=== PATIENT | male | born 1945 | race Caucasian/White ===

== ENCOUNTER 2021-09-27 12:34 | Outpatient (REF) | payer OTHER, SELFPAY ==
[2021-09-27 14:53] LABS: MANUAL DIFF FLAG NO
[2021-09-27 14:59] LABS: Basophils Absolute Auto 0.1 X10*3/uL (0.0-0.2); Basophils Percent Auto 0.7 % (0-2); Eosinophils Absolute Auto 0.5 X10*3/uL (0.0-0.4); Eosinophils Percent Auto 6.1 % (0-4); Hematocrit 44.4 % (42.0-52.0); Imm Gran Abs Auto 0.01 X10*3/uL (0.00-0.03); Imm Gran Pct Auto 0.1 % (0.0-0.4); Lymphocytes Absolute Auto 2.3 X10*3/uL (1.2-4.9); Lymphocytes Percent Auto 26.8 % (20-40); Mean Corpuscular HGB Conc 33.8 g/dl (31.0-36.0); Mean Corpuscular Hemoglobin 32.1 pg (27.0-33.0); Mean Corpuscular Volume 94.9 fL (80.0-98.0); Mean Platelet Volume 11.3 fL (9.4-12.4); Monocytes Absolute Auto 0.6 X10*3/uL (0.1-1.2); Monocytes Percent Auto 7.3 % (2-11); Platelet Count 203 X10*3/uL (160-400); Red Blood Count 4.68 X10*6/uL (4.60-5.80); Red Cell Distribution Width 12.7 % (11.0-16.0); White Blood Count 8.5 X10*3/uL (4.8-10.8)
[2021-09-27 15:43] LABS: T4 Thyroxine 7.6 ug/dL (4.5-12.0); Thyroid Stimulating Hormone 0.86 uIU/mL (0.32-4.0)
== END 2021-09-27 12:35 | disposition home or self-care (01) ==
LOC: HO.10HDL 12:34
PROVIDERS: Visit Provider Internal Medicine Gastroenterology
DX: R19.7 Diarrhea, unspecified (principal)
CPT/HCPCS: 36415; 84436; 84443; 85025

== ENCOUNTER 2022-03-06 08:27 | Outpatient (REF) | payer OTHER, SELFPAY ==
--- NOTE | ~2022-03-06 | US_ITS ---
EXAMINATION: US RETROPERITONEAL COMPLETE (RENAL) CLINICAL INFORMATION: Recurrent UTI. COMPARISON: None TECHNIQUE: Real-time imaging of the kidneys and bladder. FINDINGS: RIGHT KIDNEY: 11.1 x 6.1 x 5.5 cm (SAG x AP x TRV). The kidney is normal in size, contour, and echogenicity. Renal cortical thickness is normal. No calculi or focal parenchymal lesions. No hydronephrosis. There appears be an extrarenal pelvis present. LEFT KIDNEY: 11.6 x 5.9 x 5.5 cm (SAG x AP x TRV). The kidney is normal in size, contour, and echogenicity. Renal cortical thickness is normal. No calculi or focal parenchymal lesions. No hydronephrosis. There appears to be an extrarenal pelvis. BLADDER: Well distended and normal. Bilateral ureteral jets are demonstrated. Prevoid bladder volume is 392 mL. Postvoid bladder volume is 179 mL. Bladder wall is thickened at 5 mm in diameter. PROSTATE VOLUME: 45 mL. US/US retroperitoneal comp IMPRESSION: No evidence of obstructive uropathy. Large postvoid residual. Thickened urinary bladder wall..
== END 2022-03-06 08:28 | disposition home or self-care (01) ==
LOC: HO.US 08:27
PROVIDERS: PCP Student in an Organized Health Care Education/Training Program; Visit Provider Student in an Organized Health Care Education/Training Program
DX: N39.0 Urinary tract infection, site not specified (principal)
CPT/HCPCS: 76770

== ENCOUNTER 2022-04-02 09:21 | Outpatient (REF) | payer OTHER, SELFPAY ==
--- NOTE | ~2022-04-02 | US_ITS ---
EXAMINATION: COLOR-FLOW DUPLEX IMAGING OF THE BILATERAL LOWER EXTREMITY ARTERIAL SYSTEM. VELOCITY MEASUREMENTS THROUGHOUT THE FEMORAL ARTERIES WITH ANKLE-BRACHIAL PERIPHERAL ARTERIAL TESTING. Interventional Radiologist: Tiburcio Alvarado M.D., F.S.I.R., F.A.C.R. CLINICAL INFORMATION: This is a 76 year old male with a history of hypertension and smoking. Peripheral vascular disease. RIGHT FEMORAL RUNOFF VELOCITIES: The right common femoral artery measures 121 cm/s and biphasic. The right profunda femoral artery is 126 cm/s and is biphasic. Right proximal superficial femoral artery measures 60 cm/s and monophasic. Mid superficial femoral artery is 16 cm/s and monophasic. Distal right superficial femoral artery measures 104 cm/s and is monophasic. Right popliteal velocity measures 36 cm/s and is abnormal. The posterior tibial artery velocity measures 42 cm/s and was monophasic. The right ankle-brachial index is 0.69. The waveforms appear depressed. LEFT FEMORAL RUNOFF VELOCITIES: The left common femoral artery measures 125 cm/s and biphasic. The left profunda femoral artery is 147 cm/s and is biphasic. Left proximal superficial femoral artery measures 92 cm/s and triphasic. Mid superficial femoral artery is 105 cm/s and triphasic. Distal left superficial femoral artery measures 113 cm/s and is triphasic. Left popliteal velocity measures 90 cm/s and is biphasic. The left ankle-brachial index is 1.07. An arrhythmia is demonstrated during the Doppler portion of the examination. US/US arterial duplex LE IMPRESSION: 1. There is a short segment with very slow or absent flow in the mid right superficial femoral artery. This is considered a hemodynamically significant stenosis. This also could represent an embolus. 2. Normal left leg runoff without hemodynamically significant stenosis.
--- NOTE | ~2022-04-02 | US_ITS ---
EXAMINATION: COLOR-FLOW DUPLEX IMAGING OF THE BILATERAL LOWER EXTREMITY ARTERIAL SYSTEM. VELOCITY MEASUREMENTS THROUGHOUT THE FEMORAL ARTERIES WITH ANKLE-BRACHIAL PERIPHERAL ARTERIAL TESTING. Interventional Radiologist: Tiburcio Alvarado M.D., F.S.I.R., F.A.C.R. CLINICAL INFORMATION: This is a 76 year old male with a history of hypertension and smoking. Peripheral vascular disease. RIGHT FEMORAL RUNOFF VELOCITIES: The right common femoral artery measures 121 cm/s and biphasic. The right profunda femoral artery is 126 cm/s and is biphasic. Right proximal superficial femoral artery measures 60 cm/s and monophasic. Mid superficial femoral artery is 16 cm/s and monophasic. Distal right superficial femoral artery measures 104 cm/s and is monophasic. Right popliteal velocity measures 36 cm/s and is abnormal. The posterior tibial artery velocity measures 42 cm/s and was monophasic. The right ankle-brachial index is 0.69. The waveforms appear depressed. LEFT FEMORAL RUNOFF VELOCITIES: The left common femoral artery measures 125 cm/s and biphasic. The left profunda femoral artery is 147 cm/s and is biphasic. Left proximal superficial femoral artery measures 92 cm/s and triphasic. Mid superficial femoral artery is 105 cm/s and triphasic. Distal left superficial femoral artery measures 113 cm/s and is triphasic. Left popliteal velocity measures 90 cm/s and is biphasic. The left ankle-brachial index is 1.07. An arrhythmia is demonstrated during the Doppler portion of the examination. US/US HAILEY complete IMPRESSION: 1. There is a short segment with very slow or absent flow in the mid right superficial femoral artery. This is considered a hemodynamically significant stenosis. This also could represent an embolus. 2. Normal left leg runoff without hemodynamically significant stenosis.
== END 2022-04-02 09:22 | disposition home or self-care (01) ==
LOC: HO.US 09:21
PROVIDERS: Visit Provider Surgery Vascular Surgery
DX: I73.9 Peripheral vascular disease, unspecified (principal)
CPT/HCPCS: 93923; 93925

== ENCOUNTER → 2022-04-05 10:30 | Outpatient (BNVA) | payer OTHER, SELFPAY | PROVIDERS: PCP Student in an Organized Health Care Education/Training Program; Visit Provider Surgery Vascular Surgery | DX: I73.9 Peripheral vascular disease, unspecified (principal) | CPT/HCPCS: 99202 ==

== ENCOUNTER 2022-04-06 06:01 | Day surgery (SDC) | payer OTHER, SELFPAY ==
[2022-04-06] VITALS (8 sets, daily range): BP systolic 116–163; BP diastolic 47–77; PULSE 52–72; RESP 16–18; TEMP 36.1–36.5; O2SAT 95–97; BMI 24.7
[2022-04-06 06:44] LABS: MANUAL DIFF FLAG NO
[2022-04-06] MEDS: 0.9 % Sodium Chloride 1,000 ML 100 ML IVCONT (06:51)
[2022-04-06 06:54] LABS: Basophils Absolute Auto 0.1 X10*3/uL (0.0-0.2); Basophils Percent Auto 0.7 % (0-2); Eosinophils Absolute Auto 0.4 X10*3/uL (0.0-0.4); Eosinophils Percent Auto 6.1 % (0-4); Hematocrit 43.1 % (42.0-52.0); Hemoglobin 14.6 g/dl (14.0-18.0); Imm Gran Abs Auto 0.03 X10*3/uL (0.00-0.03); Imm Gran Pct Auto 0.4 % (0.0-0.4); Lymphocytes Absolute Auto 2.2 X10*3/uL (1.2-4.9); Lymphocytes Percent Auto 31.9 % (20-40); Mean Corpuscular HGB Conc 33.9 g/dl (31.0-36.0); Mean Corpuscular Hemoglobin 31.5 pg (27.0-33.0); Mean Corpuscular Volume 92.9 fL (80.0-98.0); Mean Platelet Volume 10.6 fL (9.4-12.4); Monocytes Absolute Auto 0.7 X10*3/uL (0.1-1.2); Monocytes Percent Auto 10.4 % (2-11); Neutrophils Absolute Auto 3.5 x10*3/uL (2.0-8.3); Neutrophils Percent Auto 50.5 % (45-73); Platelet Count 166 X10*3/uL (160-400); Red Blood Count 4.64 X10*6/uL (4.60-5.80); Red Cell Distribution Width 12.3 % (11.0-16.0); White Blood Count 6.9 X10*3/uL (4.8-10.8)
[2022-04-06 07:01] LABS: Blood Urea Nitrogen 10 mg/dL (9-16); Creatinine Clr Calc Pharmacy 67.7; Estimated Glomerular Filt Rate > 60
[2022-04-06] MEDS: iohexoL 300 MG/ML 100 ML INFUS..BTL 150 ML IV (09:23)
--- NOTE | 2022-04-06 09:56 | P.OP_ITS ---
Operative Note Operative Note Date of Service: 04/06/22 Narrative: Angiogram report from [facility] Preoperative diagnosis: Atherosclerosis of right lower extremity with activity limiting claudication Postoperative diagnosis: Same Procedure: 1. Ultrasound-guided left common femoral access 2. Aortogram with right lower extremity runoff 3. Right SFA atherectomy and stent Surgeon:Reji Amaya M.D., FACS, RPVI Manager Steel:None Anesthesia: Local with moderate conscious sedation. Total intraservice moderate sedation time was 74 minutes. I monitored the patient's level of consciousness and physiologic status continuously throughout the procedure. Specimens:none Drains:none Estimated blood loss: Less than 10 ml Implant: Medtronic Ev 3 Everflex 6 x 60 stent Indications: Very pleasant 76-year-old gentleman with a history of activity limiting claudication. He has had prior ultrasound evaluation. He now presents for endovascular intervention. The patient has signed the informed consent after reviewing risks, complications, benefits, and alternatives previously discussed with the patient. The patient was given the opportunity to ask any additional questions or voice any concerns. All questions were answered to the patient's satisfaction. Procedure in detail: Patient was brought to the angiography suite prior to which a time-out was called for patient identification and site verification. Bilateral groins were prepped and draped in the standard surgical fashion. Under ultrasound guidance left common femoral was punctured with micro puncture needle and wire. Subsequently a precision 5 Haitian sheath was then placed. Bentson wire was advanced to the level of the aorta. 5 [place]ian Flush catheter was brought up and parked at the level of the renal arteries. Aortogram was then undertaken. Catheter was brought down to the level of the iliac bifurcation. Iliacs were subsequently imaged. Catheter was then brought in up and over to the right side SFA. Runoff study was then undertaken. It was recognized that there was a total proximal occlusion of the SFA. At this time 5000 units of systemic heparin was administered. An up and over 6 Haitian sheath was then placed. Once this was accomplished we used an 035 glidewire Advantage. After some manipulation we were able to traverse the lesion. Once across we have followed with a now be cross catheter. We instilled the catheter with contrast to ensure true lumen. Once this was accomplished 6 Haitian spider wire was then placed. Hawk 1 atherectomy device was used in the proximal SFA with multiple unidirectional passes. Once this was all accomplished additional passes were then undertaken. Once this was all accomplished she we then plasty this area with a 6 x 40 balloon. There was still residual stenosis noted we placed a 6 x 60 stent. We used the balloon after deployment to obtain good wall apposition. Completion angiogram demonstrated excellent result catheter wire sheath was brought back to the ipsilateral side StarClose closure device was then deployed. At the end the case sponge instrument counts were correct. Patient tolerated the procedure well. Returned to recovery with stable vitals. Interpretation of films: 1. Ultrasound demonstrates appropriate femoral puncture. Image of which was saved. 2. Aortogram demonstrates appropriate caliber aorta. Minimal disease. Appropriate take-off of the renals. 3. Iliac images demonstrate significant tortuosity with acute angle bifurcation. 4. Right Leg Common femoral artery: No significant disease Profundus Femoris: No significant disease Superficial femoral artery: Proximal 1/3 total occlusion with reconstitution into the SFA Popliteal artery (p1,p2,p3): No significant disease Anterior tibial artery: Patent all the way to the foot Peroneal artery: Patent but diminutive Posterior tibial artery: Patent all the way to the foot Dorsalis pedis/plantar arch: Incomplete Conclusion: 1. Successful atherectomy and stent of right SFA 2. Anticoagulation status: Patient will require aspirin and Plavix for 6 months. This note is constructed using voice recognition software. While every effort has been made to ensure accuracy, enamel pulverizer errors may have been included. Thank you for allowing me to participate in the care of your patient. Yours sincerely, Reji Amaya MD, FACS, R.P.V.I.
[2022-04-06] MEDS: ondansetron HCL 4 MG/2 ML VIAL IVPUSH (10:03)
[2022-04-06] MEDS: Clopidogrel Bisulfate 300 MG TABLET PO (10:08)
[2022-04-06] MEDS: Aspirin 325 MG TABLET 650 MG PO (10:47)
== END 2022-04-06 12:11 | disposition home or self-care (01) ==
PROVIDERS: PCP Student in an Organized Health Care Education/Training Program; Visit Provider Surgery Vascular Surgery
DX: I70.211 Atherosclerosis of native arteries of extremities with intermittent claudication, right leg (principal); M79.661 Pain in right lower leg; R26.2 Difficulty in walking, not elsewhere classified; Z87.891 Personal history of nicotine dependence; Z98.890 Other specified postprocedural states
CPT/HCPCS: 36415; 37227; 76937; 82565; 84520; 85025; 99152; 99153; C1714; C1725; C1760; C1769; C1876; C1884; C1887; J2250; J2405; J3010; Q9967

== ENCOUNTER → 2022-04-19 10:50 | Outpatient (BNVA) | payer OTHER, SELFPAY | PROVIDERS: PCP Student in an Organized Health Care Education/Training Program; Visit Provider Surgery Vascular Surgery | DX: I73.9 Peripheral vascular disease, unspecified (principal) | CPT/HCPCS: 99212 ==

== ENCOUNTER 2022-07-01 07:49 | Outpatient (REF) | payer OTHER, SELFPAY ==
--- NOTE | ~2022-07-01 | US_ITS ---
EXAMINATION: ANKLE-BRACHIAL INDICES SINGLE LEVEL PULSE VOLUME RECORDING ARTERIAL DUPLEX BILATERAL LEGS CLINICAL INFORMATION: Peripheral vascular disease. COMPARISON: 04/02/2022. TECHNIQUE: Ankle-brachial indices and PVR at the ankle were obtained. Duplex Doppler of the bilateral lower extremity arterial systems was performed. FINDINGS: RIGHT: Ankle-brachial index: 1.11 PVR: Normal Common femoral: PSV 138 cm/s. Triphasic waveform. Deep femoral: PSV 116 cm/s. Biphasic waveform. Proximal superficial femoral: PSV 130 cm/s. Triphasic waveform. Stented segment of proximal/mid SFA: The stent is widely patent with triphasic waveforms and velocities ranging 146-177 cm/s. Mid superficial femoral: PSV 109 cm/s. Triphasic waveform. Distal superficial femoral: PSV 98 cm/s. Triphasic waveform. Popliteal: PSV 79 cm/s. Biphasic waveform. Posterior tibial: PSV 94 cm/s. Triphasic waveform. Peroneal: PSV 72 cm/s. Biphasic waveform. LEFT: Ankle-brachial index: 1.15 PVR: Normal Common femoral: PSV 114 cm/s. Triphasic waveform. Deep femoral: PSV 141 cm/s. Biphasic waveform. Proximal superficial femoral: PSV 87 cm/s. Biphasic waveform. Mid superficial femoral: PSV 105 cm/s. Triphasic waveform. Distal superficial femoral: PSV 84 cm/s. Triphasic waveform. Popliteal: PSV 104 cm/s. Biphasic waveform. Posterior tibial: PSV 96 cm/s. Biphasic waveform. Peroneal: PSV 59 cm/s. Biphasic waveform. US/US HAILEY complete IMPRESSION: No evidence of hemodynamically significant peripheral arterial disease bilaterally. The high-grade lesion in the right superficial femoral artery on the previous exam has been treated with a stent. The stent is patent with normal waveforms and velocities.
--- NOTE | ~2022-07-01 | US_ITS ---
EXAMINATION: ANKLE-BRACHIAL INDICES SINGLE LEVEL PULSE VOLUME RECORDING ARTERIAL DUPLEX BILATERAL LEGS CLINICAL INFORMATION: Peripheral vascular disease. COMPARISON: 04/02/2022. TECHNIQUE: Ankle-brachial indices and PVR at the ankle were obtained. Duplex Doppler of the bilateral lower extremity arterial systems was performed. FINDINGS: RIGHT: Ankle-brachial index: 1.11 PVR: Normal Common femoral: PSV 138 cm/s. Triphasic waveform. Deep femoral: PSV 116 cm/s. Biphasic waveform. Proximal superficial femoral: PSV 130 cm/s. Triphasic waveform. Stented segment of proximal/mid SFA: The stent is widely patent with triphasic waveforms and velocities ranging 146-177 cm/s. Mid superficial femoral: PSV 109 cm/s. Triphasic waveform. Distal superficial femoral: PSV 98 cm/s. Triphasic waveform. Popliteal: PSV 79 cm/s. Biphasic waveform. Posterior tibial: PSV 94 cm/s. Triphasic waveform. Peroneal: PSV 72 cm/s. Biphasic waveform. LEFT: Ankle-brachial index: 1.15 PVR: Normal Common femoral: PSV 114 cm/s. Triphasic waveform. Deep femoral: PSV 141 cm/s. Biphasic waveform. Proximal superficial femoral: PSV 87 cm/s. Biphasic waveform. Mid superficial femoral: PSV 105 cm/s. Triphasic waveform. Distal superficial femoral: PSV 84 cm/s. Triphasic waveform. Popliteal: PSV 104 cm/s. Biphasic waveform. Posterior tibial: PSV 96 cm/s. Biphasic waveform. Peroneal: PSV 59 cm/s. Biphasic waveform. US/US arterial duplex LE BI IMPRESSION: No evidence of hemodynamically significant peripheral arterial disease bilaterally. The high-grade lesion in the right superficial femoral artery on the previous exam has been treated with a stent. The stent is patent with normal waveforms and velocities.
== END 2022-07-01 07:50 | disposition home or self-care (01) ==
LOC: HO.US 07:49
PROVIDERS: Visit Provider Surgery Vascular Surgery
DX: I73.9 Peripheral vascular disease, unspecified (principal)
CPT/HCPCS: 93923; 93925

== ENCOUNTER → 2022-07-12 08:45 | Outpatient (BNVA) | payer OTHER, SELFPAY | PROVIDERS: PCP Student in an Organized Health Care Education/Training Program; Visit Provider Surgery Vascular Surgery | DX: I73.9 Peripheral vascular disease, unspecified (principal) | CPT/HCPCS: 99212 ==

== ENCOUNTER → 2022-07-13 09:06 | Outpatient (BNVA) | payer OTHER, SELFPAY | PROVIDERS: PCP Student in an Organized Health Care Education/Training Program; Visit Provider Urology | DX: N40.1 Benign prostatic hyperplasia with lower urinary tract symptoms (principal); R33.9 Retention of urine, unspecified | CPT/HCPCS: 51798; 99202 ==

== ENCOUNTER 2022-07-20 12:52 | Outpatient (REF) | payer OTHER, SELFPAY ==
[2022-07-27 20:52] LABS: PSA, Ultra Sensitive 0.67 ng/mL
== END 2022-07-20 12:53 | disposition home or self-care (01) ==
LOC: HO.LAB 12:52
PROVIDERS: PCP Student in an Organized Health Care Education/Training Program; Visit Provider Urology
DX: N40.1 Benign prostatic hyperplasia with lower urinary tract symptoms (principal); R33.8 Other retention of urine; Z12.5 Encounter for screening for malignant neoplasm of prostate
CPT/HCPCS: 36415; 84153

== ENCOUNTER → 2022-09-26 13:57 | Outpatient (BNVA) | payer OTHER, SELFPAY | PROVIDERS: PCP Student in an Organized Health Care Education/Training Program; Visit Provider Urology | DX: N40.1 Benign prostatic hyperplasia with lower urinary tract symptoms (principal); R33.9 Retention of urine, unspecified; R39.198 Other difficulties with micturition | CPT/HCPCS: 52000; 99212 ==

== ENCOUNTER → 2022-12-16 09:07 | Outpatient (BNVA) | payer OTHER, SELFPAY | PROVIDERS: PCP Student in an Organized Health Care Education/Training Program; Visit Provider Urology | DX: N40.1 Benign prostatic hyperplasia with lower urinary tract symptoms (principal); R33.9 Retention of urine, unspecified; R39.198 Other difficulties with micturition | CPT/HCPCS: 51798; 99212 ==

== ENCOUNTER 2023-01-11 07:37 | Outpatient (REF) | payer OTHER, SELFPAY ==
--- NOTE | ~2023-01-11 | US_ITS ---
EXAMINATION: ANKLE-BRACHIAL INDICES SINGLE LEVEL PULSE VOLUME RECORDING ARTERIAL DUPLEX BILATERAL LEGS CLINICAL INFORMATION: Peripheral vascular disease. COMPARISON: 07/01/2022 TECHNIQUE: Ankle-brachial indices and PVR at the ankle were obtained. Duplex Doppler of the bilateral lower extremity arterial systems was performed. FINDINGS: RIGHT: Ankle-brachial index: 0.82 PVR: Normal Common femoral: PSV 136 cm/s. Triphasic waveform. Deep femoral: PSV 138 cm/s. Triphasic waveform. Proximal superficial femoral: PSV 80 cm/s. Triphasic waveform. Stented segment of proximal/mid SFA: There is a new in-stent stenosis stenosis. Peak systolic velocity 626 cm/s. Triphasic waveform with spectral broadening. Mid superficial femoral: PSV 63 cm/s. Triphase waveform. Distal superficial femoral: PSV 56 cm/s. Triphasic waveform. Popliteal: PSV 60 cm/s. Triphasic waveform. Posterior tibial: PSV 60 cm/s. Triphasic waveform. Peroneal: PSV 28 cm/s. Biphasic waveform. LEFT: Ankle-brachial index: 1.08 PVR: Normal Common femoral: PSV 104 cm/s. Biphasic waveform. Deep femoral: PSV 77 cm/s. Biphasic waveform. Proximal superficial femoral: PSV 103 cm/s. Triphasic waveform. Mid superficial femoral: PSV 96 cm/s. Triphasic waveform. Distal superficial femoral: PSV 88 cm/s. Triphasic waveform. Popliteal: PSV 65 cm/s. Triphasic waveform. Posterior tibial: PSV 103 cm/s. Triphasic waveform. Peroneal: PSV 58 cm/s. Triphasic waveform. US/US arterial duplex LE BI IMPRESSION: Right: Ankle-brachial index 0.82 (decreased from 1.11). New in-stent stenosis in the proximal superficial femoral artery with 4 to 1 velocity shift consistent with a greater than 75% stenosis. Left: Ankle-brachial index 1.08 (stable). No evidence of hemodynamically significant peripheral arterial disease.
--- NOTE | ~2023-01-11 | US_ITS ---
EXAMINATION: ANKLE-BRACHIAL INDICES SINGLE LEVEL PULSE VOLUME RECORDING ARTERIAL DUPLEX BILATERAL LEGS CLINICAL INFORMATION: Peripheral vascular disease. COMPARISON: 07/01/2022 TECHNIQUE: Ankle-brachial indices and PVR at the ankle were obtained. Duplex Doppler of the bilateral lower extremity arterial systems was performed. FINDINGS: RIGHT: Ankle-brachial index: 0.82 PVR: Normal Common femoral: PSV 136 cm/s. Triphasic waveform. Deep femoral: PSV 138 cm/s. Triphasic waveform. Proximal superficial femoral: PSV 80 cm/s. Triphasic waveform. Stented segment of proximal/mid SFA: There is a new in-stent stenosis stenosis. Peak systolic velocity 626 cm/s. Triphasic waveform with spectral broadening. Mid superficial femoral: PSV 63 cm/s. Triphase waveform. Distal superficial femoral: PSV 56 cm/s. Triphasic waveform. Popliteal: PSV 60 cm/s. Triphasic waveform. Posterior tibial: PSV 60 cm/s. Triphasic waveform. Peroneal: PSV 28 cm/s. Biphasic waveform. LEFT: Ankle-brachial index: 1.08 PVR: Normal Common femoral: PSV 104 cm/s. Biphasic waveform. Deep femoral: PSV 77 cm/s. Biphasic waveform. Proximal superficial femoral: PSV 103 cm/s. Triphasic waveform. Mid superficial femoral: PSV 96 cm/s. Triphasic waveform. Distal superficial femoral: PSV 88 cm/s. Triphasic waveform. Popliteal: PSV 65 cm/s. Triphasic waveform. Posterior tibial: PSV 103 cm/s. Triphasic waveform. Peroneal: PSV 58 cm/s. Triphasic waveform. US/US HAILEY complete IMPRESSION: Right: Ankle-brachial index 0.82 (decreased from 1.11). New in-stent stenosis in the proximal superficial femoral artery with 4 to 1 velocity shift consistent with a greater than 75% stenosis. Left: Ankle-brachial index 1.08 (stable). No evidence of hemodynamically significant peripheral arterial disease.
== END 2023-01-11 07:38 | disposition home or self-care (01) ==
LOC: HO.US 07:37
PROVIDERS: PCP Student in an Organized Health Care Education/Training Program; Visit Provider Surgery Vascular Surgery
DX: I70.213 Atherosclerosis of native arteries of extremities with intermittent claudication, bilateral legs (principal)
CPT/HCPCS: 93923; 93925

== ENCOUNTER → 2023-01-17 08:56 | Outpatient (BNVA) | payer OTHER, SELFPAY | PROVIDERS: PCP Student in an Organized Health Care Education/Training Program; Visit Provider Surgery Vascular Surgery | DX: I73.9 Peripheral vascular disease, unspecified (principal) | CPT/HCPCS: 99212 ==

== ENCOUNTER → 2023-02-22 05:59 | Day surgery (SDC) | payer OTHER, SELFPAY ==
[2023-02-22] VITALS (9 sets, daily range): BP systolic 107–144; BP diastolic 61–82; PULSE 54–65; RESP 16–18; TEMP 36.1; O2SAT 96–99; BMI 26.5
[2023-02-22 06:55] LABS: MANUAL DIFF FLAG NO
[2023-02-22 07:02] LABS: Basophils Absolute Auto 0.1 X10*3/uL (0.0-0.2); Eosinophils Absolute Auto 0.5 X10*3/uL (0.0-0.4); Eosinophils Percent Auto 7.4 % (0-4); Hematocrit 42.7 % (42.0-52.0); Hemoglobin 14.5 g/dl (14.0-18.0); Imm Gran Abs Auto 0.01 X10*3/uL (0.00-0.03); Imm Gran Pct Auto 0.2 % (0.0-0.4); Lymphocytes Absolute Auto 2.5 X10*3/uL (1.2-4.9); Lymphocytes Percent Auto 40.3 % (20-40); Mean Corpuscular Hemoglobin 31.2 pg (27.0-33.0); Mean Corpuscular Volume 91.8 fL (80.0-98.0); Mean Platelet Volume 10.3 fL (9.4-12.4); Monocytes Absolute Auto 0.7 X10*3/uL (0.1-1.2); Monocytes Percent Auto 10.9 % (2-11); Neutrophils Absolute Auto 2.5 x10*3/uL (2.0-8.3); Neutrophils Percent Auto 40.2 % (45-73); Platelet Count 158 X10*3/uL (160-400); Red Blood Count 4.65 X10*6/uL (4.60-5.80); Red Cell Distribution Width 12.7 % (11.0-16.0); White Blood Count 6.1 X10*3/uL (4.8-10.8)
[2023-02-22 07:14] LABS: Blood Urea Nitrogen 8 mg/dL (9-16); Creatinine Clr Calc Pharmacy 70.8; Estimated Glomerular Filt Rate > 60
--- NOTE | 2023-02-22 09:06 | P.OP_ITS ---
Operative Note Operative Note Date of Service: 02/22/23 Narrative: Angiogram report from [facility] Preoperative diagnosis: Atherosclerosis of right lower extremity with activity limiting claudication Postoperative diagnosis: Same Procedure: 1. Ultrasound-guided left common femoral access 2. Aortogram with right lower extremity runoff 3. Right SFA plasty Surgeon:Reji Amaya M.D., FACS, RPVI Director Of Cardiology:None Anesthesia: Local with moderate conscious sedation. Total intraservice moderate sedation time was 40 minutes. I monitored the patient's level of consciousness and physiologic status continuously throughout the procedure. Specimens:none Drains:none Estimated blood loss: Less than 10 ml Implant: Medtronic Impact DCB 6 x 60 Indications: Very pleasant 77-year-old gentleman with a prior history a right SFA stent nearly a year ago. On surveillance follow-up was found to have high- grade stenosis within the stent. He now presents for endovascular intervention. The patient has signed the informed consent after reviewing risks, complications, benefits, and alternatives previously discussed with the patient. The patient was given the opportunity to ask any additional questions or voice any concerns. All questions were answered to the patient's satisfaction. Procedure in detail: Patient was brought to the angiography suite prior to which a time-out was called for patient identification and site verification. Bilateral groins were prepped and draped in the standard surgical fashion. Under ultrasound guidance left common femoral was punctured with micro puncture needle and wire. Subsequently a precision 4 [place] African sheath was then placed. Bentson wire was advanced to the level of the aorta. 4 [place] Flush catheter was brought up and parked at the level of the renal arteries. Aortogram was then undertaken. Catheter was brought down to the level of the iliac bifurcation. Iliacs were subsequently imaged. Catheter was then brought in up and over to the right side SFA. Runoff study was then undertaken. Once this was accomplished we did see the InStent restenoses. We advanced an 035 glidewire Advantage. We then administered 5000 units of systemic heparin. After 5 minutes of circulation time up and over 6 [place] sheath was then placed. We were able to easily traverse the lesion with the advantage wire. We confirmed true lumen by instilling contrast in the trail Blazer catheter. We initially plasty this area with a regular 6 x 60 balloon. We then brought in a drug coated 6 x 60 balloon. This was brought into position in under 3 minutes and insufflated for a total of 3 minutes in duration. Once this was all accomplished completion angiogram demonstrated excellent result. Catheter wire sheath was brought back to the ipsilateral side. StarClose closure device was deployed. Patient tolerated the procedure well. Returned to recovery with stable vitals. Interpretation of films: 1. Ultrasound demonstrates appropriate femoral puncture. Image of which was saved. 2. Aortogram demonstrates appropriate caliber aorta. Minimal disease. Appropriate take-off of the renals. 3. Iliac images demonstrate no significant disease 4. Right Leg Common femoral artery: No significant disease Profundus Femoris: No significant disease Superficial femoral artery: In stent restenoses and good runoff distal to that Popliteal artery (p1,p2,p3): No significant disease Anterior tibial artery: No significant disease good runoff to the foot Peroneal artery: Occludes in the proximal 3rd - and small collaterals come off via this. Posterior tibial artery: No significant disease good runoff to the foot Dorsalis pedis/plantar arch: Complete Conclusion: 1. Successful plasty of right SFA InStent restenoses 2. Anticoagulation status: Continue aspirin and Plavix for minimum of 6 months This note is constructed using voice recognition software. While every effort has been made to ensure accuracy, supervisor toy assembly errors may have been included. Thank you for allowing me to participate in the care of your patient. Yours sincerely, Reji Amaya MD, FACS, R.P.V.I.
[2023-02-22] MEDS: Clopidogrel Bisulfate 75 MG TABLET PO (10:30)
== END | disposition home or self-care (01) ==
PROVIDERS: PCP Student in an Organized Health Care Education/Training Program; Visit Provider Surgery Vascular Surgery
DX: I70.211 Atherosclerosis of native arteries of extremities with intermittent claudication, right leg (principal); T82.856A Stenosis of peripheral vascular stent, initial encounter; Y82.8 Other medical devices associated with adverse incidents; Y92.9 Unspecified place or not applicable; I10 Essential (primary) hypertension; Z87.891 Personal history of nicotine dependence
CPT/HCPCS: 36415; 37224; 76937; 82565; 84520; 85025; C1725; C1760; C1769; C1887; C2623; J1643; J2250; J3010; Q9967

== ENCOUNTER → 2023-03-09 09:08 | Outpatient (BNVA) | payer OTHER, SELFPAY | PROVIDERS: PCP Student in an Organized Health Care Education/Training Program; Visit Provider Surgery Vascular Surgery | DX: I73.9 Peripheral vascular disease, unspecified (principal); Z95.820 Peripheral vascular angioplasty status with implants and grafts | CPT/HCPCS: 99212 ==

== ENCOUNTER 2023-06-05 08:26 | Outpatient (REF) | payer OTHER, SELFPAY ==
--- NOTE | ~2023-06-05 | US_ITS ---
EXAMINATION: ANKLE-BRACHIAL INDICES SINGLE LEVEL PULSE VOLUME RECORDING ARTERIAL DUPLEX BILATERAL LEGS CLINICAL INFORMATION: Peripheral vascular disease COMPARISON: 01/11/2023 TECHNIQUE: Ankle-brachial indices and PVR at the ankle were obtained. Duplex Doppler of the bilateral lower extremity arterial systems was performed. FINDINGS: RIGHT: Ankle-brachial index: 1.08 (previous 0.82) PVR: Normal Common femoral: PSV 127 cm/s. Biphasic waveform. Deep femoral: PSV 111 cm/s. Biphasic waveform. Proximal superficial femoral: PSV 128 cm/s. Triphasic waveform. Stented segment of proximal/mid SFA: The previously seen in-stent stenosis is no longer seen. Peak systolic velocity 175 cm/s. Triphasic waveform. Mid superficial femoral: PSV 125 cm/s. Biphasic waveform. Distal superficial femoral: PSV 100 cm/s. Triphasic waveform. Popliteal: PSV 79 cm/s. Biphasic waveform. Posterior tibial: PSV 87 cm/s. Biphasic waveform. Peroneal: PSV 46 cm/s. Biphasic waveform. LEFT: Ankle-brachial index: 1.09 (previous 1.08) PVR: Normal Common femoral: PSV 81 cm/s. Biphasic waveform. Deep femoral: PSV 69 cm/s. Biphasic waveform. Proximal superficial femoral: PSV 85 cm/s. Biphasic waveform. Mid superficial femoral: PSV 90 cm/s. Biphasic waveform. Distal superficial femoral: PSV 88 cm/s. Biphasic waveform. Popliteal: PSV 81 cm/s. Biphasic waveform. Posterior tibial: PSV 86 cm/s. Biphasic waveform. Peroneal: PSV 60 cm/s. Biphasic waveform. US/US HAILEY complete IMPRESSION: Right: Ankle-brachial index 1.08 (increased from 0.82). Resolution of previously seen SFA stent stenosis. No evidence of hemodynamically significant peripheral arterial disease. Left: Ankle-brachial index 1.09 (stable compared to 1.08). No evidence of hemodynamically significant peripheral arterial disease.
--- NOTE | ~2023-06-05 | US_ITS ---
EXAMINATION: ANKLE-BRACHIAL INDICES SINGLE LEVEL PULSE VOLUME RECORDING ARTERIAL DUPLEX BILATERAL LEGS CLINICAL INFORMATION: Peripheral vascular disease COMPARISON: 01/11/2023 TECHNIQUE: Ankle-brachial indices and PVR at the ankle were obtained. Duplex Doppler of the bilateral lower extremity arterial systems was performed. FINDINGS: RIGHT: Ankle-brachial index: 1.08 (previous 0.82) PVR: Normal Common femoral: PSV 127 cm/s. Biphasic waveform. Deep femoral: PSV 111 cm/s. Biphasic waveform. Proximal superficial femoral: PSV 128 cm/s. Triphasic waveform. Stented segment of proximal/mid SFA: The previously seen in-stent stenosis is no longer seen. Peak systolic velocity 175 cm/s. Triphasic waveform. Mid superficial femoral: PSV 125 cm/s. Biphasic waveform. Distal superficial femoral: PSV 100 cm/s. Triphasic waveform. Popliteal: PSV 79 cm/s. Biphasic waveform. Posterior tibial: PSV 87 cm/s. Biphasic waveform. Peroneal: PSV 46 cm/s. Biphasic waveform. LEFT: Ankle-brachial index: 1.09 (previous 1.08) PVR: Normal Common femoral: PSV 81 cm/s. Biphasic waveform. Deep femoral: PSV 69 cm/s. Biphasic waveform. Proximal superficial femoral: PSV 85 cm/s. Biphasic waveform. Mid superficial femoral: PSV 90 cm/s. Biphasic waveform. Distal superficial femoral: PSV 88 cm/s. Biphasic waveform. Popliteal: PSV 81 cm/s. Biphasic waveform. Posterior tibial: PSV 86 cm/s. Biphasic waveform. Peroneal: PSV 60 cm/s. Biphasic waveform. US/US arterial duplex LE BI IMPRESSION: Right: Ankle-brachial index 1.08 (increased from 0.82). Resolution of previously seen SFA stent stenosis. No evidence of hemodynamically significant peripheral arterial disease. Left: Ankle-brachial index 1.09 (stable compared to 1.08). No evidence of hemodynamically significant peripheral arterial disease.
== END 2023-06-05 08:27 | disposition home or self-care (01) ==
LOC: HO.US 08:26
PROVIDERS: PCP Student in an Organized Health Care Education/Training Program; Visit Provider Surgery Vascular Surgery
DX: I73.9 Peripheral vascular disease, unspecified (principal)
CPT/HCPCS: 93923; 93925

== ENCOUNTER 2023-06-15 08:33 | Outpatient (REF) | payer OTHER, SELFPAY ==
[2023-06-15 12:35] LABS: Prostate Specific Antigen 0.77 ng/mL (<0.05-4.0)
== END 2023-06-15 08:34 | disposition home or self-care (01) ==
LOC: HO.10HDL 08:33
PROVIDERS: Visit Provider Urology
DX: Z12.5 Encounter for screening for malignant neoplasm of prostate (principal); N40.1 Benign prostatic hyperplasia with lower urinary tract symptoms
CPT/HCPCS: 36415; 84153

== ENCOUNTER 2023-06-19 08:49 | Outpatient (AMB) | payer OTHER, SELFPAY ==
--- NOTE | 2023-06-19 08:55 | A.OFFVIS_ITS ---
Intake Intake Visit Reasons: 6m/PSA Intake Note: Patient presents today for a follow-up on 6mo PSA: Meds- Alfuzosin Allergies to Antibiotic- No Known Allergies Blood Thinner- Aspirin PSA- 0.77 ng/mL 06/14/2023 PVR- 163 mL Community Product Specialist Required: No Accompanied by: Daughter Allergies No Known Allergies Allergy (Verified 03/09/23 09:16) Medication List - Last Reconciled 06/19/23 by Mikaela Duke MD alfuzosin ER 10 mg PO DAILY aspirin (Adult Aspirin Regimen) 81 mg PO DAILY cholecalciferol (vitamin D3) 25 mcg PO DAILY clopidogrel (Plavix) 75 mg PO DAILY gabapentin 300 mg PO DAILY metoprolol succinate ER 50 mg PO DAILY simvastatin 20 mg PO BEDTIME vitamin B complex (B Complex-Vitamin B12 tablet) 1 tab PO DAILY HPI HPI Comments History of Present Illness Details Jhon is a 78-year-old male who presents today to the office for a follow-up. 06/19/2023? He is followed today for PSA. He was last seen by me on 12/16/2022 for recurrent urinary tract infections. The patient was advised to continue alfuzosin 10 mg daily.? PSA screening was ordered and he was advised to follow-up in 6 months during that time. He states that he is doing well at this time. He has been taking alfusozin 10 mg daily with benefit. He reports normal urinary stream. In general he is up 0-1 time at night unless he drinks coffee in the evening he gets up 2 x. He states his flow during the day is steady and he feels he is emptying his bladderl, denies dysuria or gross hematuria. I reviewed the PSA results from 06/14/2023 revealed 0.77 ng/mL. 06/19/2023: Evaluation today?UA? Leukocy nisreen: negative; blood: negative; Bladder scan PVR: 163mL. Review of charts: Last visit: 12/16/2022? LV 09/26/22--here as a new patient evaluation for recurrent UTIs. He states he was treated with antibiotics x2 courses a few months ago. Currently denies dysuria.? Denies gross hematuria.? Complains of weak stream. Was started on Flomax about 6 months ago by PCP, patient stays minimal improvement in strength of urinary flow. States had prostate biopsy about 12 years ago which was normal.? States PSA has been normal. 09/26/22- here for office cystoscopy, he states he is not sure if he started the alfuzosin or if he is still taking the flomax. Findings:? bladder mucosa - no suspious lesions, mild/mod trabeculations, plan I will send another script for alfuzosin 10 mg daily 12/16/2022-- states that urinary symptoms are improved, taking alfuzosin 10 mg daily Evaluation today-urinalysis negative for infection. Bladder scan PVR 87 mL. Plan continue alfuzosin 10 mg daily.? PSA screening.? Follow-up in 6 months. 06/19/2023: Plan: Continue aflusozin 10 mg daily. Monitor PVR Follow up in 1 year, PSA US of the kidney prior. [facility] Medical History HTN (hypertension) HTN (hypertension) HTN (hypertension) PAD (peripheral artery disease) Surgical History Hx of cataract surgery S/P angiogram of extremity (04/06/22) Lumbar stenosis History of hemorrhoidectomy History of right knee surgery S/P left rotator cuff repair S/P right rotator cuff repair History of right tennis elbow Left rotator cuff tear arthropathy Trigger finger of right thumb Cervical radiculopathy at C6 Cervical radiculopathy at C5 Status post osteotomy Left varicocele History of appendectomy Family History Mother No problems noted. Father Heart disease Sister Multiple sclerosis Social History Alcohol intake: current Alcohol intake frequency: holidays/special occasions on ly Patient Tobacco Use Status: Former Tobacco user Quit Date: July 1974 Years Smoked: 10+/- Review of Systems Const All systems reviewed & are unremarkable except as noted in HPI and below Reports no additional complaints ENT Reports Normal hearing present Card Denies chest pain, Denies chest pain at rest, Denies chest pain with activity and Denies pedal edema Resp Denies cough GI Denies abdominal pain Musc Denies abnormal gait, Denies muscle cramps and Denies radiating pain into limb Skin/Breast Denies skin ulcer and Denies wounds Neuro Reports Normal hearing present and Denies abnormal gait Psych Reports no additional complaints Physical Exam Neuro Cranial nerves: Yes Normal hearing present Office Procedures Post Void Residual Post Residual Void Post Void Residual (PVR): 163 [id number] Void Residual by ultrasound Results AMB Urinalysis, Automated UA Leukoctes 0 Noy/uL Last Edit by Deanna Ricardo [facility] on 06/19/23 09:15 UA Nitrite Negative Last Edit by Deanna Ricardo [facility] on 06/19/23 09:15 UA Urobilinogen 0.2 mg/dL Last Edit by Deanna Ricardo [facility] on 06/19/23 09:1 5 UA Protein 0 mg/dL Last Edit by Deanna Ricardo [facility] on 06/19/23 09:15 UA pH 6.0 Last Edit by Deanna Ricardo [facility] on 06/19/23 09:15 UA Blood 0 Blake/uL Last Edit by Deanna Ricardo [facility] on 06/19/23 09:15 UA Specific [place] 1.010 Last Edit by Deanna Ricardo [facility] on 06/19/23 09: 15 UA Ketone Negative Last Edit by Deanna Ricardo [facility] on 06/19/23 09:15 UA Bilirubin 0 mg/dL Last Edit by Deanna Ricardo [facility] on 06/19/23 09:15 UA Glucose 0 mg/dL Last Edit by Deanna Ricardo [facility] on 06/19/23 09:15 Results Reviewed Results Reviewed: Laboratory Last Values Urine pH (Auto) 6.0 06/19/23 09:04 Specific [place] (Auto) 1.010 06/19/23 09:04 Urine Protein (Auto) 0 mg/dL 06/19/23 09:04 Glucose (UA)(Auto) 0 mg/dL 06/19/23 09:04 Urine Ketones (Auto) Negative 06/19/23 09:04 Urine Blood (Auto) 0 Blake/uL 06/19/23 09:04 Urine Nitrite (Auto) Negative 06/19/23 09:04 Urine Bilirubin (Auto) 0 mg/dL 06/19/23 09:04 Urine Urobilinogen (Auto) 0.2 mg/dL 06/19/23 09:04 Leukocyte Esterase (Auto) 0 Noy/uL 06/19/23 09:04 Date of Service: 06/05/23 EXAMINATION: ANKLE-BRACHIAL INDICES SINGLE LEVEL PULSE VOLUME RECORDING ARTERIAL DUPLEX BILATERAL LEGS CLINICAL INFORMATION:? Peripheral vascular disease COMPARISON:? 01/11/2023 FINDINGS: RIGHT: Ankle-brachial index: 1.08 (previous 0.82) PVR: Normal Common femoral: PSV 127 cm/s. Biphasic waveform. Deep femoral: PSV 111 cm/s. Biphasic waveform. Proximal superficial femoral: PSV 128 cm/s. Triphasic waveform. Stented segment of proximal/mid SFA: The previously seen in-stent stenosis is no longer seen. Peak systolic velocity 175 cm/s. Triphasic waveform. Mid superficial femoral: PSV 125 cm/s. Biphasic waveform. Distal superficial femoral: PSV 100 cm/s. Triphasic waveform. Popliteal: PSV 79 cm/s. Biphasic waveform. Posterior tibial: PSV 87 cm/s. Biphasic waveform. Peroneal: PSV 46 cm/s. Biphasic waveform. LEFT: Ankle-brachial index: 1.09 (previous 1.08) PVR: Normal Common femoral: PSV 81 cm/s. Biphasic waveform. Deep femoral: PSV 69 cm/s. Biphasic waveform. Proximal superficial femoral: PSV 85 cm/s. Biphasic waveform. Mid superficial femoral: PSV 90 cm/s. Biphasic waveform. Distal superficial femoral: PSV 88 cm/s. Biphasic waveform. Popliteal: PSV 81 cm/s. Biphasic waveform. Posterior tibial: PSV 86 cm/s. Biphasic waveform. Peroneal: PSV 60 cm/s. Biphasic waveform. IMPRESSION: Right: Ankle-brachial index 1.08 (increased from 0.82). Resolution of previously seen SFA stent stenosis. No evidence of hemodynamically significant peripheral arterial disease. Left: Ankle-brachial index 1.09 (stable compared to 1.08). No evidence of hemodynamically significant peripheral arterial disease. Assessment & Plan Assessment & Plan (1) BPH loc w urin obs/LUTS: Code(s): N40.1 - Benign prostatic hyperplasia with lower urinary tract symptoms (2) Incomplete bladder emptying: Code(s): R33.9 - Retention of urine, unspecified (3) Screening PSA (prostate specific antigen): Code(s): Z12.5 - Encounter for screening for malignant neoplasm of prostate Plan Continue aflusozin 10 mg daily. Follow up in 1 year, PSA US of the kidney prior. Orders: Orders US renal BI Today N40.1 - Benign prostatic hyperplasia with lower urinary tract symptoms, R33.9 - Retention of urine, unspecified Prostate Specific Antigen 06/15/23 N40.1 - Benign prostatic hyperplasia with lower urinary tract symptoms AMB Urinalysis Automated Today Z13.9 - Encounter for screening, unspecified AMB Post Void Residual by ultrasound Today N39.8 - Other specified disorders of urinary system PSA,Total (Free>4and<10) 10 Months N40.1 - Benign prostatic hyperplasia with lower urinary tract symptoms, Z12.5 - Encounter for screening for malignant neoplasm of prostate Medications: Refilled alfuzosin ER administer after the same meal each day, alfuzosin to replace tamsulosin 10 mg PO DAILY 90 tabs 3RF Patient Instructions: The patient had an opportunity to ask questions regarding treatment plan. All questions were answered. Imaging, Laboratory studies and physical exam results were discussed and reviewed in detail. No major barriers to understanding were identified. The patient expressed understanding and agreement with the above treatment plan.? ? ? The patient is aware they should contact our office by phone for worsening of their current condition or the appearance of new symptoms. Compliance is encouraged with any medications and followup testing that is ordered.? ? ? It is a privilege to be allowed the opportunity to participate in the urologic care of your patient. If you have any questions or concerns regarding treatment for the above conditions please do not hesitate to contact me. The office telephone contact is [phone].? ? ? This note is constructed in part using voice recognition software. While every effort has been made to ensure accuracy senior medical transcriptionist errors may have been inc luded.? ? ? Yours sincerely,? ? ? Mikaela Duke MD? ? Coding Level of Care Code Est Pt Level 3 (99772) Diagnoses BPH loc w urin obs/LUTS N40.1 Incomplete bladder emptying R33.9 Screening PSA (prostate specific antigen) Z12.5 CPT Codes Post Residual Void - PVR CPT Code: 71535-Pauc Void Residual by ultrasound ([id number])
== END 2023-06-19 09:27 | disposition home or self-care (01) ==
PROVIDERS: PCP Student in an Organized Health Care Education/Training Program; Visit Provider Urology
DX: N40.1 Benign prostatic hyperplasia with lower urinary tract symptoms (principal); R33.9 Retention of urine, unspecified; Z12.5 Encounter for screening for malignant neoplasm of prostate; Z13.9 Encounter for screening, unspecified
CPT/HCPCS: 99213

== ENCOUNTER → 2023-06-19 08:49 | Outpatient (BNVA) | payer OTHER, SELFPAY | PROVIDERS: Visit Provider Urology | DX: N40.1 Benign prostatic hyperplasia with lower urinary tract symptoms (principal); N13.8 Other obstructive and reflux uropathy; R33.8 Other retention of urine | CPT/HCPCS: 51798; 81003; 99212 ==

== ENCOUNTER 2023-06-29 14:47 | Outpatient (AMB) | payer OTHER, SELFPAY ==
--- NOTE | 2023-06-29 14:56 | A.OFFVIS_ITS ---
Intake Intake Visit Reasons: 3 mo follow up Arterial US 06/05/2023 Intake Note: 3 mo follow up Arterial US 06/05/23 w/ Hx of Right LE Angio 02/22/23 & 04/06/22. No complaints, no trouble ambulating Accompanied by: Self / Same As Patient Allergies No Known Allergies Allergy (Verified 06/29/23 15:00) HPI 3 mo follow up Arterial US 06/05/2023 HPI Details Very pleasant 78-year-old gentleman presents for a 3 month follow-up status post endovascular intervention of the right lower extremity pair he reports that his leg is doing significantly better. He is able to walk with no difficulty. He is able to use his push mower we also with no difficulty. He is currently being maintained on aspirin, Plavix, and a statin. He now presents for follow-up with noninvasive testing. [facility] Medical History HTN (hypertension) HTN (hypertension) HTN (hypertension) PAD (peripheral artery disease) Surgical History Hx of cataract surgery S/P angiogram of extremity (04/06/22) Lumbar stenosis History of hemorrhoidectomy History of right knee surgery S/P left rotator cuff repair S/P right rotator cuff repair History of right tennis elbow Left rotator cuff tear arthropathy Trigger finger of right thumb Cervical radiculopathy at C6 Cervical radiculopathy at C5 Status post osteotomy Left varicocele History of appendectomy Family History Mother No problems noted. Father Heart disease Sister Multiple sclerosis Social History Alcohol intake: current Alcohol intake frequency: holidays/special occasions only Patient Tobacco Use Status: Former Tobacco user Quit Date: July 1974 Years Smoked: 10+/- Review of Systems Const All systems reviewed & are unremarkable except as noted in HPI and below Reports no additional complaints ENT Reports Normal hearing present Card Denies chest pain, Denies chest pain at rest, Denies chest pain with activity and Denies pedal edema Resp Denies cough GI Denies abdominal pain Musc Denies abnormal gait, Denies muscle cramps and Denies radiating pain into limb Skin/Breast Denies skin ulcer and Denies wounds Neuro Reports Normal hearing present and Denies abnormal gait Psych Reports no additional complaints Physical Exam Const General: cooperative, healthy appearing and comfortable Orientation/consciousness: oriented to person, oriented to place and oriented to time HEENT Head: Yes normal to inspection Neck Neck: Yes normal visual inspection Carotids: no bruits Chest Chest palpation & inspection: normal inspection of the chest Resp Effort & Inspection: normal respiratory effort and able to speak in complete sentences Auscultation: clear to auscultation bilaterally, no crackles, no rales, no rhonchi and no wheezes Cardio Other: Bilateral palpable DP pulse Rate: regular rate Rhythm: regular rhythm Heart sounds: S1 normal heart sound present and S2 normal heart sound present Bruits: no carotid bruits Peripheral pulses: Peripheral pulses 2+ throughout GI Inspection: Yes normal to inspection Skin Wounds: no wounds Hair: normal Neuro General: oriented to person, oriented to place and oriented to time Cranial nerves: Yes CN's II-XII intact bilaterally and Yes Normal hearing present Cognition (Neuro): normal cognition Motor exam (neuro): 5/5 motor strength present throughout Extrem Other: venous exam: No significant superficial varicosities or spider telangiectasias, minimal edema General: No clubbing, No cyanosis and No edema Psych Appearance: grossly normal Mental Status: mental status grossly normal Speech and movement: Normal speech and movement present Results Reviewed Results Reviewed: Noninvasive arterial testing dated 06/05/2023 demonstrates HAILEY on the right of 1.08 and on the left of 1.09. Written report and images were reviewed. Assessment & Plan Assessment & Plan (1) PAD (peripheral artery disease): Comment: 04/06/2022 - right SFA atherectomy and stent 02/22/2023 - right SFA plasty of InStent restenosis Code(s): I73.9 - Peripheral vascular disease, unspecified Plan: In short patient has stable claudication. I did review the pathophysiology of peripheral vascular disease with the patient. In addition we did discuss routine conservative measures including a healthy diet and the importance of exercise and ambulation. We did discuss risk factor modification. The patient will continue to to follow-up with surveillance follow-up in approximately 6 months. Thank you for allowing us to participate in this patient's care. If there are any questions or concerns please do not hesitate to contact us. Orders: Orders US arterial duplex LE 6 Months I73.9 - Peripheral vascular disease, unspecified Coding Level of Care Code Est Pt Level 4 (96241) Diagnoses PAD (peripheral artery disease) I73.9
== END 2023-06-29 15:22 | disposition home or self-care (01) ==
PROVIDERS: PCP Student in an Organized Health Care Education/Training Program; Visit Provider Surgery Vascular Surgery
DX: I73.9 Peripheral vascular disease, unspecified (principal)
CPT/HCPCS: 99213

== ENCOUNTER → 2023-06-29 14:47 | Outpatient (BNVA) | payer OTHER, SELFPAY | PROVIDERS: PCP Student in an Organized Health Care Education/Training Program; Visit Provider Surgery Vascular Surgery | DX: I73.9 Peripheral vascular disease, unspecified (principal) | CPT/HCPCS: 99212 ==

== ENCOUNTER 2023-12-31 20:15 | Emergency (ER) | payer OTHER, SELFPAY ==
--- NOTE | ~2023-12-31 | XR_ITS ---
EXAMINATION: XR CHEST CLINICAL INFORMATION: Cough COMPARISON: None available. TECHNIQUE: Frontal view of the chest was obtained. FINDINGS: Lung volumes are symmetric. No focal consolidation is seen. No evidence of pneumothorax, pleural effusion, or pulmonary edema. The cardiomediastinal contour is unremarkable. No acute osseous findings are seen. XR/XR chest 1V IMPRESSION: No acute cardiopulmonary findings.
[2023-12-31 20:48] VITALS: BP 156/68; PULSE 77; RESP 18; TEMP 37.8; O2SAT 97; BMI 25.8
[2023-12-31 23:25] LABS: Influenza A PCR NEGATIVE (Negative); Influenza B PCR NEGATIVE (Negative); Resp Syncy Virus RNA Qual PCR NEGATIVE (Negative); SARS COV2 PCR INHOUSE NEGATIVE (Negative)
[2023-12-31 23:34] LABS: IDNOW Serial# 6674DD1D
[2023-12-31 23:35] LABS: Strep A Nucleic Acid Negative (Negative)
== END 2023-12-31 22:49 | disposition left against medical advice (07) ==
PROVIDERS: Emergency Provider Emergency Medicine; PCP Student in an Organized Health Care Education/Training Program
DX: R06.02 Shortness of breath (principal); R05.9 Cough, unspecified; Z11.52 Encounter for screening for COVID-19; Z20.828 Contact with and (suspected) exposure to other viral communicable diseases
CPT/HCPCS: 0241U; 71045; 87651; 99281; 99283

== ENCOUNTER 2024-01-01 08:50 | Emergency (ER) | payer OTHER, SELFPAY ==
--- NOTE | ~2024-01-01 | CT_ITS ---
EXAMINATION: CT CHEST WITHOUT CONTRAST CLINICAL INFORMATION: Cough, fever and smoking history COMPARISON: Chest radiograph 12/31/2023 TECHNIQUE: Multidetector volumetric CT imaging of the chest was done. Axial MIP volume rendering provided. Sagittal and coronal reformatted images were obtained. This CT examination was performed using dose optimization techniques as appropriate, variously including the following: *Automated exposure control *Adjustment of mA and/or kV according to patient size (this includes techniques or standardized protocols for targeted exams where dose is matched to indication/reason for exam; i.e. extremities or head) *Use of iterative reconstruction technique DLP: 374 mGy-cm FINDINGS: LUNGS: There is a right upper lobe infiltrate seen posteriorly. There is a small wedgelike area of infiltrate seen in the right lower lobe abutting the mediastinum (6:301). There is a approximately 1 cm groundglass nodule present in the superior segment of the left lower lobe (6:301) with some peribronchial inflammatory change just below this level. There may be an infiltrate present at the left lung base although there is marked motion artifact interfering with detail. MEDIASTINUM: The mediastinum is normal. CORONARY ARTERY CALCIFICATION: None visualized on this study. PLEURA: There is no pleural effusion. No pleural mass or thickening. AXILLA: No lymphadenopathy. UPPER ABDOMEN: Unremarkable. OSSEOUS STRUCTURES: Unremarkable. Mild degenerative changes are seen with Schmorl's nodes. CT/CT chest wo IV con IMPRESSION: Multifocal areas of infiltrate with the largest region in the right upper lobe with smaller areas of infiltrate in the right lower lobe and left lower lobe. Findings suggestive of multifocal pneumonia, possibly viral. Fleischner guidelines were followed.
[2024-01-01 08:56] VITALS: BP 119/68; PULSE 70; RESP 16; TEMP 36.4; O2SAT 94; BMI 25.7
--- NOTE | 2024-01-01 09:03 | ED.GENADULT ---
HPI - General Adult General Chief complaint: Upper Respiratory Symptoms Stated complaint: cough Time Seen by Provider: 01/01/24 09:03 Source: patient and family Mode of arrival: ambulatory Limitations: no limitations History of Present Illness HPI narrative: Patient is a 78-year-old male presenting to the emergency department with complaint of productive cough, fatigue for the past 2-1/2 weeks. States initially he felt as though his symptoms were improving, then over the weekend symptoms began to worsen again. Fever last night. He has seen his PCP who tested him for COVID which was negative. Called PCP back when symptoms began to worsen and was advised to go to urgent care. Patient reports that he was seen at urgent Care, retested for COVID which was again negative, and had a chest x-ray which was apparently unremarkable. Provider at urgent care told patient he did not require antibiotics at that time. Patient states he has been coughing up yellow sputum. He denies chest or abdominal pain, nausea, vomiting or diarrhea. He does report decreased hearing bilaterally. He came to this ED yesterday, was tested for flu/covid/rsv and strep, had chest x-ray but left from waiting room. MD complaint: cough, fever. Onset (ago): week(s) Location: chest Associated symptoms: cough, fever/chills and shortness of breath Treatments prior to arrival: none Related Data Home Medications Medication Instructions Recorded Confirmed cholecalciferol (vitamin D3) 25 25 mcg PO DAILY 04/05/22 06/19/23 mcg (1,000 unit) capsule gabapentin 300 mg capsule 300 mg PO DAILY 04/05/22 06/19/23 metoprolol succinate 50 mg 50 mg PO DAILY 04/05/22 06/19/23 tablet,extended release 24 hr simvastatin 20 mg tablet 20 mg PO BEDTIME 04/05/22 06/19/23 vitamin B complex (B 1 tab PO DAILY 04/05/22 06/19/23 Complex-Vitamin B12 tablet) aspirin 81 mg tablet,delayed 81 mg PO DAILY 04/19/22 06/19/23 release (Adult Aspirin Regimen) Previous Rx's Medication Instructions Recorded clopidogrel 75 mg tablet (Plavix) 75 mg PO DAILY #90 tabs 04/06/22 alfuzosin 10 mg tablet,extended 10 mg PO DAILY #90 tabs 06/19/23 release 24 hr amoxicillin 875 mg-potassium 1 tab PO BID #20 tabs 01/01/24 clavulanate 125 mg tablet azithromycin 250 mg tablet See Rx Instructions PO .COMPLEX #6 01/01/24 tabs benzonatate 100 mg capsule 100 mg PO TID PRN cough #20 caps 01/01/24 Allergies Allergy/AdvReac Type Severity Reaction Status Date / Time No Known Allergies Allergy Verified 12/31/23 20:52 Review of Systems Review of Systems: As per HPI. Yes all other systems are reviewed and are negative Constitutional: Constitutional: Reports as per HPI [facility] Past Medical History Medical History HTN (hypertension) HTN (hypertension) HTN (hypertension) PAD (peripheral artery disease) Surgical History Hx of cataract surgery S/P angiogram of extremity (04/06/22) Lumbar stenosis History of hemorrhoidectomy History of right knee surgery S/P left rotator cuff repair S/P right rotator cuff repair History of right tennis elbow Left rotator cuff tear arthropathy Trigger finger of right thumb Cervical radiculopathy at C6 Cervical radiculopathy at C5 Status post osteotomy Left varicocele History of appendectomy Family History Family History Mother No problems noted. Father Heart disease Sister Multiple sclerosis Social History Social History Alcohol intake: current Alcohol intake frequency: holidays/special occasions only Patient Tobacco Use Status: Former Tobacco user Quit Date: July 1974 Years Smoked: 10+/- Advance Directives: No Advance Directives Information Provided: No Physical Exam ED Vital Signs: Vital Signs - 24 hr 01/01/24 08:56 01/01/24 10:33 Temperature 97.6 F 97.7 F Pulse Rate 70 64 Respiratory Rate 16 18 Blood Pressure 119/68 111/60 Pulse Oximetry 94 96 Oxygen Delivery Method Room Air Room Air BMI result Body Mass Index 25.7 Vital signs have been reviewed and appear to be correct. Blood pressure normal. Heart rate normal. Respiratory rate normal. Temperature normal. Oxygen saturation normal. Const General: cooperative, healthy appearing and no acute distress Orientation/consciousness: oriented to person, oriented to place, oriented to time and patient oriented x3 Limitations: no limitations HENMT Head: Yes normocephalic and Yes atraumatic Ears: external ears normal, TM's normal bilaterally, EAC's normal (small amount of cerumen to right EAC, no impaction, TM able to be visualize) and mastoids normal bilaterally General nose exam: Normal external nose present, Normal nasal mucous membranes and turbinates present and Normal septum present Face and sinus: Yes face symmetric Mouth: oropharynx normal and moist mucous membranes Throat: Yes posterior oropharynx normal and Yes uvula midline Eyes Pupils: Equal, round and reactive pupils present Neck Neck: Yes normal visual inspection and Yes supple Resp Effort & Inspection: normal respiratory effort and able to speak in complete sentences Auscultation: clear to auscultation bilaterally and diminished lung sounds diffuse Cardio Rate: regular rate Rhythm: regular rhythm Heart sounds: S1 normal heart sound present and S2 normal heart sound present GI Palpation (GI): Soft to palpation and nontender Auscultation: normoactive bowel sounds General: Yes no CVA tenderness Back/Spine/Pelvis Back: no CVA tenderness Skin General skin exam: elasticity normal and turgor normal Neuro General: oriented to person, oriented to place, oriented to time, patient oriented x3, moves all extremities, no focal motor deficits and CN's II-XI intact bilaterally Cranial nerves: Yes Equal, round and reactive pupils present Cognition (Neuro): normal cognition Extrem General: Yes full ROM, Yes no pedal edema and Yes no calf tenderness Psych Mental Status: mental status grossly normal Affect: normal affect Thought process: Normal thought process present Medical Decision Making Medical Decision Making MDM Narrative: Patient is a 78-year-old male presenting to the emergency department with complaint of productive cough, fatigue for the past 2-1/2 weeks. On exam patient is awake, A+Ox3, VS WNL, afebrile, normal neurological exam without focal deficits, physical exam findings as above. Given reported symptoms and physical exam findings, initial differential includes bronchitis, pneumonia. Review of EMR shows viral and strep swabs done yesterday were all negative. CT notable for multifocal pneumonia. My interpretation is in agreement with the radiologist's interpretation. Will treat patient with augmentin and azithromycin. Instructed patient that he will need to follow-up with PCP for repeat chest x-ray to ensure resolution of his pneumonia. Return precautions discussed at bedside with patient and . Patient verbalized understanding of and agreement with plan. Differential Diagnosis Differential Diagnoses: The differential diagnosis associated with the presentation includes As per MDM. Admission/Observation Consideration of admission/observation: Escalation of care including admission/observation considered Patient would have been admitted to the hospital had their work up had any findings where hospital admission was appropriate and their clinical presentation warranted hospital admission. Independent Interpretation I performed an independent interpretation of an: CT Scan Interpretation: CT chest shows multifocal pneumonia. Radiology Impression Discussion of test interpretation with radiology: I have reviewed the radiologist's reading. Radiologist Impression: CT/CT chest wo IV con IMPRESSION: Multifocal areas of infiltrate with the largest region in the right upper lobe with smaller areas of infiltrate in the right lower lobe and left lower lobe. Findings suggestive of multifocal pneumonia, possibly viral. Independent Historian Clinical information obtained from an independent historian. History obtained from or confirmed by: Spouse External Record Review External record reviewed: Inpatient record, Office record and Outpatient record Prescription Management I considered prescription management with: Antibiotic and Other Discharge Plan Discharge Clinical Impression: Multifocal pneumonia Patient Disposition: Home, Self-Care Instructions: Community Acquired Pneumonia (DC) Additional Instructions: You were evaluated in the emergency department today for fever and cough. Your CT scan showed evidence of pneumonia. You are being treated with 2 different antibiotics to treat the pneumonia. Please complete the full course of both medications. You should also take an over the counter probiotic. Call your primary care provider to schedule a follow-up appointment as you will need a repeat chest x-ray to ensure resolution of your pneumonia. Return to the emergency department if you develop chest pain, difficulty breathing or shortness of breath, fever not improved with Tylenol or ibuprofen, or any other concerning symptoms. Prescriptions: New benzonatate 100 mg capsule 100 mg PO TID PRN (Reason: cough) Qty: 20 0RF azithromycin 250 mg tablet See Rx Instructions .ROUTE .COMPLEX Qty: 6 0RF Rx Instructions: For 250 mg dose pack: take 500 mg today (day 1), then 250 mg for 4 days (days 2-5) amoxicillin-pot clavulanate 875-125 mg tablet 1 tab PO BID Qty: 20 0RF Rx Instructions: Take with food. No Action clopidogrel [Plavix] 75 mg tablet 75 mg PO DAILY Qty: 90 1RF aspirin [Adult Aspirin Regimen] 81 mg tablet,delayed release (DR/EC) 81 mg PO DAILY alfuzosin 10 mg tablet extended release 24 hr 10 mg PO DAILY Qty: 90 3RF Rx Instructions: administer after the same meal each day, alfuzosin to replace tamsulosin metoprolol succinate 50 mg tablet extended release 24 hr 50 mg PO DAILY gabapentin 300 mg capsule 300 mg PO DAILY simvastatin 20 mg tablet 20 mg PO BEDTIME vitamin B complex [B Complex-Vitamin B12] Tablet 1 tab PO DAILY cholecalciferol (vitamin D3) 25 mcg (1,000 unit) capsule 25 mcg PO DAILY
[2024-01-01 10:33] VITALS: BP 111/60; PULSE 64; RESP 18; TEMP 36.5; O2SAT 96
--- NOTE | 2024-01-01 10:58 | PC.NURSE ---
patient remains in room awaiting results from ct scan. no obvious signs/symptoms of distress noted. continues to ambulate around room independently.
[2024-01-01 11:56] VITALS: BP 111/60; PULSE 64; RESP 16; TEMP 36.5; O2SAT 96
== END 2024-01-01 11:57 | disposition home or self-care (01) ==
PROVIDERS: Emergency Provider Emergency Medicine; PCP Student in an Organized Health Care Education/Training Program
DX: J18.9 Pneumonia, unspecified organism (principal); I10 Essential (primary) hypertension
CPT/HCPCS: 71250; 99283

== ENCOUNTER 2024-01-02 08:18 | Outpatient (REF) | payer OTHER, SELFPAY ==
--- NOTE | ~2024-01-02 | US_ITS ---
EXAMINATION: US HAILEY complete, US arterial duplex LE BI CLINICAL INFORMATION: Peripheral vascular disease, unspecified COMPARISON: Bilateral lower extremity arterial duplex 06/05/2023 TECHNIQUE: Ankle pulse volume recordings, ankle pressure measurements and ankle brachial indices were obtained of the lower extremity arterial system bilaterally in addition to duplex Doppler techniques with wave form analysis and measurement of velocities in the common femoral, profunda femoral, superficial femoral, popliteal, tibial and peroneal arteries. The study was performed only at rest. FINDINGS: RIGHT LE. THE RIGHT ANKLE-BRACHIAL INDEX IS: 1.21, previously 1.08 and 0.82 2. SEGMENTAL PRESSURES (mmHg): Ankle: PT 172, DP 164 3. PVR WAVEFORMS: Ankle: Normal 4. DIRECT DUPLEX: Common femoral artery: 118 cm/s, Multiphasic Profunda femoris artery: 98 cm/s, biphasic [place] SFA proximal to stent: 91 cm/s, triphasic Proximal stent: 118 cm/s, triphasic Mid stent: 224 cm/s, triphasic Distal stent: 160 cm/s, triphasic [place] SFA distal to stent: 120 cm/s, triphasic Superficial femoral artery (proximal): 103 cm/s, Multiphasic Superficial femoral artery (mid): 136 cm/s, Multiphasic Superficial femoral artery (distal): 104 cm/s, Multiphasic Proximal Popliteal artery: 62 cm/s, Multiphasic Distal popliteal artery: 63 cm/s, Multiphasic Mid posterior tibial artery: 78 cm/s, biphasic Peroneal artery: 66.3 cm/s, Multiphasic Anterior tibial artery: 77 cm/sec, triphasic LEFT LE. THE LEFT ANKLE-BRACHIAL INDEX IS: 1.35, previously 1.09 and 1.08 2. SEGMENTAL PRESSURES: Ankle: PT 192, DP 167 3. PVR WAVEFORMS: Ankle: Normal 4. DIRECT DUPLEX: Common femoral artery: 103 cm/s, biphasic Profunda femoris artery: 150 cm/s, biphasic Superficial femoral artery (proximal): 86 cm/s, Multiphasic Superficial femoral artery (mid): 101 cm/s, Multiphasic Superficial femoral artery (distal): 111 cm/s, Multiphasic Proximal Popliteal artery: 68 cm/s, biphasic Distal popliteal artery: 56 cm/s, biphasic Mid posterior tibial artery: 94 cm/s, Multiphasic Peroneal artery: 62 cm/s, biphasic Anterior tibial artery: 50 cm/s, triphasic US/US arterial duplex LE BI IMPRESSION: 1. The right HAILEY is normal, though trending up over prior studies. The left HAILEY is elevated, new from prior studies and suggesting noncompressibility. 2. Elevated arterial velocity in the mid right SFA stent suggests moderate stenosis. Otherwise, no hemodynamically significant stenosis bilaterally.
--- NOTE | ~2024-01-02 | US_ITS ---
EXAMINATION: US HAILEY complete, US arterial duplex LE BI CLINICAL INFORMATION: Peripheral vascular disease, unspecified COMPARISON: Bilateral lower extremity arterial duplex 06/05/2023 TECHNIQUE: Ankle pulse volume recordings, ankle pressure measurements and ankle brachial indices were obtained of the lower extremity arterial system bilaterally in addition to duplex Doppler techniques with wave form analysis and measurement of velocities in the common femoral, profunda femoral, superficial femoral, popliteal, tibial and peroneal arteries. The study was performed only at rest. FINDINGS: RIGHT LE. THE RIGHT ANKLE-BRACHIAL INDEX IS: 1.21, previously 1.08 and 0.82 2. SEGMENTAL PRESSURES (mmHg): Ankle: PT 172, DP 164 3. PVR WAVEFORMS: Ankle: Normal 4. DIRECT DUPLEX: Common femoral artery: 118 cm/s, Multiphasic Profunda femoris artery: 98 cm/s, biphasic [place] SFA proximal to stent: 91 cm/s, triphasic Proximal stent: 118 cm/s, triphasic Mid stent: 224 cm/s, triphasic Distal stent: 160 cm/s, triphasic [place] SFA distal to stent: 120 cm/s, triphasic Superficial femoral artery (proximal): 103 cm/s, Multiphasic Superficial femoral artery (mid): 136 cm/s, Multiphasic Superficial femoral artery (distal): 104 cm/s, Multiphasic Proximal Popliteal artery: 62 cm/s, Multiphasic Distal popliteal artery: 63 cm/s, Multiphasic Mid posterior tibial artery: 78 cm/s, biphasic Peroneal artery: 66.3 cm/s, Multiphasic Anterior tibial artery: 77 cm/sec, triphasic LEFT LE. THE LEFT ANKLE-BRACHIAL INDEX IS: 1.35, previously 1.09 and 1.08 2. SEGMENTAL PRESSURES: Ankle: PT 192, DP 167 3. PVR WAVEFORMS: Ankle: Normal 4. DIRECT DUPLEX: Common femoral artery: 103 cm/s, biphasic Profunda femoris artery: 150 cm/s, biphasic Superficial femoral artery (proximal): 86 cm/s, Multiphasic Superficial femoral artery (mid): 101 cm/s, Multiphasic Superficial femoral artery (distal): 111 cm/s, Multiphasic Proximal Popliteal artery: 68 cm/s, biphasic Distal popliteal artery: 56 cm/s, biphasic Mid posterior tibial artery: 94 cm/s, Multiphasic Peroneal artery: 62 cm/s, biphasic Anterior tibial artery: 50 cm/s, triphasic US/US HAILEY complete IMPRESSION: 1. The right HAILEY is normal, though trending up over prior studies. The left HAILEY is elevated, new from prior studies and suggesting noncompressibility. 2. Elevated arterial velocity in the mid right SFA stent suggests moderate stenosis. Otherwise, no hemodynamically significant stenosis bilaterally.
== END 2024-01-02 08:19 | disposition home or self-care (01) ==
LOC: HO.US 08:18
PROVIDERS: PCP Student in an Organized Health Care Education/Training Program; Visit Provider Surgery Vascular Surgery
DX: I73.9 Peripheral vascular disease, unspecified (principal)
CPT/HCPCS: 93923; 93925

== ENCOUNTER 2024-01-30 09:55 | Outpatient (AMB) | payer OTHER, SELFPAY ==
[2024-01-30 09:58] VITALS: BMI 25.7
--- NOTE | 2024-01-30 09:58 | MHC.OFFVIS ---
Vital Signs 01/30/24 09:58 Height 5 ft 11 in Weight 184 lb BMI 25.7 Intake Visit Reasons: 6 mo follow up Arterial US 01/02/24 Intake Note: 6 mo follow up ARterial US 01/02/24 w/ hx of Right LE Angiograms 02/22/23 & 04/06/22. Pt states no issues or cramping. Accompanied by: Self / Same As Patient Allergies No Known Allergies Allergy (Verified 01/30/24 10:00) HPI HPI 6 mo follow up Arterial US 01/02/24: Details: Very pleasant 78-year-old gentleman presents for follow-up regarding peripheral vascular disease. He appears to be doing extremely well. Ambulating with no difficulty. He has undergone noninvasive testing and now presents for routine follow-up. [facility] Medical History HTN (hypertension) HTN (hypertension) HTN (hypertension) PAD (peripheral artery disease) Surgical History Hx of cataract surgery S/P angiogram of extremity (04/06/22) Lumbar stenosis History of hemorrhoidectomy History of right knee surgery S/P left rotator cuff repair S/P right rotator cuff repair History of right tennis elbow Left rotator cuff tear arthropathy Trigger finger of right thumb Cervical radiculopathy at C6 Cervical radiculopathy at C5 Status post osteotomy Left varicocele History of appendectomy Family History Mother No problems noted. Father Heart disease Sister Multiple sclerosis Social History Alcohol intake: current Alcohol intake frequency: holidays/special occasions only Patient Tobacco Use Status: Former Tobacco user Quit Date: July 1974 Years Smoked: 10+/- Review of Systems Const All systems reviewed & are unremarkable except as noted in HPI and below Reports no additional complaints ENT Reports Normal hearing present Card Denies chest pain, Denies chest pain at rest, Denies chest pain with activity and Denies pedal edema Resp Denies cough GI Denies abdominal pain Musc Denies abnormal gait, Denies muscle cramps and Denies radiating pain into limb Skin/Breast Denies skin ulcer and Denies wounds Neuro Reports Normal hearing present and Denies abnormal gait Psych Reports no additional complaints Physical Exam Vital Signs: BMI result Body Mass Index 25.7 Const General: cooperative, healthy appearing and comfortable Orientation/consciousness: oriented to person, oriented to place and oriented to time HEENT Head: Yes normal to inspection Neck Neck: Yes normal visual inspection Carotids: no bruits Chest Chest palpation & inspection: normal inspection of the chest Resp Effort & Inspection: normal respiratory effort and able to speak in complete sentences Auscultation: clear to auscultation bilaterally, no crackles, no rales, no rhonchi and no wheezes Cardio Other: Palpable bilateral dorsalis pedis pulse Rate: regular rate Rhythm: regular rhythm Heart sounds: S1 normal heart sound present and S2 normal heart sound present Bruits: no carotid bruits Peripheral pulses: Peripheral pulses 2+ throughout GI Inspection: Yes normal to inspection Skin Wounds: no wounds Hair: normal Neuro General: oriented to person, oriented to place and oriented to time Cranial nerves: Yes CN's II-XII intact bilaterally and Yes Normal hearing present Cognition (Neuro): normal cognition Motor exam (neuro): 5/5 motor strength present throughout Extrem Other: venous exam: No significant superficial varicosities or spider telangiectasias, minimal edema General: No clubbing, No cyanosis and No edema Psych Appearance: grossly normal Mental Status: mental status grossly normal Speech and movement: Normal speech and movement present Results Reviewed Results Reviewed: Noninvasive arterial testing dated 01/02/2024 demonstrates HAILEY on the right of 1.21 and on the left of 1.35. There is multi phasic flow down both lower extremities. Right side does have some mild right SFA stent stenosis. Assessment & Plan Assessment & Plan (1) PAD (peripheral artery disease): Comment: 04/06/2022 - right SFA atherectomy and stent 02/22/2023 - right SFA plasty of InStent restenosis Code(s): I73.9 - Peripheral vascular disease, unspecified Category: Medical Plan: In short patient has stable peripheral vascular disease. We did discuss risk factor modification in addition to the importance of walking and exercise. Due to the right side with some concerns of InStent restenoses I have scheduled him for a 6 month arterial surveillance follow-up. Should there be any issues happy to see him back sooner. Thank you for allowing me to care for this very kind gentleman. If there are any questions or concerns please do not hesitate to contact us. Orders: Orders US arterial duplex LE BI 6 Months I73.9 - Peripheral vascular disease, unspecified
== END 2024-01-30 10:27 | disposition home or self-care (01) ==
PROVIDERS: PCP Student in an Organized Health Care Education/Training Program; Visit Provider Surgery Vascular Surgery
DX: I73.9 Peripheral vascular disease, unspecified (principal)
CPT/HCPCS: 99213

== ENCOUNTER → 2024-01-30 09:55 | Outpatient (BNVA) | payer OTHER, SELFPAY | PROVIDERS: PCP Student in an Organized Health Care Education/Training Program; Visit Provider Surgery Vascular Surgery | DX: I73.9 Peripheral vascular disease, unspecified (principal) | CPT/HCPCS: 99212 ==

== ENCOUNTER 2024-04-02 19:41 | Outpatient (REF) | payer OTHER, SELFPAY ==
--- NOTE | ~2024-04-02 | MR_ITS ---
EXAMINATION: MR LUMBAR SPINE WITHOUT AND WITH CONTRAST CLINICAL INFORMATION: Low back pain COMPARISON: None available. TECHNIQUE: MRI of the lumbar spine was obtained using routine sequences with and without contrast. Intravenous contrast: Gadavist 7.5 mL FINDINGS: Transitional anatomy with sacralization of L5. Mild retrolisthesis at L4-L5. Sequelae of posterior spinal fusion at L2-L4 with interbody spacers at L2-L3 and L3-L4. Associated susceptibility artifact slightly limits evaluation. Otherwise, no acute. The vertebral body heights are preserved. Multilevel disc desiccation and disc height loss, worse and severe at L1-L2. Multilevel type II endplate changes. Multilevel endplate osteophytosis and Schmorl's nodes. The visualized spinal cord is normal in caliber. No abnormal cord signal or enhancement. The conus medullaris terminates at L1-L2. There are small disc bulges at T10-T11 and T11-T12 without significant spinal canal or neural foraminal narrowing. T12-L1: Diffuse disc bulge. No significant spinal canal or neural foraminal narrowing L1-L2: Calcified central disc protrusion and bilateral facet arthrosis. Mild spinal canal stenosis with mass effect on the thecal sac. Mild right neural foraminal narrowing. L2-L3: Postsurgical changes. Decompressed spinal canal stenosis. Bilateral facet arthrosis. Minimal right neural foraminal narrowing. L3-L4: Postsurgical changes. Decompressed spinal canal. No neural foraminal narrowing. L4-L5: Diffuse disc bulge and bilateral facet arthrosis. No significant spinal canal or neural foraminal narrowing however the disc abuts the exiting L4 nerve roots bilaterally. L5-S1: Bilateral facet arthrosis. No significant spinal canal or neural foraminal narrowing. The paravertebral soft tissues are unremarkable. MR/MR lumbar spine wo/w con IMPRESSION: -Sequelae of posterior spinal fusion from L2 to L4 with decompression of the spinal canal at these levels. -At L1-L2, there is calcified central disc protrusion and facet arthrosis resulting in mild spinal canal stenosis and mild right neural foraminal narrowing. -At L4-L5, there is mild retrolisthesis and disc bulge which abuts the exiting L4 nerve roots bilaterally.
[2024-04-02] MEDS: gadobutroL 7.5 ML VIAL IVPUSH (20:42)
== END 2024-04-02 19:42 | disposition home or self-care (01) ==
LOC: HO.MRI 19:41
PROVIDERS: PCP Internal Medicine; Visit Provider Surgery Vascular Surgery
DX: M54.50 Low back pain, unspecified (principal)
CPT/HCPCS: 72158; A9585

== ENCOUNTER 2024-04-22 09:15 | Outpatient (AMB) | payer OTHER, SELFPAY ==
--- NOTE | 2024-04-22 09:34 | A.SPINEOV_ITS ---
Intake Visit Reasons: previous Penn[facility] at [facility]- new MRI in chart Intake Note: Mr. 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 This is a gentleman known to us from our previous practice at [facility] where he underwent an L3-5 oblique lumbar interbody fusion. He is coming back today because he had some concerns about changes in his posture. He thought when he looked in the mirror he is noticing more of a tilt to the right. He has not sure if his eyes or deceiving him but he wanted to come in and check anyway. He reports that after surgery he continues to notice back pain. He tells me that when we saw him last we discussed with him that sometimes after back surgery there is no long-lasting relief or a permanent fix for back pain. He did see some improvement after surgery but things have plateaued. He deals with a stiffness and discomfort when he is doing activities. It does not keep him from doing his yd work another activities but it is bothersome nonetheless. He has a radicular pain still does go down into his right lateral thigh. His examination is unremarkable. I did x-rays of him here today in the office and this shows evidence of instrumentation and interbody cages with solid fusion from L3-L5. He has missing a pedicle screw on the left L3 because of previous poor bone quality it had pulled out laterally at the time of surgery and was unable to be revised so he has 3 screws on the right from L3-L5 and only screws on the left at L4-5. There is a slight rightward tilt above the fusion starting at L2-3. The L2-3 interspace itself is completely fused. I compared this to x-rays done at [facility] in September of 2020 and I do not see any change or any difference. The patient also had an MRI done here at [facility] and this shows postsurgical changes as outlined above with diffuse arthritic changes throughout the lumbar spine starting from L1 going all the way down the sacrum. I reassured him that the hardware looked similar and that there was no change in the curvature. He would like to discuss possible injections so I introduced him to , who he will see next week and discuss if there is any further interventions that can help his chronic low back pain. Total amount of time spent in this visit was 20 minutes in discussion of symptoms, lumbar x-ray and MRI imaging results and subsequent plan of care Tiburcio Almendarez MD,PhD [facility] Orders: Orders XR lumbar spine 4V min Today M41.20 - Other idiopathic scoliosis, site unspecified Referrals Pain Management Referral M41.20 - Other idiopathic scoliosis, site unspecified Coding Level of Care Code Est Pt Level 3 (15133) Diagnoses Scoliosis (and kyphoscoliosis), idiopathic M41.20
== END 2024-04-22 10:39 | disposition home or self-care (01) ==
PROVIDERS: PCP Internal Medicine; Visit Provider Physician Assistant
DX: M41.20 Other idiopathic scoliosis, site unspecified (principal)
CPT/HCPCS: 99213

== ENCOUNTER 2024-04-22 09:15 | Outpatient (REF) | payer OTHER, SELFPAY ==
--- NOTE | ~2024-04-22 | XR_ITS ---
EXAMINATION: XR LUMBAR SPINE CLINICAL INFORMATION: Reason for Exam M41.20 - Other idiopathic scoliosis, site unspecified COMPARISON: None TECHNIQUE: Frontal lateral, flexion and extension, 4 views. FINDINGS: Five [id number] lumbar vertebrae were identified maintaining normal height, 2 rods and multiple screws posterior fusion of L2, L3 and L4, hardware intact, bone alignments maintained. L5 is sacralized.. Disc spacer placed at L2-L3 and L3-L4 properly positioned. Loss of disc height and developed osteophyte from articular edges suggests underlying disc disease at all other levels. There is heavy aortic vascular calcifications. Bone alignments maintained. Degenerative discitis with vacuum phenomenon at T12-L1. Mild levoscoliosis. Paravertebral soft tissues are unremarkable. There are radiolucencies, most likely superimposed bowel gas.. No radiographic evidence of osteolytic or osteoblastic lesions. XR/XR lumbar spine 4V min IMPRESSION: * Posterior fusion of L2, L3 and L4. * Disc spacer placed at L2-L3 and L3-L4. * Anatomic Bone alignments are maintained. * Loss of disc height and developed osteophyte from articular edges suggest underlying disc disease. * Levoscoliosis mild. * Sacralized L5.
== END 2024-04-22 09:16 | disposition home or self-care (01) ==
LOC: HO.HOSX 09:15
PROVIDERS: PCP Internal Medicine; Visit Provider Physician Assistant
DX: M41.20 Other idiopathic scoliosis, site unspecified (principal)
CPT/HCPCS: 72110; 99212

== ENCOUNTER 2024-04-29 08:09 | Outpatient (AMB) | payer OTHER, SELFPAY ==
[2024-04-29 08:14] VITALS: BP 138/71; PULSE 62; O2SAT 96; BMI 26.2
--- NOTE | 2024-04-29 08:14 | A.OFFVIS_ITS ---
Vital Signs 04/29/24 08:14 Height 5 ft 11 in Weight 188 lb BMI 26.2 BP 138/71 Blood Pressure Location Lt brachial Position Sitting Pulse 62 Pulse Source Pulse Oximeter Pulse Oximetry (%) 96 Oxygen Delivery Method Room Air Intake Visit Reasons: low back/neck pain Allergies No Known Allergies Allergy (Verified 04/22/24 09:35) Medication List - Last Reconciled 04/29/24 by Yasmine Natarajan alfuzosin ER 10 mg PO DAILY aspirin (Adult Aspirin Regimen) 81 mg PO DAILY cholecalciferol (vitamin D3) 25 mcg PO DAILY gabapentin 300 mg PO DAILY metoprolol succinate ER 50 mg PO DAILY simvastatin 20 mg PO BEDTIME vitamin B complex (B Complex-Vitamin B12 tablet) 1 tab PO DAILY HPI HPI low back/neck pain: Details: 78-year-old male who presents today to the office for an evaluation of low back and neck pain.? He underwent an L3-5 oblique lumbar interbody fusion.?He had anterior C5-6 ACDF for cervical radiculopathy in the past. The patient is primarily here for neck pain, and he describes the pain as an aching stabbing sensation in the axial area. The pain is rated at 9/10 in intens ity without any pattern. On the better days, it is usually 3?4/10 in intensity. He is unable to sleep normally. Resting helps the neck feel better. Movements make it worse. He has significant limitations in his cervical range of motion as long as it is up. He has recently been engaged in physical therapy for the neck, which has not been helpful. He has previously had an epidural steroid injection, cervical facet blocks, radio frequency ablation at variable level with benefit several years ago. His primary care physician referred him to Dr. Tahira Elaine at [facility] for the shooting pain down to his left shoulder and back. She did TPI and Botox injections. He states that he has mild numbness and paresthesia in his back when water hits his back and shoulder region. He had some concerns about changes in his posture, and he thought that when he looked in the mirror, he was noticing more of a tilt to the right.?He reports that after surgery, he continues to notice back pain. He did see some improvement after surgery, but things have plateaued.?He reports stiffness and discomfort with activities. It does not keep him from doing his yard work and other activities. He has radicular pain that still goes down into his right lateral thigh.? [facility] Medical History HTN (hypertension) HTN (hypertension) HTN (hypertension) PAD (peripheral artery disease) Surgical History Hx of cataract surgery S/P angiogram of extremity (04/06/22) Lumbar stenosis History of hemorrhoidectomy History of right knee surgery S/P left rotator cuff repair S/P right rotator cuff repair History of right tennis elbow Left rotator cuff tear arthropathy Trigger finger of right thumb Cervical radiculopathy at C6 Cervical radiculopathy at C5 Status post osteotomy Left varicocele History of appendectomy Family History Mother No problems noted. Father Heart disease Sister Multiple sclerosis Social History Alcohol intake: current Alcohol intake frequency: holidays/special occasions only Patient Tobacco Use Status: Former Tobacco user Years Smoked: 10+/- Review of Systems Const All systems reviewed & are unremarkable except as noted in HPI and below Physical Exam Vital Signs: Last Vital Signs Pulse 62 04/29/24 08:14 BP 138/71 04/29/24 08:14 Pulse Ox 96 04/29/24 08:14 Oxygen Delivery Method Room Air 04/29/24 08:14 BMI result Body Mass Index 26.2 General: Appears afebrile. Alert and oriented. Mood and affect appropriate. Follows and participates in conversation appropriately. Respiratory effort is unlabored. Able to transition from sit to stand unassisted. Ambulates with bilaterally normal heel strike and toe off. Neck extension reproduces tightness in the in the axial neck region. Lateral rotation is limited to about 40 degrees on either side. Results Reviewed Results Reviewed: PROCEDURE: MR SPINE CERVICAL without CONTRAST INDICATION: Spondylosis, cervical region. Evaluate left scapula and left upper extremity symptoms. TECHNIQUE: Unenhanced multiplanar, multisequence MR imaging of the cervical spine. COMPARISON: None available. FINDINGS: Normal cervical alignment is demonstrated. Vertebral heights are well maintained. Craniocervical junction is unremarkable. Bone marrow signal is within normal limits, and no suspicious osseous lesion is identified. Prevertebral and paraspinal soft tissues are within normal limits. Visualized portions of the posterior fossa are unremarkable. Cervical cord demonstrates normal course, caliber, and signal characteristics. No intrathecal lesions are seen. No epidural fluid collection or hematoma is identified. The intervertebral disc spaces are narrowed from C3-4 through C6-7. The most severe narrowing is at C5-6. At C2-3 there is no significant disc herniation or protrusion. No central canal or neural foraminal stenosis is demonstrated. At C3-4 there is diffuse annular bulging impressing upon the thecal sac without effacement of cerebral spinal fluid. There is hypertrophy of the left facet creating severe encroachment upon the left neural foramina. Mild hypertrophy of the facet on the right is seen with an element of encroachment upon the neural foramina. At C4-5 there is moderate hypertrophy the facets significant encroachment upon the neural foramina. Mild symmetric annular bulging is seen without effacement of the cerebral spinal fluid. At C5-6 there is no disc bulge or herniation. The spinal canal and neural foramina are of normal caliber. The facets are normal. At C6-7 there is mild symmetric annular bulging without compromise of the spinal canal. Mild narrowing of the right neural foramina secondary to this is seen. At C7-T1 there is no significant disc herniation or protrusion. No central canal or neural foraminal stenosis is demonstrated. IMPRESSION: Secondary changes of degenerative disc disease from C3-4 through C6-7. Annular bulges at C3-4, C4-5, and C6-7 as described above. 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 Encroachment upon the right C6-7 neural foramina secondary to annular bulging. Assessment & Plan Assessment & Plan (1) Spondylosis of cervical spine: Code(s): M47.812 - Spondylosis without myelopathy or radiculopathy, cervical region Category: Medical (2) Chronic neck pain: Code(s): M54.2 - Cervicalgia; G89.29 - Other chronic pain Category: Medical Plan The patient complains of axial neck pain that appears to be secondary to a combination of cervical spondylosis and intervertebral disc degeneration. Discussed facet injections vs. peripheral nerve stimulators vs. RFA as a possible treatment option for his neck pain. I discussed cervical facet interventions as a first step in management for axial neck pain. We will schedule him for a left C4-C5-C6 diagnostic medial branch block injection in anticipation of a peripheral nerve stimulator device for his pain symptoms. If this diagnostic block is successful, we will proceed with temporary nerve stimulator placement at the left C4 medial branch. A brochure was provided to the patient today. Discussed the risks and benefits of the procedure with the patient in detail. All questions were answered. The patient is on board with the plan. Justification for interventional therapy: ? Patient with average pain > 6/10 ? Patient has exhausted conservative therapy including oral medications, home exercises, neck epidural steroid injections, cervical facet blocks, and radiofrequency ablations with variable level. . Patient has a good understanding of their pain condition and has appropriate mental and social support Scribed for Dr. Ahuja by Rangel Gomez, health care / medical job titles, on 04/29/2024. I, Dr. Ahuja, have personally reviewed and agree with the information entered by the scribe. Coding Level of Care Code New Pt Level 4 (88703) Diagnoses Spondylosis of cervical spine M47.812 Chronic neck pain M54.2; G89.29
== END 2024-04-29 09:00 | disposition home or self-care (01) ==
PROVIDERS: PCP Internal Medicine; Visit Provider Internal Medicine
DX: M47.812 Spondylosis without myelopathy or radiculopathy, cervical region (principal); M54.2 Cervicalgia; G89.29 Other chronic pain
CPT/HCPCS: 99204

== ENCOUNTER → 2024-04-29 08:09 | Outpatient (BNVA) | payer OTHER, SELFPAY | PROVIDERS: PCP Internal Medicine; Visit Provider Internal Medicine | DX: M47.812 Spondylosis without myelopathy or radiculopathy, cervical region (principal); M54.50 Low back pain, unspecified; M54.2 Cervicalgia; G89.29 Other chronic pain | CPT/HCPCS: 99202 ==

== ENCOUNTER 2024-05-29 15:49 | Outpatient (REF) | payer OTHER, SELFPAY ==
[2024-05-29 18:29] LABS: PSA,Total (Free>4and<10) 1.66 ng/mL (0.00-4.00)
[2024-05-29 18:29] LABS: Appearance Urine Clear; Color Urine Yellow; Glucose Urine UA Negative (Negative); Leukocyte Esterase Urine Moderate (2+) (Negative); Nitrite Urine Positive (Negative); PH 5.5 (5.0-9.0); UMIC TRIGGER UA YES; Urine Blood Moderate (2+) (Negative); Urine Ketones Negative (Negative); Urine Protein 30 (1+) mg/dL (Neg-Trace)
[2024-05-29 19:06] LABS: Bacteria Urine 2+ (None Seen); Hyaline Casts Urine 0-2 /LPF (0-2); Squamous Epithelial Cell Urine 0-2 /HPF (0-2); WBC Urine >50 /HPF (0-5)
== END 2024-05-29 15:50 | disposition home or self-care (01) ==
LOC: HO.LAB 15:49
PROVIDERS: PCP Internal Medicine; Visit Provider Urology
DX: Z12.5 Encounter for screening for malignant neoplasm of prostate (principal); R33.9 Retention of urine, unspecified; N40.1 Benign prostatic hyperplasia with lower urinary tract symptoms; R39.198 Other difficulties with micturition
CPT/HCPCS: 36415; 81001; 84153; 87086; 87088; 87186

== ENCOUNTER 2024-06-14 07:46 | Outpatient (REF) | payer OTHER, SELFPAY ==
--- NOTE | ~2024-06-14 | US_ITS ---
EXAMINATION: US RETROPERITONEAL COMPLETE (RENAL) CLINICAL INFORMATION: Benign prostatic hyperplasia with lower urinary tract symptoms. COMPARISON: Ultrasound retroperitoneal 03/06/2022. TECHNIQUE: Real-time imaging of the kidneys and bladder. FINDINGS: RIGHT KIDNEY: 12.0 x 5.8 x 6.0 cm (SAG x AP x TRV). The kidney is normal in size, contour, and echogenicity. Renal cortical thickness is normal. No calculi or focal parenchymal lesions. No hydronephrosis. Mild proximal hydroureter. LEFT KIDNEY: 12.0 x 6.5 x 6.4 cm (SAG x AP x TRV). The kidney is normal in size, contour, and echogenicity. Renal cortical thickness is normal. No calculi or focal parenchymal lesions. No hydronephrosis. BLADDER: Bilateral ureteral jets are demonstrated. ADDITIONAL FINDINGS: Enlarged prostate with heterogeneous parenchyma and multiple coarse calcifications. US/US renal BI IMPRESSION: 1. Mild proximal right hydroureter, of uncertain etiology. Consider short-term follow-up renal ultrasound to assess for resolution or alternatively further characterization with CT abdomen/pelvis. 2. No nephrolithiasis. 3. Enlarged prostate. Electronically signed by: Veronica Nino MD 06/20/2024 04:24 PM EDT
== END 2024-06-14 07:47 | disposition home or self-care (01) ==
LOC: HO.US 07:46
PROVIDERS: PCP Internal Medicine; Visit Provider Urology
DX: N40.1 Benign prostatic hyperplasia with lower urinary tract symptoms (principal); R33.9 Retention of urine, unspecified
CPT/HCPCS: 76775

== ENCOUNTER 2024-06-20 08:25 | Outpatient (REF) | payer OTHER, SELFPAY | END 2024-06-20 08:26 | disposition home or self-care (01) | LOC: HO.LNP 08:25 | PROVIDERS: PCP Student in an Organized Health Care Education/Training Program; Visit Provider Urology | DX: N39.0 Urinary tract infection, site not specified (principal); N40.1 Benign prostatic hyperplasia with lower urinary tract symptoms; R33.8 Other retention of urine; Z12.5 Encounter for screening for malignant neoplasm of prostate | CPT/HCPCS: 81003; 87086; 99212 ==

== ENCOUNTER 2024-06-20 08:25 | Outpatient (AMB) | payer OTHER, SELFPAY ==
--- NOTE | 2024-06-20 08:29 | MHC.OFFVIS ---
Intake Visit Reasons: 1y/US/PSA(Set) Intake Note: 1y follow up/US/PSA Gu medications: alfuzosin,VITAMIN B12, ALFUZOSIN Blood thinners: aspirin ALLERGIES:NONE Divinity Professor Required: No Allergies No Known Allergies Allergy (Verified 06/20/24 08:31) Medication List - Last Reconciled 06/20/24 by Mikaela Duke MD alfuzosin ER 10 mg PO DAILY aspirin (Adult Aspirin Regimen) 81 mg PO DAILY cholecalciferol (vitamin D3) 25 mcg PO DAILY gabapentin 300 mg PO DAILY metoprolol succinate ER 50 mg PO DAILY simvastatin 20 mg PO BEDTIME sulfamethoxazole-trimethoprim 800-160 mg (Bactrim DS) 1 tab PO BID 7 days vitamin B complex (B Complex-Vitamin B12 tablet) 1 tab PO DAILY HPI Comments Details: 06/20/24--Jhon is a 79-year-old male who presents today to the office for a follow-up. He is taking the alfuzosin daily. He states he feels like he is getting another urinary tract infection for the last 2 days he has been going more frequently and has bladder pressure. Urinalysis 2+ leukocytes, 2+ blood. I have reviewed renal ultrasound imaging 06/14/24--kidneys negative for stones or hydronephrosis. PSA-05/29/2024--1.66 ng/mL. Will start Bactrim DS 1 tab twice a day, empirically and send urine culture. Review of charts: 06/19/2023?He is followed today for PSA. He was last seen by me on 12/16/2022 for recurrent urinary tract infections. The patient was advised to continue alfuzosin 10 mg daily.? PSA screening was ordered and he was advised to follow-up in 6 months during that time. He states that he is doing well at this time. He has been taking alfusozin 10 mg daily with benefit. He reports normal urinary stream. In general he is up 0-1 time at night unless he drinks coffee in the evening he gets up 2 x. He states his flow during the day is steady and he feels he is emptying his bladderl, denies dysuria or gross hematuria. I reviewed the PSA results from 06/14/2023 revealed 0.77 ng/mL. 06/19/2023: Evaluation today?UA? Leukocytes: negative; blood: negative; Bladder scan PVR: 163mL. 12/16/2022?LV 09/26/22--here as a new patient evaluation for recurrent UTIs. He states he was treated with antibiotics x2 courses a few months ago. Currently denies dysuria.? Denies gross hematuria.? Complains of weak stream. Was started on Flomax about 6 months ago by PCP, patient stays minimal improvement in strength of urinary flow. States had prostate biopsy about 12 years ago which was normal.? States PSA has been normal. 09/26/22- here for office cystoscopy, he states he is not sure if he started the alfuzosin or if he is still taking the flomax. Findings:? bladder mucosa - no suspious lesions, mild/mod trabeculations, plan I will send another script for alfuzosin 10 mg daily 12/16/2022-- states that urinary symptoms are improved, taking alfuzosin 10 mg daily Evaluation today-urinalysis negative for infection. Bladder scan PVR 87 mL. Plan continue alfuzosin 10 mg daily.? PSA screening.? Follow-up in 6 months. [facility] Medical History HTN (hypertension) HTN (hypertension) HTN (hypertension) PAD (peripheral artery disease) Surgical History Hx of cataract surgery S/P angiogram of extremity (04/06/22) Lumbar stenosis History of hemorrhoidectomy History of right knee surgery S/P left rotator cuff repair S/P right rotator cuff repair History of right tennis elbow Left rotator cuff tear arthropathy Trigger finger of right thumb Cervical radiculopathy at C6 Cervical radiculopathy at C5 Status post osteotomy Left varicocele History of appendectomy Family History Mother No problems noted. Father Heart disease Sister Multiple sclerosis Social History Alcohol intake: current Alcohol intake frequency: holidays/special occasions only Patient Tobacco Use Status: Former Tobacco user Years Smoked: 10+/- Review of Systems Const All systems reviewed & are unremarkable except as noted in HPI and below Reports no additional complaints Eyes Reports no additional complaints ENT Reports no additional complaints Card Reports no additional complaints Resp Reports no additional complaints GI Reports no additional complaints Reports as per HPI Musc Reports no additional complaints Skin/Breast Reports system reviewed and no additional complaints, except as documented Neuro Reports no additional complaints Psych Reports no additional complaints Endo Reports no additional complaints Armando/Lymph Reports no additional complaints Aller/Immun Reports no additional complaints Results AMB Urinalysis, Automated UA Leukoctes 125 Noy/uL Last Edit by ODILIA Castanon on 06/20/24 08:55 UA Nitrite Negative Last Edit by Rajeev Li CCM on 06/20/24 08:55 UA Urobilinogen 0.2 mg/dL Last Edit by ODILIA Castanon on 06/20/24 08:55 UA Protein 15 mg/dL Last Edit by Rajeev Li CCM on 06/20/24 08:55 UA pH 6.0 Last Edit by Rajeev Li CCM on 06/20/24 08:55 UA Blood 80 Blake/uL Last Edit by Rajeev Li CCM on 06/20/24 08:55 UA Specific [place] 1.020 Last Edit by Rajeev Li CCM on 06/20/24 08:55 UA Ketone Negative Last Edit by ODILIA Castanon on 06/20/24 08:55 UA Bilirubin 0 mg/dL Last Edit by Rajeev Li CCM on 06/20/24 08:55 UA Glucose 0 mg/dL Last Edit by Rajeev Li [facility] on 06/20/24 08:55 Results Reviewed Results Reviewed: Laboratory Last Values Urine pH (Auto) 6.0 06/20/24 08:53 Specific [place] (Auto) 1.020 06/20/24 08:53 Urine Protein (Auto) 15 mg/dL 06/20/24 08:53 Glucose (UA)(Auto) 0 mg/dL 06/20/24 08:53 Urine Ketones (Auto) Negative 06/20/24 08:53 Urine Blood (Auto) 80 Blake/uL 06/20/24 08:53 Urine Nitrite (Auto) Negative 06/20/24 08:53 Urine Bilirubin (Auto) 0 mg/dL 06/20/24 08:53 Urine Urobilinogen (Auto) 0.2 mg/dL 06/20/24 08:53 Leukocyte Esterase (Auto) 125 Noy/uL 06/20/24 08:53 I have reviewed renal ultrasound imaging 06/14/24--kidneys negative for stones or hydronephrosis. PSA-05/29/2024--1.66 ng/mL. Assessment & Plan Assessment & Plan (1) BPH loc w urin obs/LUTS: Code(s): N40.1 - Benign prostatic hyperplasia with lower urinary tract symptoms Category: Medical (2) Incomplete bladder emptying: Code(s): R33.9 - Retention of urine, unspecified Category: Medical (3) Screening PSA (prostate specific antigen): Code(s): Z12.5 - Encounter for screening for malignant neoplasm of prostate Category: Medical Plan Continue aflusozin 10 mg daily. Will start Bactrim DS 1 tab twice a day send urine culture. Orders: Orders AMB Urinalysis Automated Today Z13.9 - Encounter for screening, unspecified Medications: Refilled sulfamethoxazole-trimethoprim 800-160 mg (Bactrim DS) 1 tab PO BID 7 days 14 tabs 0RF Patient Instructions: The patient had an opportunity to ask questions regarding treatment plan. The patient expressed understanding and agreement with the above treatment plan. The patient is aware they should contact our office by phone for worsening of their current condition or the appearance of new symptoms. Compliance is encouraged with any medications and followup testing that is ordered. It is a privilege to be allowed the opportunity to participate in the urologic care of your patient. If you have any questions or concerns regarding treatment for the above conditions please do not hesitate to contact me. The office telephone contact is [phone]. This note is constructed in part using voice recognition software. While every effort has been made to ensure accuracy mechanical engineering intern errors may have been included. Yours sincerely, Mikaela Duke MD Coding Level of Care Code Est Pt Level 4 (04420) Diagnoses BPH loc w urin obs/LUTS N40.1 Incomplete bladder emptying R33.9 Screening PSA (prostate specific antigen) Z12.5
== END 2024-06-20 09:35 | disposition home or self-care (01) ==
PROVIDERS: PCP Student in an Organized Health Care Education/Training Program; Referring Provider Student in an Organized Health Care Education/Training Program; Visit Provider Urology
DX: N40.1 Benign prostatic hyperplasia with lower urinary tract symptoms (principal); R33.9 Retention of urine, unspecified; Z12.5 Encounter for screening for malignant neoplasm of prostate; Z13.9 Encounter for screening, unspecified
CPT/HCPCS: 99214

== ENCOUNTER 2024-07-23 11:07 | Outpatient (REF) | payer OTHER, SELFPAY ==
[2024-07-23 11:46] LABS: Appearance Urine Cloudy; Color Urine Yellow; Glucose Urine UA Negative (Negative); Leukocyte Esterase Urine Large (3+) (Negative); Nitrite Urine Positive (Negative); PH 5.5 (5.0-9.0); Specific Gravity - Urine 1.015 (1.005-1.025); UMIC TRIGGER UA YES; Urine Blood Moderate (2+) (Negative); Urine Ketones Negative (Negative); Urine Protein Trace mg/dL (Neg-Trace)
[2024-07-23 12:19] LABS: Bacteria Urine 1+ (None Seen); Hyaline Casts Urine 0-2 /LPF (0-2); Squamous Epithelial Cell Urine 0-2 /HPF (0-2); WBC Clumps Urine Present; WBC Urine >50 /HPF (0-5)
== END 2024-07-23 11:08 | disposition home or self-care (01) ==
LOC: HO.LAB 11:07
PROVIDERS: PCP Internal Medicine; Visit Provider Urology
DX: N40.1 Benign prostatic hyperplasia with lower urinary tract symptoms (principal); R33.9 Retention of urine, unspecified; R39.198 Other difficulties with micturition
CPT/HCPCS: 81001; 87086; 87088; 87186

== ENCOUNTER 2024-08-08 08:11 | Outpatient (REF) | payer OTHER, SELFPAY ==
--- NOTE | ~2024-08-08 | US_ITS ---
EXAMINATION: Noninvasive assessment of the bilateral lower extremities with ARTERIAL DUPLEX and ANKLE BRACHIAL INDICES (ABIs). CLINICAL INFORMATION: Peripheral vascular disease. History of right superficial femoral artery stent TECHNIQUE: Duplex Doppler techniques with waveform analysis and measurement of velocities in the bilateral common femoral, profunda femoris, superficial femoral, popliteal and tibial arteries were performed. Additionally, ankle pulse volume recordings, ankle pressure measurements and ankle brachial indices were obtained of the lower extremity arterial system bilaterally. The study was performed only at rest. COMPARISON: 01/02/2024 FINDINGS: DIRECT DUPLEX DOPPLER FINDINGS: RIGHT LEG: Common femoral artery: 110 cm/s, phasicity: Triphasic Profunda femoris artery: 89.7, phasicity: Triphasic Superficial femoral artery (proximal): 86.0, phasicity: Triphasic Proximal to mid superficial femoral artery stent: Widely patent on color flow Doppler. Proximal stent: 115 cm/s, triphasic Mid stent: 147 cm/s, triphasic Distal stent: 148 cm/s, triphasic Superficial femoral artery (mid): 90.2 cm/s, phasicity: Triphasic Superficial femoral artery (distal): 73.2 cm/s, phasicity: Triphasic Popliteal artery: 74.2 cm/s, phasicity: Triphasic Posterior tibial artery: 86.1 cm/s, phasicity: Triphasic Peroneal artery: 41.6 cm/s, phasicity: Triphasic Anterior tibial artery: 75.7 cm/s, phasicity: Triphasic Dorsalis pedis artery: 105 cm/s, phasicity:Triphasic LEFT LEG: Common femoral artery: 101 cm/s, phasicity: Triphasic Profunda femoris artery: 76.6 cm/s, phasicity: Biphasic Superficial femoral artery (proximal): 84.2 cm/s, phasicity: Biphasic Superficial femoral artery (mid): 104 cm/s, phasicity: Triphasic Superficial femoral artery (distal): 75.7 cm/s, phasicity: Triphasic Popliteal artery: 70.0 cm/s, phasicity: Biphasic Posterior tibial artery: 96.2 cm/s, phasicity: Biphasic Peroneal artery: 69.2 cm/s, phasicity: Biphasic Anterior tibial artery: 59.5 cm/s, phasicity: Biphasic Dorsalis pedis artery: 47 cm/s, phasicity: Biphasic ANKLE-BRACHIAL INDEX: Right: 1.14 Left: 1.22 ANKLE PRESSURES: Right: PT 159, DP 144 Left: PT 171, DP 157 ANKLE PVR WAVEFORMS: Right: Normal Left: Normal US/US arterial duplex BI w/ HAILEY IMPRESSION: RIGHT LEG: Normal noninvasive arterial evaluation. Widely patent right superficial femoral artery stent. LEFT LEG: Normal noninvasive arterial evaluation. Electronically signed by: Jerrell Omre MD 08/21/2024 03:31 PM EST
== END 2024-08-08 08:12 | disposition home or self-care (01) ==
LOC: HO.US 08:11
PROVIDERS: PCP Student in an Organized Health Care Education/Training Program; Visit Provider Surgery Vascular Surgery
DX: I73.9 Peripheral vascular disease, unspecified (principal)
CPT/HCPCS: 93922; 93925

== ENCOUNTER 2024-08-09 09:02 | Outpatient (REF) | payer OTHER, SELFPAY ==
[2024-08-09 10:23] LABS: Appearance Urine Clear; Color Urine Yellow; Glucose Urine UA Negative (Negative); Leukocyte Esterase Urine Moderate (2+) (Negative); Nitrite Urine Negative (Negative); PH 7.5 (5.0-9.0); Specific Gravity - Urine 1.015 (1.005-1.025); UMIC TRIGGER UA YES; Urine Blood Trace (Negative); Urine Ketones Negative (Negative); Urine Protein Trace mg/dL (Neg-Trace)
[2024-08-09 10:27] LABS: Bacteria Urine None Seen (None Seen); Hyaline Casts Urine 0-2 /LPF (0-2); Squamous Epithelial Cell Urine 0-2 /HPF (0-2); WBC Urine >50 /HPF (0-5)
== END 2024-08-09 09:03 | disposition home or self-care (01) ==
LOC: HO.LAB 09:02
PROVIDERS: PCP Internal Medicine; Visit Provider Urology
DX: N40.1 Benign prostatic hyperplasia with lower urinary tract symptoms (principal); R33.9 Retention of urine, unspecified
CPT/HCPCS: 81001; 87086; 87088; 87186

== ENCOUNTER → 2024-08-27 11:15 | Outpatient (BNVA) | payer OTHER, SELFPAY | PROVIDERS: PCP Internal Medicine; Visit Provider Urology ==

== ENCOUNTER 2024-09-19 08:53 | Outpatient (AMB) | payer OTHER, SELFPAY ==
[2024-09-19 09:00] VITALS: BMI 25.7
--- NOTE | 2024-09-19 09:00 | A.OFFVIS_ITS ---
Vital Signs 09/19/24 09:00 Height 5 ft 11 in Weight 184 lb BMI 25.7 Intake Visit Reasons: 6 mo follow up arterial US 08/08/24 Intake Note: 6 mo follow up arterial US 08/08/24 w/ hx of Right LE Angios 02/22/23 & 04/06/22. Pt states no issues Accompanied by: Self / Same As Patient Allergies No Known Allergies Allergy (Verified 09/19/24 09:05) HPI HPI 6 mo follow up arterial US 08/08/24: Details: Very pleasant 79-year-old gentleman presents for follow-up regarding peripheral vascular disease. He originally had his intervention a proximally 2-1/2 years ago with reintervention about a year and a half ago. At the current time he has no complaints. He ambulates with no significant difficulty. He remains quite active and ambulatory. 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 That keeps him quite occupied. At the current time he is being maintained on aspirin and statin. He now presents for routine follow-up. [facility] Medical History HTN (hypertension) HTN (hypertension) HTN (hypertension) PAD (peripheral artery disease) Surgical History Hx of cataract surgery S/P angiogram of extremity (04/06/22) Lumbar stenosis History of hemorrhoidectomy History of right knee surgery S/P left rotator cuff repair S/P right rotator cuff repair History of right tennis elbow Left rotator cuff tear arthropathy Trigger finger of right thumb Cervical radiculopathy at C6 Cervical radiculopathy at C5 Status post osteotomy Left varicocele History of appendectomy Family History Mother No problems noted. Father Heart disease Sister Multiple sclerosis Social History Alcohol intake: current Alcohol intake frequency: holidays/special occasions only Patient Tobacco Use Status: Former Tobacco user Years Smoked: 10+/- Review of Systems Const All systems reviewed & are unremarkable except as noted in HPI and below Reports no additional complaints ENT Reports Normal hearing present Card Denies chest pain, Denies chest pain at rest, Denies chest pain with activity and Denies pedal edema Resp Denies cough GI Denies abdominal pain Musc Denies abnormal gait, Denies muscle cramps and Denies radiating pain into limb Skin/Breast Denies skin ulcer and Denies wounds Neuro Reports Normal hearing present and Denies abnormal gait Psych Reports no additional complaints Physical Exam Vital Signs: BMI result Body Mass Index 25.7 Const General: cooperative, healthy appearing and comfortable Orientation/consciousness: oriented to person, oriented to place and oriented to time HEENT Head: Yes normal to inspection Neck Neck: Yes normal visual inspection Carotids: no bruits Chest Chest palpation & inspection: normal inspection of the chest Resp Effort & Inspection: normal respiratory effort and able to speak in complete sentences Auscultation: clear to auscultation bilaterally, no crackles, no rales, no rho nchi and no wheezes Cardio Other: Bilateral palpable dorsalis pedis pulses Rate: regular rate Rhythm: regular rhythm Heart sounds: S1 normal heart sound present and S2 normal heart sound present Bruits: no carotid bruits Peripheral pulses: Peripheral pulses 2+ throughout GI Inspection: Yes normal to inspection Skin Wounds: no wounds Hair: normal Neuro General: oriented to person, oriented to place and oriented to time Cranial nerves: Yes CN's II-XII intact bilaterally and Yes Normal hearing present Cognition (Neuro): normal cognition Motor exam (neuro): 5/5 motor strength present throughout Extrem Other: venous exam: No significant superficial varicosities or spider telangiectasias, minimal edema General: No clubbing, No cyanosis and No edema Psych Appearance: grossly normal Mental Status: mental status grossly normal Speech and movement: Normal speech and movement present Assessment & Plan Assessment & Plan (1) PAD (peripheral artery disease): Comment: 04/06/2022 - right SFA atherectomy and stent 02/22/2023 - right SFA plasty of InStent restenosis Code(s): I73.9 - Peripheral vascular disease, unspecified Category: Medical Plan: In short patient has stable claudication. I did review the pathophysiology of peripheral vascular disease with the patient. In addition we did discuss routine conservative measures including a healthy diet and the importance of exercise and ambulation. We did discuss risk factor modification. The patient will continue to to follow-up with surveillance follow-up in approximately 1 year. Thank you for allowing us to participate in this patient's care. If there are any questions or concerns please do not hesitate to contact us. Orders: Orders US arterial duplex LE BI 1 Year I73.9 - Peripheral vascular disease, unspecified Coding Level of Care Code Est Pt Level 4 (81649) Complex EM visit Add On G2211 Diagnoses PAD (peripheral artery disease) I73.9
--- OUTSIDE RECORDS SUMMARY | 2024-09-19 09:06 | XMS_ITS | Encounter Summary ---
Author Name [facility] [place] Address [address] [place] [address] Support Name Relationship Address Phone CAMMY HUIZAR Next of Kin [address] [place], [place] [phone] HUIZAR, EFREN Emergency Contact [address] [place], [place] [phone] Insurance Providers: All historical and current Section Date Range: From patient's date of to the date document was created. This section includes the names of all active insurance providers for the patient. Insurance Provider Type of Coverage Plan Name Start of Policy Coverage End of Policy Coverage Group Number Member ID Insurance Provider's Telephone Number Policy Oconnell's Name Patient's Relationship to Policy Oconnell MEDICARE (WNR) MEDICARE (M) PART B May 09, 2012 PART B [id number] JESSICA HUIZAR ID PATIENT MEDICARE (WNR) MEDICARE (M) PART A May 09, 2012 PART A [id number] BHUPENDRA,JESSICA ID PATIENT MEDICARE (WNR) MEDICARE (M) PART A May 09, 2012 PART A [id number] BHUPENDRA,JESSICA ID PATIENT MEDICARE (WNR) MEDICARE (M) PART B May 09, 2012 PART B [id number] BHUPENDRA,JESSICA ID PATIENT MEDICARE (WNR) MEDICARE (M) PART A May 09, 2012 PART A [id number] JESSICA HUIZAR ID PATIENT MEDICARE (WNR) MEDICARE (M) PART A May 09, 2012 PART A [id number] JESSICA HUIZAR ID PATIENT MEDICARE (WNR) MEDICARE (M) PART B May 09, 2012 PART B [id number] JESSICA HUIZAR ID PATIENT MEDICARE (WNR) MEDICARE (M) PART B May 09, 2012 PART B [id number] [phone] BHUPENDRA,JESSICA ID PATIENT OPTUM RX PRESCRIPT ION RX Oct 09, 2023 THPRX [id number] BHUPENDRA,JESSICA ID PATIENT OPTUM RX PRESCRIPT ION RX Oct 09, 2022 THPRX [id number] [phone] BHUPENDRA,JESSICA ID PATIENT [facility] February 27, 2014 [facility] [id number] BHUPENDRA,JESSICA ID PATIENT [facility] [place] [facility] February 27, 2014 [id number] [phone] JESSICA HUIZAR ID PATIENT [facility] (WNR) [facility] [place] Oct 09, 2023 [id number] BHUPENDRA,JESSICA ID PATIENT Selected Encounter This section includes the information on record at [place] for the Encounter. Date/Time Encounter Type Encounter Description Reason Provider Source Jan 24, 2024 04:00 PM HEARING AID REPAIR/MODIFYIN G AUDIOLOGY ICD-10-CM Z46.1 Encounter for fitting and adjustment of hearing aid JEN WEBSTER [facility] Encounter Template Text not used by [place] Assessments - Encounter Diagnoses This section includes the primary and secondary diagnoses documented for the Encounter. Date/Time Primary/Secondary Diagnosis Diagnosis Name Provider Source Jan 24, 2024 04:25 PM PRIMARY Encounter for fitting and adjustment of hearing aid JUAN WEBSTER [facility] Jan 24, 2024 04:25 PM SECONDARY Sensorineural hearing loss, bilateral JUAN WEBSTER [facility] Plan of Treatment: Future Appointments (+ 6 months) and Future Tests (+/- 45 days) The Plan of Treatment section includes future care activities for the patient from all [place] treatmentfacilities. This section includes future appointments and future orders which are active, pending or scheduled. Future Appointments This section includes appointments that were scheduled to occur 6 months from the date of the Encounter, up to a maximum of 20 appointments. The data comes from all [place] treatment facilities. Appointment Date/Time Appointment Type Appointme nt Facility Name Jan 26, 2024 04:00 PM AMBULATORY - REHAB MEDICIN E [facility] Encounter Notes: All associated encounter notes This section contains the clinical notes associated to the Encounter. Date/Time Encounter Note(s) Provider Source Jan 24, 2024 04:21 PM AUDIOLOGY E & M NO TE: LOCAL TITLE: AUDIOLOGY CLINIC STANDARD TITLE: AUDIOLOGY E & M NOTE DATE OF NOTE: JAN 24, 2024@16:21 ENTRY DATE: JAN 24, 2024@16:21:49 AUTHOR: JEN WEBSTER EXP COSIGNER: URGENCY: STATUS: COMPLETED Dx: Sensorineural hearing loss, bilateral Mireille was seen today for a hearing aid follow-up appointment. He is currently wearing bilateral GN Resound One mini SHALINI hearing aids he was issued on 07/08/22. reports he has not been hearing his well for the past month and a half. He reports he had pneumonia the first three weeks of December and since then he has not been hearing as well. Otoscopy was WNL bilaterally. Initial listening check revealed the hearing aids are working. 's hearing aids were cleaned and checked. All debris was removed from the microphones, and both receivers, tulip domes, and batteries were replaced. Listening check was positive for both hearing aids. Given 's reports of noting a possible change in his hearing, re- evaluation is recommended. He was offered an appointment tomorrow, but he states he has Jury Duty. Mireille is scheduled for hearing re-evaluation on January 25 at 4pm with this provider. RTC placed. /dontae/ Heena Lester, RENZO-A Tree Trimming Line Technician Signed: 01/24/2024 16:26 Receipt Acknowledged By: 01/25/2024 07:18 /dontae/ ISAIAS EMANUEL LEAD SAND DIGGER JEN WEBSTER [facility]
--- OUTSIDE RECORDS SUMMARY | 2024-09-19 09:06 | XMS_ITS ---
Author Name [facility] [place] [facility] [place] Address [address] [place] [address] Support Name Relationship Address Phone CAMMY HUIZAR Next of Kin [address] [place], [place] [phone] HUIZAR, EFREN Emergency Contact [address] [place], [place] [phone] Insurance Providers: All historical and current Section [...] PART B May 09, 2012 PART B [id number] JESSICA HUIZAR ID PATIENT MEDICARE (WNR) MEDICARE (M) PART A May 09, 2012 PART A [id number] BHUPENDRA,JESSICA ID PATIENT MEDICARE (WNR) MEDICARE (M) PART A May 09, 2012 PART A [id number] [phone] BHUPENDRA,JESSICA ID PATIENT MEDICARE (WNR) MEDICARE (M) PART B May 09, 2012 PART B [id number] BHUPENDRA,JESSICA ID PATIENT MEDICARE (WNR) MEDICARE (M) PART A May 09, 2012 PART A [id number] [phone] JESSICA HUIZAR ID PATIENT MEDICARE (WNR) MEDICARE (M) PART A May 09, 2012 PART A [id number] BHUPENDRA,JESSICA ID PATIENT MEDICARE (WNR) MEDICARE (M) PART B May 09, 2012 PART B [id number] BHUPENDRA,JESSICA ID PATIENT MEDICARE (WNR) MEDICARE (M) PART B May 09, 2012 PART B [id number] [phone] BHUPENDRA,JESSICA ID PATIENT OPTUM RX PRESCRIPT ION RX Oct 09, 2023 THPRX [id number] [phone] BHUPENDRA,JESSICA ID PATIENT OPTUM RX PRESCRIPT ION RX Oct 09, 2022 THPRX [id number] [phone] BHUPENDRA,JESSICA ID PATIENT [facility] February 27, 2014 [facility] [id number] BHUPENDRA,JESSICA ID PATIENT [facility] [place] [facility] February 27, 2014 [id number] BHUPENDRA,JESSICA ID PATIENT [facility] (WNR) [facility] [place] Oct 09, 2023 [id number] BHUPENDRA,JESSICA ID PATIENT Selected Encounter This section includes the information on record at [place] for the Encounter. Date/Time Encounter Type Encounter Description Reason Pro vider Source Jan 19, 2024 02:27 PM Outpatient Encounter COMMUNITY CARE CONSULT IHE Encounter Template Text not used by [place] Plan of Treatment: Future Appointments (+ 6 months) and Future Tests (+/- 45 days) The Plan of Treatment section includes future care activities for the patient from all [place] treatmentfacilities. This section includes future appointments and future orders which are active, pending or scheduled. Future Appointments This section includes appointments that were scheduled to occur 6 months from the date of the Encounter, up to a maximum of 20 appointments. The data comes from all [place] treatment facilities. Appointment Date/Time Appointment Type Appointme nt Facility Name Jan 24, 2024 04:00 PM AMBULATORY - [facility] [place] [facility] Jan 26, 2024 04:00 PM AMBULATORY - [facility] [place] [facility] Encounter Notes: All associated encounter notes This section contains the clinical notes associated to the Encounter. Date/Time Encounter Note(s) Provider Source Jan 19, 2024 02:27 PM NONVA NOTE: LOCAL TITLE: [facility] SELF PRESENTING CARE COORD PLAN STANDARD TITLE: NONVA NOTE DATE OF NOTE: JAN 19, 2024@14:27 ENTRY DATE: JAN 19, 2024@14:27:54 AUTHOR: DARA DELACRUZ EXP COSIGNER: URGENCY: STATUS: COMPLETED Emergency Notification Intake Date Presenting to the Facility: Dec Method of Contact: Notified from ECR worklist Notification ID: [id number] [facility] Referral #: [id number] [facility] Name: Hospital: [facility] Address: City: [place] State: [place] Zip Code: Phone : [facility] Point of Contact: Name: Lizbet Phone: Chief complaint: SOB, COUGH Primary Diagnosis: Disposition Discharged Date of discharge: Dec Discharge to Comment: ER Only /dontae/ DARA CHAN Signed: 01/19/2024 14:30 Receipt Acknowledged By: 02/13/2024 16:22 /dontae/ Jackie MARIANO,RN,CCM TRANSFER/TRAVELING COORDINATOR DARA DELACRUZ YUMA
--- OUTSIDE RECORDS SUMMARY | 2024-09-19 09:06 | XMS_ITS | Patient Health Record ---
Author Organization [facility] Address [address] [place] [address] Care Team Providers Care Tobacco Stemmer Name Role Phone Tree Aguilar Primary Care Provider Cedrick Pablo Jr Unavailable [phone] ALLERGIES Allergen (clinical drug ingredient) Drug/Non Drug Allergy documented on EMR Reaction Allergy Type Onset Date Status grass and trees (uncoded) Unknown Allergy Active REASON FOR REFERRAL No Information MEDICATIONS Medication SIG (Take, Route, Frequency, Duration) Notes Start Date End Date Status Zocor 20 MG 1 tablet in the even ing Orally Once a day Active Gabapentin 300 MG 1 capsule before bed time Orally Once a day Active Metoprolol Succinate 50 MG 1 Orally QD Active Meloxicam 15 MG 1 tablet Orally Once a day for 30 day(s) Active IMMUNIZATIONS Vaccine Route Administration Date Status Comme nts Influenza Unknown 07/04/2021 Administered SOCIAL HISTORY Tobacco Use: Social History Observation Description Date Details (start date - stop date) Never Smoker NA - NA Sex Assigned At : Social History Observation Description Sex Assigned At Unknown Tobacco Use/Smoking Question Answer Notes Patient is a nonsmoker Alcohol Screen Question Answer Notes Did you have a drink contain ing alcohol in the past year? Yes How often did you have a dri nk containing alcohol in the past year? Monthly or less (1 point) How many drinks did you have on a typical day when you were drinking in the past year? 1 or 2 drinks (0 point) How often did you have 6 or more drinks on one occasion in the past year? 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 [place] [phone] [id number] NAN RAMSAY Self - patient is the insured MEDICAL (GENERAL) HISTORY Medical History History ICD Code hypertension nerve pain right leg elevated cholesterol cervical spondyloarthropathies degenerative joint disease prostate nodule Surgical History Surgery Date(Month/Year) appendectomy left vericocele metatarsal osteotomy cervical radiculopathy thumb rotator cuff tear repair right knee arthroscopy tennis elbow surgery
--- OUTSIDE RECORDS SUMMARY | 2024-09-19 09:06 | XMS_ITS | Continuity of Care Document ---
Author Name [facility] Organization [facility] Care Team Providers Care Manager Shell Name Role Phone [facility] Unavailable Unavailable Problems Combined list of problems from Department of Defense and Veterans Affairs facilities. It does not include entries that were removed or entered in error. Problem Status Onset Date Problem Type Date of Resolution Comments Source Diagnosis: ICD-10-CM H90.3 Sensorineural hearing loss, bilateral Active Diagnosis [facility] Diagnosis: ICD-10-CM Z46.1 Encounter for fitting and adjustment of hearing aid Active Diagnosis [facility] Encounters Combined list of: 1) Encounters from Department of Veterans Affairs facilities going back up to thelast 18 months. 2) Encounters from the Department of Defense facilities going back up to 280 months. Location Location Details Encounter Type Encounter Number Reason For Visit Attending Provider ADM Date DC Date Status Disposition Source [facility] Outpatient Encounter [id number] 01/18 [facility] HEARING AID REPAIR/MOD IFYING [id number] Diagnos is: ICD-10- CM Z46.1 Encount er for fitting and adjustm ent of hearing aid<br/ > BAL WEBSTERN L 01/23 [facility] HEARING AID FITTING/CH ECKING [id number] Diagnos is: ICD-10- CM H90.3 Sensori neural hearing loss, bilater al
BAL WEBSTER UREN L 01/25 [facility] Social History Combined list of available smoking, tobacco, and other social history from Department of Defense and Veterans Affairs facilities. Social History Type Response Date Comment Sourc e This section is an empty social history section. DoD
--- OUTSIDE RECORDS SUMMARY | 2024-09-19 09:07 | XMS_ITS ---
Author Name [facility] [place] [facility] [place] Address [address] [place] [address] Support Name Relationship Address Phone CAMMY HUIZAR Next of Kin [address] [place], [place] [phone] HUIZAR, EFREN Emergency Contact [address] [place], [place] [phone] Insurance Providers: All historical and current Section [...] PART B May 09, 2012 PART B [id number] JESSICA HUIZAR ID PATIENT MEDICARE (WNR) MEDICARE (M) PART A May 09, 2012 PART A [id number] BHUPENDRA,JESSICA ID PATIENT MEDICARE (WNR) MEDICARE (M) PART A May 09, 2012 PART A [id number] BHUPENDRA,JESSICA ID PATIENT MEDICARE (WNR) MEDICARE (M) PART B May 09, 2012 PART B [id number] [phone] BHUPENDRA,JESSICA ID PATIENT MEDICARE (WNR) MEDICARE (M) PART A May 09, 2012 PART A [id number] [phone] JESSICA HUIZAR ID PATIENT MEDICARE (WNR) MEDICARE (M) PART A May 09, 2012 PART A [id number] JESSICA HUIZAR ID PATIENT MEDICARE (WNR) MEDICARE (M) PART B May 09, 2012 PART B [id number] JESSICA HUIZAR ID PATIENT MEDICARE (WNR) MEDICARE (M) PART B May 09, 2012 PART B [id number] BHUPENDRA,JESSICA ID PATIENT OPTUM RX PRESCRIPT ION RX Oct 09, 2023 THPRX [id number] BHUPENDRA,JESSICA ID PATIENT OPTUM RX PRESCRIPT ION RX Oct 09, 2022 THPRX [id number] BHUPENDRA,JESSICA ID PATIENT [facility] February 27, 2014 [facility] [id number] BHUPENDRA,JESSICA ID PATIENT [facility] [place] February 27, 2014 [id number] JESSICA HUIZAR ID PATIENT [facility] (WNR) [facility] Oct 09, 2023 [id number] BHUPENDRA,JESSICA ROONEY PATIENT Selected Encounter This section includes the information on record at [place] for the Encounter. Date/Time Encounter Type Encounter Description Reason Provider Source Jan 26, 2024 04:00 PM HEARING AID FITTING/CHECKIN G AUDIOLOGY ICD-10-CM H90.3 Sensorineural hearing loss, bilateral JUAN WEBSTER E Encounter Template Text not used by [place] Assessments - Encounter Diagnoses This section includes the primary and secondary diagnoses documented for the Encounter. Date/Time Primary/Secondary Diagnosis Diagnosis Name Provider Source Jan 26, 2024 04:46 PM PRIMARY Sensorineural hearing loss, bilateral JUAN WEBSTER [facility] Encounter Notes: All associated encounter notes This section contains the clinical notes associated to the Encounter. Date/Time Encounter Note(s) Provider Source Jan 26, 2024 04:01 PM AUDIOLOGY E & M NOTE: LOCAL TITLE: AUDIOLOGY CLINIC STANDARD TITLE: AUDIOLOGY E & M NOTE DATE OF NOTE: JAN 26, 2024@16:01 ENTRY DATE: JAN 26, 2024@16:01:31 AUTHOR: JEN WEBSTER EXP COSIGNER: URGENCY: STATUS: COMPLETED Mireille was seen January 26, 2024 for a hearing re-evaluation. His last hearing evaluation was on 06/02/22. [place] reports noting increased difficulty hearing his . He is currently wearing bilateral GN Resound One mini SHALINI hearing aids he was issued on 07/08/22. Mireille reports his hearing aids sounded brighter when he first got them. Medical history includes: Problem List - Active - NONE FOUND Results of today's testing are as follow: Otoscopy was WNL bilaterally. Pure tone audiometric testing under headphones revealed normal hearing at 250 Hz only, with a mild sloping to severe sensorineural hearing loss from 500-8000 Hz bilaterally. Improvements noted in high frequency thresholds for the left ear when rechecked with insert earphone. Word recognition scores were fair for the right ear (76%), and poor for the left ear (40%) with recorded speech presented at 85 dB HL (right ear), and at 90 dB HL (left ear) (contralateral masking). Type A tympanogram obtained for the right ear, type As tympanogram obtained for the left ear. Hearing is stable compared to his last evaluation in 2021, with the exception of a decline noted in word recognition scores for the left ear. Mireille was counseled re: today's test results. He is not eligible for new amplification at this time given the age and appropriateness of his current hearing aids, and stable hearing seen on today's audiogram. Mireille's hearing aids were connected in DONALD. Settings read from the hearing aids showed they were programmed to Audiogram +. Mireille's hearing aids were re-programmed to NAL-NL1 and feedback financial investment manager was re-run. He reported noting significant improvement. will contact the clinic as needed. /dontae/ Heena Lester, [facility] Japanese Tutor Signed: 01/26/2024 16:53 [facility]
== END 2024-09-19 09:22 | disposition home or self-care (01) ==
PROVIDERS: PCP Internal Medicine; Visit Provider Surgery Vascular Surgery
DX: I73.9 Peripheral vascular disease, unspecified (principal)
CPT/HCPCS: 99214

== ENCOUNTER → 2024-09-19 08:53 | Outpatient (BNVA) | payer OTHER, SELFPAY | PROVIDERS: PCP Internal Medicine; Visit Provider Surgery Vascular Surgery | DX: I73.9 Peripheral vascular disease, unspecified (principal) | CPT/HCPCS: 99212 ==

== ENCOUNTER 2024-11-06 14:39 | Outpatient (AMB) | payer OTHER, SELFPAY ==
--- NOTE | 2024-11-06 15:04 | A.OFFVIS_ITS ---
Vital Signs 11/06/24 15:05 Height 5 ft 11 in Weight 186 lb 4.65 oz BMI 26.0 BP 122/58 L Blood Pressure Location Lt brachial Position Sitting Pulse 54 Pulse Source Pulse Oximeter Pulse Oximetry (%) 97 Oxygen Delivery Method Room Air Intake Visit Reasons: chronic cough Allergies No Known Allergies Allergy (Verified 11/06/24 15:08) HPI Comments Details: The patient is here for pulmonary evaluation. The patient is a 79-year-old gentleman presenting with a chronic cough. The patient states that this cough started back in about 2020. He states that at that point he was started on lisinopril and he is noticing the cough. At that point it was typically nonproductive in nature. Although when he stop the lisinopril he continued to have the cough. At times the cough can be productive in nature. He was evaluated by his cement mixer driver in ENT doctor and did undergo laryngoscopy sometime ago. No evidence of any significant abnormalities per the patient's report. He has been kept him on nasal steroid sprays and antihistamines sprays. In addition to that he does have a rescue inhaler the sometimes provide some relief for about an hour so. Then the effects wear off. As far as the workup the patient did undergo a pulmonary function study at [place]. I did personally reviewed. No evidence of any obstructive nor restrictive ventilatory defects. Although he has an isolated diffusion impairment. Mild in severity. The patient also had a CT scan of the chest back in 01/27/2024 to further address the chronic cough. It looks like he does have some emphysema in the upper lung zones any indeed was a smoker smoking about 2 packs a day until about 14 years ago when he quit. In addition to that he does appear to have some atelectasis and scarring at the left base and some evidence of bronchitis. He also has some debris in the esophagus. Because of his chronic cough 1 needs to consider underlying reflux disease. On further questioning he states that he has difficulty swallowing specially medications like tablets. Denies ever choking on the food products. Will go ahead and request a barium swallow this time. [facility] Medical History (Updated 11/06/24 @ 21:18 by Marcus Tafoya MD) Upper airway cough syndrome Dysphagia Chronic cough Emphysema of lung HTN (hypertension) HTN (hypertension) HTN (hypertension) PAD (peripheral artery disease) Surgical History Hx of cataract surgery S/P angiogram of extremity (04/06/22) Lumbar stenosis History of hemorrhoidectomy History of right knee surgery S/P left rotator cuff repair S/P right rotator cuff repair History of right tennis elbow Left rotator cuff tear arthropathy Trigger finger of right thumb Cervical radiculopathy at C6 Cervical radiculopathy at C5 Status post osteotomy Left varicocele History of appendectomy Family History Mother No problems noted. Father Heart disease Sister Multiple sclerosis Social History Alcohol intake: current Alcohol intake frequency: holidays/special occasions only Patient Tobacco Use Status: Former Tobacco user Years Smoked: 10+/- Review of Systems Const Reports no additional complaints Eyes Reports no additional complaints ENT Reports dysphagia, Reports epistaxis, Reports nasal congestion, Reports nasal discharge and Reports post nasal drip Card Denies chest pain, Denies chest pain at rest, Denies chest pain with activity and Denies pedal edema Resp Reports cough GI Denies abdominal pain and Reports dysphagia Musc Denies abnormal gait, Denies muscle cramps and Denies radiating pain into limb Skin/Breast Denies skin ulcer and Denies wounds Neuro Denies abnormal gait Psych Reports no additional complaints Armando/Lymph Reports no additional complaints Aller/Immun Reports seasonal rhinorrhea Physical Exam Vital Signs: Last Vital Signs Pulse 54 11/06/24 15:05 BP 122/58 L 11/06/24 15:05 Pulse Ox 97 11/06/24 15:05 Oxygen Delivery Method Room Air 11/06/24 15:05 BMI result Body Mass Index 26.0 Const General: healthy appearing and comfortable Orientation/consciousness: oriented to person, oriented to place and oriented to time HEENT General nose exam: Abnormal mucous membranes and turbinates present erythematous and Epistaxis present Throat: Yes cobblestoning Neck Neck: Yes normal visual inspection Carotids: no bruits Chest Chest palpation & inspection: normal inspection of the chest Resp Effort & Inspection: normal respiratory effort, able to speak in complete sentences and prolonged expiratory phase Auscultation: diminished lung sounds Cardio Other: Bilateral palpable dorsalis pedis pulses Rate: regular rate Rhythm: regular rhythm Heart sounds: S1 normal heart sound present and S2 normal heart sound present GI Palpation (GI): Soft to palpation Skin Wounds: no wounds Hair: normal Neuro General: oriented to person, oriented to place and oriented to time Extrem General: No clubbing, No cyanosis and No edema Psych Appearance: grossly normal Assessment & Plan Assessment & Plan (1) Emphysema of lung: Code(s): J43.9 - Emphysema, unspecified Category: Medical Qualifiers: Emphysema type: centrilobular Qualified Code(s): J43.2 - Centrilobular emphysema (2) Chronic cough: Code(s): R05.3 - Chronic cough Category: Medical (3) Dysphagia: Code(s): R13.10 - Dysphagia, unspecified Category: Medical Qualifiers: Dysphagia type: unspecified Qualified Code(s): R13.10 - Dysphagia, unspecified (4) Upper airway cough syndrome: Code(s): R05.8 - Other specified cough Category: Medical Plan reflux diet sleep with HOB elevated Barium swallow start Anoro daily MILLIE as needed start netti bottle QHS benzonate as needed F/U 6-8 weeks Medications: New benzonatate 200 mg PO BID PRN 60 caps 6RF cough 30 days umeclidinium-vilanterol 62.5-25 mcg/actuation (Anoro Ellipta) 1 inh inhalation DAILY 60 ea 11RF J44.89 - Other specified chronic obstructive pulmonary disease Coding Level of Care Code New Pt Level 4 (02191) Diagnoses Centrilobular emphysema J43.2 Emphysema type: centrilobular Chronic cough R05.3 Dysphagia, unspecified type R13.10 Dysphagia type: unspecified Upper airway cough syndrome R05.8 Time Spent (min) 45
[2024-11-06 15:05] VITALS: BP 122/58; PULSE 54; O2SAT 97; BMI 26.0
--- OUTSIDE RECORDS SUMMARY | 2024-11-06 16:52 | XMS_ITS | Encounter Summary ---
[facility] Organization [facility] Address [address] [place] [address] Care Team Providers Care Engineering Associate Name Role Phone Tree Aguilar MD Primary Care Provider Unavailable Marco Gonzales DO Primary Care Provider UnavailReji Ely MD Unavailable Unavailable Karlie Mendez MD Primary Care Provider [phone] Reason for Visit * Reason Comments E-prescribe Rx Request Encounter Details Date Type Department Care Team Description 03/24/2021 Refill Adult Medicine - [address] [address] Tree Aguilar MD E-prescribe Rx Request Social History Tobacco Use Types Packs/Day Years Used Date Smoking Tobacco: Former Cigarettes 2 12 Q uit: 10/09/1973 Smokeless Tobacco: Never Alcohol Use Standard Drinks/Week Comments No 0 (1 standard drink = 0.6 oz pur e alcohol) Sex Assigned at Date Recorded Not on file Job Start Date Occupation Industry Not on file Not on file Not on file documented as of this encounter Miscellaneous Notes * Telephone Encounter - Jill Tafoya - 03/26/2021 4:27 PM EDT Patient would like script to be: E-PRESCRIBED/FAXED TO PHARMACY WHEN WAS THE PATIENT'S LAST APPOINTMENT IN ADULT MEDICINE? 03/19/21 WHEN WAS THE LAST TIME THE PATIENT SAW THEIR PCP? Same as above Does patient have an upcoming appointment? Yes 09/17/21 (THE MEDICATION REQUESTED IS ON THE MED LIST ABOVE) All of the medications requested were on the CURRENT MEDS list Did you check the Pharmacy information above?: YES Patient wants: 90 -day supply Is this a mail order prescription request ? NO If the refill is from a FAXED refill request what is the RX # listed on the fax? N/A Patients current insurance carrier is: Payor: [employer] Secure PLAN / Plan: POS $0 [place] [id number] /Product Type: POS [id number] documented in this encounter Plan of Treatment Not on file documented as of this encounter Visit Diagnoses Not on filedocumented in this encounter Care Teams Engineering Associate Relationship Specialty Start Date End Date Tree Aguilar MD PCP - General Internal Medicine 03/10/16 Marco Gonzales DO PCP - General Internal Medicine 09/22/21 03/26/24 Karlie Mendez MD [address] [place] [address] PCP - General Internal Medicine 03/27/24 Reji Amaya MD Specialist Vascular Surgery 05/16/22 documented as of this encounter
--- OUTSIDE RECORDS SUMMARY | 2024-11-06 16:52 | XMS_ITS | Encounter Summary ---
Author Organization [facility] Address [address] [place] [address] Care Team Providers Care Hand Alterations Tailor Name Role Phone Jhon Strauss Primary Care Provider Unav Dany Gamboa MD Primary Care Provider [phone] Tree Aguilar MD Primary Care Provider Unavailable Marco Gonzales DO Primary Care Provider Unavaila Reji Martin MD Unavailable Unavailable Karlie Mendez MD Primary Care Provider [phone] Encounter Details Date Type Department Care Team Description 06/29/2012 Pt. Non Urgent Medical Question Adult Medicine - [address] [address] Jhon Strauss Social History Tobacco Use Types Packs/Day Years Used Date Smoking Tobacco: Former Cigarettes 2 12 Q uit: 10/09/1973 Alcohol Use Standard Drinks/Week Comments Yes 3.3 (1 standard drink = 0.6 oz p ure alcohol) Sex Assigned at Date Recorded Not on file Job Start Date Occupation Industry Not on file Not on file Not on file documented as of this encounter Progress Notes * Genesis LynPEsteeNEstee - 06/29/2012 8:26 AM EDTFrom: NAN BROWNE To: Jhon Strauss MD Sent: MonJun 29, 2012 5:44 AM Subject: MRI of right knee - 08/18/2010 I need to picker tender this film first thing Monday07/02/2012 for a follow-up appointment with Mr Marie at [facility]. Is this the right forum to make this request? Thanks, Nan Browne documented in this encounter Plan of Treatment Not on file documented as of this encounter Visit Diagnoses Not on filedocumented in this encounter Care Teams Hand Alterations Tailor Relationship Specialty Start Date End Date Jhon Strauss PCP - General 11/22/07 01/05/16 Dany Villegas MD [address] [place] [address] PCP - General Internal Medicine 01/06/16 03/09/16 Tree Aguilar MD [address] [place] [address] PCP - General Internal Medicine 03/10/16 09/21/21 Marco Gonzales DO [address] [place] [address] PCP - General Internal Medicine 09/22/21 03/26/24 Karlie Mendez MD [address] [place] [address] PCP - General Internal Medicine 03/27/24 Reji Amaya MD [address] [place] [address] Specialist Vascular Surgery 05/16/22 documented as of this encounter
--- OUTSIDE RECORDS SUMMARY | 2024-11-06 16:52 | XMS_ITS | Encounter Summary ---
Author Organization [facility] Address [address] [place] [address] Care Team Providers Care Rn Acls Name Role Phone Jhon Strauss Primary Care Provider Unav ailable Dany Villegas MD Primary Care Provider [phone] Tree Aguilar MD Primary Care Provider Unavailable Marco Gonzales DO Primary Care Provider Unavaila Reji Martin MD Unavailable Unavailable Karlie Mendez MD Primary Care Provider [phone] Encounter Details Date Type Department Care Team Description 07/27/2012 [facility] Medical Records [address] [place] [address] James Zee Social History Tobacco Use Types Packs/Day Years Used Date Smoking Tobacco: Former Cigarettes 2 12 Q uit: 10/09/1973 Smokeless Tobacco: Never Alcohol Use Standard Drinks/Week Comments Yes 0 (1 standard drink = 0.6 oz pur e alcohol) occ Sex Assigned at Date Recorded Not on file Job Start Date Occupation Industry Not on file Not on file Not on file documented as of this encounter Plan of Treatment Not on file documented as of this encounter Visit Diagnoses Not on filedocumented in this encounter Care Teams Rn Acls Relationship Specialty Start Date End Date Jhon Strauss PCP - General 11/22/07 01/05/16 Dany Villegas MD [address] [place] [address] PCP - General Internal Medicine 01/06/16 03/09/16 Tree Aguilar MD [address] [place] [address] PCP - General Internal Medicine 03/10/16 09/21/21 Marco Gonzales DO [address] [place] [address] PCP - General Internal Medicine 09/22/21 03/26/24 Karlie Mendez MD [address] [place] [address] PCP - General Internal Medicine 03/27/24 Reji Amaya MD [address] [place] [address] Specialist Vascular Surgery 05/16/22 documented as of this encounter
--- OUTSIDE RECORDS SUMMARY | 2024-11-06 16:52 | XMS_ITS | Encounter Summary ---
Author Organization [facility] Address [address] [place] [address] Care Team Providers Care Live In Housekeeper Name Role Phone Jhon Strauss Primary Care Provider Unav ailable Dany Villegas MD Primary Care Provider [phone] Tree Aguilar MD Primary Care Provider Unavailable Marco Gonzales DO Primary Care Provider Unavaila Reij Martin MD Unavailable Unavailable Karlie Mendez MD Primary Care Provider [phone] Encounter Details Date Type Department Care Team Description 09/24/2010 Medical Device Sales Representative Report Medical Records [address] [place] [address] Domenico Navarro MD Social History Tobacco Use Types Packs/Day Years [...] on filedocumented in this encounter Care Teams Live In Housekeeper Relationship Specialty Start Date End Date Jhon Strauss PCP - General 11/22/07 01/05/16 Dany Villegas MD [address] [place] [address] PCP - General Internal Medicine 01/06/16 03/09/16 Tree Aguilar MD [address] [place] [address] PCP - General Internal Medicine 03/10/16 09/21/21 Marco Gonzales DO [address] [place] [address] PCP - General Internal Medicine 09/22/21 03/26/24 Karlie Mendez MD [address] [place] [address] PCP - General Internal Medicine 03/27/24 Reji Amaya MD [address] [place] [address] Specialist Vascular Surgery 05/16/22 documented as of this encounter
--- OUTSIDE RECORDS SUMMARY | 2024-11-06 16:52 | XMS_ITS | Encounter Summary ---
Author Organization [facility] Address [address] [place] [address] Care Team Providers Care Mud Mixer Helper Name Role Phone Marco Gonzales DO Primary Care Provider Reji Aguillon MD Unavailable Unavailable Karlie Mendez MD Primary Care Provider [phone] Encounter Details Date Type Department Care Team Description 12/16/2022 [employer] Report Medical Records [address] [place] [address] Abstract, Provider Social History Tobacco Use Types Packs/Day Years Used Date Smoking Tobacco: Former Cigarettes 2 12 Q uit: 10/09/1973 Smokeless Tobacco: Never Alcohol Use Standard Drinks/Week Comments No 0 (1 standard drink = 0.6 oz pur e alcohol) Sex Assigned at Date Recorded Not on file Job Start Date Occupation Industry Not on file Not on file Not on file COVID-19 Exposure Response Date Recorded In the last 10 days, have yo u been in contact with someone who was confirmed or suspected to have Coronavirus/COVID-19? No / Unsure 12/14/2022 8:19 AM EST documented as of this encounter Plan of Treatment Not on file documented as of this encounter Visit Diagnoses Not on filedocumented in this encounter Care Teams Mud Mixer Helper Relationship Specialty Start Date End Date Marco Gonzales DO PCP - General Internal Medicine 09/22/21 03/26/24 Karlie Mendez MD [address] [place] [address] PCP - General Internal Medicine 6/19/24 Reji Amaya MD Specialist Vascular Surgery 05/16/22 documented as of this encounter
--- OUTSIDE RECORDS SUMMARY | 2024-11-06 16:52 | XMS_ITS | Encounter Summary ---
Author Organization [facility] Address [address] [place] [address] Care Team Providers Care Automobile Designer Name Role Phone Tree Aguilar MD Primary Care Provider Unavailable Marco Gonzales DO Primary Care Provider Unavaila Reji Martin MD Unavailable Unavailable Karlie Mendez MD Primary Care Provider [phone] Encounter Details Date Type Department Care Team Description 02/07/2017 [facility] [address] [place] [address] Md Fermin Social History Tobacco Use Types Packs/Day Years Used Date Smoking Tobacco: Former Cigarettes 2 12 Q uit: 10/09/1973 Smokeless Tobacco: Never Alcohol Use Standard Drinks/Week Comments Yes 3.3 (1 standard drink = 0.6 oz p ure alcohol) average 1 beer/wk at most Sex Assigned at Date Recorded Not on file Job Start Date Occupation Industry Not on file Not on file Not on file documented as of this encounter Plan of Treatment Not on file documented as of this encounter Visit Diagnoses Not on filedocumented in this encounter Care Teams Automobile Designer Relationship Specialty Start Date End Date Tree Aguilar MD PCP - General Internal Medicine 03/10/16 Marco Gonzales DO PCP - General Internal Medicine 09/22/21 03/26/24 Karlie Mendez MD [address] [place] [address] PCP - General Internal Medicine 03/27/24 Reji Amaya MD Specialist Vascular Surgery 05/16/22 documented as of this encounter
--- OUTSIDE RECORDS SUMMARY | 2024-11-06 16:52 | XMS_ITS | Encounter Summary ---
Author Organization [facility] Address [address] [place] [address] Care Team Providers Care Shredding Machine Operator Name Role Phone Tree Aguilar MD Primary Care Provider Unavailable Marco Gonzales DO Primary Care Provider Unavaila Reji Martin MD Unavailable Unavailable Karlie Mendez MD Primary Care Provider [phone] Encounter Details Date Type Department Care Team Description 09/[facility] [address] [place] [address] Md Fermin Social History Tobacco Use Types [...] Exposure Response Date Recorded In the last month, have you been in contact with someone who was confirmed or suspected to have Coronavirus / COVID-19? No / Unsure 09/21/2020 8:51 AM EST documented as of this encounter Plan of Treatment Not on file documented as of this encounter Visit Diagnoses Not on filedocumented in this encounter Care Teams Shredding Machine Operator Relationship Specialty Start Date End Date Tree Aguilar MD PCP - General Internal Medicine 03/10/16 Marco Gonzales DO PCP - General Internal Medicine 09/22/21 03/26/24 Karlie Mendez MD [address] [place] [address] PCP - General Internal Medicine 03/27/24 Reji Amaya MD Specialist Vascular Surgery 05/16/22 documented as of this encounter
--- OUTSIDE RECORDS SUMMARY | 2024-11-06 16:52 | XMS_ITS | Encounter Summary ---
Author Organization [facility] Address [address] [place] [address] Care Team Providers Care Coffee Host Name Role Phone Tree Aguilar MD Primary Care Provider Unavailable Marco Gonzales DO Primary Care Provider Unavaila Reji Martin MD Unavailable Unavailable Karlie Mendez MD Primary Care Provider [phone] Encounter Details Date Type Department Care Team Description 01/05/2017 SCAN Medical Records [address] [place] [address] Abstract, Provider Social History Tobacco Use Types [...] on file documented as of this encounter Procedures Procedure Name Priority Date/Time Associated Diagnosis Comments OUTSIDE PLAIN FILM Routine 12/07/2016 documented in this encounter Results * OUTSIDE PLAIN FILM (12/07/2016) Provider Abstract RADIOLOGY documented in this encounter Visit Diagnoses Not on filedocumented in this encounter Care Teams Coffee Host Relationship Specialty Start Date End Date Tree Aguilar MD PCP - General Internal Medicine 03/10/16 Marco Gonzales DO PCP - General Internal Medicine 09/22/21 03/26/24 Karlie Mendez MD [address] [place] [address] PCP - General Internal Medicine 03/27/24 Reji Amaya MD Specialist Vascular Surgery 05/16/22 documented as of this encounter
--- OUTSIDE RECORDS SUMMARY | 2024-11-06 16:52 | XMS_ITS | Encounter Summary ---
[facility] Organization [facility] Address [address] [place] [address] Care Team Providers Care Pattern Wheel Maker Name Role Phone Marco Gonzales DO Primary Care Provider Unavaila ble Reji Amaya MD Unavailable Unavailable Karlie Mendez MD Primary Care Provider Encounter Details Date Type Department Care Team Description 03/09/2023 Pin Inserter Regulator Report Medical Records [address] [place] [address] Reji Amaya MD Social History Tobacco Use Types Packs/Day [...] on filedocumented in this encounter Care Teams Pattern Wheel Maker Relationship Specialty Start Date End Date Marco Gonzales DO PCP - General Internal Medicine 09/22/21 03/26/24 Karlie Mendez MD [address] [place] [id number] PCP - General Internal Medicine 03/27/24 Reji Amaya MD Specialist Vascular Surgery 05/16/22 documented as of this encounter
--- OUTSIDE RECORDS SUMMARY | 2024-11-06 16:52 | XMS_ITS | Encounter Summary ---
Author Organization [facility] Address [address] [place] [address] Care Team Providers Care Emergency Management System Director Name Role Phone Marco Gonzales DO Primary Care Provider UnavailReji Ely MD Unavailable Unavailable Karlie Mendez MD Primary Care Provider [phone] Encounter Details Date Type Department Care Team Description 10/04/2021 Pt. Non Urgent Medic al Question Adult Medicine - [address] [address] Marco Gonzales DO Social History Tobacco Use Types Packs/Day Years [...] have Coronavirus / COVID-19? No / Unsure 10/04/2021 10:45 AM EST documented as of this encounter Miscellaneous Notes * Telephone Encounter - Marcellus Dolan - 10/04/2021 4:39 PM ESTFrom: Jhon Browne To: Juvencio Gonzales Sent: 10/04/2021 2:28 PM EST Subject: Follow-Up appointment FYI The earliest available appointment was Monday10/22/21 @ 0830. As far as the home blood warp tension tester goes, diagnosis ICD10 Diagnosis Code I10 (Essential Hypertension) does not qualify for insurancecoverage. [facility] national account representative spent probably 20 minutes on the phone with [facility] [employer]zy [employer] er service and they indicated that only a ICD10 Diagnosis Code R030 (Elevated blood-pressure reading, without diagnosis of hypertension) would qualify so I guess it will have to be an [id number] expense. Fortunately, they are reasonably priced and handy to have. If the follow-up date is not acceptable, you can message me through the [employer] patient portal. Have a good day! documented in this encounter Plan of Treatment Not on file documented as of this encounter Visit Diagnoses Not on filedocumented in this encounter Care Teams Emergency Management System Director Relationship Specialty Start Date End Date Marco Gonzales DO PCP - General Internal Medicine 09/22/21 03/26/24 Karlie Mendez MD [address] [place] [address] PCP - General Internal Medicine 03/27/24 Reji Amaya MD Specialist Vascular Surgery 05/16/22 documented as of this encounter
--- OUTSIDE RECORDS SUMMARY | 2024-11-06 16:52 | XMS_ITS | Encounter Summary ---
Author Organization [facility] Address [address] [place] [address] Care Team Providers Care Fishing Rod Marker Name Role Phone Tree Aguilar MD Primary Care Provider Unavailable Marco Gonzales DO Primary Care Provider Unavaila Reji Martin MD Unavailable Unavailable Karlie Mendez MD Primary Care Provider [phone] Encounter Details Date Type Department Care Team Description 03/21/2017 [facility] [address] [place] [address] Md Fermin Social History Tobacco Use Types [...] on filedocumented in this encounter Care Teams Fishing Rod Marker Relationship Specialty Start Date End Date Tree Aguilar MD PCP - General Internal Medicine 03/10/16 Marco Gonzales DO PCP - General Internal Medicine 09/22/21 03/26/24 Karlie Mendez MD [address] [place] [address] PCP - General Internal Medicine 03/27/24 Reji Amaya MD Specialist Vascular Surgery 05/16/22 documented as of this encounter
--- OUTSIDE RECORDS SUMMARY | 2024-11-06 16:52 | XMS_ITS | Encounter Summary ---
Author Organization [facility] Address [address] [place] [address] Care Team Providers Care Editorial Specialist Name Role Phone Marco Gonzales DO Primary Care Provider UnavailReji Ely MD Unavailable Unavailable Karlie Mendez MD Primary Care Provider [phone] Encounter Details Date Type Department Care Team Description 09/27/2021 Assistant Hairstylist Report Medical Records [address] [place] [address] Cedrick Paul MD Social History Tobacco Use Types Packs/Day [...] have Coronavirus / COVID-19? No / Unsure 09/21/2021 8:46 AM EST documented as of this encounter Plan of Treatment Not on file documented as of this encounter Visit Diagnoses Not on filedocumented in this encounter Care Teams Editorial Specialist Relationship Specialty Start Date End Date Marco Gonzales DO PCP - General Internal Medicine 09/22/21 03/26/24 Karlie Mendez MD [address] [place], [place] [id number] PCP - General Internal Medicine 03/27/24 Reji Amaya MD Specialist Vascular Surgery 05/16/22 documented as of this encounter
--- OUTSIDE RECORDS SUMMARY | 2024-11-06 16:52 | XMS_ITS | Continuity of Care Document ---
Author Name [facility] Organization [facility] Care Team Providers Care Valving Machine Operator Name Role Phone [facility] Unavailable Unavailable Problems Combined list of problems [...] ADM Date DC Date Status Disposition Source [place] [facility] Outpatient Encounter [id number] [facility] HEAR[facility] AID REPAIR/MOD IFYING [id number] Diagnos is: ICD-10- CM Z46.1 Encount er for fitting and adjustm ent of hearing aid<br/ > BAL WEBSTERN L 01/23 [facility] HEARING AID FITTING/CH ECKING [id number] Diagnos is: ICD-10- CM H90.3 Sensori neural hearing loss, bilater al
BAL WESBTER UREN L 01/25 [place] [facility] [place] [facility] Social History Combined list of available smoking, tobacco, and other social history from Department of Defense and Veterans Affairs facilities. Social History Type Response Date Comment Sourc e This section is an empty social history section. DoD
--- OUTSIDE RECORDS SUMMARY | 2024-11-06 16:52 | XMS_ITS | Encounter Summary ---
Author Organization [facility] Address [address] [place] [address] Care Team Providers Care Supervisor Home Economics Name Role Phone Marco Gonzales DO Primary Care Provider Unavaila Reji Martin MD Unavailable Unavailable Karlie Mendez MD Primary Care Provider [phone] Encounter Details Date Type Department Care Team Description 09/23/2021 Pt. Referral Request [facility] MyChart [address] [place] [address] Md Fermin Social History Tobacco Use Types [...] on filedocumented in this encounter Care Teams Supervisor Home Economics Relationship Specialty Start Date End Date Marco Gonzales DO PCP - General Internal Medicine 09/22/21 03/26/24 Karlie Mendez MD [address] [place] [address] PCP - General Internal Medicine 03/27/24 Reji Amaya MD Specialist Vascular Surgery 05/16/22 documented as of this encounter
--- OUTSIDE RECORDS SUMMARY | 2024-11-06 16:52 | XMS_ITS | Encounter Summary ---
Author Organization [facility] Address [address] [place] [address] Care Team Providers Care Vp Rheumatology Name Role Phone Jhon Strauss Primary Care Provider Unav ailable Dany Villegas MD Primary Care Provider [phone] Tree Aguilar MD Primary Care Provider Unavailable Marco Gonzales DO Primary Care Provider Unavaila Reji Martin MD Unavailable Unavailable Karlie Mendez MD Primary Care Provider [phone] Encounter Details Date Type Department Care Team Description 07/02/2012 Foreign Exchange Services Manager Report Medical Records [address] [place] [address] Kalia Marie PA-C Social History Tobacco Use Types Packs/Day Years [...] on filedocumented in this encounter Care Teams Vp Rheumatology Relationship Specialty Start Date End Date Jhon Strauss PCP - General 11/22/07 01/05/16 Dany Villegas MD [address] [place] [address] PCP - General Internal Medicine 01/06/16 03/09/16 Tree Aguilar MD [address] [place] [address] PCP - General Internal Medicine 03/10/16 09/21/21 Marco Gonzales DO [address] [place] [address] PCP - General Internal Medicine 09/22/21 03/26/24 Karlie Mendez MD [address] [place] [address] PCP - General Internal Medicine 03/27/24 Reji Amaya MD [address] [place] [address] Specialist Vascular Surgery 05/16/22 documented as of this encounter
--- OUTSIDE RECORDS SUMMARY | 2024-11-06 16:52 | XMS_ITS | Clinical Summary ---
Author Organization [facility] Address [address] [place] [address] Care Team Providers Care Hot Metal Mixer Operator Helper Name Role Phone Tree Aguilar Primary Care Provider Rachell vailable Social History Tobacco Use Types Packs/Day Years Used Date Smoking Tobacco: Never Assessed Sex and Gender Information Value Date Recorded Sex Assigned at Not on file Gender Identity Not on file Sexual Orientation Not on file Plan of Treatment Health Maintenance Due Date Last Done Comments Hepatitis C Screening 1945 Depression Screening 1959 Preventative Health Evaluation 1965 Fall Risk Assessment 2012 RSV Adult > 60+ Yrs or (1 - 1-dose 75+ series) 2022 DTap / Tdap / Td (2 - Td or Tdap) 09/24/2023 09/24/2013 COVID-19 Vaccine ( season) 2024 12/31/2020, 12/10/2020 Influenza Vaccine (#1) 2024 7, 08/22/2016, 07/03/2015, Additional history exists Pneumococcal Vaccine Completed 04/22/2015, 09/21/20 12 Shingrix-Zoster Vaccine Completed 11/20/2020, 09/11 Hepatitis B Vaccines Aged Out No long er eligible based on patient's age to complete this topic RSV Ped < 20 months Aged Out No longe r eligible based on patient's age to complete this topic Care Teams Hot Metal Mixer Operator Helper Relationship Specialty Start Date End Date Tree Aguilar PCP - General Internal Medicine 01/18/18
--- OUTSIDE RECORDS SUMMARY | 2024-11-06 16:53 | XMS_ITS | Encounter Summary ---
Author Organization [facility] Address [address] [place] [address] Care Team Providers Care Service Desk Team Lead Name Role Phone Tree Aguilar MD Primary Care Provider Unavailable Marco Gonzales DO Primary Care Provider Unavaila Reji Martin MD Unavailable Unavailable Karlie Mendez MD Primary Care Provider [phone] Encounter Details Date Type Department Care Team Description 04/18/2016 [facility] [address] [place] [address] Md Fermin Social History Tobacco Use Types [...] on filedocumented in this encounter Care Teams Service Desk Team Lead Relationship Specialty Start Date End Date Tree Aguilar MD PCP - General Internal Medicine 03/10/16 Marco Gonzales DO PCP - General Internal Medicine 09/22/21 03/26/24 Karlie Mendez MD [address] [place] [address] PCP - General Internal Medicine 03/27/24 Reji Amaya MD Specialist Vascular Surgery 05/16/22 documented as of this encounter
--- OUTSIDE RECORDS SUMMARY | 2024-11-06 16:53 | XMS_ITS | Encounter Summary ---
Author Organization [facility] Address [address] [place] [address] Care Team Providers Care Religious Education Director Name Role Phone Tree Aguilar MD Primary Care Provider Unavailable Marco Gonzales DO Primary Care Provider Unavaila Reji Martin MD Unavailable Unavailable Karlie Mendez MD Primary Care Provider [phone] Encounter Details Date Type Department Care Team Description 09/29/2018 Pt. Non Urgent Medic al Question Adult Medicine - [address] [address] Cecilia Melvin PA-C [address] [place] [address] Social History Tobacco Use Types Packs/Day Years [...] on filedocumented in this encounter Care Teams Religious Education Director Relationship Specialty Start Date End Date Tree Aguilar MD PCP - General Internal Medicine 03/10/16 Marco Gonzales DO PCP - General Internal Medicine 09/22/21 03/26/24 Karlie Mendez MD [address] [place] [address] PCP - General Internal Medicine 03/27/24 Reji Amaya MD Specialist Vascular Surgery 05/16/22 documented as of this encounter
--- OUTSIDE RECORDS SUMMARY | 2024-11-06 16:53 | XMS_ITS | Encounter Summary ---
Author Organization [facility] Address [address] [place] [address] Care Team Providers Care Horse Racing Analyst Name Role Phone Tree Aguilar MD Primary Care Provider Unavailable Marco Gonzales DO Primary Care Provider Unavaila Reji Martin MD Unavailable Unavailable Karlie Mendez MD Primary Care Provider [phone] Encounter Details Date Type Department Care Team Description 10/11/2017 Racker Octave Board Report Medical Records [address] [place] [address] Cedrick Paul MD Social History Tobacco Use [...] on filedocumented in this encounter Care Teams Horse Racing Analyst Relationship Specialty Start Date End Date Tree Aguilar MD PCP - General Internal Medicine 03/10/16 Marco Gonzales DO PCP - General Internal Medicine 09/22/21 03/26/24 Karlie Mendez MD [address] [place] [address] PCP - General Internal Medicine 03/27/24 Reji Amaya MD Specialist Vascular Surgery 05/16/22 documented as of this encounter
--- OUTSIDE RECORDS SUMMARY | 2024-11-06 16:53 | XMS_ITS | Encounter Summary ---
Author Organization [facility] Address [address] [place] [address] Care Team Providers Care Automotive Service Consultant Name Role Phone Marco Gonzales DO Primary Care Provider Unavaila Reji Martin MD Unavailable Unavailable Karlie Mendez MD Primary Care Provider [phone] Encounter Details Date Type Department Care Team Description 11/23/2021 Pt. Referral Request [facility] MyChart [address] [place] [address] Md Fermin Social History Tobacco Use Types [...] have Coronavirus / COVID-19? No / Unsure 11/19/2021 1:20 PM EST documented as of this encounter Plan of Treatment Not on file documented as of this encounter Visit Diagnoses Not on filedocumented in this encounter Care Teams Automotive Service Consultant Relationship Specialty Start Date End Date Marco Gonzales DO PCP - General Internal Medicine 09/22/21 03/26/24 Karlie Mendez MD [address] [place] [address] PCP - General Internal Medicine 03/27/24 Reji Amaya MD Specialist Vascular Surgery 05/16/22 documented as of this encounter
--- OUTSIDE RECORDS SUMMARY | 2024-11-06 16:53 | XMS_ITS | Encounter Summary ---
Author Organization [facility] Address [address] [place] [address] Care Team Providers Care Tire Servicer Name Role Phone Jhon Strauss Primary Care Provider Unav ailable Dany Villegas MD Primary Care Provider [phone] Tree Aguilar MD Primary Care Provider Unavailable Marco Gonzales DO Primary Care Provider Unavaila Reji Martin MD Unavailable Unavailable Karlie Mendez MD Primary Care Provider [phone] Encounter Details Date Type Department Care Team Description 10/20/2015 Pt. Referral Request [facility] MyChart [address] [place] [address] Md Fermin Social History Tobacco Use Types [...] on filedocumented in this encounter Care Teams Tire Servicer Relationship Specialty Start Date End Date Jhon Strauss PCP - General 11/22/07 01/05/16 Dany Villegas MD [address] [place] [address] PCP - General Internal Medicine 01/06/16 03/09/16 Tree Aguilar MD [address] [place] [address] PCP - General Internal Medicine 03/10/16 09/21/21 Marco Gonzales DO [address] [place] [address] PCP - General Internal Medicine 09/22/21 03/26/24 Karlie Mendez MD [address] [place] [address] PCP - General Internal Medicine 03/27/24 Reji Amaya MD [address] [place] [address] Specialist Vascular Surgery 05/16/22 documented as of this encounter
--- OUTSIDE RECORDS SUMMARY | 2024-11-06 16:53 | XMS_ITS | Encounter Summary ---
Author Organization [facility] Address [address] [place] [address] Care Team Providers Care Director Of Golf Name Role Phone Tree Aguilar MD Primary Care Provider Unavailable Marco Gonzales DO Primary Care Provider Unavaila Reji Martin MD Unavailable Unavailable Karlie Mendez MD Primary Care Provider [phone] Encounter Details Date Type Department Care Team Description 09/13/2018 [facility] [address] [place] [address] Md Fermin Social History Tobacco Use Types [...] on filedocumented in this encounter Care Teams Director Of Golf Relationship Specialty Start Date End Date Tree Aguilar MD PCP - General Internal Medicine 03/10/16 Marco Gonzales DO PCP - General Internal Medicine 09/22/21 03/26/24 Karlie Mendez MD [address] [place] [address] PCP - General Internal Medicine 03/27/24 Reji Amaya MD Specialist Vascular Surgery 05/16/22 documented as of this encounter
--- OUTSIDE RECORDS SUMMARY | 2024-11-06 16:53 | XMS_ITS | Encounter Summary ---
Author Organization [facility] Address [address] [place] [address] Care Team Providers Care Multiple Spindle Screw Machine Operator Name Role Phone Albina Gonzales DO Primary Care Provider Reji Aguillon MD Unavailable Unavailable Karlie Mendez MD Primary Care Provider [phone] Reason for Visit * Reason Onset Date Comments Senior Technical Architect Feedback 01/08/2022 Dr Danae Mckoy Encounter Details Date Type Department Care Team Description 01/08/2022 Telephone Adult Medicine - [address] [address] Albina Gonzales DO Senior Technical Architect Feedback (Dr Danae Mckoy) Social History Tobacco Use Types Packs/Day Years [...] encounter Miscellaneous Notes * Telephone Encounter - Jacki Cordobana - 01/08/2022 10:42 AM EDT Subscriber: NAN BROWNE Submitter : ALBINA GONZALES Submitter Type: Provider : 1945 Referral (#[id number]) Specialty Care Review Type: Initial Certification Status : Certified in total Service Type : Medical Care Place Of Service : Office Visits : 6 Service Date : 01/08/2022-01/08/2023 Service Providers Provider Name ID Provider Type DANAE MCKOY NPI : [id number] Service Provider documented in this encounter Plan of Treatment Not on file documented as of this encounter Visit Diagnoses Not on filedocumented in this encounter Care Teams Multiple Spindle Screw Machine Operator Relationship Specialty Start Date End Date Albina Gonzales DO PCP - General Internal Medicine 09/22/21 03/26/24 Karlie Mendez MD [address] [place] [address] PCP - General Internal Medicine 03/27/24 Reji Amaya MD Specialist Vascular Surgery 05/16/22 documented as of this encounter
--- OUTSIDE RECORDS SUMMARY | 2024-11-06 16:53 | XMS_ITS | Encounter Summary ---
Author Organization [facility] Address [address] [place] [address] Care Team Providers Care Flight Attendant/Inflight Manager Name Role Phone Tree Aguilar MD Primary Care Provider Unavailable Marco Gonzales DO Primary Care Provider Unavaila Reji Martin MD Unavailable Unavailable Karlie Mendez MD Primary Care Provider [phone] Encounter Details Date Type Department Care Team Description 07/28/2021 [facility] [address] [place] [address] Md Fermin Social History Tobacco Use Types [...] on filedocumented in this encounter Care Teams Flight Attendant/Inflight Manager Relationship Specialty Start Date End Date Tree Aguilar MD PCP - General Internal Medicine 03/10/16 Marco Gonzales DO PCP - General Internal Medicine 09/22/21 03/26/24 Karlie Mendez MD [address] [place] [address] PCP - General Internal Medicine 03/27/24 Reji Amaya MD Specialist Vascular Surgery 05/16/22 documented as of this encounter
--- OUTSIDE RECORDS SUMMARY | 2024-11-06 16:53 | XMS_ITS | Encounter Summary ---
Author Organization [facility] Address [address] [place] [address] Care Team Providers Care Roof Bolter Helper Name Role Phone Marco Gonzales DO Primary Care Provider Unavaila Reji Martin MD Unavailable Unavailable Karlie Mendez MD Primary Care Provider [phone] Encounter Details Date Type Department Care Team Description 11/23/2021 Pt. Referral Request [facility] MyChart [address] [place] [address] Md Fermin Social History Tobacco Use Types [...] on filedocumented in this encounter Care Teams Roof Bolter Helper Relationship Specialty Start Date End Date Marco Gonzales DO PCP - General Internal Medicine 09/22/21 03/26/24 Karlie Mendez MD [address] [place] [address] PCP - General Internal Medicine 03/27/24 Reji Amaya MD Specialist Vascular Surgery 05/16/22 documented as of this encounter
--- OUTSIDE RECORDS SUMMARY | 2024-11-06 16:53 | XMS_ITS | Encounter Summary ---
Author Organization [facility] Address [address] [place] [address] Care Team Providers Care Counter Server Name Role Phone Marco Gonzales DO Primary Care Provider UnavailReji Ely MD Unavailable Unavailable Karlie Mendez MD Primary Care Provider [phone] Encounter Details Date Type Department Care Team Description 09/22/2022 Pt. Non Urgent Medic al Question Adult Medicine - [address] [address] Marco Gonzales DO Social History Tobacco Use [...] encounter Miscellaneous Notes * Telephone Encounter - Charleen Garcia L.P.N. - 09/23/2022 8:13 AM EST From: Jhon Browne To: Juvencio Gonzales Sent: 09/22/2022 7:48 PM EST Subject: ENT visit today 09/22/22 I had an appointment with Dr. Nelile Dyson today to discuss the persistent dry cough I've had for more than five months now which I discussed with you on my 08/16/22 office visit. He inquired about medications I am taking and when I mentioned the Lisinopril I started taking in late February he indicated that more than likely is the problem and it aligns with the cough which started shortly thereafter. He did rule out reflux and recommended I contact you about a possible medication change. documented in this encounter Plan of Treatment Not on file documented as of this encounter Visit Diagnoses Not on filedocumented in this encounter Care Teams Counter Server Relationship Specialty Start Date End Date Marco Gonzales DO PCP - General Internal Medicine 09/22/21 03/26/24 Karlie Mendez MD [address] [place] [address] PCP - General Internal Medicine 03/27/24 Reji Amaya MD Specialist Vascular Surgery 05/16/22 documented as of this encounter
--- OUTSIDE RECORDS SUMMARY | 2024-11-06 16:53 | XMS_ITS | Encounter Summary ---
Author Organization [facility] Address [address] [place] [address] Care Team Providers Care Supervisory Investigative Specialist Name Role Phone Jhon Strauss Primary Care Provider Unav ailable Dany Villegas MD Primary Care Provider [phone] Tree Aguilar MD Primary Care Provider Unavailable Marco Gonzales DO Primary Care Provider Unavaila Reji Martin MD Unavailable Unavailable Karlie Mendez MD Primary Care Provider [phone] Encounter Details Date Type Department Care Team Description 09/12/2010 Trim Setter Report Medical Records [address] [place] [address] Reji Triana Social History Tobacco Use Types Packs/Day Years [...] on filedocumented in this encounter Care Teams Supervisory Investigative Specialist Relationship Specialty Start Date End Date Jhon Strauss PCP - General 11/22/07 01/05/16 Dany Villegas MD [address] [place] [address] PCP - General Internal Medicine 01/06/16 03/09/16 Tree Aguilar MD [address] [place] [address] PCP - General Internal Medicine 03/10/16 09/21/21 Marco Gonzales DO [address] [place] [address] PCP - General Internal Medicine 09/22/21 03/26/24 Karlie Mendez MD [address] [place] [address] PCP - General Internal Medicine 03/27/24 Reji Amaya MD [address] [place] [address] Specialist Vascular Surgery 05/16/22 documented as of this encounter
--- OUTSIDE RECORDS SUMMARY | 2024-11-06 16:53 | XMS_ITS | Encounter Summary ---
Author Organization [facility] Address [address] [place] [address] Care Team Providers Care Shoe Treer Name Role Phone Marco Gonzales DO Primary Care Provider Unavaila Reji Martin MD Unavailable Unavailable Karlie Mendez MD Primary Care Provider [phone] Encounter Details Date Type Department Care Team Description 04/19/2022 Telephone Adult Medicine [address] [address] Marco Gonzales DO Social History Tobacco Use [...] Recorded In the last 10 days, have aimee u been in contact with someone who was confirmed or suspected to have Coronavirus/COVID-19? No / Unsure 04/15/2022 9:34 AM EDT documented as of this encounter Plan of Treatment Not on file documented as of this encounter Visit Diagnoses Not on filedocumented in this encounter Care Teams Shoe Treer Relationship Specialty Start Date End Date Marco Gonzales DO PCP - General Internal Medicine 09/22/21 03/26/24 Karlie Mendez MD [address] [place] [address] PCP - General Internal Medicine 03/27/24 Reji Amaya MD Specialist Vascular Surgery 05/16/22 documented as of this encounter
--- OUTSIDE RECORDS SUMMARY | 2024-11-06 16:53 | XMS_ITS | Encounter Summary ---
Author Organization [facility] Address [address] [place] [address] Care Team Providers Care Unattended Ground Sensor Specialist Name Role Phone Tree Aguilar MD Primary Care Provider Unavailable Marco Gonzales DO Primary Care Provider Unavaila [facility] Reji Amaya MD Unavailable Unavailable Karlie Mendez MD Primary Care Provider [phone] Encounter Details Date Type Department Care Team Description 03/31/2020 Fish Machine Feeder Report Medical Records [address] [place] [address] Yogesh Almendarez MD, PHD Social History Tobacco Use Types Packs/Day Years [...] on filedocumented in this encounter Care Teams Unattended Ground Sensor Specialist Relationship Specialty Start Date End Date Tree Aguilar MD PCP - General Internal Medicine 03/10/16 Marco Gonzales DO PCP - General Internal Medicine 09/22/21 03/26/24 Karlie Mendez MD [address] [place] [address] PCP - General Internal Medicine 03/27/24 Reji Amaya MD Specialist Vascular Surgery 05/16/22 documented as of this encounter
--- OUTSIDE RECORDS SUMMARY | 2024-11-06 16:53 | XMS_ITS | Encounter Summary ---
Author Organization [facility] Address [address] [place] [address] Care Team Providers Care Gold Letterer Name Role Phone Marco Gonzales DO Primary Care Provider UnavailReji Ely MD Unavailable Unavailable Karlie Mendez MD Primary Care Provider [phone] Encounter Details Date Type Department Care Team Description 01/12/2024 Orders Only Medical Records [address] [place] [address] [facility] Social History Tobacco Use Types Packs/Day Years [...] Name Priority Date/Time Associated Diagnosis Comments OUTSIDE VASCULAR STUDY Routine 01/02/[address] Routine 01/01/2024 documented in this encounter Results * OUTSIDE VASCULAR STUDY (01/02/2024) Reji Amaya MD CARDIOLOGY * OUTSIDE CT (01/01/2024) [facility] RADIOLOGY documented in this encounter Visit Diagnoses Not on filedocumented in this encounter Care Teams Gold Letterer Relationship Specialty Start Date End Date Ahmed, Khadiga, DO PCP - General Internal Medicine 09/22/21 03/26/24 Karlie Mendez MD [address] [place] [address] PCP - General Internal Medicine 03/27/24 Reji Amaya MD Specialist Vascular Surgery 05/16/22 documented as of this encounter
--- OUTSIDE RECORDS SUMMARY | 2024-11-06 16:53 | XMS_ITS | Clinical Summary ---
Author Organization [address] Address [address] [place] [address] Phone Care Team Providers Care Water Regulator And Valve Repairer Name Role Phone Karlie Mendez MD Primary Care Provider [phone] Allergies Active Allergy Reactions Criticality Noted Date Comments Other 06/30/2010 Seasonal Allergies Medications Medication Sig Dispensed Refills Start Date End Date Status metoprolol succinate (TOPROL-XL) 50 mg 24 hr tablet Take 1 Tablet by mouth daily. 11/06/2023 Active simvastatin (ZOCOR) 40 mg tablet Take 1 Tablet by mouth at bedtime. 04/15/2024 Active gabapentin (NEURONTIN) 300 mg capsule Take 1 Capsule by mouth at bedtime. 01/29/2024 Active ruxolitinib (Opzelura) 1.5 % cream 12/18/2023 Active fluticasone propionate (FLONASE) 50 mcg/actuation nasal spray 2 Sprays by Each Nare route daily. 09/06/2023 Active alfuzosin (UROXATRAL) 10 mg 24 hr tablet 09/27/2022 Active aspirin 81 mg chewable tablet Take 81 mg by mouth daily. Active cholecalciferol (VITAMIN D-3) 1,250 mcg (50,000 unit) capsule Take by mouth. Active cyanocobalamin (VITAMIN B-12) 500 mcg tablet Take 1 Tab by mouth daily for 360 days. 03/04/2020 Active nitrofurantoin (MACRODANTIN) 100 mg capsule Take 1 capsule (100 mg total) by mouth 2 (two) times a day. 08/12/2024 Active albuterol HFA (Proventil HFA) 90 mcg/actuation inhaler Inhale 2 puffs by mouth every 4 (four) hours if needed (COUGH). 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 Triana - 08/18- TRUS Bx negative Right knee pain 04/21/2009 Overview (07/10/2024): Chase Mcdonough PA-C, Dr. Zee, Dr. Navarro- steroid injections 07/20- partial medial meniscectomy Hypertension 11/25/2008 Seasonal allergies 12/06/2007 Overview (07/10/2024): Dr. Savage - allergy shots Eczema 12/06/2007 Overview (07/10/2024): Dr. Noman GALLO (degenerative joint disease), lumbar 008 Overview (07/10/2024): Dr. Reaves- no surgical recourse Dr. Goddard - L4-5, L5-S1 facet injections 01/17- diagnostic medial branch blocks 02/16 - Dr. Pugh - bilateral L3, L4 and L5 medial branch radiofrequency neurotomy 04/22 - per [facility] neurosurgery, no surgical course of action appropriate due to the extent of the arthritis in both areas. 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 Sloan - [facility] - physical therapy, injections unhelpful Persists status post neural ablation Dr. Sergio Gore- [facility]- myofascial pain due to paravertebral muscle dysfunction Dr. Tahira Elaine - [facility]- continue cyclobenzaprine, trial of trigger point injections, botulinum injections, PT, stop bifocals 09/19 - Shanika Young PA-c from Physiatry - referred for bilateral C3-4, C4-5 facet joint injection 212 - left C3, C4, C5 and C6 medial branch radiofrequency neurotomy 04/22 - per [facility] neurosurgery, no surgical course of action appropriate due to the extent of the arthritis in both areas. Their recommendation is pain management. 08/23 - Dr. Heller ([facility] pain management) - acupuncture - not much relief Encounters Date Type Department Care Team Description 08/26/2024 9:00 AM EST Ancillary Procedure Pulmonolgy - [place] [address] [place] [id number] Persistent dry cough (Primary Dx) 08/20/2024 11:50 AM EST - 08/20/2024 11:59 PM EST Hospital Encounter [address] [address] Persistent dry cough Discharge Disposition: Home or Self Care 08/20/2024 11:30 AM EST Office Visit Adult Medicine [address] [address] Karlie Mendez MD Primary hypertension (Primary Dx); Elevated MCV; Persistent dry cough; Hyperlipidemia, unspecified hyperlipidemia type; Neuropathy of right lower extremity; Prediabetes from Last 3 Months Immunizations Name Administration Dates Next Due Influenza Quadravalent, MDCK , 0.5ml, with preservative (Flucelvax) 6mo and older 08/25/2017 Influenza trivalent, 0.5mL ( Fluzone High-dose) 65yo and older 07/02/2022,07/04/2021 Influenza trivalent, 0.5mL, preservative free (Fluarix; FluLaval; Fluzone) ages 6mo and older (Afluria) 3 years and older 09/21/2012 Influenza trivalent, with pr eservative (Fluzone; Afluria) 6mo and older 07/01/2023,08/22/2016,07/03/2015,09/26,09/24/2013,09/16/2011,06/30/2010 Influenza, Unspecified 07/01/2023,07/04/2021, Pfizer (ages 12 & older) Biv alent, COVID-19 07/07/2023,07/02/2022 Pfizer SARS-CoV-2 COVID-19, mRNA, LNP-S, preservative free 07/02/2022,03/16/2022,07/05/2021,12/31,12/10/2020 Pneumococcal conjugate 13 va lent (Prevnar 13, PCV13) 2mo and older 04/22/2015 Pneumococcal polysaccharide 23 valent (Pneumovax 23) 2yo and older 09/21/2012 Rsv Mab, Unspecified 09/04/2023 Td Tetanus diptheria (Tdvax) 7yo and older 12/20/2023 Tdap Tetanus diptheria acell ular pertussis (Boostrix; Adacel) 7yo and older 09/24/2013 Zoster Live 04/04/2012 Zoster recombinant (Shingrix ) 19yo and older 11/20/2020,09/11/2020 Surgical History Surgery Date Site/Laterality Comments SHOULDER SURGERY 1997 - 1999 PROCEDURE: HISTORICAL SHOULDER SURGERY; COMMENT: both shoulders- Dr. Jim- [place] HAND SURGERY 1996 PROCEDURE: HISTORICAL HAND SURGERY; COMMENT: R - trigger release KNEE SURGERY 07/20 PROCEDURE: HISTORICAL KNEE SURGERY; COMMENT: Dr. Zee - R - arthroscopy for meniscal tear COLONOSCOPY 04/17/2013 PROCEDURE: HISTORICAL COLONOSCOPY; COMMENT: tics and hemorrhoids; repeat in ten yrs NECK SURGERY 1987 PROCEDURE: HISTORICAL NECK SURGERY; COMMENT: Neck sg for hand numbness (in ) HEMORRHOID SURGERY PROCEDURE: AL INCISION THROMBOSED HEMORRHOID EXTERNAL Medical History Medical History Date Comments Shoulder pain 01/29/2008 DX:Shoulder pain ; COMMENT: Dr. Tiburcio Jim - steroid injections into subacromial, AC joint Hemorrhoids 10/30/2017 DX:Hemorrhoids Celiac disease 05/16/2018 DX:Celiac diseas e History of basal cell carcinoma 03/28/2024 DX:History of basal cell carcinoma Family History Medical History Relation Name Comments Stroke Father Autoimmune disease Neg Hx Breast cancer Neg Hx Colon cancer Neg Hx Coronary artery disease Neg Hx Diabetes Neg Hx Heart attack Neg Hx Heart failure Neg Hx Hyperlipidemia Neg Hx Hypertension Neg Hx Mental illness Neg Hx Prostate cancer Neg Hx Sleep apnea Neg Hx Thyroid disease Neg Hx Relation Name Status Comments Father (Age 83) old age Mother (Age 72) Stroke Social History Tobacco Use Types Packs/Day Years Used Date Smoking Tobacco: Former Cigarettes Q uit: 10/09/1973 Smokeless Tobacco: Never Alcohol Use Standard Drinks/Week Comments Yes 0 (1 standard drink = 0.6 oz pur e alcohol) Housing Instability Answer Date Recorde d Are you worried that in the next 2 months you may not have stable housing? No 08/18/2024 Food Access & Nutrition Answer Date Rec orded Do you have access to a vari ety of food including fruits and vegetables? Yes 08/18/2024 Access to Healthcare Answer Date Record ed Within the last 3 months, ho w many times did you visit the emergency department for your medical care? 0 08/18/2024 Health Literacy Answer Date Recorded How often do you need to hav e someone help you when you read instructions, pamphlets, or other written material from your doctor or pharmacy? Never 08/18/2024 Caregiver: How often do you need to have someone help you when you read instructions, pamphlets, or other written material from your doctor or pharmacy? Not on file 08/18/2024 Financial Risk Answer Date Recorded How hard is it for you to pa y for the very basics like food, housing, medical care, and air conditioning / heating? Not very hard 08/18/2024 Transportation Answer Date Recorded Has the lack of transportati on kept you from meetings, work, or from getting things needed for daily living? No Has the lack of transportati on kept you from medical appointments or from getting medications? No 08/18/2024 Social Isolation Answer Date Recorded How often do you feel lonely or isolated from th ose around you? Never 08/18/2024 Food Risk Answer Date Recorded Within the past 12 months we worried whether our food would run out before we got money to buy more. Never true 08/18/2024 Within the past 12 months th e food we bought just didn't last and we didn't have money to get more. Never true 08/18/2024 Dependent Care Answer Date Recorded Do you need help finding or paying for care for your loved ones. For example, child care nurse or elderly care for an older adult? No 08/18/2024 Education Answer Date Recorded Do you think completing more education or training, like finishing a GED, going to college, or learning a trade, would be helpful for you? No 08/18/2024 Employment and Income Answer Date Recor ded During the last four weeks, have you been actively looking for work? No 08/18/2024 Living Situation Answer Date Recorded What is your living situation? 1 10/18/2023 Sex and Gender Information Value Date Recorded Sex Assigned at Male 08/12/2024 8:24 AM EST Gender Identity Male 08/12/2024 8:24 AM EST Sexual Orientation Straight 08/12/2024 8: 24 AM EST Job Start Date Occupation Industry Not on file Not on file Not on file Obstetrics History Last Filed Vital Signs Vital Sign Reading Time Taken Comments Blood Pressure 142/70 08/20/2024 11:22 AM EST Pulse 74 08/20/2024 11:22 AM EST Temperature 36.4 ??C (97.5 ??F) 08/20/2024 11:[address] Respiratory Rate 12 08/20/2024 11:22 AM EST Oxygen Saturation - - Inhaled Oxygen Concentration - - Weight 85.3 kg (188 lb) 08/20/2024 11:22 AM EST Height 180.3 cm (5' 11 ) 08/20/2024 11:22 AM EST Body Mass Index 26.22 08/20/2024 11:22 AM EST Plan of Treatment Upcoming Encounters Date Type Department Care Team (Late st Contact Info) Description 11/21/2024 8:45 AM EST Office Visit Adult Medicine [facility] [address] [place] [address] Karlie Mendez MD [address] [place] [address] Health Maintenance Due Date Last Done Comments Hypertension/CHF/CAD Annual BMP Blood Test 01/09/2025 01/10/2024 Depression Screening 08/18/2025 08/18/2024 Social Influencers of Health Screening 08/18/2025 08/18/2024 Falls Risk Assessment 08/20/2025 08/20/2024 Cholesterol Screening (Lipid Panel) 04/30/2029 04/30/2024, 04/30/2024 DTaP,Tdap,and Td Vaccines (3 - Td or Tdap) 12/19/2033 12/20/2023, 09/24/2013 Hepatitis C Screening Completed 09/23/2013 Zoster Vaccines Completed 11/20/2020, 01/2020, 04/04/2012 RSV Immunization Patients Under 20 months Aged Out 09/04/2023 No longer eligible based on patient's age to complete this topic COVID-19 Vaccine Completed 06/18/2024, , 07/02/2022, Additional history exists Influenza Vaccine Completed 06/18/2024, , 07/01/2023, Additional history exists RSV Immunization Patients 60+ Years Old Completed 06/18/2024, 09/04/2023 Pneumococcal Vaccine: 65+ Years Completed 07/03/2024, 04/22/2015, 09/21/2012 HIB Vaccines Aged Out No longer eligi ble based on patient's age to complete this topic HPV Vaccines Aged Out No longer eligi ble based on patient's age to complete this topic Hepatitis A Vaccines Aged Out No long er eligible based on patient's age to complete this topic Hepatitis B Vaccines Aged Out No long er eligible based on patient's age to complete this topic IPV Vaccines Aged Out No longer eligi ble based on patient's age to complete this topic MMR Vaccines Aged Out No longer eligi ble based on patient's age to complete this topic Meningococcal ACWY Vaccine Aged Out N o longer eligible based on patient's age to complete this topic Varicella Vaccines Aged Out No longer eligible based on patient's age to complete this topic Procedures Procedure Name Priority Date/Time Associated Diagnosis Comments PULMONARY FUNCTION TESTING Routine 08/26/2024 9:00 AM EST Persistent dry cough HEMOGLOBIN A1C Routine 08/20/2024 3:51 PM EST Elevated MCV VITAMIN B12 AND FOLATE Routine 08/20/2024 3:51 PM EST Elevated MCV XR CHEST 2 VIEWS Routine 08/20/2024 11:5 7 AM EST Persistent dry cough EXTERNAL VASCULAR ULTRASOUND 08/08/2024 LIPID PANEL Routine 04/30/2024 ANNUAL BMP BLOOD TEST Routine 01/10/2024 HEPATITIS C SCREENING Routine 09/23/2013 from Last 3 Months or Most Recently Relevant to Health Maintenance Results * Pulmonary function testing: Spirometry with Bronchodilator, Spirometry (08/26/2024 9:00 AM EST) Impressions Mery Gonzales MD - 08/26/2024 9:00 AM EST FEV1/FVC 78%. FEV1 3.27 at 101%. FVC 93%. No bronchodilator response. TLC 94%. RV 102%. DLCO 63% (adjusted 68%). Probable mild obstruction. ??No restriction. ??And mild decrease in diffusion. 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 Karlie Mendez MD PFT ORDERABLES * Vitamin B12 and folate (08/20/2024 3:51 PM EST) Vitamin B-12 839 250 - 900 pcg/mL LAB CHEMISTRY METHOD 08/20/2024 6:14 PM EST [facility] Folate 4.6 2.8 - 17.0 ng/ml LAB CHEMISTRY METHOD 08/20/2024 6:14 PM EST [facility] Blood Venous blood specimen / Unknown Venipuncture / Unknown 08/20/2024 3:51 PM EST 08/20/2024 3:51 PM EST Karlie Mendez MD LAB BLOOD ORDERABLE S Performing Organization Address [facility]/ZIP Co de Phone Number [facility] [address] [place] [address], * Hemoglobin A1c (08/20/2024 3:51 PM EST) Hemoglobin A1C 5.7 <6.5 % LAB CHEMISTRY METHOD 08/20/2024 8:55 PM EST [facility] Mean Bld Glu Estim. 117 mg/dL LAB CHEMISTRY METHOD 08/20/2024 8:55 PM EST [facility] Blood Venous blood specimen / Unknown Venipuncture / Unknown 08/20/2024 3:51 PM EST 08/20/2024 3:51 PM EST Karlie Mendez MD LAB BLOOD ORDERABLE S Performing Organization Address [facility] Co de Phone Number [facility] [address] [place] [address], [place] [phone] * XR Chest 2 Views (08/20/2024 11:57 AM EST) Anatomical Region Laterality Modality Body Radiographic Ashley ging 08/20/2024 12:0 5 PM EST Impressions 08/20/2024 12:08 PM EST No acute pulmonary pathology. -------- FINAL REPORT -------- Dictated By: Tianna Martinez Dictated Date: 08/20/2024 12:05 ET Assigned Physician: Tianna Martinez Reviewed and Electronically Signed By: Tianna Martinez Signed Date: 08/20/2024 12:08 ET Workstation ID: [id number] Transcribed By: Self Edit Transcribed Date: 08/20/2024 12:05 ET Narrative 08/20/2024 12:08 PM EST CHEST, TWO VIEWS HISTORY: ?? Chronic cough. TECHNIQUE: Frontal and lateral views of the chest. PRIOR: Chest x-ray 12/25/2023. FINDINGS: The lungs are clear. No pleural effusion is seen. No pneumothorax is seen. The cardiac diameter is within normal limits. No acute or aggressive appearing bony abnormalities are seen. ??There is degenerative change of the spine. Procedure Note Tianna Martinez MD - 08/20/2024 CHEST, TWO VIEWS HISTORY: Chronic cough. TECHNIQUE: Frontal and lateral views of the chest. PRIOR: Chest x-ray 12/25/2023. FINDINGS: The lungs are clear. No pleural effusion is seen. No pneumothorax is seen. The cardiac diameter is within normal limits. No acute or aggressive appearing bony abnormalities are seen. There isdegenerative change of the spine. IMPRESSION: No acute pulmonary pathology. -------- FINAL REPORT -------- Dictated By: Tianna Martinez Dictated Date: 08/20/2024 12:05 ET Assigned Physician: Tianna Martinez Reviewed and Electronically Signed By: Tianna Martinez Signed Date: 08/20/2024 12:08 ET Workstation ID: [id number] Transcribed By: Self Edit Transcribed Date: 08/20/2024 12:05 ET Karlie Mendez MD IMG XR PROCEDURES * External Vascular Ultrasound (08/08/2024) Anatomical Region Laterality Modality Ultrasound Provider Onbase CV VASCULAR PROCEDUR ES * Lipid panel (04/30/2024) [facility] LDL/HDL Ratio 2 0 - 4 Triglycerides 70 0 - 150 mg/dL Cholesterol 159 0 - 200 mg/dL HDL 77 40 mg/dL LDL Cholesterol 68 0 - 100 mg/dL Blood Venous blood specimen / Unknown Historical Provider LAB BLOOD ORDERAB LES * Annual BMP Blood Test (01/10/2024) [facility] Annual BMP Blood Test Abstracted Historical Provider MD DAVID Cohn * Hepatitis C Screening (09/23/2013) [facility] Hepatitis C Screening Abstracted Historical Provider MD DAVID Cohn from Last 3 Months or Most Recently Relevant to Health Maintenance Care Teams Water Regulator And Valve Repairer Relationship Specialty Start Date End Date Karlie Mendez MD [address] [place] [address] PCP - General 03/27/24
--- OUTSIDE RECORDS SUMMARY | 2024-11-06 16:53 | XMS_ITS | Encounter Summary ---
Author Organization [facility] Address [address] [place] [address] Care Team Providers Care Gang Plank Workman Name Role Phone Tree Aguilar MD Primary Care Provider Unavailable Marco Gonzales DO Primary Care Provider Unavaila Reji Martin MD Unavailable Unavailable Karlie Mendez MD Primary Care Provider [phone] Encounter Details Date Type Department Care Team Description 11/28/2019 Pt. Non Urgent Medic al Question Physiatry - [address] [address] Jian Rios DO Social History Tobacco Use Types Packs/Day [...] as of this encounter Progress Notes * Rupa Logan M.A. - 11/28/2019 2:19 PM ESTFrom: Jhon Browne To: Jian Rios DO Sent: 11/28/2019 11:18 AM EST Subject: Lumbar MRI Results Dr. Rios, The following is a quote from my recent MRI: Possible compression of the right L3 and L4 nerve roots. Recommend right L3 and L4 transforaminal injections . Is this something that should be scheduledas soon as possible? Jhon Browne documented in this encounter Plan of Treatment Not on file documented as of this encounter Visit Diagnoses Not on filedocumented in this encounter Care Teams Gang Plank Workman Relationship Specialty Start Date End Date Tree Aguilar MD PCP - General Internal Medicine 03/10/16 Marco Gonzales DO PCP - General Internal Medicine 09/22/21 03/26/24 Karlie Mendez MD [address] [place] [address] PCP - General Internal Medicine 03/27/24 Reji Amaya MD Specialist Vascular Surgery 05/16/22 documented as of this encounter
--- OUTSIDE RECORDS SUMMARY | 2024-11-06 16:53 | XMS_ITS | Encounter Summary ---
Author Organization [facility] Address [address] [place] [address] Care Team Providers Care K 12 Principal Name Role Phone Jhon Strauss Primary Care Provider Unav ailable Dany Villegas MD Primary Care Provider [phone] Tree Aguilar MD Primary Care Provider Unavailable Marco Gonzales DO Primary Care Provider Unavaila Reji Martin MD Unavailable Unavailable Karlie Mendez MD Primary Care Provider [phone] Encounter Details Date Type Department Care Team Description 08/18/2010 Associate Agent Insurance Sales Report Medical Records [address] [place] [address] Reji Triana Social History Tobacco Use Types [...] on filedocumented in this encounter Care Teams K 12 Principal Relationship Specialty Start Date End Date Jhon Strauss PCP - General 11/22/07 01/05/16 Dany Villegas MD [address] [place] [address] PCP - General Internal Medicine 01/06/16 03/09/16 Tree Aguilar MD [address] [place] [address] PCP - General Internal Medicine 03/10/16 09/21/21 Marco Gonzales DO [address] [place] [address] PCP - General Internal Medicine 09/22/21 03/26/24 Karlie Mendez MD [address] [place] [address] PCP - General Internal Medicine 03/27/24 Reji Amaya MD [address] [place] [address] Specialist Vascular Surgery 05/16/22 documented as of this encounter
--- OUTSIDE RECORDS SUMMARY | 2024-11-06 16:53 | XMS_ITS | Encounter Summary ---
Author Organization [facility] Address [address] [place] [address] Care Team Providers Care Immersion Metal Cleaner Name Role Phone Tree Aguilar MD Primary Care Provider Unavailable Marco Gonzales DO Primary Care Provider Unavaila Reji Martin MD Unavailable Unavailable Karlie Mendez MD Primary Care Provider [phone] Encounter Details Date Type Department Care Team Description [facility] [address] [place] [id number] Md Fermin Social History Tobacco Use Types [...] on filedocumented in this encounter Care Teams Immersion Metal Cleaner Relationship Specialty Start Date End Date Tree Aguilar MD PCP - General Internal Medicine 03/10/16 Marco Gonzales DO PCP - General Internal Medicine 09/22/21 03/26/24 Karlie Mendez MD [address] [place] [address] PCP - General Internal Medicine 03/27/24 Reji Amaya MD Specialist Vascular Surgery 05/16/22 documented as of this encounter
--- OUTSIDE RECORDS SUMMARY | 2024-11-06 16:53 | XMS_ITS | Encounter Summary ---
Author Organization [facility] Address [address] [place] [address] Care Team Providers Care Medical Reviewer Name Role Phone Tree Aguilar MD Primary Care Provider Unavailable Marco Gonzales DO Primary Care Provider Unavaila Reji Martin MD Unavailable Unavailable Karlie Mendez MD Primary Care Provider [phone] Encounter Details Date Type Department Care Team Description 11/28/2019 Telephone Physiatry - [place] [address] [place] [id number] Jian Rios DO Social History Tobacco Use [...] encounter Miscellaneous Notes * Telephone Encounter - Rupa Logan M.A. - 11/28/2019 2:13 PM EST ----- Message from Jian Rios DO sent at 11/26/2019 5:37 PM EST ----- Possible compression of the right L3 and L4 nerve roots. Recommend right L3 and L4 transforaminal injections documented in this encounter Plan of Treatment Not on file documented as of this encounter Visit Diagnoses Not on filedocumented in this encounter Care Teams Medical Reviewer Relationship Specialty Start Date End Date Tree Aguilar MD PCP - General Internal Medicine 03/10/16 Marco Gonzales DO PCP - General Internal Medicine 09/22/21 03/26/24 Karlie Mendez MD [address] [place] [address] PCP - General Internal Medicine 03/27/24 Reji Amaya MD Specialist Vascular Surgery 05/16/22 documented as of this encounter
--- OUTSIDE RECORDS SUMMARY | 2024-11-06 16:53 | XMS_ITS | Encounter Summary ---
Author Organization [facility] Address [address] [place] [address] Care Team Providers Care Revenue Field Auditor Name Role Phone Tree Aguilar MD Primary Care Provider Unavailable Marco Gonzales DO Primary Care Provider Unavaila [facility] Reji Amaya MD Unavailable Unavailable Karlie Mendez MD Primary Care Provider [phone] Encounter Details Date Type Department Care Team Description 07/08/2016 Release of Information Medical Records [address] [place] [id number] Abstract, Provider Social History Tobacco Use Types [...] on filedocumented in this encounter Care Teams Revenue Field Auditor Relationship Specialty Start Date End Date Tree Aguilar MD PCP - General Internal Medicine 03/10/16 Marco Gonzales DO PCP - General Internal Medicine 09/22/21 03/26/24 Karlie Mendez MD [address] [place] [address] PCP - General Internal Medicine 03/27/24 Reji Amaya MD Specialist Vascular Surgery 05/16/22 documented as of this encounter
--- OUTSIDE RECORDS SUMMARY | 2024-11-06 16:53 | XMS_ITS | Encounter Summary ---
Author Organization [facility] Address [address] [place] [address] Care Team Providers Care Armed Security Officer Name Role Phone Tree Aguilar MD Primary Care Provider Unavailable Marco Gonzales DO Primary Care Provider Unavaila Reji Martin MD Unavailable Unavailable Karlie Mendez MD Primary Care Provider [phone] Encounter Details Date Type Department Care Team Description 05/22/2020 Hospital Medical Records [address] [place] [address] Yrn Daly PA-C [address] [place] [address] [place] [address] Social History Tobacco Use Types Packs/Day Years [...] on filedocumented in this encounter Care Teams Armed Security Officer Relationship Specialty Start Date End Date Tree Aguilar MD PCP - General Internal Medicine 03/10/16 Marco Gonzales DO PCP - General Internal Medicine 09/22/21 03/26/24 Karlie Mendez MD [address] [place] [address] [id number] PCP - General Internal Medicine 03/27/24 Reji Amaya MD Specialist Vascular Surgery 05/16/22 documented as of this encounter
--- OUTSIDE RECORDS SUMMARY | 2024-11-06 16:53 | XMS_ITS | Encounter Summary ---
Author Organization [facility] Address [address] [place] [address] Care Team Providers Care Spine Surgeon Name Role Phone Jhon Strauss Primary Care Provider Unav ailable Dany Villegas MD Primary Care Provider [phone] Tree Aguilar MD Primary Care Provider Unavailable Marco Gonzales DO Primary Care Provider Unavaila Reji Martin MD Unavailable Unavailable Karlie Mendez MD Primary Care Provider [phone] Encounter Details Date Type Department Care Team Description 05/25/2010 Transfer Records Medical Records [address] [place] [address] Abstract, Provider Social History Tobacco Use Types [...] on filedocumented in this encounter Care Teams Spine Surgeon Relationship Specialty Start Date End Date Jhon Strauss PCP - General 11/22/07 01/05/16 Dany Villegas MD [address] [place] [address] PCP - General Internal Medicine 01/06/16 03/09/16 Tree Aguilar MD [address] [place] [address] PCP - General Internal Medicine 03/10/16 09/21/21 Marco Gonzales DO [address] [place] [address] PCP - General Internal Medicine 09/22/21 03/26/24 Karlie Mendez MD [address] [place] [address] PCP - General Internal Medicine 03/27/24 Reji Amaya MD [address] [place] [address] Specialist Vascular Surgery 05/16/22 documented as of this encounter
--- OUTSIDE RECORDS SUMMARY | 2024-11-06 16:53 | XMS_ITS | Encounter Summary ---
Author Organization [facility] Address [address] [place] [address] Care Team Providers Care Candle Wicker Name Role Phone Tree Aguilar MD Primary Care Provider Unavailable Marco Gonzales DO Primary Care Provider Unavaila Reji Martin MD Unavailable Unavailable Karlie Mendez MD Primary Care Provider [phone] Encounter Details Date Type Department Care Team Description 03/16/2020 Ambulance Driver Paramedic Report Medical Records [address] [place] [address] Tiburcio Ty PA-C [address] [place] [address] [place] [address] Social History Tobacco Use Types Packs/Day Years [...] on filedocumented in this encounter Care Teams Candle Wicker Relationship Specialty Start Date End Date Tree Aguilar MD PCP - General Internal Medicine 03/10/16 Marco Gonzales DO PCP - General Internal Medicine 09/22/21 03/26/24 Karlie Mendez MD [address] [place] [address] [id number] PCP - General Internal Medicine 03/27/24 Reji Amaya MD Specialist Vascular Surgery 05/16/22 documented as of this encounter
--- OUTSIDE RECORDS SUMMARY | 2024-11-06 16:53 | XMS_ITS | Encounter Summary ---
Author Organization [facility] Address [address] [place] [address] Care Team Providers Care Bridge Worker Apprentice Name Role Phone Tree Aguilar MD Primary Care Provider Unavailable Marco Gonzales DO Primary Care Provider Unavaila [facility] Reji Amaya MD Unavailable Unavailable Karlie Mendez MD Primary Care Provider [phone] Encounter Details Date Type Department Care Team Description 08/25/2016 Release of Information Medical Records [address] [place] [address] Abstract, Provider Social History Tobacco Use Types [...] on filedocumented in this encounter Care Teams Bridge Worker Apprentice Relationship Specialty Start Date End Date Tree Aguilar MD PCP - General Internal Medicine 03/10/16 Marco Gonzales DO PCP - General Internal Medicine 09/22/21 03/26/24 Karlie Mendez MD [address] [place] [address] PCP - General Internal Medicine 03/27/24 Reji Amaya MD Specialist Vascular Surgery 05/16/22 documented as of this encounter
--- OUTSIDE RECORDS SUMMARY | 2024-11-06 16:53 | XMS_ITS | Encounter Summary ---
Author Organization [facility] Address [address] [place] [address] Care Team Providers Care Business Systems Developer Name Role Phone Tree Aguilar MD Primary Care Provider Unavailable Marco Gonzales DO Primary Care Provider Unavaila Reji Martin MD Unavailable Unavailable Karlie Mendez MD Primary Care Provider [phone] Encounter Details Date Type Department Care Team Description 09/28/2017 [facility] [address] [place] [address] Md Fermin Social History Tobacco Use Types [...] on filedocumented in this encounter Care Teams Business Systems Developer Relationship Specialty Start Date End Date Tree Aguilar MD PCP - General Internal Medicine 03/10/16 Marco Gonzales DO PCP - General Internal Medicine 09/22/21 03/26/24 Karlie Mendez MD [address] [place] [address] PCP - General Internal Medicine 03/27/24 Reji Amaya MD Specialist Vascular Surgery 05/16/22 documented as of this encounter
--- OUTSIDE RECORDS SUMMARY | 2024-11-06 16:53 | XMS_ITS | Encounter Summary ---
Author Organization [facility] Address [address] [place] [address] Care Team Providers Care Asbestos Shingle Roofer Name Role Phone Marco Gonzales DO Primary Care Provider Unavaila Reji Martin MD Unavailable Unavailable Karlie Mendez MD Primary Care Provider [phone] Encounter Details Date Type Department Care Team Description 12/31/2023 Night Triage Doc Medical Records [address] [place] [address] Abstract, Provider Social History Tobacco Use Types [...] on filedocumented in this encounter Care Teams Asbestos Shingle Roofer Relationship Specialty Start Date End Date Marco Gonzales DO PCP - General Internal Medicine 09/22/21 03/26/24 Karlie Mendez MD [address] [place] [address] PCP - General Internal Medicine 03/27/24 Reji Amaya MD Specialist Vascular Surgery 05/16/22 documented as of this encounter
--- OUTSIDE RECORDS SUMMARY | 2024-11-06 16:53 | XMS_ITS | Encounter Summary ---
Author Organization [facility] Address [address] [place] [address] Care Team Providers Care Machine Preservative Filler Name Role Phone Jhon Strauss Primary Care Provider Unav Dany Gamboa MD Primary Care Provider [phone] Tree Aguilar MD Primary Care Provider Unavailable Marco Gonzales DO Primary Care Provider Unavaila Reji Martin MD Unavailable Unavailable Karlie Mendez MD Primary Care Provider [phone] Reason for Visit * Reason Onset Date Comments TEST RESULTS 09/25/2013 Encounter Details Date Type Department Care Team Description 09/25/2013 Telephone Adult Medicine - [address] [address] Rayray Matute PA-C TEST RESULTS Social History Tobacco Use Types Packs/Day Years [...] encounter Miscellaneous Notes * Telephone Encounter - Rayray Matute PA-C - 10/15/2013 10:38 AM EST He can come in to have his vit d level rechecked anytime after December 07. Thank you * Telephone Encounter - Jaelyn Clifford M.A. - 10/15/2013 10:20 AM EST I was able to finally get in touch with the patient. Can you place a future order for his recheck. * Telephone Encounter - Jaelyn Clifford M.A. - 10/04/2013 4:26 PM EST Left message on voicemail. * Telephone Encounter - Jaelyn Clifford M.A. - 09/25/2013 11:45 AM EST Left message on voicemail. * Telephone Encounter - Jaelyn Clifford M.A. - 09/25/2013 11:40 AM EST Message copied by JAELYN CLIFFORD M.A. on MonSep 25, 2013 11:40 AM ------ Message from: RAYRAY MATUTE P.A.-C. Created: MonSep 25, 2013 10:54 AM Can you please inform the patient that I have reviewed his recent lab results and the lab results showed that he was vitamin D deficient. I have called in a prescription to his pharmacy in [place] for50,000 unit vitamin D 3 supplement to be taken once every 7 days for the next 8 weeks. Upon completion, we can recheck levels. Thank you. documented in this encounter Plan of Treatment Not on file documented as of this encounter Results * 25 HYDROXY INCLUDES FRACTIONS IF PERFORMED (11/19/2013 2:44 PM EST) [facility] 25-HYDROXY VITAMIN D TOTAL 48 30 - 80 ng/ml 11/20/2013 11:54 AM EST [facility] Comment: Vitamin D Reference Ranges ??Deficiency: ? <20 ng/mL ??Insufficiency: ?20-29 ng/mL ??Optimal: ?30-80 ng/mL ??High: ? >80 ng/mL 11/19/2013 2:44 PM EST 11/19/2013 2:45 PM EST Rayray Matute PA-C [facility] [address] [facility] documented in this encounter Visit Diagnoses Diagnosis Vitamin D deficiency- Primary Unspecified vitamin D deficiency documented in this encounter Care Teams Machine Preservative Filler Relationship Specialty Start Date End Date Jhon Strauss PCP - General 11/22/07 01/05/16 Dany Villegas MD [address] [place] [address] PCP - General Internal Medicine 01/06/16 03/09/16 Tree Aguilar MD [address] [place] [address] PCP - General Internal Medicine 03/10/16 09/21/21 Marco Gonzales DO [address] [place] [address] PCP - General Internal Medicine 09/22/21 03/26/24 Karlie Mendez MD [address] [place] [address] PCP - General Internal Medicine 03/27/24 Reji Amaya MD [address] [place] [address] Specialist Vascular Surgery 05/16/22 documented as of this encounter
--- OUTSIDE RECORDS SUMMARY | 2024-11-06 16:53 | XMS_ITS | Encounter Summary ---
Author Organization [facility] Address [address] [place] [address] Care Team Providers Care Reliability Specialist Name Role Phone Tree Aguilar MD Primary Care Provider Unavailable Marco Gonzales DO Primary Care Provider UnavailReji Ely MD Unavailable Unavailable Karlie Mendez MD Primary Care Provider [phone] Reason for Visit * Reason Onset Date Comments Service Delivery Analyst Feedback 03/29/2018 Dr Mckoy Encounter Details Date Type Department Care Team Description 03/29/2018 Telephone Adult Medicine - [address] [address] Tree Aguilar MD Service Delivery Analyst Feedback (Dr Mckoy) Social History Tobacco Use Types Packs/Day [...] encounter Miscellaneous Notes * Telephone Encounter - Kylah Courtney - 03/29/2018 10:22 AM EDT Referral requested via Sellaround message for follow up visit with Dr Mckoy. [facility] Trace #: [id number] Subscriber: NAN BROWNE Submitter : JAYDEN Submitter Type: Provider : 1945 Referral (#[id number]) Specialty Care Review Type: Initial Certification Status : Certified in total Service Type : Medical Care Place Of Service : Office Visits : 6 Service Date : 03/29/2018-03/29/2019 Service Providers Provider Name ID Provider Type DANAE MCKOY NPI : [id number] Service Provider documented in this encounter Plan of Treatment Not on file documented as of this encounter Visit Diagnoses Not on filedocumented in this encounter Care Teams Reliability Specialist Relationship Specialty Start Date End Date Tree Aguilar MD PCP - General Internal Medicine 03/10/16 Marco Gonzales DO PCP - General Internal Medicine 09/22/21 03/26/24 Karlie Mendez MD [address] [place] [address] PCP - General Internal Medicine 03/27/24 Reji Amaya MD Specialist Vascular Surgery 05/16/22 documented as of this encounter
--- OUTSIDE RECORDS SUMMARY | 2024-11-06 16:53 | XMS_ITS | Encounter Summary ---
Author Organization [facility] Address [address] [place] [address] Care Team Providers Care Online Editor Name Role Phone Marco Gonzales DO Primary Care Provider UnavailReji Ely MD Unavailable Unavailable Karlie Mendez MD Primary Care Provider [phone] Reason for Visit * Reason Onset Date Comments immunizations 07/19/2022 Encounter Details Date Type Department Care Team Description 07/19/2022 Telephone Adult Medicine - [address] [address] Marco Gonzales DO immunizations Social History Tobacco Use Types Packs/Day Years [...] suspected to have Coronavirus/COVID-19? No / Unsure 07/15/2022 10:44 AM EDT documented as of this encounter Miscellaneous Notes * Telephone Encounter - Mariel Garg M.A. - 07/19/2022 3:37 PM EDT Updated immunization chart for Covid vaccines. * Telephone Encounter - Aicha Beltran M.A. - 07/19/2022 2:51 PM EDT See media tab in chart for mychart attachment and update imms record documented in this encounter Plan of Treatment Not on file documented as of this encounter Visit Diagnoses Not on filedocumented in this encounter Care Teams Online Editor Relationship Specialty Start Date End Date Marco Gonzales DO PCP - General Internal Medicine 09/22/21 03/26/24 Karlie Mendez MD [address] [place] [address] PCP - General Internal Medicine 03/27/24 Reji Amaya MD Specialist Vascular Surgery 05/16/22 documented as of this encounter
--- OUTSIDE RECORDS SUMMARY | 2024-11-06 16:53 | XMS_ITS | Encounter Summary ---
Author Organization [facility] Address [address] [place] [address] Care Team Providers Care Conveyor System Operator Name Role Phone Marco Gonzales DO Primary Care Provider Unavaila Reji Martin MD Unavailable Unavailable Karlie Mendez MD Primary Care Provider [phone] Encounter Details Date Type Department Care Team Description 05/11/2022 Pt. Referral Request [facility] MyChart [address] [place] [address] Md Fermin Social History Tobacco Use Types [...] on filedocumented in this encounter Care Teams Conveyor System Operator Relationship Specialty Start Date End Date Marco Gonzales DO PCP - General Internal Medicine 09/22/21 03/26/24 Karlie Mendez MD [address] [place] [address] PCP - General Internal Medicine 03/27/24 Reji Amaya MD Specialist Vascular Surgery 05/16/22 documented as of this encounter
--- OUTSIDE RECORDS SUMMARY | 2024-11-06 16:53 | XMS_ITS | Encounter Summary ---
Author Organization [facility] Address [address] [place] [address] Care Team Providers Care Firmware Software Verification Engineer Name Role Phone Marco Gonzales DO Primary Care Provider Unavaila Reji Martin MD Unavailable Unavailable Karlie Mendez MD Primary Care Provider [phone] Encounter Details Date Type Department Care Team Description 04/19/2022 Trucker Report Medical Records [address] [place] [address] Reji Amaya MD Social History Tobacco Use [...] on filedocumented in this encounter Care Teams Firmware Software Verification Engineer Relationship Specialty Start Date End Date Marco Gonzales DO PCP - General Internal Medicine 09/22/21 03/26/24 Karlie Mendez MD [address] [place] [address] PCP - General Internal Medicine 03/27/24 Reji Amaya MD Specialist Vascular Surgery 05/16/22 documented as of this encounter
--- OUTSIDE RECORDS SUMMARY | 2024-11-06 16:53 | XMS_ITS ---
Author Name [facility] Organization [facility] Address [address] [place] [address] Support Name Relationship Address Phone CAMMY HUIZAR Next of Kin [address] [place], [place] [id number] BHUPENDRA EFREN Emergency Contact [address] [place], [place] [phone] Insurance Providers: All historical and current Section [...] PART B May 09, 2012 PART B [id number] JESSICA HUIZAR ID PATIENT MEDICARE (WNR) MEDICARE (M) PART A May 09, 2012 PART A [id number] [phone] BHUPENDRA,JESSICA ID PATIENT MEDICARE (WNR) MEDICARE (M) PART A May 09, 2012 PART A [id number] BHUPENDRA,JESSICA ID PATIENT MEDICARE (WNR) MEDICARE (M) PART B May 09, 2012 PART B [id number] BHUPENDRA,JESSICA ID PATIENT MEDICARE (WNR) MEDICARE (M) PART A May 09, 2012 PART A [id number] [phone] JESSICA HUIZAR ID PATIENT MEDICARE (WNR) MEDICARE (M) PART A May 09, 2012 PART A [id number] JESSICA HUIZAR ID PATIENT MEDICARE (WNR) MEDICARE (M) PART B May 09, 2012 PART B [id number] JESSICA HUIZAR ID PATIENT MEDICARE (WNR) MEDICARE (M) PART B May 09, 2012 PART B [id number] BHUPENDRA,JESSICA ID PATIENT OPTUM RX PRESCRIPT ION RX Oct 09, 2023 THPRX [id number] BHUPENDRA,JESSICA ID PATIENT OPTUM RX PRESCRIPT ION RX Oct 09, 2022 THPRX [id number] BHUPENDRA,JESSICA ID PATIENT [facility] February 27, 2014 [facility] [id number] [phone] BHUPENDRA,JESSICA ID PATIENT [facility] February 27, 2014 [id number] [phone] JESSICA HUIZAR ID PATIENT [facility] (WNR) [facility] Oct 09, 2023 [id number] [phone] BHUPENDRA,JESSICA ROONEY PATIENT Selected Encounter This section includes the information on record at [place] for the Encounter. Date/Time Encounter Type Encounter Description Reason Provider Source Jan 26, 2024 04:00 PM HEARING AID FITTING/CHECKIN G AUDIOLOGY ICD-10-CM H90.3 Sensorineural hearing loss, bilateral JUAN WEBSTER E Encounter Template Text not used by ME Assessments - Encounter Diagnoses This section includes the primary and secondary diagnoses documented for the Encounter. Date/Time Primary/Secondary Diagnosis Diagnosis Name Provider Source Jan 26, 2024 04:46 PM PRIMARY Sensorineural hearing loss, bilateral JUAN WEBSTER [place] [facility] Encounter Notes: All associated encounter notes This [...] His last hearing evaluation was on 06/02/22. Webster reports noting increased difficulty hearing his . [...] aids were re-programmed to NAL-NL1 and feedback manager multimedia was re-run. He reported noting significant improvement. Webster will contact the clinic as needed. /dean/ Heena Lester, [facility] Right Of Way Cutter Signed: 01/26/2024 16:53 [facility]
--- OUTSIDE RECORDS SUMMARY | 2024-11-06 16:53 | XMS_ITS | Encounter Summary ---
Author Organization [facility] Address [address] [place] [address] Care Team Providers Care Credit Support Counselor Name Role Phone Tree Aguilar MD Primary Care Provider Unavailable Marco Gonzales DO Primary Care Provider Unavaila Reji Martin MD Unavailable Unavailable Karlie Mendez MD Primary Care Provider [phone] Encounter Details Date Type Department Care Team Description 04/12[facility]21 [facility] [address] [place] [address] Md Fermin Social History Tobacco Use Types [...] on filedocumented in this encounter Care Teams Credit Support Counselor Relationship Specialty Start Date End Date Tree Aguilar MD PCP - General Internal Medicine 03/10/16 Marco Gonzales DO PCP - General Internal Medicine 09/22/21 03/26/24 Karlie Mendez MD [address] [place] [address] PCP - General Internal Medicine 03/27/24 Reji Amaya MD Specialist Vascular Surgery 05/16/22 documented as of this encounter
--- OUTSIDE RECORDS SUMMARY | 2024-11-06 16:54 | XMS_ITS | Encounter Summary ---
Author Organization [facility] Address [address] [place] [address] Care Team Providers Care Barrel Washer Machine Name Role Phone rTee Aguilar MD Primary Care Provider Unavailable Marco Gonzales DO Primary Care Provider Unavaila Reji Martin MD Unavailable Unavailable Karlie Mendez MD Primary Care Provider [phone] Encounter Details Date Type Department Care Team Description 06/26/2019 Pt. Non Urgent Medic al Question Physiatry - [address] [address] Jian Rios DO Social History Tobacco Use [...] of this encounter Progress Notes * Rupa Dolan - 06/26/2019 8:42 AM EDTFrom: Jhon Browne To: Jian Rios DO Sent: 06/26/2019 7:33 AM EDT Subject: Prescription for diclofenac 3 % gel Dr. Rios, [facility] Pharm[facility] called yesterday afternoon to let me know my prescription was ready for meto picker box operator. I knew you said it was not covered by most insurance but [facility] informed me the cost was a little over $900. I left [facility] handed but may bite the bullet and go back and get it. My son-in-law's father is prescribed the same name medication in 1% strength for the same type neck/upper back pain and he does get some relief from using it. Do you know if the 1% is covered by insurance? I look forward to hearing from you. documented in this encounter Plan of Treatment Not on file documented as of this encounter Visit Diagnoses Not on filedocumented in this encounter Care Teams Barrel Washer Machine Relationship Specialty Start Date End Date Tree Aguilar MD PCP - General Internal Medicine 03/10/16 Marco Gonzales DO PCP - General Internal Medicine 09/22/21 03/26/24 Karlie Mendez MD [address] [place] [address] PCP - General Internal Medicine 03/27/24 Reji Amaya MD Specialist Vascular Surgery 05/16/22 documented as of this encounter
--- OUTSIDE RECORDS SUMMARY | 2024-11-06 16:54 | XMS_ITS | Encounter Summary ---
Author Organization [facility] Address [address] [place] [address] Care Team Providers Care Brickmason Helper Name Role Phone Marco Gonzales DO Primary Care Provider UnavailReji Ely MD Unavailable Unavailable Karlie Mendez MD Primary Care Provider [phone] Encounter Details Date Type Department Care Team Description 03/25/2024 Pt. Non Urgent Medic al Question Adult Medicine - [address] [address] Radha Pickett PA-C [address] [place] [address] Social History Tobacco Use Types Packs/Day Years [...] Telephone Encounter - Charleen Garcia L.P.N. - 03/25/2024 12:51 PM EDT From: Jhon Browne To: Juvencio Pickett Sent: 03/25/2024 12:06 PM EDT Subject: New PCP Selected and Referral Request Good morning, I have selected Dr. Idalia Smith as my PCP since Dr. Gonzales has departed. I need a referral to see Dr. Yogesh Almendarez [address] [place] [address] (Formerly at [facility]). I had previously seen Dr. Almendarez for lumbar spine issues and had surgery on 2020 at [facility]. I am again having increased pain and more pronounced scoliosis and am concerned something may have gone awry and want to see Dr. Almendarez again. I contacted his new office and before they will schedule an appointment their office policy is that my PCP initiate a referral and issue an order for a lumbar MRI. Only then will they schedule an appointment. Your earliest att ention to this will be appreciated. documented in this encounter Plan of Treatment Not on file documented as of this encounter Visit Diagnoses Not on filedocumented in this encounter Care Teams Brickmason Helper Relationship Specialty Start Date End Date Marco Gonzales DO PCP - General Internal Medicine 09/22/21 03/26/24 Karlie Mendez MD [address] [place] [address] PCP - General Internal Medicine 03/27/24 Reji Amaya MD Specialist Vascular Surgery 05/16/22 documented as of this encounter
--- OUTSIDE RECORDS SUMMARY | 2024-11-06 16:54 | XMS_ITS | Encounter Summary ---
Author Organization [facility] Address [address] [place] [address] Care Team Providers Care Manager Ems Name Role Phone Marco Gonzales DO Primary Care Provider Unavaila ble Reji Amaya MD Unavailable Unavailable Karlie Mendez MD Primary Care Provider [phone] Encounter Details Date Type Department Care Team Description 06/05/2023 Segment Producer Report Medical Records [address] [place] [address] Reji Amaya MD Social History Tobacco Use [...] on filedocumented in this encounter Care Teams Manager Ems Relationship Specialty Start Date End Date Marco Gonzales DO PCP - General Internal Medicine 09/22/21 03/26/24 Karlie Mendez MD [address] [place] [address] [id number] PCP - General Internal Medicine 03/27/24 Reji Amaya MD Specialist Vascular Surgery 05/16/22 documented as of this encounter
--- OUTSIDE RECORDS SUMMARY | 2024-11-06 16:54 | XMS_ITS | Encounter Summary ---
Author Organization [facility] Address [address] [place] [address] Care Team Providers Care Rubber Boots And Shoes Repairer Name Role Phone Marco Gonzales DO Primary Care Provider UnavailReji Ely MD Unavailable Unavailable Karlie Mendez MD Primary Care Provider [phone] Encounter Details Date Type Department Care Team Description 02/22/2022 Telephone [place] [address] Tiburcio Rosa PA-C [address] [place] [address] Social History Tobacco Use Types Packs/Day Years [...] suspected to have Coronavirus/COVID-19? No / Unsure 02/18/2022 9:29 AM EDT documented as of this encounter Miscellaneous Notes * Telephone Encounter - Carolyn Fitch M.A. - 02/22/2022 9:49 AM EDT Left voicemail asking to return call regarding message below. * Telephone Encounter - Carolyn Fitch M.A. - 02/22/2022 9:49 AM EDT ----- Message from Marco Gonzales DO sent at 02/18/2022 4:53 PM EDT ----- Please review documented in this encounter Plan of Treatment Not on file documented as of this encounter Visit Diagnoses Not on filedocumented in this encounter Care Teams Rubber Boots And Shoes Repairer Relationship Specialty Start Date End Date Marco Gonzales DO PCP - General Internal Medicine 09/22/21 03/26/24 Karlie Mendez MD [address] [place] [address] PCP - General Internal Medicine 03/27/24 Reji Amaya MD Specialist Vascular Surgery 05/16/22 documented as of this encounter
--- OUTSIDE RECORDS SUMMARY | 2024-11-06 16:54 | XMS_ITS | Encounter Summary ---
Author Organization [facility] Address [address] [place] [address] Care Team Providers Care Interventional Radiology Rn Name Role Phone Marco Gonzales DO Primary Care Provider Unavaila Reji Martin MD Unavailable Unavailable Karlie Mendez MD Primary Care Provider [phone] Encounter Details Date Type Department Care Team Description 04/05/2022 Parks Recreation Coordinator Report Medical Records [address] [place] [address] Reji Amaya MD Social History Tobacco Use [...] suspected to have Coronavirus/COVID-19? No / Unsure 03/25/2022 3:34 PM EDT documented as of this encounter Plan of Treatment Not on file documented as of this encounter Visit Diagnoses Not on filedocumented in this encounter Care Teams Interventional Radiology Rn Relationship Specialty Start Date End Date Marco Gonzales DO PCP - General Internal Medicine 09/22/21 03/26/24 Karlie Mendez MD [address] [place] [address] PCP - General Internal Medicine 03/27/24 Reji Amaya MD Specialist Vascular Surgery 05/16/22 documented as of this encounter
--- OUTSIDE RECORDS SUMMARY | 2024-11-06 16:54 | XMS_ITS | Encounter Summary ---
Author Organization [facility] Address [address] [place] [address] Care Team Providers Care Cloth Mercerizing Supervisor Name Role Phone Marco Gonzales DO Primary Care Provider UnavailReji Ely MD Unavailable Unavailable Karlie Mendez MD Primary Care Provider [phone] Encounter Details Date Type Department Care Team Description 08/31/2023 Pt. Non Urgent Medical Question Adult Medicine - [address] [address] Marco Gonzales DO Post-nasal drip (Primary Dx) Social History Tobacco Use Types Packs/Day Years [...] suspected to have Coronavirus/COVID-19? No / Unsure 08/21/2023 8:37 AM EST documented as of this encounter Miscellaneous Notes * Telephone Encounter - Charleen Garcia L.P.N. - 09/01/2023 8:20 AM EST From: Jhon Browne To: Juvencio Gonzales Sent: 08/31/2023 4:16 PM EST Subject: Persistent cough Reference my recent visit on 08/21/[address] Gonzales. Under the heading HPI in the visit notes, it indicate I denied any acute symptoms of a cough. This is not the case and I had forgotten to mention it to Dr. Gonzales. She had prescribed Lisinopril in February 2022 to help control hypertension. After consulting Dr. Dyson (my allerg y doctor) for a persistent dry cough, he indicated a side affect Lisinopril is a dry cough and recommended I stop taking it. I consulted with Dr. Gonzales and she agreed so I stopped taking it in September 2022. The cough gradually subsided to a much lesser degree for sixmonths following but it has returned. Again, it is a dry cough and occurs randomly throughout the day but not as severe as the initial symptoms. What is my best course of action? documented in this encounter Plan of Treatment Not on file documented as of this encounter Visit Diagnoses Diagnosis Post-nasal drip- Primary Postnasal drip documented in this encounter Care Teams Cloth Mercerizing Supervisor Relationship Specialty Start Date End Date Marco Gonzales DO PCP - General Internal Medicine 09/22/21 03/26/24 Karlie Mendez MD [address] [place] [address] PCP - General Internal Medicine 03/27/24 Reji Amaya MD Specialist Vascular Surgery 05/16/22 documented as of this encounter
--- OUTSIDE RECORDS SUMMARY | 2024-11-06 16:54 | XMS_ITS | Encounter Summary ---
Author Organization [facility] Address [address] [place] [address] Care Team Providers Care Bi Report Developer Name Role Phone Marco Gonzales DO Primary Care Provider UnavailReji Ely MD Unavailable Unavailable Karlie Mendez MD Primary Care Provider [phone] Encounter Details Date Type Department Care Team Description 10/12/2021 Pt. Non Urgent Medic al Question Adult Medicine - [address] [address] Marco Gonzales DO Social History Tobacco Use [...] encounter Miscellaneous Notes * Telephone Encounter - Gertrudis Wilkerson L.P.N. - 10/12/2021 2:09 PM ESTFrom: Jhon Browne To: Juvencio Gonzales Sent: 10/12/2021 1:48 PM EST Subject: Recent Lab Work Torri, I received a voice message last Monday at 11:30 am indicating I should call the Adult Medicine concerning the results of my lab work you ordered after my visit on Monday10/04/2021. I have called numerous times daily since then only to be put on hold due to high call volume and told my callwould be answered in the order it was received. I waited at least twenty minutes to as long as 30+ minutes at which time I gave up and terminated the call. I am not scheduled to come in for a follow-up until Monday at 0830. Lab work flagged the vitamin D test being on the low side. I have been checking my BP numerous random times daily as you directed with what I consider mixed results which are attached. documented in this encounter Plan of Treatment Not on file documented as of this encounter Visit Diagnoses Not on filedocumented in this encounter Care Teams Bi Report Developer Relationship Specialty Start Date End Date Marco Gonzales DO PCP - General Internal Medicine 09/22/21 03/26/24 Karlie Mendez MD [address] [place] [address] PCP - General Internal Medicine 03/27/24 Reji Amaya MD Specialist Vascular Surgery 05/16/22 documented as of this encounter
--- OUTSIDE RECORDS SUMMARY | 2024-11-06 16:54 | XMS_ITS | Patient Health Record ---
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 [place] [phone] [id number] NAN RAMSAY Self - patient is the insured MEDICAL (GENERAL) HISTORY Medical History History ICD Code hypertension nerve pain right leg elevated cholesterol cervical spondyloarthropathies degenerative joint disease prostate nodule Surgical History Surgery Date(Month/Year) appendectomy left vericocele metatarsal osteotomy cervical radiculopathy thumb rotator cuff tear repair right knee arthroscopy tennis elbow surgery
--- OUTSIDE RECORDS SUMMARY | 2024-11-06 16:54 | XMS_ITS | Encounter Summary ---
Author Organization [facility] Address [address] [place] [address] Care Team Providers Care Hair Or Beauty Salon Assistant Name Role Phone Reji Amaya MD Unavailable Unavailable Karlie Mendez MD Primary Care Provider [phone] Encounter Details Date Type Department Care Team Description 07/12/2024 Refill Adult Medicine - [address] [address] Nolan Fish, PANeoC [address] [place] [address] Social History Tobacco Use Types Packs/Day Years [...] encounter Miscellaneous Notes * Telephone Encounter - Cecelia Sanders M.A. 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
--- OUTSIDE RECORDS SUMMARY | 2024-11-06 16:54 | XMS_ITS | Encounter Summary ---
Author Organization [facility] Address [address] [place] [address] Care Team Providers Care Platform Material Handler Manager Name Role Phone Marco Gonzales DO Primary Care Provider Reji Aguillon MD Unavailable Unavailable Karlie Mendez MD Primary Care Provider [phone] Encounter Details Date Type Department Care Team Description 03/06/2022 Pt. Non Urgent Medic al Question Adult Medicine - [address] [address] Marco Gonzales DO Social History Tobacco Use [...] encounter Miscellaneous Notes * Telephone Encounter - Do Escamilla M.A. - 03/08/2022 8:34 AM EDTFrom: Jhon Browne To: Juvencio Gonzales Sent: 03/06/2022 7:18 PM EDT Subject: Right leg pain during short walks My urged me to inform you of pain I am having in my right calf during short walks for some time now. This is not the same as the tingling/numb sensation in upper outside of my right thigh which I have been taking Gabapentin for. I did mention this to my daughter who is a Technology Applications Consultant and her response was given my age and symptoms it sounded like claudication and I probably should get an arterial ultrasound or be referred to a vascular surgeon for a consult. Your thoughts? documented in this encounter Plan of Treatment Not on file documented as of this encounter Visit Diagnoses Not on filedocumented in this encounter Care Teams Platform Material Handler Manager Relationship Specialty Start Date End Date Marco Gonzales DO PCP - General Internal Medicine 09/22/21 03/26/24 Karlie Mendez MD [address] [place] [address] PCP - General Internal Medicine 03/27/24 Reji Amaya MD Specialist Vascular Surgery 05/16/22 documented as of this encounter
--- OUTSIDE RECORDS SUMMARY | 2024-11-06 16:54 | XMS_ITS | Encounter Summary ---
Author Organization [employer] [facility] Address [address] [place] [address] Care Team Providers Care Service Transformer Repair Supervisor Name Role Phone Reji Amaya MD Unavailable Unavailable Karlie Mendez MD Primary Care Provider [phone] Reason for Visit * Reason Comments E-prescribe Rx Request Encounter Details Date Type Department Care Team Description 04/12/2024 Refill Adult Medicine - [address] [address] Radah Pickett PA-C [address] [place] [address] E-prescribe Rx Request Social History Tobacco Use [...] encounter Miscellaneous Notes * Telephone Encounter - Florecita Husain M.A. 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
--- OUTSIDE RECORDS SUMMARY | 2024-11-06 16:54 | XMS_ITS | Encounter Summary ---
Author Organization [facility] Address [address] [place] [address] Care Team Providers Care Notary Public Name Role Phone Marco Gonzales DO Primary Care Provider Unavaila Reji Martin MD Unavailable Unavailable Karlie Mendez MD Primary Care Provider [phone] Encounter Details Date Type Department Care Team Description 01/30/2024 Pharmacy Customer Care Specialist Report Medical Records [address] [place] [address] Abstract, Provider Social History Tobacco Use Types [...] on filedocumented in this encounter Care Teams Notary Public Relationship Specialty Start Date End Date Marco Gonzales DO PCP - General Internal Medicine 09/22/21 03/26/24 Karlie Mendez MD [address] [place] [address] PCP - General Internal Medicine 03/27/24 Reji Amaya MD Specialist Vascular Surgery 05/16/22 documented as of this encounter
--- OUTSIDE RECORDS SUMMARY | 2024-11-06 16:54 | XMS_ITS | Encounter Summary ---
Author Organization [facility] Address [address] [place] [address] Care Team Providers Care Processing Associate Name Role Phone Marco Gonzales DO Primary Care Provider Unavaila Reji Martin MD Unavailable Unavailable Karlie Mendez MD Primary Care Provider [phone] Encounter Details Date Type Department Care Team Description 08/10/2023 Pt. Referral Request [facility] MyChart [address] [place] [address] Md Fermin Social History Tobacco Use Types [...] on filedocumented in this encounter Care Teams Processing Associate Relationship Specialty Start Date End Date Marco Gonzales DO PCP - General Internal Medicine 09/22/21 03/26/24 Karlie Mendez MD [address] [place] [address] PCP - General Internal Medicine 03/27/24 Reji Amaya MD Specialist Vascular Surgery 05/16/22 documented as of this encounter
--- OUTSIDE RECORDS SUMMARY | 2024-11-06 16:54 | XMS_ITS | Encounter Summary ---
Author Organization [facility] Address [address] [place] [address] Care Team Providers Care Clinical Account Liaison Name Role Phone Marco Gonzales DO Primary Care Provider UnavailReji Ely MD Unavailable Unavailable Karlie Mendez MD Primary Care Provider [phone] Reason for Visit * Reason Comments E-prescribe Rx Request Encounter Details Date Type Department Care Team Description 03/12/2022 Refill Adult Medicine [address] [address] Tree Aguilar MD E-prescribe Rx Request Social [...] on filedocumented in this encounter Care Teams Clinical Account Liaison Relationship Specialty Start Date End Date Marco Gonzales DO PCP - General Internal Medicine 09/22/21 03/26/24 Karlie Mendez MD [address] [place] [address] PCP - General Internal Medicine 03/27/24 Reji Amaya MD Specialist Vascular Surgery 05/16/22 documented as of this encounter
--- OUTSIDE RECORDS SUMMARY | 2024-11-06 16:54 | XMS_ITS | Encounter Summary ---
Author Organization [facility] Address [address] [place] [address] Care Team Providers Care Supervisor Roller Printing Name Role Phone Marco Gonzales DO Primary Care Provider UnavailReji Ely MD Unavailable Unavailable Karlie Mendez MD Primary Care Provider [phone] Encounter Details Date Type Department Care Team Description 03/30/2022 Pt. Referral Request [facility] MyChart [address] [place] [address] Md Fermin Social History Tobacco Use Types [...] filedocumented in this encounter Care Teams Supervisor Roller Printing Relationship Specialty Start Date End Date Marco Gonzales DO PCP - General Internal Medicine 09/22/21 03/26/24 Karlie Mendez MD [address] [place] [address] PCP - General Internal Medicine 03/27/24 Reji Amaya MD Specialist Vascular Surgery 05/16/22 documented as of this encounter
--- OUTSIDE RECORDS SUMMARY | 2024-11-06 16:54 | XMS_ITS | Encounter Summary ---
Author Organization [facility] Address [address] [place] [address] Care Team Providers Care Sheet Manufacturing Supervisor Name Role Phone Marco Gonzales DO Primary Care Provider Unavaila Reji Martin MD Unavailable Unavailable Karlie Mendez MD Primary Care Provider [phone] Reason for Visit * Reason Comments E-prescribe Rx Request Encounter Details Date Type Department Care Team Description 10/21/2023 Refill Adult [address] [address] Marco Gonzales DO E-prescribe Rx Request Social History Tobacco Use [...] on filedocumented in this encounter Care Teams Sheet Manufacturing Supervisor Relationship Specialty Start Date End Date Marco Gonzales DO PCP - General Internal Medicine 09/22/21 03/26/24 Karlie Mendez MD [address] [place] [address] PCP - General Internal Medicine 03/27/24 Reji Amaya MD Specialist Vascular Surgery 05/16/22 documented as of this encounter
--- OUTSIDE RECORDS SUMMARY | 2024-11-06 16:54 | XMS_ITS | Encounter Summary ---
Author Organization 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 - 08/21/2023 8:40 AM EST From: Jhon Browne To: Juvencio Gonzales Sent: 08/21/2023 6:51 AM EST Subject: Specialist Referral I submitted this request using the mPura option Request a Referral : Jhon Browne would like to request a referral. Reason: Surgery Follow-Up Requested provider: Reji Amaya MD Comment: Referral needs to be backdated to 06/29/2023. Previous referral 05/26/2023. 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
--- OUTSIDE RECORDS SUMMARY | 2024-11-06 16:54 | XMS_ITS | Encounter Summary ---
Author Organization [facility] Address [address] [place] [address] Care Team Providers Care Aerosol Supervisor Name Role Phone Marco Gonzales DO Primary Care Provider UnavailReji Ely MD Unavailable Unavailable Karlie Mendez MD Primary Care Provider [phone] Encounter Details Date Type Department Care Team Description 08/28/2023 Telephone Adult Medicine - [address] [address] Marco Gonzales DO Social History Tobacco Use [...] encounter Miscellaneous Notes * Telephone Encounter - Marco Gonzales DO - 08/30/2023 4:21 PM EST According to center of disease control guidelines, adult over 60 yrs should get RSV vaccine to prevent severe RSV infection I will definitely recommend to take RSV vaccine. documented in this encounter Plan of Treatment Not on file documented as of this encounter Visit Diagnoses Not on filedocumented in this encounter Care Teams Aerosol Supervisor Relationship Specialty Start Date End Date Marco Gonzales DO PCP - General Internal Medicine 09/22/21 03/26/24 Karlie Mendez MD [address] [place] [address] PCP - General Internal Medicine 03/27/24 Reji Amaya MD Specialist Vascular Surgery 05/16/22 documented as of this encounter
== END 2024-11-06 15:42 | disposition home or self-care (01) ==
PROVIDERS: PCP Internal Medicine; Visit Provider Hospitalist
DX: J43.2 Centrilobular emphysema (principal); R05.3 Chronic cough; R13.10 Dysphagia, unspecified; R05.8 Other specified cough
CPT/HCPCS: 99204

== ENCOUNTER → 2024-11-06 14:39 | Outpatient (BNVA) | payer OTHER, SELFPAY | PROVIDERS: PCP Internal Medicine; Visit Provider Hospitalist | DX: J43.2 Centrilobular emphysema (principal); R05.3 Chronic cough; R05.8 Other specified cough; R13.10 Dysphagia, unspecified | CPT/HCPCS: 99202 ==

== ENCOUNTER 2024-11-11 07:46 | Outpatient (REF) | payer OTHER, SELFPAY ==
--- NOTE | ~2024-11-11 | FL_ITS ---
EXAMINATION: XR FLUOROSCOPY UPPER GI WITH AIR CLINICAL INFORMATION: Dysphagia. COMPARISON: None TECHNIQUE: Fluoroscopic air contrast upper GI examination was performed utilizing standard techniques with thin and thick barium and effervescent granules. Numerous spot images were obtained. FINDINGS: Lateral cine images of the oropharynx and hypopharynx demonstrate normal swallow mechanism with normal epiglottic inversion and soft palate elevation. No tracheal penetration, glottic or subglottic aspiration identified. No nasopharyngeal reflux present. 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 A moderate sized Zenker's diverticulum is present. Dual and single contrast images of the esophagus demonstrate a normal caliber, with a corkscrew appearance, and normal mucosal pattern. No evidence of mass, or ulcerations identified. Esophageal peristalsis is severely disorganized. A nonobstructing Schatzki's ring is present. A small type I hiatal hernia is present. No significant gastroesophageal reflux was seen during the course of the examination and on reflux views. Dual contrast and single contrast images of the stomach demonstrated a normal contour. There are multiple small foci of contrast pooling in the body and fundus of the stomach that may represent small mucosal erosions. No masses are present. Contrast freely passed into the gastric antrum and duodenal bulb without delay. Single and air-contrast images of the duodenal bulb demonstrate no abnormality. The duodenal sweep has a normal appearance, course, and mucosal fold appearance. There is a tiny diverticulum noted in the second segment of the duodenum. The imaged proximal jejunum has a normal fold pattern and caliber. FLUOROSCOPY TIME: 4 minutes 58 seconds Number of Spot Images: 11 Number of Cine: 16 DOSE AREA PRODUCT: 2984 uGy-m2 (microgray-meter squared) FL/FL barium swallow IMPRESSION: 1. Moderate severe cricopharyngeal achalasia. 2. Moderate sized Zenker's diverticulum. 3. Corkscrew appearance of the esophagus with severely disorganized peristalsis consistent with esophageal dysmotility. 4. Nonobstructing Schatzki's ring. 5. Small type I hiatal hernia. 6. Multiple small foci of contrast pooling in the body and fundus the stomach that may represent small mucosal erosions. Recommend correlation with EGD. 7. Tiny diverticulum noted in the second segment of the duodenum. This procedure was performed by Jhon Cherry, PA-C, and supervised by Dr. Cowan Electronically signed by: Harvey Cowan MD 11/11/2024 05:04 PM [facility] [place]
== END 2024-11-11 07:47 | disposition home or self-care (01) ==
LOC: HO.XRAY 07:46
PROVIDERS: PCP Internal Medicine; Visit Provider Hospitalist
DX: K21.9 Gastro-esophageal reflux disease without esophagitis (principal)
CPT/HCPCS: 74220

== ENCOUNTER → 2024-11-11 07:48 | Outpatient (BNV) | payer OTHER, SELFPAY | PROVIDERS: PCP Internal Medicine; Visit Provider Physician Assistant Surgical | DX: K22.0 Achalasia of cardia (principal); K22.5 Diverticulum of esophagus, acquired; K44.9 Diaphragmatic hernia without obstruction or gangrene | CPT/HCPCS: 74246; 74248 ==

== ENCOUNTER 2024-12-23 07:57 | Outpatient (AMB) | payer OTHER, SELFPAY ==
--- OUTSIDE RECORDS SUMMARY | 2024-12-23 08:01 | XMS_ITS | Encounter Summary ---
Author Organization [facility] Address [address] [place] [address] Care Team Providers Care Green End Department Supervisor Name Role Phone Karlie Mendez MD Primary Care Provider [phone] Encounter Details Date Type Department Care Team (Late st Contact Info) Description 11/08/2024 Telephone Adult Medicine [facility] [address] [place] [address] Karlie Mendez MD [address] [place] [address] Social History Tobacco Use Types Packs/Day Years [...] for your loved ones. For example, child study team director or elderly care for an older adult? [...] Assigned at Male 08/12/2024 8:24 AM EST Legal Sex Male 10:50 AM EST Gender Identity Male 08/12/2024 8:24 AM EST Sexual Orientation Straight 08/12/2024 8: 24 AM EST documented as of this encounter Plan of Treatment Upcoming Encounters Date Type Department Care Team (Late st Contact Info) Description 05/21/2025 8:45 AM EDT Office Visit Adult Medicine [facility] [address] [place] [address] Karlie Mendez MD [address] [place] [address] documented as of this encounter Visit Diagnoses Not on filedocumented in this encounter Additional Health Concerns Assessment Noted Time PHQ-9 Depression Total Score: 0 08/18/20 24 7:14 AM EST documented as of this encounter Care Teams Green End Department Supervisor Relationship Specialty Start Date End Date Karlie Mendez MD [address] [place] [address] PCP - General 03/27/24 documented as of this encounter
--- OUTSIDE RECORDS SUMMARY | 2024-12-23 08:01 | XMS_ITS | Continuity of Care Document ---
Author Name [facility] Organization [facility] Care Team Providers Care Energy Efficiency Finance Manager Name Role Phone [facility] Unavailable Unavailable Problems Combined list of problems [...] from [facility] facilities going backup to the last 18 months, not all VA inpatient encounters are included; 2) Encounters from the Department of Defense facilities going backup to 280 months. Location Location Details Encounter Type Encounter Number Reason For Visit Attending Provider ADM Date DC Date Status Disposition Source [facility] Outpatient Encounter [id number] 01/18 [facility] HEARING AID REPAIR/MOD IFYING [id number] Diagnos is: ICD-10- CM Z46.1 Encount er for fitting and adjustm ent of hearing aid BAL WEBSTER L 01/23 [facility] HEARING AID FITTING/CH ECKING [id number] Diagnos is: ICD-10- CM H90.3 Sensori neural hearing loss, bilater al BAL WEBSTER L 01/25 [facility]
--- OUTSIDE RECORDS SUMMARY | 2024-12-23 08:01 | XMS_ITS | Patient Health Record ---
Author Organization [facility] Address [address] [place] [address] Care Team Providers Care Malted Milk Supervisor Name Role Phone Tree Aguilar Primary Care Provider Cedrick Pablo Jr Unavailable Allergies Allergen (clinical drug ingredient) Drug/Non Drug Allergy documented on EMR Reaction Allergy Type Onset Date Status grass and trees (uncoded) Unknown Allergy Active Reason For Referral No Information Medications Medication SIG (Take, Route, Frequency, Duration) Notes Start Date End Date Status Zocor 20 MG 1 tablet in the even ing Orally Once a day Active Gabapentin 300 MG 1 capsule before bed time Orally Once a day Active Metoprolol Succinate 50 MG 1 Orally QD Active Meloxicam 15 MG 1 tablet Orally Once a day for 30 day(s) Active Immunizations Vaccine Route Administration Date Status Comme nts Influenza Unknown 07/04/2021 Administered Social History Tobacco Use: Social History Observation Description Date Details (start date - stop date) Never Smoker NA - NA Tobacco Use/Smoking Question Answer Notes Patient is [...] Never (0 point) Points 1 Interpretation Negative Problems Problem Type SNOMED Code ICD Code Onset Dates Problem Status W/U Status Risk Notes Problem 376583529 Change in bowel habits (R19.4) Active confirmed Problem 31029175 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 [place] [phone] [id number] NAN RAMSAY Self - patient is the insured Medical (General) History Medical History History ICD Code hypertension nerve pain right leg elevated cholesterol cervical spondyloarthropathies degenerative joint disease prostate nodule Surgical History Surgery Date(Month/Year) appendectomy left vericocele metatarsal osteotomy cervical radiculopathy thumb rotator cuff tear repair right knee arthroscopy tennis elbow surgery
--- OUTSIDE RECORDS SUMMARY | 2024-12-23 08:01 | XMS_ITS | Clinical Summary ---
Author Organization [facility] [address] [place] [address] Address [address] [place] [address] Phone Care Team Providers Care Information Technology Internship Name Role Phone Karlie Mendez MD Primary Care Provider Allergies Active Allergy Reactions Criticality Noted Date Comments Other 06/30/2010 Seasonal Allergies Medications simvastatin (ZOCOR) 40 mg tablet Take 1 Tablet by mouth at bedtime. 04/15/2024 Active gabapentin (NEURONTIN) 300 mg capsule Take 1 Capsule by mouth at bedtime. 01/29/2024 Active ruxolitinib (Opzelura) 1.5 % cream 12/18/2023 Active fluticasone propionate (FLONASE) 50 mcg/actuation nasal spray 2 Sprays by Each Nare route daily. 09/06/2023 Active alfuzosin (UROXATRAL) 10 mg 24 hr tablet 09/27/2022 Act haven aspirin 81 mg chewable tablet Take 81 mg by mouth daily. Active cholecalciferol (VITAMIN D-3) 1,250 mcg (50,000 unit) capsule Take by mouth. Active cyanocobalamin (VITAMIN B-12) 500 mcg tablet Take 1 Tab by mouth daily for 360 days. 03/04/2020 Active albuterol HFA (Proventil HFA) 90 mcg/actuation inhaler Inhale 2 puffs by mouth every 4 (four) hours if needed (COUGH). 6.7 g 1 08/27/2024 Active metoprolol succinate (TOPROL-XL) 50 mg 24 hr tablet Take 1 tablet (50 mg total) by mouth 1 (one) time each day. Do not crush or chew. 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 Sloan - [facility] - physical therapy, injections unhelpful Persists status post neural ablation Dr. Sergio Gore- [facility]- myofascial pain due to paravertebral muscle dysfunction Dr. Tahira Elaine - [facility]- continue cyclobenzaprine, trial of trigger point injections, botulinum injections, PT, stop bifocals 09/19 - Shanika Young PA-c from Physiatry - referred for bilateral C3-4, C4-5 facet joint injection 212 - left C3, C4, C5 and C6 medial branch radiofrequency neurotomy 04/22 - per [facility] neurosurgery, no surgical course of action appropriate due to the extent of the arthritis in both areas. Their recommendation is pain management. 08/23 - Dr. Heller ([facility] pain management) - acupuncture - not much relief Encounters Date Type Department Care Team Description 11/21/2024 8:45 AM EST Office Visit Adult Medicine [address] [address] Karlie Mendez MD Hyperlipidemia, unspecified hyperlipidemia type (Primary Dx); Benign prostatic hyperplasia with urinary frequency; Prediabetes; Neuropathy of right lower extremity 11/19/2024 Telephone Adult Medicine [address] [address] Karlie Mnedez MD Referral (Referral for Gastro) 11/19/2024 Telephone Adult Medicine [address] [address] Karlie Mendez MD Referral 11/08/2024 Telephone Adult Medicine [address] [phone] Karlie Mendez MD from Last 3 Months Immunizations Name Administration [...] SHOULDER SURGERY; COMMENT: both shoulders- Dr. Jim- [place] HAND SURGERY 1996 PROCEDURE: HISTORICAL HAND SURGERY; COMMENT: R - trigger release KNEE SURGERY 07/20 PROCEDURE: HISTORICAL KNEE SURGERY; COMMENT: Dr. Zee - R - arthroscopy for meniscal tear COLONOSCOPY 04/17/2013 PROCEDURE: HISTORICAL COLONOSCOPY; COMMENT: tics and hemorrhoids; repeat in ten yrs NECK SURGERY 1987 PROCEDURE: HISTORICAL NECK SURGERY; COMMENT: Neck sg for hand numbness (in ) HEMORRHOID SURGERY PROCEDURE: ND INCISION THROMBOSED HEMORRHOID EXTERNAL Medical History Medical [...] care for your loved ones. For example, special needs child caregiver or elderly care for an older adult? [...] Orientation Straight 08/12/2024 8: 24 AM EST Obstetrics History Last Filed Vital Signs Vital Sign Reading Time Taken Comments Blood Pressure 124/60 11/21/2024 8:39 AM EST Pulse 73 11/21/2024 8:39 AM EST Temperature 36.8 ??C (98.2 ??F) 11/21/2024 8:39 AM ES T Respiratory Rate 12 11/21/2024 8:39 AM EST Oxygen Saturation - - Inhaled Oxygen Concentration - - Weight 83.9 kg (185 lb) 11/21/2024 8:39 AM EST Height 180.3 cm (5' 11 ) 11/21/2024 8:39 AM EST Body Mass Index 25.8 11/21/2024 8:39 AM EST Plan of Treatment Upcoming Encounters Date Type Department Care Team (Late st Contact Info) Description 05/21/2025 8:45 AM EDT Office Visit Adult Medicine [facility] [address] [place] [address] Karlie Mendez MD [address] [place] [address] Health Maintenance Due Date Last Done Comments [...] Years Old Completed 06/18/2024, 09/04/2023 Pneumococcal Vaccine: 50+ Years Completed 07/03/2024, 04/22/2015, 09/21/2012 HIB Vaccines [...] patient's age to complete this topic Meningococcal B Vacine Aged Out No lo nger eligible based on patient's age to complete this topic Varicella Vaccines Aged Out No longer eligible based on patient's age to complete this topic Procedures Procedure Name Priority Date/Time Associated Diagnosis Comments HEMOGLOBIN A1C Routine 11/21/2024 8:32 AM EST Prediabetes LIPID PANEL Routine 04/30/2024 ANNUAL BMP BLOOD TEST Routine 01/10/2024 HEPATITIS C SCREENING Routine 09/23/2013 from Last 3 Months or Most Recently Relevant to Health Maintenance Results * Hemoglobin A1c (11/21/2024 8:32 AM EST) [facility] Hemoglobin A1C 5.8 <6.5 % LAB CHEMISTRY METHOD 11/21/2024 12:35 PM EST [facility] Mean Bld Glu Estim. 120 mg/dL LAB CHEMISTRY METHOD 11/21/2024 12:35 PM EST [facility] Blood Venous blood specimen / Unknown Venipuncture / Unknown 11/21/2024 8:32 AM EST 11/21/2024 8:32 AM EST Karlie Mendez MD LAB BLOOD ORDERABLES Final Result [facility] [address] [place] [address], * Lipid panel (04/30/2024) [facility] LDL/HDL Ratio 2 0 - 4 Triglycerides 70 0 - 150 mg/dL Cholesterol 159 0 - 200 mg/dL HDL 77 >=40 mg/dL LDL Cholesterol 68 0 - 100 mg/dL Blood Venous blood specimen / Unknown Inna Provider LAB BLOOD ORDERABLES Cassidy l Result * Annual BMP Blood Test (01/10/2024) [facility] Annual BMP Blood Test Abstracted us Historical Provider HEALTH MAINTENANCE Final Result * Hepatitis C Screening (09/23/2013) [facility] Hepatitis C Screening Abstracted us Historical Provider HEALTH MAINTENANCE Final Result from Last 3 Months or Most Recently Relevant to Health Maintenance Insurance [employer] Care Teams Information Technology Internship Relationship Specialty Start Date End Date Karlie Mendez MD [address] [place] [address] PCP - General 03/27/24
--- OUTSIDE RECORDS SUMMARY | 2024-12-23 08:01 | XMS_ITS ---
Author Name [facility] Address [address] [place] [address] Support Name Relationship Address Phone CAMMY HUIZAR Next of Kin [address] [place], [place] [id number] BHUPENDRA EFREN Emergency Contact [address], [place] [phone] Insurance Providers: All historical and current Section [...] PART B May 09, 2012 PART B [id number] JESSICA HUIZAR ID PATIENT MEDICARE (WNR) MEDICARE (M) PART A May 09, 2012 PART A [id number] BHUPENDRA,JESSICA ID PATIENT MEDICARE (WNR) MEDICARE (M) PART A May 09, 2012 PART A [id number] BHUPENDRA,JESSICA ID PATIENT MEDICARE (WNR) MEDICARE (M) PART B May 09, 2012 PART B [id number] [phone] BHUPENDRA,JESSICA ID PATIENT MEDICARE (WNR) MEDICARE (M) PART A May 09, 2012 PART A [id number] [phone] JESSICA HUIZAR ID PATIENT MEDICARE (WNR) MEDICARE (M) PART A May 09, 2012 PART A [id number] JESSICA HUIZAR ID PATIENT MEDICARE (WNR) MEDICARE (M) PART B May 09, 2012 PART B [id number] JESSICA HUIZAR ID PATIENT MEDICARE (WNR) MEDICARE (M) PART B May 09, 2012 PART B [id number] [phone] BHUPENDRA,JESSICA ID PATIENT [employer] RX PRESCRIPT ION RX Oct 09, 2023 THPRX [id number] [phone] BHUPENDRA,JESSICA ID PATIENT [employer] RX PRESCRIPT ION RX Oct 09, 2022 THPRX [id number] BHUPENDRA,JESSICA ID PATIENT [facility] February 27, 2014 [facility] [id number] [phone] BHUPENDRA,JESSICA ID PATIENT [facility] February 27, 2014 [id number] JESSICA HUIZAR ID PATIENT [facility] (W[facility] Oct 09, 2023 [id number] [phone] BHUPENDRA,JESSICA ROONEY PATIENT Selected Encounter This section includes the information on record at [place] for the Encounter. Date/Time Encounter Type Encounter Description Reason Provider Source Jan 26, 2024 04:00 PM HEARING AID FITTING/CHECKIN G AUDIOLOGY ICD-10-CM H90.3 Sensorineural hearing loss, bilateral JUAN WEBSTER E Encounter Template Text not used by [place] Assessments - Encounter Diagnoses This section includes the primary and secondary diagnoses documented for the Encounter. Date/Time Primary/Secondary Diagnosis Diagnosis Name Provider Source Jan 26, 2024 04:46 PM PRIMARY Sensorineural hearing loss, bilateral JUAN WEBSTER [facility] Encounter Notes: All associated encounter notes This [...] His last hearing evaluation was on 06/02/22. reports noting increased difficulty hearing his . [...] aids were re-programmed to NAL-NL1 and feedback interactive media project manager was re-run. He reported noting significant improvement. Hecker will contact the clinic as needed. /dean/ Heena Lester, [facility] Rag Shredder Signed: 01/26/2024 16:53 [facility]EN WEBSTER [facility]
--- OUTSIDE RECORDS SUMMARY | 2024-12-23 08:01 | XMS_ITS | Clinical Summary ---
Author Organization [facility] Address [address] [place] [address] Care Team Providers Care Methodologist Name Role Phone rTee Aguilar Primary Care Provider Rachell vailable Social [...] age to complete this topic Care Teams Methodologist Relationship Specialty Start Date End Date Tree Aguilar PCP - General Internal Medicine 01/18/18
--- NOTE | 2024-12-23 08:51 | MHC.OFFVIS ---
Intake Visit Reasons: 6m follow up Intake Note: Patient presents to office today for 6 month/follow up/US/PSA Urology medications: Alfuzosin,Vitamin B12 Blood thinners: Aspirin Allergies to Antibiotics: None Hot Water Heater Installer Required: No Allergies No Known Allergies Allergy (Verified 12/23/24 08:52) Medication List - Last Reconciled 12/23/24 by Mikaela Duke MD alfuzosin ER 10 mg PO DAILY aspirin (Adult Aspirin Regimen) 81 mg PO DAILY benzonatate 200 mg PO BID PRN 30 days cholecalciferol (vitamin D3) 25 mcg PO DAILY gabapentin 300 mg PO DAILY metoprolol succinate ER 50 mg PO DAILY simvastatin 20 mg PO BEDTIME umeclidinium-vilanterol 62.5-25 mcg/actuation (Anoro Ellipta) 1 inh inhalation DAILY vitamin B complex (B Complex-Vitamin B12 tablet) 1 tab PO DAILY HPI Comments Details: 12/23/24-- Jhon is a 79-year-old male presenting with follow-up for Benign Prostatic Hyperplasia (BPH) and evaluation of urinary symptoms. Currently on alfuzosin, the patient maintains compliance with the 10 mg daily dosage. Despite this treatment, a weak urine stream persists while nocturia is minimal, with only one nighttime visit to the bathroom. The patient previously suffered from recurrent UTIs, which were managed with several rounds of antibiotics; the infections are now resolved. There are no current UTI symptoms, and past infections appear to have been successfully treated. Symptoms such as the weak urine stream, although persistent, have not shown significant interference with nightly sleep or daily activities. Urinary Symptoms Review - Weak urine stream - Decreased nocturia, with only one episode of waking at night to urinate - Previous recurrent urinary tract infections, currently resolved after antibiotic treatment - No current signs or symptoms of urinary infection - Compliance with alfuzosin 10 mg daily Results - Labs: Previous PSA from 05/29/24, 1.66 ng/mL - Tests and diagnostics: Bladder scan post-void residual (PVR) today is 6 mL 06/20/24--Jhon is a 79-year-old male who presents today to the office for a follow-up. He is taking the alfuzosin daily. He states he feels like he is getting another urinary tract infection for the last 2 days he has been going more frequently and has bladder pressure. Urinalysis 2+ leukocytes, 2+ blood. I have reviewed renal ultrasound imaging 06/14/24--kidneys negative for stones or hydronephrosis. PSA-05/29/2024--1.66 ng/mL. Will start Bactrim DS 1 tab twice a day, empirically and send urine culture. 06/19/2023?He is followed today for PSA. He was last seen by me on 12/16/2022 for recurrent urinary tract infections. The patient was advised to continue alfuzosin 10 mg daily.? PSA screening was ordered and he was advised to follow-up in 6 months during that time. He states that he is doing well at this time. He has been taking alfusozin 10 mg daily with benefit. He reports normal urinary stream. In general he is up 0-1 time at night unless he drinks coffee in the evening he gets up 2 x. He states his flow during the day is steady and he feels he is emptying his bladderl, denies dysuria or gross hematuria. I reviewed the PSA results from 06/14/2023 revealed 0.77 ng/mL. 06/19/2023: Evaluation today?UA? Leukocytes: negative; blood: negative; Bladder scan PVR: 163mL. 12/16/2022?LV 09/26/22--here as a new patient evaluation for recurrent UTIs. He states he was treated with antibiotics x2 courses a few months ago. Currently denies dysuria.? Denies gross hematuria.? Complains of weak stream. Was started on Flomax about 6 months ago by PCP, patient stays minimal improvement in strength of urinary flow. States had prostate biopsy about 12 years ago which was normal.? States PSA has been normal. 09/26/22- here for office cystoscopy, he states he is not sure if he started the alfuzosin or if he is still taking the flomax. Findings:? bladder mucosa - no suspious lesions, mild/mod trabeculations, plan I will send another script for alfuzosin 10 mg daily 12/16/2022-- states that urinary symptoms are improved, taking alfuzosin 10 mg daily Evaluation today-urinalysis negative for infection. Bladder scan PVR 87 mL. Plan continue alfuzosin 10 mg daily.? PSA screening.? Follow-up in 6 months. [facility] Medical History Zenker diverticulum Upper airway cough syndrome Dysphagia Chronic cough Emphysema of lung HTN (hypertension) HTN (hypertension) HTN (hypertension) PAD (peripheral artery disease) Surgical History Hx of cataract surgery S/P angiogram of extremity (04/06/22) Lumbar stenosis History of hemorrhoidectomy History of right knee surgery S/P left rotator cuff repair S/P right rotator cuff repair History of right tennis elbow Left rotator cuff tear arthropathy Trigger finger of right thumb Cervical radiculopathy at C6 Cervical radiculopathy at C5 Status post osteotomy Left varicocele History of appendectomy Family History Mother No problems noted. Father Heart disease Sister Multiple sclerosis Social History Alcohol intake: current Alcohol intake frequency: holidays/special occasions only Patient Tobacco Use Status: Former Tobacco user Years Smoked: 10+/- Review of Systems Const All systems reviewed & are unremarkable except as noted in HPI and below Reports no additional complaints Eyes Reports no additional complaints ENT Reports no additional complaints Card Reports no additional complaints Resp Reports no additional complaints GI Reports no additional complaints Reports as per HPI Musc Reports no additional complaints Skin/Breast Reports system reviewed and no additional complaints, except as documented Neuro Reports no additional complaints Psych Reports no additional complaints Endo Reports no additional complaints Armando/Lymph Reports no additional complaints Aller/Immun Reports no additional complaints Assessment & Plan Assessment & Plan (1) BPH loc w urin obs/LUTS: Code(s): N40.1 - Benign prostatic hyperplasia with lower urinary tract symptoms Category: Medical (2) Slowing of urinary stream: Code(s): R39.198 - Other difficulties with micturition Category: Medical (3) Screening PSA (prostate specific antigen): Code(s): Z12.5 - Encounter for screening for malignant neoplasm of prostate Category: Medical Plan - Continue taking alfuzosin 10 mg daily as prescribed. - Be aware of any changes or worsening of urinary symptoms. - Expect a follow-up phone call to discuss PSA results in six months. - Return for a routine office visit in one year. - Contact the office sooner if you experience recurrent symptoms or new urinary issues. Patient was informed and verbally consented to the use of an ambient scribe for clinic note documentation during this visit. Orders: Orders PSA,Total (Free>4and<10) 5 Months Z12.5 - Encounter for screening for malignant neoplasm of prostate Medications: Refilled alfuzosin ER administer after the same meal each day, alfuzosin to replace tamsulosin 10 mg PO DAILY 90 tabs 3RF Patient Instructions: The patient had an opportunity to ask questions regarding treatment plan. The patient expressed understanding and agreement with the above treatment plan. The patient is aware they should contact our office by phone for worsening of their current condition or the appearance of new symptoms. Compliance is encouraged with any medications and followup testing that is ordered. It is a privilege to be allowed the opportunity to participate in the urologic care of your patient. If you have any questions or concerns regarding treatment for the above conditions please do not hesitate to contact me. The office telephone contact is [phone]. This note is constructed in part using voice recognition software. While every effort has been made to ensure accuracy motor racer errors may have been included. Yours sincerely, Mikaela Duke MD Scribe Plan - Not visible on output: Patient was informed and verbally consented to the use of an ambient scribe for clinic note documentation during this visit. Coding Level of Care Code Est Pt Level 3 (54047) Complex EM visit Add On G2211 Diagnoses BPH loc w urin obs/LUTS N40.1 Slowing of urinary stream R39.198 Screening PSA (prostate specific antigen) Z12.5
== END 2024-12-23 09:40 | disposition home or self-care (01) ==
LOC: HO.HUSH 07:57
PROVIDERS: PCP Student in an Organized Health Care Education/Training Program; Visit Provider Urology
DX: N40.1 Benign prostatic hyperplasia with lower urinary tract symptoms (principal); R39.198 Other difficulties with micturition; Z12.5 Encounter for screening for malignant neoplasm of prostate; Z13.9 Encounter for screening, unspecified
CPT/HCPCS: 99213

== ENCOUNTER → 2024-12-23 07:57 | Outpatient (BNVA) | payer OTHER, SELFPAY | PROVIDERS: PCP Student in an Organized Health Care Education/Training Program; Visit Provider Urology | DX: N40.1 Benign prostatic hyperplasia with lower urinary tract symptoms (principal); N13.8 Other obstructive and reflux uropathy; R39.198 Other difficulties with micturition; Z13.9 Encounter for screening, unspecified; Z12.5 Encounter for screening for malignant neoplasm of prostate | CPT/HCPCS: 51798; 81003; 99212 ==

== ENCOUNTER 2024-12-26 08:28 | Outpatient (AMB) | payer OTHER, SELFPAY ==
[2024-12-26 08:34] VITALS: BP 128/70; PULSE 63; O2SAT 98; BMI 26.9
--- NOTE | 2024-12-26 08:34 | MHC.OFFVIS ---
Vital Signs 12/26/24 08:34 Height 5 ft 11 in Weight 192 lb 14.472 oz BMI 26.9 BP 128/70 Blood Pressure Location Rt brachial Position Sitting Pulse 63 Pulse Source Pulse Oximeter Pulse Oximetry (%) 98 Oxygen Delivery Method Room Air Intake Visit Reasons: Cough Allergies No Known Allergies Allergy (Verified 12/26/24 08:36) HPI Comments Details: The patient is a 79-year-old gentleman presenting with a chronic cough. The patient states that this cough started back in about 2020. He states that at that point he was started on lisinopril and he is noticing the cough. At that point it was typically nonproductive in nature. Although when he stop the lisinopril he continued to have the cough. At times the cough can be productive in nature. He was evaluated by his child and family counselor in ENT doctor and did undergo laryngoscopy sometime ago. No evidence of any significant abnormalities per the patient's report. He has been kept him on nasal steroid sprays and antihistamines sprays. In addition to that he does have a rescue inhaler the sometimes provide some relief for about an hour so. Then the effects wear off. As far as the workup the patient did undergo a pulmonary function study at [place]. I did personally reviewed. No evidence of any obstructive nor restrictive ventilatory defects. Although he has an isolated diffusion impairment. Mild in severity. The patient also had a CT scan of the chest back in 01/27/2024 to further address the chronic cough. It looks like he does have some emphysema in the upper lung zones any indeed was a smoker smoking about 2 packs a day until about 14 years ago when he quit. In addition to that he does appear to have some atelectasis and scarring at the left base and some evidence of bronchitis. He also has some debris in the esophagus. Because of his chronic cough 1 needs to consider underlying reflux disease. On further questioning he states that he has difficulty swallowing specially medications like tablets. Denies ever choking on the food products. Will go ahead and request a barium swallow this time. 12/26/2024 the patient is here for pulmonary follow-up visit. He has cough persists. He did take the omeprazole for a month and then he stopped it. He also try the Benzonate which were partially helpful. He also took the Anoro inhaler for a month and did not see any significant change. Did have a barium swallow was very abnormal. He has a significant Zenker's and also achalasia. He will be following up with GI soon at [facility] since this needs to be dealt with at it bigger institution. Patient understands that his cough is related likely to this issue. Hopefully once his corrected his cough should start settling down. He needs to make sure to continue the PPI also continues sleeping elevated ICU is regurgitating. When he returns in 3-4 months will have him undergo a spirometry to assess for any obstructive physiology. But at this time will hold off on any inhaler therapy until he gets his GI issue corrected. [facility] Medical History Zenker diverticulum Upper airway cough syndrome Dysphagia Chronic cough Emphysema of lung HTN (hypertension) HTN (hypertension) HTN (hypertension) PAD (peripheral artery disease) Surgical History Hx of cataract surgery S/P angiogram of extremity (04/06/22) Lumbar stenosis History of hemorrhoidectomy History of right knee surgery S/P left rotator cuff repair S/P right rotator cuff repair History of right tennis elbow Left rotator cuff tear arthropathy Trigger finger of right thumb Cervical radiculopathy at C6 Cervical radiculopathy at C5 Status post osteotomy Left varicocele History of appendectomy Family History Mother No problems noted. Father Heart disease Sister Multiple sclerosis Social History Alcohol intake: current Alcohol intake frequency: holidays/special occasions only Patient Tobacco Use Status: Former Tobacco user Years Smoked: 10+/- Review of Systems Const Reports no additional complaints Eyes Reports no additional complaints ENT Reports dysphagia, Reports epistaxis, Reports nasal congestion, Reports nasal discharge and Reports post nasal drip Card Denies chest pain, Denies chest pain at rest, Denies chest pain with activity and Denies pedal edema Resp Reports cough GI Denies abdominal pain and Reports dysphagia Musc Denies abnormal gait, Denies muscle cramps and Denies radiating pain into limb Skin/Breast Denies skin ulcer and Denies wounds Neuro Denies abnormal gait Psych Reports no additional complaints Armando/Lymph Reports no additional complaints Aller/Immun Reports seasonal rhinorrhea Physical Exam Vital Signs: Last Vital Signs Pulse 63 12/26/24 08:34 BP 128/70 12/26/24 08:34 Pulse Ox 98 12/26/24 08:34 Oxygen Delivery Method Room Air 12/26/24 08:34 BMI result Body Mass Index 26.9 Const General: healthy appearing and comfortable Orientation/consciousness: oriented to person, oriented to place and oriented to time HEENT General nose exam: Abnormal mucous membranes and turbinates present erythematous and Epistaxis present Throat: Yes cobblestoning Neck Neck: Yes normal visual inspection Carotids: no bruits Chest Chest palpation & inspection: normal inspection of the chest Resp Effort & Inspection: normal respiratory effort, able to speak in complete sentences and No prolonged expiratory phase Auscultation: diminished lung sounds Cardio Other: Bilateral palpable dorsalis pedis pulses Rate: regular rate Rhythm: regular rhythm Heart sounds: S1 normal heart sound present and S2 normal heart sound present GI Palpation (GI): Soft to palpation Skin Wounds: no wounds Hair: normal Neuro General: oriented to person, oriented to place and oriented to time Extrem General: No clubbing, No cyanosis and No edema Psych Appearance: grossly normal Assessment & Plan Assessment & Plan (1) Emphysema of lung: Code(s): J43.9 - Emphysema, unspecified Category: Medical Qualifiers: Emphysema type: centrilobular Qualified Code(s): J43.2 - Centrilobular emphysema (2) Chronic cough: Code(s): R05.3 - Chronic cough Category: Medical (3) Dysphagia: Code(s): R13.10 - Dysphagia, unspecified Category: Medical Qualifiers: Dysphagia type: unspecified Qualified Code(s): R13.10 - Dysphagia, unspecified (4) Upper airway cough syndrome: Code(s): R05.8 - Other specified cough Category: Medical (5) Zenker diverticulum: Code(s): K22.5 - Diverticulum of esophagus, acquired Category: Medical (6) Abnormal barium swallow: Code(s): R93.3 - Abnormal findings on diagnostic imaging of other parts of digestive tract Category: Medical Plan stop Anoro daily MILLIE as needed benzonate as needed PPI HOB elevated while sleeping GI referral at [facility] [place] F/U 4 months with spirometry Coding Level of Care Code Est Pt Level 4 (86746) Diagnoses Centrilobular emphysema J43.2 Emphysema type: centrilobular Chronic cough R05.3 Dysphagia, unspecified type R13.10 Dysphagia type: unspecified Upper airway cough syndrome R05.8 Zenker diverticulum K22.5 Abnormal barium swallow R93.3 Time Spent (min) 17
--- OUTSIDE RECORDS SUMMARY | 2024-12-26 08:41 | XMS_ITS | Encounter Summary ---
Author Organization [facility] Address [address] [place] [address] Care Team Providers Care Respite Care Provider Name Role Phone Jhon Strauss Primary Care Provider Unav ailable Dany Villegas MD Primary Care Provider [phone] Tree Aguilar MD Primary Care Provider Unavailable Marco Gonzales DO Primary Care Provider Unavaila Reji Martin MD Unavailable Unavailable Karlie Mendez MD Primary Care Provider [phone] Encounter Details Date Type Department Care Team Description 09/24/2010 Customer Supply Coordinator Report Medical Records [address] [place] [address] Domenico Navarro MD Social History Tobacco Use [...] on filedocumented in this encounter Care Teams Respite Care Provider Relationship Specialty Start Date End Date Jhon Strauss PCP - General 11/22/07 01/05/16 Dany Villegas MD [address] [place] [address] PCP - General Internal Medicine 01/06/16 03/09/16 Tree Aguilar MD [address] [place] [address] PCP - General Internal Medicine 03/10/16 09/21/21 Marco Gonzales DO [address] [place] [address] PCP - General Internal Medicine 09/22/21 03/26/24 Karlie Mendez MD [address] [place] [address] PCP - General Internal Medicine 03/27/24 Reji Amaya MD [address] [place] [address] Specialist Vascular Surgery 05/16/22 documented as of this encounter
--- OUTSIDE RECORDS SUMMARY | 2024-12-26 08:41 | XMS_ITS | Encounter Summary ---
Author Organization [facility] Address [address] [place] [address] Care Team Providers Care Filter Press Supervisor Name Role Phone Tree Aguilar MD Primary Care Provider Unavailable Marco Gonzales DO Primary Care Provider Unavaila Reji Martin MD Unavailable Unavailable Karlie Mendez MD Primary Care Provider [phone] Encounter Details Date Type Department Care Team Description 01/05/2017 SCAN Medical Records [address] [place] [address] Abstract, Provider Social History Tobacco Use Types [...] on filedocumented in this encounter Care Teams Filter Press Supervisor Relationship Specialty Start Date End Date Tree Aguilar MD PCP - General Internal Medicine 03/10/16 Marco Gonzales DO PCP - General Internal Medicine 09/22/21 03/26/24 Karlie Mendez MD [address] [place] [address] PCP - General Internal Medicine 03/27/24 Reji Amaya MD Specialist Vascular Surgery 05/16/22 documented as of this encounter
--- OUTSIDE RECORDS SUMMARY | 2024-12-26 08:41 | XMS_ITS | Encounter Summary ---
Author Organization [facility] Address [address] [place] [address] Care Team Providers Care Refinery Operator Name Role Phone Jhon Strauss Primary Care Provider Unav ailable Dany Villegas MD Primary Care Provider [phone] Tree Aguilar MD Primary Care Provider Unavailable Marco Gonzales DO Primary Care Provider Unavaila Reji Martin MD Unavailable Unavailable Karlie Mendez MD Primary Care Provider [phone] Encounter Details Date Type Department Care Team Description 08/06/2012 Computational Physicist Report Medical Records [address] [place] [address] Kalia Marie PA-C Social History Tobacco Use [...] on filedocumented in this encounter Care Teams Refinery Operator Relationship Specialty Start Date End Date Jhon Strauss PCP - General 11/22/07 01/05/16 Dany Villegas MD [address] [place] [address] PCP - General Internal Medicine 01/06/16 03/09/16 Tree Aguilar MD [address] [place] [address] PCP - General Internal Medicine 03/10/16 09/21/21 Marco Gonzales DO [address] [place] [address] PCP - General Internal Medicine 09/22/21 03/26/24 Karlie Mendez MD [address] [place] [address] PCP - General Internal Medicine 03/27/24 Reji Amaya MD [address] [place] [address] Specialist Vascular Surgery 05/16/22 documented as of this encounter
--- OUTSIDE RECORDS SUMMARY | 2024-12-26 08:41 | XMS_ITS | Encounter Summary ---
Author Organization [facility] Address [address] [place] [address] Care Team Providers Care Apartment Community Assistant Manager Name Role Phone Jhon Strauss Primary Care Provider Unav ailable Dany Villegas MD Primary Care Provider [phone] Tree Aguilar MD Primary Care Provider Unavailable Marco Gonzales DO Primary Care Provider Unavaila Reji Martin MD Unavailable Unavailable Karlie Mendez MD Primary Care Provider [phone] Encounter Details Date Type Department Care Team Description 06/12/2012 Correctional Cook Report Medical Records [address] [place] [address] Kalia Marie PA-C Social History Tobacco Use [...] on filedocumented in this encounter Care Teams Apartment Community Assistant Manager Relationship Specialty Start Date End Date Jhon Strauss PCP - General 11/22/07 01/05/16 Dany Villegas MD [address] [place] [address] PCP - General Internal Medicine 01/06/16 03/09/16 Tree Aguilar MD [address] [place] [address] PCP - General Internal Medicine 03/10/16 09/21/21 Marco Gonzales DO [address] [place] [address] PCP - General Internal Medicine 09/22/21 03/26/24 Karlie Mendez MD [address] [place] [address] PCP - General Internal Medicine 03/27/24 Reji Amaya MD [address] [place] [address] Specialist Vascular Surgery 05/16/22 documented as of this encounter
--- OUTSIDE RECORDS SUMMARY | 2024-12-26 08:41 | XMS_ITS | Encounter Summary ---
Author Organization [facility] Address [address] [place] [address] Care Team Providers Care Pv Installer Tech Name Role Phone Tree Aguilar MD Primary Care Provider Unavailable Marco Gonzales DO Primary Care Provider Unavaila Reji Martin MD Unavailable Unavailable Karlie Mendez MD Primary Care Provider [phone] Encounter Details Date Type Department Care Team Description 10/30/2017 [facility] [address] [place] [id number] Md Fermin Social History Tobacco Use Types [...] on filedocumented in this encounter Care Teams Pv Installer Tech Relationship Specialty Start Date End Date Tree Aguilar MD PCP - General Internal Medicine 03/10/16 Marco Gonzales DO PCP - General Internal Medicine 09/22/21 03/26/24 Karlie Mendez MD [address] [place] [address] PCP - General Internal Medicine 03/27/24 Reji Amaya MD Specialist Vascular Surgery 05/16/22 documented as of this encounter
--- OUTSIDE RECORDS SUMMARY | 2024-12-26 08:41 | XMS_ITS | Encounter Summary ---
Author Organization [facility] Address [address] [place] [address] Care Team Providers Care Supervisor Fiberglass Boat Assembly Name Role Phone Marco Gonzales DO Primary Care Provider Unavaila ble Reji Amaya MD Unavailable Unavailable Karlie Mendez MD Primary Care Provider [phone] Encounter Details Date Type Department Care Team Description 01/17/2023 Supervisor Cartography Report Medical Records [address] [place] [address] Reji Amaya MD Social History Tobacco Use [...] filedocumented in this encounter Care Teams Supervisor Fiberglass Boat Assembly Relationship Specialty Start Date End Date Marco Gonzales DO PCP - General Internal Medicine 09/22/21 03/26/24 Karlie Mendez MD [address] [place] [address] [id number] PCP - General Internal Medicine 03/27/24 Reji Amaya MD Specialist Vascular Surgery 05/16/22 documented as of this encounter
--- OUTSIDE RECORDS SUMMARY | 2024-12-26 08:41 | XMS_ITS | Encounter Summary ---
Author Organization [facility] Address [address] [place] [address] Care Team Providers Care Hemodialysis Patient Care Specialist Name Role Phone Tree Aguilar MD Primary Care Provider Unavailable Marco Gonzales DO Primary Care Provider Unavaila Reji Martin MD Unavailable Unavailable Karlie Mendez MD Primary Care Provider Encounter Details Date Type Department Care Team Description 02/05/2018 [facility] [address] [place] [id number] Md Fermin Social History Tobacco Use Types [...] on filedocumented in this encounter Care Teams Hemodialysis Patient Care Specialist Relationship Specialty Start Date End Date Tree Aguilar MD PCP - General Internal Medicine 03/10/16 Marco Gonzales DO PCP - General Internal Medicine 09/22/21 03/26/24 Karlie Mendez MD [address] [place] [address] PCP - General Internal Medicine 03/27/24 Reji Amaya MD Specialist Vascular Surgery 05/16/22 documented as of this encounter
--- OUTSIDE RECORDS SUMMARY | 2024-12-26 08:41 | XMS_ITS | Encounter Summary ---
Author Organization [facility] Address [address] [place] [address] Care Team Providers Care Underwear Welter Name Role Phone Tree Aguilar MD Primary Care Provider Unavailable Marco Gonzales DO Primary Care Provider Unavaila Reji Martin MD Unavailable Unavailable Karlie Mendez MD Primary Care Provider [phone] Encounter Details Date Type Department Care Team Description 04/12/2021 [facility]. [facility] [address] [place] [address] Md Fermin Social History Tobacco Use Types [...] on filedocumented in this encounter Care Teams Underwear Welter Relationship Specialty Start Date End Date Tree Aguilar MD PCP - General Internal Medicine 03/10/16 Marco Gonzales DO PCP - General Internal Medicine 09/22/21 03/26/24 Karlie Mendez MD [address] [place] [address] PCP - General Internal Medicine 03/27/24 Reji Amaya MD Specialist Vascular Surgery 05/16/22 documented as of this encounter
--- OUTSIDE RECORDS SUMMARY | 2024-12-26 08:41 | XMS_ITS | Encounter Summary ---
Author Organization [facility] Address [address] [place] [address] Care Team Providers Care Button Breaker Name Role Phone Tree Aguilar MD Primary Care Provider Unavailable Marco Gonzales DO Primary Care Provider Unavaila Reji Martin MD Unavailable Unavailable Karlie Mendez MD Primary Care Provider [phone] Encounter Details Date Type Department Care Team Description 02/07/2017 Pt. Referral Request [facility] [address] [place] [address] Md Fermin Social History Tobacco Use Types [...] on filedocumented in this encounter Care Teams Button Breaker Relationship Specialty Start Date End Date Tree Aguilar MD PCP - General Internal Medicine 03/10/16 Marco Gonzales DO PCP - General Internal Medicine 09/22/21 03/26/24 Karlie Mendez MD [address] [place] [address] PCP - General Internal Medicine 03/27/24 Reji Amaya MD Specialist Vascular Surgery 05/16/22 documented as of this encounter
--- OUTSIDE RECORDS SUMMARY | 2024-12-26 08:41 | XMS_ITS | Encounter Summary ---
Author Organization [facility] Address [address] [place] [address] Care Team Providers Care Thread Spooler Name Role Phone Tree Aguilar MD Primary Care Provider Unavailable Marco Gonzales DO Primary Care Provider Unavaila Reji Martin MD Unavailable Unavailable Karlie Mendez MD Primary Care Provider Encounter Details Date Type Department Care Team Description 10/12/2020 [facility] [address] [place] [address] Md Fermin Social History Tobacco Use Types [...] on filedocumented in this encounter Care Teams Thread Spooler Relationship Specialty Start Date End Date Tree Aguilar MD PCP - General Internal Medicine 03/10/16 Marco Gonzales DO PCP - General Internal Medicine 09/22/21 03/26/24 Karlie Mendez MD [address] [place] [address] PCP - General Internal Medicine 03/27/24 Reji Amaay MD Specialist Vascular Surgery 05/16/22 documented as of this encounter
--- OUTSIDE RECORDS SUMMARY | 2024-12-26 08:41 | XMS_ITS | Encounter Summary ---
Author Organization [facility] Address [address] [place] [address] Care Team Providers Care Senior Technical Specialist Name Role Phone Marco Gonzales DO Primary Care Provider UnavailReji Ely MD Unavailable Unavailable Karlie Mendez MD Primary Care Provider [phone] Reason for Visit * Reason Comments E-prescribe Rx Request Encounter Details Date Type Department Care Team Description 04/15/2023 Refill Adult Medicine - [address] [address] Marco Gonzales DO E-prescribe Rx Request Social [...] suspected to have Coronavirus/COVID-19? No / Unsure 04/17/2023 2:56 PM EDT documented as of this encounter Miscellaneous Notes * Telephone Encounter - Cyndi Sams - 04/17/2023 2:15 PM EDT Patient would like script to be: E-PRESCRIBED/FAXED TO PHARMACY WHEN WAS THE PATIENT'S LAST APPOINTMENT IN ADULT MEDICINE? 12/14/2022 WHEN WAS THE LAST TIME THE PATIENT SAW THEIR PCP? Does patient have an upcoming appointment? Yes 04/17/2023 (THE MEDICATION REQUESTED IS ON THE MED [...] N/A Patients current insurance carrier is: Payor: [employer] / [id number] /Product Type: POS [id number] documented in this encounter Plan of Treatment Not on file documented as of this encounter Visit Diagnoses Not on filedocumented in this encounter Care Teams Senior Technical Specialist Relationship Specialty Start Date End Date Marco Gonzales DO PCP - General Internal Medicine 09/22/21 03/26/24 Karlie Mendez MD [address] [place] [address] PCP - General Internal Medicine 03/27/24 Reji Amaya MD Specialist Vascular Surgery 05/16/22 documented as of this encounter
--- OUTSIDE RECORDS SUMMARY | 2024-12-26 08:41 | XMS_ITS | Encounter Summary ---
Author Organization [facility] Address [address] [place] [address] Care Team Providers Care Communications Advisor Name Role Phone Marco Gonzales DO Primary Care Provider UnavailReji Ely MD Unavailable Unavailable Karlie Mendez MD Primary Care Provider [phone] Encounter Details Date Type Department Care Team Description 12/16/2022 Solar Sales Rep Report Medical Records [address] [place] [address] Abstract, Provider Social History Tobacco Use Types [...] on filedocumented in this encounter Care Teams Communications Advisor Relationship Specialty Start Date End Date Marco Gonzales DO PCP - General Internal Medicine 09/22/21 03/26/24 Karlie Mendez MD [address] [place] [address] PCP - General Internal Medicine 6/19/24 Reji Amaya MD Specialist Vascular Surgery 05/16/22 documented as of this encounter
--- OUTSIDE RECORDS SUMMARY | 2024-12-26 08:41 | XMS_ITS | Encounter Summary ---
Author Organization [facility] Address [address] [place] [address] Care Team Providers Care Snuff Container Inspector Name Role Phone Marco Gonzales DO Primary Care Provider Unavaila Reji Martin MD Unavailable Unavailable Karlie Mendez MD Primary Care Provider [phone] Encounter Details Date Type Department Care Team Description 09/23/2021 Pt. Referral Request [facility] MyChart [address] [place] [address] Md Fermin Social History Tobacco Use Types [...] on filedocumented in this encounter Care Teams Snuff Container Inspector Relationship Specialty Start Date End Date Marco Gonzales DO PCP - General Internal Medicine 09/22/21 03/26/24 Karlie Mendez MD [address] [place] [address] PCP - General Internal Medicine 03/27/24 Reji Amaya MD Specialist Vascular Surgery 05/16/22 documented as of this encounter
--- OUTSIDE RECORDS SUMMARY | 2024-12-26 08:41 | XMS_ITS | Encounter Summary ---
Author Organization [facility] Address [address] [place] [address] Care Team Providers Care Regional Geodetic Advisor Name Role Phone Marco Gonzales DO Primary Care Provider Unavaila Reji Martin MD Unavailable Unavailable Karlie Mendez MD Primary Care Provider [phone] Encounter Details Date Type Department Care Team Description 03/13/2023 Pt. Referral Request [facility] MyChart [address] [place] [address] Md Fermin Social History Tobacco Use Types [...] on filedocumented in this encounter Care Teams Regional Geodetic Advisor Relationship Specialty Start Date End Date Marco Gonzales DO PCP - General Internal Medicine 09/22/21 03/26/24 Karlie Mendez MD [address] [place] [address] PCP - General Internal Medicine 03/27/24 Reji Amaya MD Specialist Vascular Surgery 05/16/22 documented as of this encounter
--- OUTSIDE RECORDS SUMMARY | 2024-12-26 08:41 | XMS_ITS | Encounter Summary ---
Author Organization [facility] [employer] [facility] Address [address] [place] [address] Care Team Providers Care Business Practices Supervisor Name Role Phone Marco Gonzales DO Primary Care Provider Unavaila ble Reji Amaya MD Unavailable Unavailable Karlie Mendez MD Primary Care Provider [phone] Encounter Details Date Type Department Care Team Description 03/09/2023 Load Dropper Report Medical Records [address] [place] [address] Reij Amaya MD Social History Tobacco Use Types [...] filedocumented in this encounter Care Teams Business Practices Supervisor Relationship Specialty Start Date End Date Marco Gonzales DO PCP - General Internal Medicine 09/22/21 03/26/24 Karlie Mendez MD [address] [place] [address] [id number] PCP - General Internal Medicine 03/27/24 Reji Amaya MD Specialist Vascular Surgery 05/16/22 documented as of this encounter
--- OUTSIDE RECORDS SUMMARY | 2024-12-26 08:41 | XMS_ITS | Encounter Summary ---
Author Organization [facility] Address [address] [place] [address] Care Team Providers Care Flagstone Layer Name Role Phone Tree Aguilar MD Primary Care Provider Unavailable Marco Gonzales DO Primary Care Provider Unavaila Reji Martin MD Unavailable Unavailable Karlie Mendez MD Primary Care Provider [phone] Reason for Visit * Reason Comments E-prescribe Rx Request Encounter Details Date Type Department Care Team Description 09/09/2021 Refill Adult Medicine - [address] [address] Tree Aguilar MD E-prescribe Rx Request Social [...] Telephone Encounter - Do Escamilla M.A. - 09/10/2021 11:21 AM EST Luz - 03/19/21 Nov - 09/24/21 Lab Results Component Value Date CHOL 163 08/31/2020 LDL 79 08/31/2020 HDL 70 08/31/2020 TRIG 72 08/31/2020 SGOT 26 08/31/2020 SGPT 15 08/31/2020 * Telephone Encounter - Chelsie Machado - 09/10/2021 8:26 AM EST Patient would like script to be: E-PRESCRIBED/FAXED TO PHARMACY WHEN WAS THE PATIENT'S LAST APPOINTMENT IN ADULT MEDICINE? 03/19/2021 WHEN WAS THE LAST TIME THE PATIENT SAW THEIR PCP? Same as above Does patient have an upcoming appointment? Yes 09/24/2021 (THE MEDICATION REQUESTED IS ON THE MED LIST ABOVE) All of the medications requested were on the CURRENT MEDS list Did you check the Pharmacy information above?: YES Patient wants: 30 -day supply Is this a mail order prescription request ? NO If the refill is from a FAXED refill request what is the RX # listed on the fax? N/A Patients current insurance carrier is: Payor: [employer] / [id number] /Product Type: POS [id number] documented in this encounter Plan of Treatment Not on file documented as of this encounter Visit Diagnoses Not on filedocumented in this encounter Care Teams Flagstone Layer Relationship Specialty Start Date End Date Tree Aguilar MD PCP - General Internal Medicine 03/10/16 Marco Gonzales DO PCP - General Internal Medicine 09/22/21 03/26/24 Karlie Mendez MD [address] [place] [address] PCP - General Internal Medicine 03/27/24 Reji Amaya MD Specialist Vascular Surgery 05/16/22 documented as of this encounter
--- OUTSIDE RECORDS SUMMARY | 2024-12-26 08:41 | XMS_ITS | Encounter Summary ---
Author Organization [facility] Address [address] [place] [address] Care Team Providers Care Test Engine Mechanic Name Role Phone Marco Gonzales DO Primary Care Provider Unavaila ble Reji Amaya MD Unavailable Unavailable Karlie Mendez MD Primary Care Provider [phone] Encounter Details Date Type Department Care Team Description 02/22/2023 [facility] Medical Records [address] [place] [address] Reji Amaya MD Social History Tobacco Use [...] on filedocumented in this encounter Care Teams Test Engine Mechanic Relationship Specialty Start Date End Date Marco Gonzales DO PCP - General Internal Medicine 09/22/21 03/26/24 Karlie Mendez MD [address] [place] [address] [id number] PCP - General Internal Medicine 03/27/24 Reji Amaya MD Specialist Vascular Surgery 05/16/22 documented as of this encounter
--- OUTSIDE RECORDS SUMMARY | 2024-12-26 08:41 | XMS_ITS | Clinical Summary ---
Author Organization [facility] Address [address] [place] [address] Care Team Providers Care Flume Maker Name Role Phone Tree Aguilar Primary Care [...] age to complete this topic Care Teams Flume Maker Relationship Specialty Start Date End Date Tree Aguilar PCP - General Internal Medicine 01/18/18
--- OUTSIDE RECORDS SUMMARY | 2024-12-26 08:42 | XMS_ITS | Encounter Summary ---
Author Organization [facility] Address [address] [place] [address] Care Team Providers Care First Assistant Manager Name Role Phone Jhon Strauss Primary Care Provider Unav ailable Dany Villegas MD Primary Care Provider [phone] Tree Aguilar MD Primary Care Provider Unavailable Marco Gonzales DO Primary Care Provider Unavaila Reji Martin MD Unavailable Unavailable Karlie Mendez MD Primary Care Provider [phone] Encounter Details Date Type Department Care Team Description 09/25/2013 Orders Only Adult Medicine - [facility] [address] [place] [address] Rayray Matute PA-C Social History Tobacco Use Types Packs/Day [...] on filedocumented in this encounter Care Teams First Assistant Manager Relationship Specialty Start Date End Date Jhon Strauss PCP - General 11/22/07 3 Dany Villegas MD [address] [place] [address] PCP - General Internal Medicine 3/30/16 6/1/16 Tree Aguilar MD [address] [place] [address] PCP - General Internal Medicine 03/10/16 09/21/21 Marco Gonzales DO [address] [place] [address] PCP - General Internal Medicine 09/22/21 03/26/24 Karlei Mendez MD [address] [place] [address] PCP - General Internal Medicine 03/27/24 Reji Amaya MD [address] [place] [address] Specialist Vascular Surgery 05/16/22 documented as of this encounter
--- OUTSIDE RECORDS SUMMARY | 2024-12-26 08:42 | XMS_ITS | Continuity of Care Document ---
Author Name [facility] Organization [facility] Care Team Providers Care Broom Maker Name Role Phone [facility] Unavailable Unavailable Problems Combined list of problems [...] Disposition Source [facility] Outpatient Encounter [id number] 01/18 [facility] HEARING AID REPAIR/MOD IFYING [id number] Diagnos is: ICD-10- CM Z46.1 Encount er for fitting and adjustm ent of hearing aid [facility] L 01/23 [facility] HEARING AID FITTING/CH ECKING [id number] Diagnos is: ICD-10- CM H90.3 Sensori neural hearing loss, bilater al [facility] L 01/25 [facility]
--- OUTSIDE RECORDS SUMMARY | 2024-12-26 08:42 | XMS_ITS | Encounter Summary ---
Author Organization [facility] Address [address] [place] [address] Care Team Providers Care Business Analytics Manager Name Role Phone Tree Aguilar MD Primary Care Provider Unavailable Marco Gonzales DO Primary Care Provider Unavaila Reji Martin MD Unavailable Unavailable Karlie Mendez MD Primary Care Provider [phone] Encounter Details Date Type Department Care Team Description 09/19/2019 [facility] [address] [place] [address] Md Fermin Social History Tobacco Use Types [...] filedocumented in this encounter Care Teams Business Analytics Manager Relationship Specialty Start Date End Date Tree Aguilar MD PCP - General Internal Medicine 03/10/16 Marco Gonzales DO PCP - General Internal Medicine 09/22/21 03/26/24 Karlie Mendez MD [address] [place] [address] PCP - General Internal Medicine 03/27/24 Reji Amaya MD Specialist Vascular Surgery 05/16/22 documented as of this encounter
--- OUTSIDE RECORDS SUMMARY | 2024-12-26 08:42 | XMS_ITS | Encounter Summary ---
Author Organization [facility] Address [address] [place] [address] Care Team Providers Care Caustic Strength Inspector Name Role Phone Marco Gonzales DO Primary Care Provider Unavaila Reji Martin MD Unavailable Unavailable Karlie Mendez MD Primary Care Provider [phone] Encounter Details Date Type Department Care Team Description 05/11/2022 Pt. Referral Request [facility] MyChart [address] [place] [address] Md Fermin Social History Tobacco Use Types [...] on filedocumented in this encounter Care Teams Caustic Strength Inspector Relationship Specialty Start Date End Date Marco Gonzales DO PCP - General Internal Medicine 09/22/21 03/26/24 Karlie Mendez MD [address] [place] [address] PCP - General Internal Medicine 03/27/24 Reji Amaya MD Specialist Vascular Surgery 05/16/22 documented as of this encounter
--- OUTSIDE RECORDS SUMMARY | 2024-12-26 08:42 | XMS_ITS | Encounter Summary ---
Author Organization [facility] Address [address] [place] [address] Care Team Providers Care Aviation Tactical Readiness Officer Name Role Phone Reji Amaya MD Unavailable Unavailable Karlie Mendez MD Primary Care Provider [phone] Reason for Visit * Reason Comments E-prescribe Rx Request Encounter Details Date Type Department Care Team Description 05/06/2024 Refill Adult Medicine - [address] [address] Marco Gonzales DO E-prescribe Rx Request Social [...] encounter Miscellaneous Notes * Telephone Encounter - Jack Lind - 05/06/2024 4:12 PM EDT Refill Last office visit: 01/10/24 PCP: 04/26/24 Next office visit: 06/21/24 documented in this encounter Plan of Treatment Not on file documented as of this encounter Visit Diagnoses Diagnosis Hypertension, unspecified type documented in this encounter Care Teams Aviation Tactical Readiness Officer Relationship Specialty Start Date End Date Karlie Mendez MD [address] [place] [address] PCP - General Internal Medicine 03/27/24 Reji Amyaa MD Specialist Vascular Surgery 05/16/22 documented as of this encounter
--- OUTSIDE RECORDS SUMMARY | 2024-12-26 08:42 | XMS_ITS | Encounter Summary ---
Author Organization [facility] Address [address] [place] [address] Care Team Providers Care Archaeology Professor Name Role Phone Tree Aguilar MD Primary Care Provider Unavailable Marco Gonzales DO Primary Care Provider Unavaila Reji Martin MD Unavailable Unavailable Karlie Mendez MD Primary Care Provider [phone] Encounter Details Date Type Department Care Team Description 04/10/2018 Pt. Non Urgent Medic al Question Adult Medicine - [address] [address] Tree Aguilar MD Social History Tobacco Use Types Packs/Day [...] as of this encounter Progress Notes * Taisha Mejia M.A. - 04/10/2018 10:50 AM EDTFrom: Jhon Browne To: Tree Aguilar MD Sent: 04/10/2018 10:41 AM EDT Subject: Right Shoulder MRI Results Good morning! I was wondering if the results of the subject 03/26/2018 test at [facility] have been received yet. [facility] MRI indicated the results were in fact sent via FAX but I never thought toask which [place] facility it was sent to. If you haven't received them, is there a specific number I should have them faxed to? documented in this encounter Plan of Treatment Not on file documented as of this encounter Visit Diagnoses Not on filedocumented in this encounter Care Teams Archaeology Professor Relationship Specialty Start Date End Date Tree Aguilar MD PCP - General Internal Medicine 03/10/16 Marco Gonzales DO PCP - General Internal Medicine 09/22/21 03/26/24 Karlie Mendez MD [address] [place] [address] PCP - General Internal Medicine 03/27/24 Reji Amaya MD Specialist Vascular Surgery 05/16/22 documented as of this encounter
--- OUTSIDE RECORDS SUMMARY | 2024-12-26 08:42 | XMS_ITS | Encounter Summary ---
Author [facility] Address [address] [place] [address] Care Team Providers Care Level Vial Grinder Name Role Phone Marco Gonzales DO Primary Care Provider Unavaila Reji Martin MD Unavailable Unavailable Karlie Mendez MD Primary Care Provider [phone] Reason for Visit * Reason Comments E-prescribe Rx Request Encounter Details Date Type Department Care Team Description 10/21/2023 Refill Adult [address] [address] Marco Gonzales DO E-prescribe Rx Request Social [...] on filedocumented in this encounter Care Teams Level Vial Grinder Relationship Specialty Start Date End Date Marco Gonzales DO PCP - General Internal Medicine 09/22/21 03/26/24 Karlie Mendez MD [address] [place] [address] PCP - General Internal Medicine 03/27/24 Reij Amaya MD Specialist Vascular Surgery 05/16/22 documented as of this encounter
--- OUTSIDE RECORDS SUMMARY | 2024-12-26 08:42 | XMS_ITS | Encounter Summary ---
Author Organization [facility] Address [address] [place] [address] Care Team Providers Care Crane Hooker Name Role Phone Marco Gonzales DO Primary Care Provider UnavailReji Ely MD Unavailable Unavailable Karlie Mendez MD Primary Care Provider [phone] Reason for Visit * Reason Comments E-prescribe Rx Request Encounter Details Date Type Department Care Team Description 11/03/2023 Refill Adult Medicine - [address] [address] Idalia Hatfield MD E-prescribe Rx Request Social History Tobacco [...] encounter Miscellaneous Notes * Telephone Encounter - Estefanía Cunningham - 11/06/2023 8:44 AM EST marshal documented in this encounter Plan of Treatment Not on file documented as of this encounter Visit Diagnoses Diagnosis Hypertension, unspecified type documented in this encounter Care Teams Crane Hooker Relationship Specialty Start Date End Date Marco Gonzales DO PCP - General Internal Medicine 09/22/21 03/26/24 Karlie Mendez MD [address] [place] [address] PCP - General Internal Medicine 03/27/24 Reji Amaya MD Specialist Vascular Surgery 05/16/22 documented as of this encounter
--- OUTSIDE RECORDS SUMMARY | 2024-12-26 08:42 | XMS_ITS | Encounter Summary ---
Author Organization [facility] Address [address] [place] [address] Care Team Providers Care Practice Director Name Role Phone Tree Aguilar MD Primary Care Provider Unavailable Marco Gonzales DO Primary Care Provider Unavaila Reji Martin MD Unavailable Unavailable Karlie Mendez MD Primary Care Provider [phone] Encounter Details Date Type Department Care Team Description 06/26/2019 Pt. Non Urgent Medic al Question Physiatry - [address] [address] Jian Rios DO Social History Tobacco Use [...] for diclofenac 3 % gel Dr. Rios, [facility] Pharmacy called yesterday afternoon to let me know my prescription was ready for meto continuous pickling line pickler. I knew you said it was not covered by most insurance but [facility] me the cost was a [...] on filedocumented in this encounter Care Teams Practice Director Relationship Specialty Start Date End Date Tree Aguilar MD PCP - General Internal Medicine 03/10/16 Marco Gonzales DO PCP - General Internal Medicine 09/22/21 03/26/24 Karlie Mendez MD [address] [place] [address] PCP - General Internal Medicine 03/27/24 Reji Amaya MD Specialist Vascular Surgery 05/16/22 documented as of this encounter
--- OUTSIDE RECORDS SUMMARY | 2024-12-26 08:42 | XMS_ITS | Encounter Summary ---
Author Organization [facility] Address [address] [place] [address] Care Team Providers Care Renewable Energy Division Manager Name Role Phone Jhon Strauss Primary Care Provider Unav ailable Dany Villegas MD Primary Care Provider [phone] Tree Aguilar MD Primary Care Provider Unavailable Marco Gonzales DO Primary Care Provider Unavaila Reji Martin MD Unavailable Unavailable Karlie Mendez MD Primary Care Provider [phone] Encounter Details Date Type Department Care Team Description 05/25/2010 Transfer Records Medical Records [address] [place] [address] Abstract, Provider Social History Tobacco Use Types [...] on filedocumented in this encounter Care Teams Renewable Energy Division Manager Relationship Specialty Start Date End Date Jhon Strauss PCP - General 11/22/07 01/05/16 Dany Villegas MD [address] [place] [address] PCP - General Internal Medicine 01/06/16 03/09/16 Tree Aguilar MD [address] [place] [address] PCP - General Internal Medicine 03/10/16 09/21/21 Marco Gonzales DO [address] [place] [address] PCP - General Internal Medicine 09/22/21 03/26/24 Karlie Mendez MD [address] [place] [address] PCP - General Internal Medicine 03/27/24 Reji Amaya MD [address] [place] [address] Specialist Vascular Surgery 05/16/22 documented as of this encounter
--- OUTSIDE RECORDS SUMMARY | 2024-12-26 08:42 | XMS_ITS | Encounter Summary ---
Author Organization [facility] Address [address] [place] [address] Care Team Providers Care Credit Checker Name Role Phone Jhon Strauss Primary Care Provider Unav ailable Dany Villegas MD Primary Care Provider [phone] Tree Aguilar MD Primary Care Provider Unavailable Marco Gonzales DO Primary Care Provider Unavaila Reji Martin MD Unavailable Unavailable Karlie Mendez MD Primary Care Provider [phone] Encounter Details Date Type Department Care Team Description 10/20/2015 Pt. Referral Request [facility] MyChart [address] [place] [address] Md Fermin Social History Tobacco Use Types [...] filedocumented in this encounter Care Teams Credit Checker Relationship Specialty Start Date End Date Jhon Strauss PCP - General 11/22/07 01/05/16 Dany Villegas MD [address] [place] [address] PCP - General Internal Medicine 01/06/16 03/09/16 Tree Aguilar MD [address] [place] [address] PCP - General Internal Medicine 03/10/16 09/21/21 Marco Gonzales DO [address] [place] [address] PCP - General Internal Medicine 09/22/21 03/26/24 Karlie Mendez MD [address] [place] [address] PCP - General Internal Medicine 03/27/24 Reji Amaya MD [address] [place] [address] Specialist Vascular Surgery 05/16/22 documented as of this encounter
--- OUTSIDE RECORDS SUMMARY | 2024-12-26 08:42 | XMS_ITS | Encounter Summary ---
Author Organization [facility] Address [address] [place] [address] Care Team Providers Care Marketing Associate Name Role Phone Tree Aguilar MD Primary Care Provider Unavailable Marco Gonzales DO Primary Care Provider Unavaila Reji Martin MD Unavailable Unavailable Karlie Mendez MD Primary Care Provider [phone] Reason for Visit * Reason Onset Date Comments Flu Vaccine 08/20/2020 Encounter Details Date Type Department Care Team Description 08/20/2020 Telephone Adult Medicine - [address] [address] Tree Aguilar MD Flu Vaccine Social History Tobacco Use Types Packs/Day Years [...] encounter Miscellaneous Notes * Telephone Encounter - Sharron Logan M.A. - 08/20/2020 2:14 PM EST Please schedule the pt for his flu clinic shot. Okay if he had his allergy shot. Thank you in advance * Telephone Encounter - Chelsie Machado - 08/20/2020 12:03 PM EST Caller requesting call back from provider: Tree Aguilar Is the caller the patient? YES If caller is not the patient, what is the callers name? N/A Callers relationship to patient? N/A If person calling is not the patient themselves, is there a verbal release in FYI or permanent comments for this person: NO Reason for call back: Pt states he just received his allergy shot and would like to know weather ornot its safe for him to get the flu shot now.. Caller offered to speak with the nurse for assistance: YES Response: Patient offered to speak with nurse for assistance and patient agreed. Message forwarded to nurse. documented in this encounter Plan of Treatment Not on file documented as of this encounter Visit Diagnoses Not on filedocumented in this encounter Care Teams Marketing Associate Relationship Specialty Start Date End Date Tree Aguilar MD PCP - General Internal Medicine 03/10/16 Marco Gonzales DO PCP - General Internal Medicine 09/22/21 03/26/24 Karlie Mendez MD [address] [place] [address] PCP - General Internal Medicine 03/27/24 Reji Amaya MD Specialist Vascular Surgery 05/16/22 documented as of this encounter
--- OUTSIDE RECORDS SUMMARY | 2024-12-26 08:42 | XMS_ITS | Encounter Summary ---
Author Organization [facility] Address [address] [place] [address] Care Team Providers Care Maintainer Central Office Name Role Phone Tree Aguilar MD Primary Care Provider Unavailable Marco Gonzales DO Primary Care Provider Unavaila Reji Martin MD Unavailable Unavailable Karlie Mendez MD Primary Care Provider [phone] Encounter Details Date Type Department Care Team Description 09/13/2018 [facility] [address] [place] [address] Md Fermin Social History Tobacco Use Types [...] on filedocumented in this encounter Care Teams Maintainer Central Office Relationship Specialty Start Date End Date Tree Aguilar MD PCP - General Internal Medicine 03/10/16 Marco Gonzales DO PCP - General Internal Medicine 09/22/21 03/26/24 Karlie Mendez MD [address] [place] [address] PCP - General Internal Medicine 03/27/24 Reji Amaya MD Specialist Vascular Surgery 05/16/22 documented as of this encounter
--- OUTSIDE RECORDS SUMMARY | 2024-12-26 08:42 | XMS_ITS | Encounter Summary ---
Author Organization [facility] Address [address] [place] [address] Care Team Providers Care Safety Investigator/Cause Analyst Name Role Phone Tree Aguilar MD Primary Care Provider Unavailable Marco Gonzales DO Primary Care Provider Unavaila Reji Martin MD Unavailable Unavailable Karlie Mendez MD Primary Care Provider [phone] Encounter Details Date Type Department Care Team Description 09/29/2018 Pt. Non Urgent Medic al Question Adult Medicine - [address] [address] Cecilia Melvin PA-C [address] [place] [address] Social History Tobacco Use Types Packs/Day Years [...] on filedocumented in this encounter Care Teams Safety Investigator/Cause Analyst Relationship Specialty Start Date End Date Tree Aguilar MD PCP - General Internal Medicine 03/10/16 Marco Gonzales DO PCP - General Internal Medicine 09/22/21 03/26/24 Karlie Mendez MD [address] [place] [address] PCP - General Internal Medicine 03/27/24 Reji Amaya MD Specialist Vascular Surgery 05/16/22 documented as of this encounter
--- OUTSIDE RECORDS SUMMARY | 2024-12-26 08:42 | XMS_ITS | Encounter Summary ---
Author Organization [facility] Address [address] [place] [address] Care Team Providers Care Trial Examiner Name Role Phone Tree Aguilar MD Primary Care Provider Unavailable Marco Gonzales DO Primary Care Provider Unavaila Reji Martin MD Unavailable Unavailable Karlie Mendez MD Primary Care Provider [phone] Encounter Details Date Type Department Care Team Description 08/30/2018 [facility] [address] [place] [address] Md Fermin Social History Tobacco Use Types [...] on filedocumented in this encounter Care Teams Trial Examiner Relationship Specialty Start Date End Date Tree Aguilar MD PCP - General Internal Medicine 03/10/16 Marco Gonzales DO PCP - General Internal Medicine 09/22/21 03/26/24 Karlie Mendez MD [address] [place] [address] PCP - General Internal Medicine 03/27/24 Reji Amaya MD Specialist Vascular Surgery 05/16/22 documented as of this encounter
--- OUTSIDE RECORDS SUMMARY | 2024-12-26 08:42 | XMS_ITS | Encounter Summary ---
Author Organization [employer] [facility] Address [address] [place] [address] Care Team Providers Care Residential Assistant Name Role Phone Marco Gonzales DO Primary Care Provider Unavaila Reji Martin MD Unavailable Unavailable Karlie Mendez MD Primary Care Provider [phone] Encounter Details Date Type Department Care Team Description 07/12/2022 Geological Science Teacher Report Medical Records [address] [place] [address] Reji Amaya MD Social History Tobacco Use [...] on filedocumented in this encounter Care Teams Residential Assistant Relationship Specialty Start Date End Date Marco Gonzales DO PCP - General Internal Medicine 09/22/21 03/26/24 Karlie Mendez MD [address] [place] [address] PCP - General Internal Medicine 03/27/24 Reji Amaya MD Specialist Vascular Surgery 05/16/22 documented as of this encounter
--- OUTSIDE RECORDS SUMMARY | 2024-12-26 08:42 | XMS_ITS | Encounter Summary ---
Author Organization [facility] Address [address] [place] [address] Care Team Providers Care Dolphin Trainer Name Role Phone Marco Gonzales DO Primary Care Provider UnavailReji Ely MD Unavailable Unavailable Karlie Mendez MD Primary Care Provider [phone] Reason for Visit * Reason Onset Date Comments Skein Inspector Feedback 10/21/2021 Lia SEWELL NPI : [id number] Encounter Details Date Type Department Care Team Description 10/21/2021 Telephone Adult Medicine - [address] [address] Marco Gonzales DO Skein Inspector Feedback (Lia SEWELL NPI : [id number]) Social History Tobacco Use Types Packs/Day Years [...] have Coronavirus / COVID-19? No / Unsure 10/22/2021 8:13 AM EST documented as of this encounter Miscellaneous Notes * Telephone Encounter - Chayito Lopez - 10/21/2021 1:33 PM EST [facility] Review Request Submission Status [ Save Response to Batch ] Request: [id number] [facility] Trace #: [id number] Subscriber: NAN BROWNE Submitter : IVAN CARPENTER Submitter Type: Provider : 1945 Referral (#[id number]) Specialty Care Review Type: Initial Certification Status : Certified in total Service Type : Medical Care Place Of Service : Office Visits : 52 Service Date : 09/24/2021-09/24/2022 Service Providers Provider Name ID Provider Type Lia SEWELL NPI : [id number] Service Provider documented in this encounter Plan of Treatment Not on file documented as of this encounter Visit Diagnoses Not on filedocumented in this encounter Care Teams Dolphin Trainer Relationship Specialty Start Date End Date Marco Gonzales DO PCP - General Internal Medicine 09/22/21 03/26/24 Karlie Mendez MD [address] [place] [address] PCP - General Internal Medicine 03/27/24 Reji Amaya MD Specialist Vascular Surgery 05/16/22 documented as of this encounter
--- OUTSIDE RECORDS SUMMARY | 2024-12-26 08:42 | XMS_ITS | Encounter Summary ---
Author Organization [facility] Address [address] [place] [address] Care Team Providers Care Adult Basic Education Manager Name Role Phone Tree Aguilar MD Primary Care Provider Unavailable Marco Gonzales DO Primary Care Provider Unavaila Reji Martin MD Unavailable Unavailable Karlie Mendez MD Primary Care Provider [phone] Encounter Details Date Type Department Care Team Description 05/14/2020 Hospital Medical Records [address] [place] [address] Tiburcio Ty PA-C [address] [place] [address] [place] [address] Social History Tobacco Use Types Packs/Day Years [...] on filedocumented in this encounter Care Teams Adult Basic Education Manager Relationship Specialty Start Date End Date Tree Aguilar MD PCP - General Internal Medicine 03/10/16 Marco Gonzales DO PCP - General Internal Medicine 09/22/21 03/26/24 Karlie Mendez MD [address] [place] [address] PCP - General Internal Medicine 03/27/24 Reji Amaya MD Specialist Vascular Surgery 05/16/22 documented as of this encounter
--- OUTSIDE RECORDS SUMMARY | 2024-12-26 08:42 | XMS_ITS | Encounter Summary ---
Author Organization [facility] Address [address] [place] [address] Care Team Providers Care Radio Communication Coordinator Name Role Phone Jhon Strauss Primary Care Provider Unav Dany Gamboa MD Primary Care Provider [phone] Tree Aguilar MD Primary Care Provider Unavailable Marco Gonzales DO Primary Care Provider Unavaila Reji Martin MD Unavailable Unavailable Karlie Mendez MD Primary Care Provider [phone] Reason for Visit * Reason Onset Date Comments TEST RESULTS 09/25/2013 Encounter Details Date Type Department Care Team Description 09/25/2013 Telephone Adult Medicine - [address] [address] Rayray Matute PA-C TEST RESULTS Social History [...] in a prescription to his pharmacy in [place] for50,000 unit vitamin D 3 supplement to be taken once every 7 days for the next 8 weeks. Upon completion, we can recheck levels. Thank you. documented in this encounter Plan of Treatment Not on file documented as of this encounter Results * 25 HYDROXY INCLUDES FRACTIONS IF PERFORMED (11/19/2013 2:44 PM EST) [facility] 25-HYDROXY VITAMIN D TOTAL 48 30 - 80 ng/ml 11/20/2013 11:54 AM EST [facility] Comment: Vitamin D Reference Ranges ??Deficiency: ? <20 ng/mL ??Insufficiency: ?20-29 ng/mL ??Optimal: ?30-80 ng/mL ??High: ? >80 ng/mL 11/19/2013 2:44 PM EST 11/19/2013 2:45 PM EST Rayray Matute PA-C LAB [facility] [address] [facility] documented in this encounter Visit Diagnoses Diagnosis Vitamin D deficiency- Primary Unspecified vitamin D deficiency documented in this encounter Care Teams Radio Communication Coordinator Relationship Specialty Start Date End Date Jhon Strauss PCP - General 11/22/07 01/05/16 Dany Villegas MD [address] [place] [address] PCP - General Internal Medicine 01/06/16 03/09/16 Tree Aguilar MD [address] [place] [address] PCP - General Internal Medicine 03/10/16 09/21/21 Marco Gonzales DO [address] [place] [address] PCP - General Internal Medicine 09/22/21 03/26/24 Karlie Mendez MD [address] [place] [address] PCP - General Internal Medicine 03/27/24 Reji Amaya MD [address] [place] [address] Specialist Vascular Surgery 05/16/22 documented as of this encounter
--- OUTSIDE RECORDS SUMMARY | 2024-12-26 08:42 | XMS_ITS | Encounter Summary ---
Author Organization [facility] Address [address] [place] [address] Care Team Providers Care Deck Supervisor Name Role Phone Reji Amaya MD Unavailable Unavailable Karlie Mendez MD Primary Care Provider [phone] Encounter Details Date Type Department Care Team Description 07/12/2024 Refill Adult Medicine - [address] [address] Nolan Fish, PANeoC [address] [place] [address] Social History Tobacco Use Types Packs/Day Years [...] (HCC) documented in this encounter Care Teams Deck Supervisor Relationship Specialty Start Date End Date Karlie Mendez MD [address] [place] [address] PCP - General Internal Medicine 03/27/24 Reji Amaya MD Specialist Vascular Surgery 05/16/22 documented as of this encounter
--- OUTSIDE RECORDS SUMMARY | 2024-12-26 08:42 | XMS_ITS | Clinical Summary ---
Author Organization [facility] [address] [place] [address] Address [address] [place] [address] Phone Care Team Providers Care Restaurant Lead Name Role Phone Karlie Mendez MD Primary Care Provider [phone] Allergies Active Allergy Reactions Criticality Noted Date [...] diagnostic medial branch blocks 02/16 - Dr. uPgh - bilateral L3, L4 and L5 medial branch radiofrequency neurotomy 04/22 - per [facility] neurosurgery, no surgical course of action appropriate due to the extent of the arthritis in both areas. 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 Sloan - [facility] - physical therapy, injections unhelpful Persists status post neural ablation Dr. Sergio Gore- [facility]- myofascial pain due to paravertebral muscle dysfunction Dr. Tahira Elaine - [facility] Rehabilitation- continue cyclobenzaprine, trial of trigger point injections, botulinum injections, PT, stop bifocals 09/19 - Shanika Young PA-c from Physiatry - referred for bilateral C3-4, C4-5 facet joint injection 212 - left C3, C4, C5 and C6 medial branch radiofrequency neurotomy 04/22 - per [facility] neurosurgery, no surgical course of action appropriate due to the extent of the arthritis in both areas. Their recommendation is pain management. 08/23 - Dr. Heller ([facility] pain management) - acupuncture - not much relief Encounters Date Type Department Care Team Description 11/21/2024 8:45 AM EST Office Visit Adult Medicine [address] [address] Karlie Mendez MD Hyperlipidemia, unspecified hyperlipidemia type (Primary Dx); Benign prostatic hyperplasia with urinary frequency; Prediabetes; Neuropathy of right lower extremity 11/19/2024 Telephone Adult Medicine [address] [address] Karlie Mendez MD Referral (Referral for Gastro) 11/19/2024 Telephone Adult Medicine [address] [address] Karlie Mendez MD Referral 11/08/2024 Telephone Adult Medicine [address] [phone] Karlie Mendez MD from Last 3 Months [...] SHOULDER SURGERY; COMMENT: both shoulders- Dr. Jim- Camargo HAND SURGERY 1996 PROCEDURE: HISTORICAL HAND SURGERY; [...] care for your loved ones. For example, early childhood teacher or elderly care for an older adult? [...] 8:45 AM EDT Office Visit Adult Medicine [facility] [address] [place] [address] Karlie Mendez MD [address] [place] [address] Health Maintenance Due Date Last Done Comments [...] * Hemoglobin A1c (11/21/2024 8:32 AM EST) [facility] Hemoglobin A1C 5.8 <6.5 % LAB CHEMISTRY METHOD 11/21/2024 12:35 PM EST [facility] Mean Bld Glu Estim. 120 mg/dL LAB CHEMISTRY METHOD 11/21/2024 12:35 PM EST [facility] Blood Venous blood specimen / Unknown Venipuncture / Unknown 11/21/2024 8:32 AM EST 11/21/2024 8:32 AM EST Karlie Mendez MD LAB BLOOD ORDERABLES Final Result [facility] [address] [place] [address], * Lipid panel (04/30/2024) [facility] LDL/HDL Ratio 2 0 - 4 Triglycerides 70 0 - 150 mg/dL Cholesterol 159 0 - 200 mg/dL HDL 77 >=40 mg/dL LDL Cholesterol 68 0 - 100 mg/dL Blood Venous blood specimen / Unknown Inna Provider LAB BLOOD ORDERABLES Cassidy l Result * Annual BMP Blood Test (01/10/2024) [facility] Annual BMP Blood Test Abstracted us Historical Provider HEALTH MAINTENANCE Final Result * Hepatitis C Screening (09/23/2013) [facility] Hepatitis C Screening Abstracted us Historical Provider HEALTH MAINTENANCE Final Result from Last 3 Months or Most Recently Relevant to Health Maintenance Insurance [employer] Care Teams Restaurant Lead Relationship Specialty Start Date End Date Karlie Mendez MD [address] [place] [address] PCP - General 03/27/24
--- OUTSIDE RECORDS SUMMARY | 2024-12-26 08:42 | XMS_ITS | Encounter Summary ---
Author Organization [facility] Address [address] [place] [address] Care Team Providers Care Test Skein Winder Name Role Phone Karlie Mendez MD Primary Care Provider [phone] Encounter Details Date Type Department Care Team (Late st Contact Info) Description 11/08/2024 Telephone Adult Medicine [facility] [address] [place] [address] Karlie Mendez MD [address] [place], [place] Social History Tobacco Use Types Packs/Day Years [...] care for your loved ones. For example, childcare center administrator or elderly care for an older adult? [...] 8:45 AM EDT Office Visit Adult Medicine [facility] [address] [place] [address] Karlie Mendez MD [address] [place] [address] documented as of this encounter Visit Diagnoses Not on filedocumented in this encounter Additional Health Concerns Assessment Noted Time PHQ-9 Depression Total Score: 0 08/18/20 24 7:14 AM EST documented as of this encounter Care Teams Test Skein Winder Relationship Specialty Start Date End Date Karlie Mendez MD [address] [place] [address] PCP - General 03/27/24 documented as of this encounter
--- OUTSIDE RECORDS SUMMARY | 2024-12-26 08:42 | XMS_ITS | Encounter Summary ---
Author Organization [facility] Address [address] [place] [address] Care Team Providers Care Manager Hospital Name Role Phone Tree Aguilar MD Primary Care Provider Unavailable Marco Gonzales DO Primary Care Provider Unavaila Reji Martin MD Unavailable Unavailable Karlie Mendez MD Primary Care Provider [phone] Encounter Details Date Type Department Care Team Description 10/17/2016 [facility] [address] [place] [address] Md Fermin Social History Tobacco Use Types [...] filedocumented in this encounter Care Teams Manager Hospital Relationship Specialty Start Date End Date Tree Aguilar MD PCP - General Internal Medicine 03/10/16 Marco Gonzales DO PCP - General Internal Medicine 09/22/21 03/26/24 Karlie Mendez MD [address] [place] [address] PCP - General Internal Medicine 03/27/24 Reji Amaya MD Specialist Vascular Surgery 05/16/22 documented as of this encounter
--- OUTSIDE RECORDS SUMMARY | 2024-12-26 08:42 | XMS_ITS | Encounter Summary ---
Author Organization [facility] Address [address] [place] [address] Care Team Providers Care Distillery Worker Name Role Phone Marco Gonzales DO Primary Care Provider Unavaila Reji Martin MD Unavailable Unavailable Karlie Mendez MD Primary Care Provider [phone] Encounter Details Date Type Department Care Team Description 04/05/2022 Health Navigator Report Medical Records [address] [place] [address] Reji Amaya MD Social History Tobacco Use [...] on filedocumented in this encounter Care Teams Distillery Worker Relationship Specialty Start Date End Date Marco Gonzales DO PCP - General Internal Medicine 09/22/21 03/26/24 Karlie Mendez MD [address] [place] [address] PCP - General Internal Medicine 03/27/24 Reji Amaya MD Specialist Vascular Surgery 05/16/22 documented as of this encounter
--- OUTSIDE RECORDS SUMMARY | 2024-12-26 08:42 | XMS_ITS | Encounter Summary ---
Author Organization [facility] Address [address] [place] [address] Care Team Providers Care Voice Pathologist Name Role Phone Tree Aguilar MD Primary Care Provider Unavailable Marco Gonzales DO Primary Care Provider Unavaila Reji Martin MD Unavailable Unavailable Karlie Mendez MD Primary Care Provider [phone] Encounter Details Date Type Department Care Team Description 11/07/2016 Chief Digital Officer Report Medical Records [address] [place] [address] Kalia Marie PA-C Social History Tobacco Use [...] on filedocumented in this encounter Care Teams Voice Pathologist Relationship Specialty Start Date End Date Tree Aguilar MD PCP - General Internal Medicine 03/10/16 Marco Gonzales DO PCP - General Internal Medicine 09/22/21 03/26/24 Karlie Mendez MD [address] [place] [address] PCP - General Internal Medicine 03/27/24 Reji Amaya MD Specialist Vascular Surgery 05/16/22 documented as of this encounter
--- OUTSIDE RECORDS SUMMARY | 2024-12-26 08:42 | XMS_ITS | Encounter Summary ---
Author Organization [facility] Address [address] [place] [address] Care Team Providers Care Secretary To Board Of Commissioners Name Role Phone Tree Aguilar MD Primary Care Provider Unavailable Marco Gonzales DO Primary Care Provider Unavaila [facility] Reji Amaya MD Unavailable Unavailable Karlie Mendez MD Primary Care Provider [phone] Encounter Details Date Type Department Care Team Description 2020 [facility] Medical Records [address] [place] [address] Yogesh Almendarez MD, PHD Social History Tobacco [...] on filedocumented in this encounter Care Teams Secretary To Board Of Commissioners Relationship Specialty Start Date End Date Tree Aguilar MD PCP - General Internal Medicine 03/10/16 Marco Gonzales DO PCP - General Internal Medicine 09/22/21 03/26/24 Karlie Mendez MD [address] [place] [address] PCP - General Internal Medicine 03/27/24 Reji Amaya MD Specialist Vascular Surgery 05/16/22 documented as of this encounter
--- OUTSIDE RECORDS SUMMARY | 2024-12-26 08:42 | XMS_ITS | Encounter Summary ---
Author Organization [facility] Address [address] [place] [address] Care Team Providers Care Warehouse Picker Name Role Phone Marco Gonzales DO Primary Care Provider UnavailReji Ely MD Unavailable Unavailable Karlie Mendez MD Primary Care Provider [phone] Reason for Visit * Reason Onset Date Comments immunizations 07/19/2022 Encounter Details Date Type Department Care Team Description 07/19/2022 Telephone Adult Medicine - [address] [address] Marco Gonzales DO immunizations Social History Tobacco [...] on filedocumented in this encounter Care Teams Warehouse Picker Relationship Specialty Start Date End Date Marco Gonzales DO PCP - General Internal Medicine 09/22/21 03/26/24 Karlie Mendez MD [address] [place] [address] PCP - General Internal Medicine 03/27/24 Reji Amaya MD Specialist Vascular Surgery 05/16/22 documented as of this encounter
--- OUTSIDE RECORDS SUMMARY | 2024-12-26 08:42 | XMS_ITS | Encounter Summary ---
Author Organization [facility] Address [address] [place] [address] Care Team Providers Care Mixer Operator Raw Salt Name Role Phone Marco Gonzales DO Primary Care Provider Unavaila Reji Martin MD Unavailable Unavailable Karlie Mendez MD Primary Care Provider Encounter Details Date Type Department Care Team Description 04/19/2022 Telephone Adult Medicine [address] [address] Marco Gonzales DO Social History Tobacco Use [...] on filedocumented in this encounter Care Teams Mixer Operator Raw Salt Relationship Specialty Start Date End Date Marco Gonzales DO PCP - General Internal Medicine 09/22/21 03/26/24 Karlie Mendez MD [address] [place] [address] PCP - General Internal Medicine 03/27/24 Reji Amaya MD Specialist Vascular Surgery 05/16/22 documented as of this encounter
--- OUTSIDE RECORDS SUMMARY | 2024-12-26 08:42 | XMS_ITS | Encounter Summary ---
Author Organization [facility] Address [address] [place] [address] Care Team Providers Care Tombstone Setter Name Role Phone Marco Gonzales DO Primary Care Provider UnavailReji Ely MD Unavailable Unavailable Karlie Mendez MD Primary Care Provider [phone] Encounter Details Date Type Department Care Team Description 05/03/2022 Pt. Non Urgent Medic al Question Adult Medicine - [address] [address] Marco Gonzales DO Social History Tobacco Use [...] encounter Miscellaneous Notes * Telephone Encounter - Aicha Beltran M.A. - 05/03/2022 3:48 PM EDTFrom: Jhon Browne To: Juvencio Gonzales Sent: 05/03/2022 3:41 PM EDT Subject: Medical Clearance for Cataract Surgery Dr. Gonzales, I am scheduled for cataract surgery with Dr. Elias Krishnan [facility] on Tuesday May 24, 2022. His office indicated I need a medical clearance from my Primary Care Physician so I probably need an appointment for this. His office info is as follows: Dr. Elias Celis [address] [address] Your earliest reply will be appreciated. documented in this encounter Plan of Treatment Not on file documented as of this encounter Visit Diagnoses Not on filedocumented in this encounter Care Teams Tombstone Setter Relationship Specialty Start Date End Date Marco Gonzales DO PCP - General Internal Medicine 09/22/21 03/26/24 Karlie Mendez MD [address] [place] [address] PCP - General Internal Medicine 03/27/24 Reji Amaya MD Specialist Vascular Surgery 05/16/22 documented as of this encounter
--- OUTSIDE RECORDS SUMMARY | 2024-12-26 08:42 | XMS_ITS | Encounter Summary ---
Author Organization [facility] Address [address] [place] [address] Care Team Providers Care Laser Cutter Name Role Phone Tree Aguilar MD Primary Care Provider Unavailable Marco Gonzales DO Primary Care Provider Unavaila Reji Martin MD Unavailable Unavailable Karlie Mendez MD Primary Care Provider [phone] Encounter Details Date Type Department Care Team Description 03/29/2018 [facility]. [facility] [address] [place] [address] Md Fermin Social History Tobacco Use Types [...] on filedocumented in this encounter Care Teams Laser Cutter Relationship Specialty Start Date End Date Tree Aguilar MD PCP - General Internal Medicine 03/10/16 Marco Gonzales DO PCP - General Internal Medicine 09/22/21 03/26/24 Karlie Mendez MD [address] [place] [address] PCP - General Internal Medicine 03/27/24 Reji Amaya MD Specialist Vascular Surgery 05/16/22 documented as of this encounter
--- OUTSIDE RECORDS SUMMARY | 2024-12-26 08:42 | XMS_ITS | Encounter Summary ---
Author Organization [facility] Address [address] [place] [address] Care Team Providers Care Rubber Extrusion Machine Operator Name Role Phone Albina Gonzales DO Primary Care Provider Reji Aguillon MD Unavailable Unavailable Karlie Mendez MD Primary Care Provider [phone] Reason for Visit * Reason Onset Date Comments Gallery Or Museum Guide Feedback 01/08/2022 Dr Danae Mckoy Encounter Details Date Type Department Care Team Description 01/08/2022 Telephone Adult Medicine - [address] [address] Albina Gonzales DO Gallery Or Museum Guide Feedback (Dr Danae Mckoy) Social History Tobacco [...] GONZALES Submitter Type: Provider : 1945 Referral (#[id number]) Specialty Care Review Type: Initial Certification Status : Certified in total Service Type : Medical Care Place Of Service : Office Visits : 6 Service Date : 01/08/2022-01/08/2023 Service Providers Provider Name ID Provider Type DANAE MCKOY NPI : [id number] Service Provider documented in this encounter Plan of Treatment Not on file documented as of this encounter Visit Diagnoses Not on filedocumented in this encounter Care Teams Rubber Extrusion Machine Operator Relationship Specialty Start Date End Date Albina Gonzales DO PCP - General Internal Medicine 09/22/21 03/26/24 Karlie Mendez MD [address] [place] [address] PCP - General Internal Medicine 03/27/24 Reji Amaya MD Specialist Vascular Surgery 05/16/22 documented as of this encounter
--- OUTSIDE RECORDS SUMMARY | 2024-12-26 08:42 | XMS_ITS | Encounter Summary ---
Author Organization [facility] Address [address] [place] [address] Care Team Providers Care Feed Mill Manager Name Role Phone Marco Gonzales DO Primary Care Provider Unavaila Reji Martin MD Unavailable Unavailable Karlie Mendez MD Primary Care Provider [phone] Encounter Details Date Type Department Care Team Description 11/23/2021 Pt. Referral Request [facility] MyChart [address] [place] [address] Md Fermin Social History Tobacco Use Types [...] on filedocumented in this encounter Care Teams Feed Mill Manager Relationship Specialty Start Date End Date Marco Gonzales DO PCP - General Internal Medicine 09/22/21 03/26/24 Karlie Mendez MD [address] [place] [address] PCP - General Internal Medicine 03/27/24 Reji Amaya MD Specialist Vascular Surgery 05/16/22 documented as of this encounter
--- OUTSIDE RECORDS SUMMARY | 2024-12-26 08:42 | XMS_ITS | Encounter Summary ---
Author Organization [facility] Address [address] [place] [address] Care Team Providers Care Iuss Acoustic Analyst Name Role Phone Tree Aguilar MD Primary Care Provider Unavailable Marco Gonzales DO Primary Care Provider Unavaila Reji Martin MD Unavailable Unavailable Karlie Mendez MD Primary Care Provider [phone] Encounter Details Date Type Department Care Team Description 03/16/2020 Product Support Engineer Report Medical Records [address] [place] [address] Tiburcio Ty PA-C [address] [place] [address] [place] [address] Social History Tobacco Use Types Packs/Day Years [...] on filedocumented in this encounter Care Teams Iuss Acoustic Analyst Relationship Specialty Start Date End Date Tree Aguilar MD PCP - General Internal Medicine 03/10/16 Marco Gonzales DO PCP - General Internal Medicine 09/22/21 03/26/24 Karlie Mendez MD [address] [place] [id number] PCP - General Internal Medicine 03/27/24 Reji Amaya MD Specialist Vascular Surgery 05/16/22 documented as of this encounter
--- OUTSIDE RECORDS SUMMARY | 2024-12-26 08:42 | XMS_ITS | Encounter Summary ---
Author Organization [facility] Address [address] [place] [address] Care Team Providers Care Jewelry Sales Representative Name Role Phone Tree Aguilar MD Primary Care Provider Unavailable Marco Gonzales DO Primary Care Provider Unavaila Reji Martin MD Unavailable Unavailable Karlie Mendez MD Primary Care Provider [phone] Encounter Details Date Type Department Care Team Description 11/28/2019 Telephone Physiatry - [place] [address] [place] [address] Jian Rios DO Social History Tobacco Use [...] on filedocumented in this encounter Care Teams Jewelry Sales Representative Relationship Specialty Start Date End Date Tree Aguilar MD PCP - General Internal Medicine 03/10/16 Marco Gonzales DO PCP - General Internal Medicine 09/22/21 03/26/24 Karlie Mendez MD [address] [place] [address] PCP - General Internal Medicine 03/27/24 Reji Amaya MD Specialist Vascular Surgery 05/16/22 documented as of this encounter
--- OUTSIDE RECORDS SUMMARY | 2024-12-26 08:42 | XMS_ITS | Encounter Summary ---
Author Organization [facility] Address [address] [place] [address] Care Team Providers Care Assembler Metal Building Name Role Phone Marco Gonzales DO Primary Care Provider UnavailReji Ely MD Unavailable Unavailable Karlie Mendez MD Primary Care Provider [phone] Reason for Visit * Reason Comments E-prescribe Rx Request Encounter Details Date Type Department Care Team Description 01/26/2024 Refill Adult Medicine - [address] [address] Marco Gonzales DO E-prescribe Rx Request Social [...] encounter Miscellaneous Notes * Telephone Encounter - Maribel Delgadillo - 01/29/2024 11:04 AM EDT duplicate documented in this encounter Plan of Treatment Not on file documented as of this encounter Visit Diagnoses Not on filedocumented in this encounter Care Teams Assembler Metal Building Relationship Specialty Start Date End Date Marco Gonzales DO PCP - General Internal Medicine 09/22/21 03/26/24 Karlie Mendez MD [address] [place] [address] PCP - General Internal Medicine 03/27/24 Reji Amaya MD Specialist Vascular Surgery 05/16/22 documented as of this encounter
--- OUTSIDE RECORDS SUMMARY | 2024-12-26 08:42 | XMS_ITS | Encounter Summary ---
Author Organization [facility] Address [address] [place] [address] Care Team Providers Care Cloth Coverer Name Role Phone Marco Gonzales DO Primary Care Provider UnavailReji Ely MD Unavailable Unavailable Karlie Mendez MD Primary Care Provider Encounter Details Date Type Department Care Team Description 01/16/2024 Telephone Adult Medicine - [address] [address] Marco Gonzales DO Social History Tobacco Use [...] encounter Miscellaneous Notes * Telephone Encounter - Irma Carlin M.A. - 01/17/2024 10:38 AM EDT Spoke to patient and message was given below. * Telephone Encounter - Imra Carlin M.A. - 01/16/2024 2:18 PM EDT ----- Message from Marco Gonzales DO sent at 01/15/2024 4:42 PM EDT ----- Please review documented in this encounter Plan of Treatment Not on file documented as of this encounter Visit Diagnoses Not on filedocumented in this encounter Care Teams Cloth Coverer Relationship Specialty Start Date End Date Marco Gonzales DO PCP - General Internal Medicine 09/22/21 03/26/24 Karlie Mendez MD [address] [place] [address] PCP - General Internal Medicine 03/27/24 Reji Amaya MD Specialist Vascular Surgery 05/16/22 documented as of this encounter
--- OUTSIDE RECORDS SUMMARY | 2024-12-26 08:42 | XMS_ITS | Encounter Summary ---
Author Organization [facility] Address [address] [place] [address] Care Team Providers Care Bods Developer Name Role Phone Marco Gonzales DO Primary Care Provider Unavaila Reji Martin MD Unavailable Unavailable Karlie Mendez MD Primary Care Provider [phone] Encounter Details Date Type Department Care Team Description 04/19/2022 Eyewear Manufacturing Tech Report Medical Records [address] [place] [address] Reji Amaya MD Social History Tobacco Use [...] on filedocumented in this encounter Care Teams Bods Developer Relationship Specialty Start Date End Date Marco Gonzales DO PCP - General Internal Medicine 09/22/21 03/26/24 Karlie Mendez MD [address] [place] [address] PCP - General Internal Medicine 03/27/24 Reji Amaya MD Specialist Vascular Surgery 05/16/22 documented as of this encounter
--- OUTSIDE RECORDS SUMMARY | 2024-12-26 08:42 | XMS_ITS | Encounter Summary ---
Author Organization [facility] Address [address] [place] [address] Care Team Providers Care Drilling Foreman Name Role Phone Marco Gonzales DO Primary Care Provider UnavailReji Ely MD Unavailable Unavailable Karlie Mendez MD Primary Care Provider [phone] Encounter Details Date Type Department Care Team Description 10/12/2021 Pt. Non Urgent Medic al Question Adult Medicine - [address] [address] Marco Gonzales DO Social History Tobacco Use [...] on filedocumented in this encounter Care Teams Drilling Foreman Relationship Specialty Start Date End Date Marco Gonzales DO PCP - General Internal Medicine 09/22/21 03/26/24 Karlie Mendez MD [address] [place] [address] PCP - General Internal Medicine 03/27/24 Reji Amaya MD Specialist Vascular Surgery 05/16/22 documented as of this encounter
--- OUTSIDE RECORDS SUMMARY | 2024-12-26 08:42 | XMS_ITS | Encounter Summary ---
Author Organization [facility] Address [address] [place] [address] Care Team Providers Care Hand Bobbin Cleaner Name Role Phone Marco Gonzales DO Primary Care Provider Unavaila Reji Martin MD Unavailable Unavailable Karlie Mendez MD Primary Care Provider [phone] Encounter Details Date Type Department Care Team Description 09/26/2022 Classroom Technology Technician Report Medical Records [address] [place] [address] Abstract, Provider Social History Tobacco Use Types [...] filedocumented in this encounter Care Teams Hand Bobbin Cleaner Relationship Specialty Start Date End Date Marco Gonzales DO PCP - General Internal Medicine 09/22/21 03/26/24 Karlie Mendez MD [address] [place] [address] PCP - General Internal Medicine 03/27/24 Reji Amaya MD Specialist Vascular Surgery 05/16/22 documented as of this encounter
--- OUTSIDE RECORDS SUMMARY | 2024-12-26 08:42 | XMS_ITS | Encounter Summary ---
Author Organization [facility] Address [address] [place] [address] Care Team Providers Care Line Patrolman Name Role Phone Tree Aguilar MD Primary Care Provider Unavailable Marco Gonzales DO Primary Care Provider Unavaila Reji Martin MD Unavailable Unavailable Karlie Mendez MD Primary Care Provider [phone] Encounter Details Date Type Department Care Team Description 11/28/2019 Pt. Non Urgent Medic al Question Adult Medicine - [address] [address] Tree Aguilar MD Social History Tobacco Use [...] as of this encounter Progress Notes * Aicha Beltran M.A. - 11/28/2019 1:08 PM ESTFrom: Jhon Browne To: Tree Aguilar MD Sent: 11/28/2019 11:26 AM EST Subject: Gabapentin prescription Is there a reason the current (and last) prescription is only for a 90-day supply with no refill? My maintenance prescriptions have always been a 90-day supply with one refill. documented in this encounter Plan of Treatment Not on file documented as of this encounter Visit Diagnoses Not on filedocumented in this encounter Care Teams Line Patrolman Relationship Specialty Start Date End Date Tree Aguilar MD PCP - General Internal Medicine 03/10/16 Marco Gonzales DO PCP - General Internal Medicine 09/22/21 03/26/24 Karlie Mendez MD [address] [place] [address] PCP - General Internal Medicine 03/27/24 Reji Amaya MD Specialist Vascular Surgery 05/16/22 documented as of this encounter
--- OUTSIDE RECORDS SUMMARY | 2024-12-26 08:43 | XMS_ITS | Encounter Summary ---
Author Organization [facility] Address [address] [place] [address] Care Team Providers Care Lamp Tester And Inspector Name Role Phone Marco Gonzales DO Primary Care Provider Unavaila Reji Martin MD Unavailable Unavailable Karlie Mendez MD Primary Care Provider Encounter Details Date Type Department Care Team Description 03/20/2024 Transfer Records [facility] Neurosurgery [place] [address] [place] [address] Yogesh Almendarez MD, PHD Social History Tobacco [...] on filedocumented in this encounter Care Teams Lamp Tester And Inspector Relationship Specialty Start Date End Date Marco Gonzales DO PCP - General Internal Medicine 09/22/21 03/26/24 Karlie Mendez MD [address] [place] [address] PCP - General Internal Medicine 03/27/24 Reji Amaya MD Specialist Vascular Surgery 05/16/22 documented as of this encounter
--- OUTSIDE RECORDS SUMMARY | 2024-12-26 08:43 | XMS_ITS | Encounter Summary ---
Author Organization [facility] Address [address] [place] [address] Care Team Providers Care Shop Lead Name Role Phone Marco Gonzales DO Primary Care Provider UnavailReji Ely MD Unavailable Unavailable Karlie Mendez MD Primary Care Provider [phone] Reason for Visit * Reason Comments E-prescribe Rx Request Encounter Details Date Type Department Care Team Description 03/12/2022 Refill Adult Medicine [address] [address] Tree Aguilar MD E-prescribe Rx Request Social [...] on filedocumented in this encounter Care Teams Shop Lead Relationship Specialty Start Date End Date Marco Gonzales DO PCP - General Internal Medicine 09/22/21 03/26/24 Karlie Mendez MD [address] [place] [address] PCP - General Internal Medicine 03/27/24 Reji Amaya MD Specialist Vascular Surgery 05/16/22 documented as of this encounter
--- OUTSIDE RECORDS SUMMARY | 2024-12-26 08:43 | XMS_ITS | Patient Health Record ---
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 [place] [phone] [id number] NAN RAMSAY Self - patient is the insured Medical (General) History Medical History History ICD Code hypertension nerve pain right leg elevated cholesterol cervical spondyloarthropathies degenerative joint disease prostate nodule Surgical History Surgery Date(Month/Year) appendectomy left vericocele metatarsal osteotomy cervical radiculopathy thumb rotator cuff tear repair right knee arthroscopy tennis elbow surgery
--- OUTSIDE RECORDS SUMMARY | 2024-12-26 08:43 | XMS_ITS | Encounter Summary ---
Author Organization [facility] Address [address] [place] [address] Care Team Providers Care Web Content Coordinator Name Role Phone Marco Gonzales DO Primary Care Provider UnavailReji Ely MD Unavailable Unavailable Karlie Mendez MD Primary Care Provider [phone] Encounter Details Date Type Department Care Team Description 08/31/2023 Pt. Non Urgent Medical Question Adult Medicine - [address] [address] Marco Gonzales DO Post-nasal drip (Primary Dx) [...] drip documented in this encounter Care Teams Web Content Coordinator Relationship Specialty Start Date End Date Marco Gonzales DO PCP - General Internal Medicine 09/22/21 03/26/24 Karlie Mendez MD [address] [place] [address] PCP - General Internal Medicine 03/27/24 Reji Amaya MD Specialist Vascular Surgery 05/16/22 documented as of this encounter
--- OUTSIDE RECORDS SUMMARY | 2024-12-26 08:43 | XMS_ITS | Encounter Summary ---
Author Organization [facility] Address [address] [place] [address] Care Team Providers Care Perl Software Engineer Name Role Phone Marco Gonzales DO Primary Care Provider UnavailReji Ely MD Unavailable Unavailable Karlie Mendez MD Primary Care Provider [phone] Encounter Details Date Type Department Care Team Description 08/09/2023 Pt. Non Urgent Medic al Question Adult Medicine - [address] [address] Marco Gonzales DO Social History Tobacco Use [...] Telephone Encounter - Aicha Beltran M.A. - 08/09/2023 10:20 AM EDTFrom: Jhon Browne To: Juvencio Gonzales Sent: 08/09/2023 10:12 AM EDT Subject: Specialist Referral Dr. Gonzales, I have been having increased level of left hip discomfort when walking any distance over a few hundred feet. It starts out as very subtle pain/discomfort and as I walk further it gets to the point where I have to stop and rest. The hip issue has been gradually worsening for almost ten years (to thebest of my recolle ction) to the point where it is now. Do we need to speak in person at my next scheduled appointment on Monday08/21/23 or would you recommend that I make an appointment with a specialist of my choosing and then requesting a referral. Thank you. Jhon Browne documented in this encounter Plan of Treatment Not on file documented as of this encounter Visit Diagnoses Not on filedocumented in this encounter Care Teams Perl Software Engineer Relationship Specialty Start Date End Date Marco Gonzales DO PCP - General Internal Medicine 09/22/21 03/26/24 Karlie Mendez MD [address] [place] [address] PCP - General Internal Medicine 03/27/24 Reji Amaya MD Specialist Vascular Surgery 05/16/22 documented as of this encounter
--- OUTSIDE RECORDS SUMMARY | 2024-12-26 08:43 | XMS_ITS | Encounter Summary ---
Author Organization [facility] Address [address] [place] [address] Care Team Providers Care Automobile Club Information Clerk Name Role Phone Tree Aguilar MD Primary Care Provider Unavailable Marco Gonzales DO Primary Care Provider Unavaila Reji Martin MD Unavailable Unavailable Karlie Mendez MD Primary Care Provider [phone] Encounter Details Date Type Department Care Team Description 01/10/2019 [facility]. [facility] [address] [place] [id number] Md Fermin Social History Tobacco Use Types [...] filedocumented in this encounter Care Teams Automobile Club Information Clerk Relationship Specialty Start Date End Date Tree Aguilar MD PCP - General Internal Medicine 03/10/16 Marco Gonzales DO PCP - General Internal Medicine 09/22/21 03/26/24 Karlie Mendez MD [address] [place] [id number] PCP - General Internal Medicine 03/27/24 Reji Amaya MD Specialist Vascular Surgery 05/16/22 documented as of this encounter
--- OUTSIDE RECORDS SUMMARY | 2024-12-26 08:43 | XMS_ITS | Encounter Summary ---
Author Organization [facility] Address [address] [place] [address] Care Team Providers Care Operations Agent Name Role Phone Marco Gonzales DO Primary Care Provider UnavailReji Ely MD Unavailable Unavailable Karlie Mendez MD Primary Care Provider [phone] Encounter Details Date Type Department Care Team Description 08/25/2023 Pt. Non Urgent Medic al Question Adult Medicine - [address] [address] Marco Gonzales DO Social History Tobacco Use [...] Telephone Encounter - Charleen Garcia L.P.N. - 08/28/2023 7:16 AM EST From: Jhon Browne To: Juvencio Gonzales Sent: 08/25/2023 10:52 PM EST Subject: RSV Vaccine Would the RSV vaccination be beneficial for me? Also, the information in my MyChart does not reflect that I received the COVID-19 Vaccine on 07/07/2023. Thank you. documented in this encounter Plan of Treatment Not on file documented as of this encounter Visit Diagnoses Not on filedocumented in this encounter Care Teams Operations Agent Relationship Specialty Start Date End Date Marco Gonzales DO PCP - General Internal Medicine 09/22/21 03/26/24 Karlie Mendez MD [address] [place] [id number] PCP - General Internal Medicine 03/27/24 Reji Amaya MD Specialist Vascular Surgery 05/16/22 documented as of this encounter
--- OUTSIDE RECORDS SUMMARY | 2024-12-26 08:43 | XMS_ITS | Encounter Summary ---
Author Organization [facility] Address [address] [place] [address] Care Team Providers Care Cobol Engineer Name Role Phone Marco Gonzales DO Primary Care Provider Unavaila Reji Martin MD Unavailable Unavailable Karlie Mendez MD Primary Care Provider [phone] Encounter Details Date Type Department Care Team Description 08/10/2023 Pt. Referral Request [facility] MyChart [address] [place] [id number] Md Fermin Social History Tobacco Use Types [...] on filedocumented in this encounter Care Teams Cobol Engineer Relationship Specialty Start Date End Date Marco Gonzales DO PCP - General Internal Medicine 09/22/21 03/26/24 Karlie Mendez MD [address] [place] [id number] PCP - General Internal Medicine 03/27/24 Reji Amaya MD Specialist Vascular Surgery 05/16/22 documented as of this encounter
--- OUTSIDE RECORDS SUMMARY | 2024-12-26 08:43 | XMS_ITS | Encounter Summary ---
Author Organization [facility] Address [address] [place] [address] Care Team Providers Care Bilingual Call Center Representative Name Role Phone Marco Gonzales DO Primary Care Provider Reji Aguillon MD Unavailable Unavailable Karlie Mendez MD Primary Care Provider [phone] Encounter Details Date Type Department Care Team Description 03/06/2022 Pt. Non Urgent Medic al Question Adult Medicine - [address] [address] Marco Gonzales DO Social History Tobacco Use [...] this to my daughter who is a Customer Sales Service Manager and her response was given my age and symptoms it sounded like claudication and I probably should get an arterial ultrasound or be referred to a vascular surgeon for a consult. Your thoughts? documented in this encounter Plan of Treatment Not on file documented as of this encounter Visit Diagnoses Not on filedocumented in this encounter Care Teams Bilingual Call Center Representative Relationship Specialty Start Date End Date Marco Gonzales DO PCP - General Internal Medicine 09/22/21 03/26/24 Karlie Mendez MD [address] [place] [address] PCP - General Internal Medicine 03/27/24 Reji Amaya MD Specialist Vascular Surgery 05/16/22 documented as of this encounter
--- OUTSIDE RECORDS SUMMARY | 2024-12-26 08:43 | XMS_ITS | Encounter Summary ---
Author Organization [facility] Address [address] [place] [address] Care Team Providers Care Research Recruiter Name Role Phone Marco Gonzales DO Primary Care Provider UnavailReji Ely MD Unavailable Unavailable Karlie Mendez MD Primary Care Provider [phone] Encounter Details Date Type Department Care Team Description 02/22/2022 Telephone [place] [address] Tiburcio Rosa PA-C [address] [place] [address] Social History Tobacco Use Types Packs/Day Years [...] on filedocumented in this encounter Care Teams Research Recruiter Relationship Specialty Start Date End Date Marco Gonzales DO PCP - General Internal Medicine 09/22/21 03/26/24 Karlie Mendez MD [address] [place] [id number] PCP - General Internal Medicine 03/27/24 Reji Amaya MD Specialist Vascular Surgery 05/16/22 documented as of this encounter
== END 2024-12-26 09:21 | disposition home or self-care (01) ==
PROVIDERS: PCP Internal Medicine; Visit Provider Hospitalist
DX: J43.2 Centrilobular emphysema (principal); R05.3 Chronic cough; R13.10 Dysphagia, unspecified; R05.8 Other specified cough; K22.5 Diverticulum of esophagus, acquired; R93.3 Abnormal findings on diagnostic imaging of other parts of digestive tract
CPT/HCPCS: 99214

== ENCOUNTER → 2024-12-26 08:28 | Outpatient (BNVA) | payer OTHER, SELFPAY | PROVIDERS: PCP Internal Medicine; Visit Provider Hospitalist | DX: J43.2 Centrilobular emphysema (principal); R05.3 Chronic cough; R05.8 Other specified cough; R13.10 Dysphagia, unspecified; R93.3 Abnormal findings on diagnostic imaging of other parts of digestive tract; K22.5 Diverticulum of esophagus, acquired; Z87.891 Personal history of nicotine dependence | CPT/HCPCS: 99212 ==

== ENCOUNTER → 2025-03-14 13:47 | Outpatient (REF) | payer OTHER, SELFPAY ==
--- NOTE | 2025-03-14 13:54 | CA_ITS ---
Transthoracic Echocardiogram Patient (Last, First, Middle): Jhon Browne A Gender: Male Date of : 1945 Age: 79 Procedure Date: 03/14/2025 Procedure Type: Transthoracic Echocardiogram Location: OP Height: 180.34 cm Weight: 86.18 kg BSA: 2.06 m2 Heart Rate: 63 bpm BP: 128 / 70 mmHg Freezer Laboratory Technician: Referring MD: Karlie Mendez MD Symptoms: R01.1 MURMUR, SOB R06.02 Study Quality: Adequate ECG Rhythm: Sinus Conclusions: - The left ventricular systolic function is normal. The calculated ejection fraction is 63% by biplane method. - There is moderate calcification of the aortic valve. Findings Left Ventricle Normal left ventricular cavity size. There is mildly increased left ventricular wall thickness. The left ventricular systolic function is normal. The calculated ejection fraction is 63% by biplane method. There is no evidence of regional wall motion abnormalities. Diastolic function is normal for age. Right Ventricle Normal right ventricular cavity size and systolic function. Atria The left atrium is normal in size. The right atrium is mildly dilated. Aortic Valve There is moderate calcification of the aortic valve. There is no aortic valve stenosis. There is trace (trivial) aortic valve regurgitation. Mitral Valve The mitral valve appears normal. There is trace mitral valve regurgitation. There is no mitral valve stenosis. Pulmonic Valve The pulmonic valve is likely normal. Tricuspid Valve There is trace tricuspid valve regurgitation. There is no evidence of pulmonary hypertension. Great Vessels The asc aorta is normal in size. Venous The inferior vena cava is normal in size and collapses greater than 50% with inspiration. Pericardium/Pleural There is no evidence of pericardial effusion. Prior Study Comparison No prior study available for comparison. Measurements 2D Linear Measurements IVSd: 1.25 0.6-0.9/0.6-1.0 cm LVIDd: 4.84 3.9-5.3/4.2-5.9 cm LVIDd Index: 2.35 2.4-3.2/2.2-3.1 cm/m2 LVIDs: 2.82 2.0-3.6 cm LVPWd: 1.28 0.7-1.1 cm LA Diam: 4.00 2.7-3.8/3.0-4.0 cm LAIDs Index: 1.94 1.5-2.3 cm/m2 LV Mass: 298.41 67-162/88-224 g LV Mass Index: 144.86 43-95/49-115 g/m2 LVOT Diam: 2.50 3.0+(-)1.3 cm 2D Systolic Function EF 4C: 63.00 >55% EF 2C: 63.70 >55% EF BiP: 62.90 >55% Mitral Valve MV VTI: 0.26 MV Pk Rodrigo: 0.72 MV Mn Rodrigo: 0.38 MV Pk Grad: 2.00 MV Mn Grad: 1.00 MV Pk E: 0.45 MV PK A: 0.61 MV Decel Time: 244.00 E/A: 0.70 E'Lateral: 6.42 E'Medial: 5.00 E/E' Med: 8.90 E/E' Lat: 7.00 PHT: 72.00 MVA PHT: 3.06 MVA Continuity: 4.50 Decel Reno: 1.83 Aortic Valve AoV Pk Rodrigo: 1.70 AoV Mn Rodrigo: 1.28 AoV VTI: 0.42 AoV Pk Grad: 12.00 Aov Mn Grad: 8.00 GAGE Cont.VTI: 2.84 AI Pk Rodrigo: 3.85 AI Reno: 1.69 LVOT LVOT Pk Rodrigo: 0.91 LVOT Mn Rodrigo: 0.59 LVOT VTI: 0.24 LVOT Pk Grad: 3.00 LVOT Mn Grad: 2.00 LVOT Diam: 2.50 LVOT Area: 4.91 Diastolic Function MV Pk E: 0.45 MV Pk A: 0.61 E/A: 0.70 E'Medial: 5.00 E/E' Med: 8.90 E' Laterial: 6.42 E/E' Lat: 7.00 Right Ventricle TAPSE (mm): 28.20 TVS' Rodrigo: 11.10 Tricuspid Valve TR Pk Rodrigo: 2.30 TR Pk Grad: 21.00 RA Press: 3.00 RVSP: 24.00 Great Vessels Aorta Sinus of Valsalva: 3.50 2.0-3.5 cm Ao Asc: 3.40 2.1-3.4 cm Pulmonary Valve PV Pk Rodrigo: 0.74 Peak PV Grad: 2.00 Updated in Other Vendor System with Status of Final Fredrick Andersen MD electronically signed on 03/15/2025 1:40:30 PM with status of Final
== END ==
LOC: HO.CARD 13:47
PROVIDERS: PCP Internal Medicine; Visit Provider Internal Medicine
DX: R01.1 Cardiac murmur, unspecified (principal)
CPT/HCPCS: 93306

== ENCOUNTER → 2025-03-14 13:54 | Outpatient (BNV) | payer OTHER, SELFPAY | PROVIDERS: PCP Internal Medicine; Visit Provider Internal Medicine | DX: I70.0 Atherosclerosis of aorta (principal); I35.1 Nonrheumatic aortic (valve) insufficiency | CPT/HCPCS: 93306 ==

== ENCOUNTER 2025-04-19 21:36 | Emergency (ER) | payer OTHER, SELFPAY ==
[2025-04-19 21:45] VITALS: BP 127/7; PULSE 76; RESP 18; TEMP 36.7; O2SAT 95; BMI 24.7
[2025-04-19 22:11] LABS: MANUAL DIFF FLAG NO
[2025-04-19 22:12] LABS: Hematocrit 49.1 % (42.0-52.0); Hemoglobin 17.7 g/dl (14.0-18.0); Imm Gran Abs Auto 0.01 X10*3/uL (0.00-0.03); Imm Gran Pct Auto 0.2 % (0.0-0.4); Lymphocytes Absolute Auto 1.8 X10*3/uL (1.2-4.9); Mean Corpuscular HGB Conc 36.0 g/dl (31.0-36.0); Mean Corpuscular Hemoglobin 32.9 pg (27.0-33.0); Mean Corpuscular Volume 91.3 fL (80.0-98.0); NRBC Abs Auto 0.000 X10*3/uL (0.0-0.012); NRBC Pct Auto 0.0 /100WBC (0.0-0.2); Platelet Count 184 X10*3/uL (160-400); Red Blood Count 5.38 X10*6/uL (4.60-5.80); White Blood Count 6.0 X10*3/uL (4.8-10.8)
[2025-04-19 22:25] LABS: Alanine Aminotransferase 40 U/L (0-40); Albumin Level 4.4 g/dL (3.5-5.0); Alkaline Phosphatase 45 U/L (39-117); Anion Gap 15 (12-20); Aspartate Amino Transferase 81 U/L (5-37); Blood Urea Nitrogen 51 mg/dL (9-16); Calcium 9.2 mg/dL (8.4-10.2); Carbon Dioxide 23 mmol/L (22-29); Chloride 102 mmol/L (96-108); Creatinine Clr Calc Pharmacy 31.5; Estimated Glomerular Filt Rate 31; Potassium 4.1 mmol/L (3.3-5.1); Sodium 136 mmol/L (135-145); Total Protein 7.9 g/dL (6.5-8.0)
--- NOTE | 2025-04-19 22:39 | ED.NAVMDI ---
HPI - Nausea/Vomiting/Diarrhea General Chief complaint: Nausea/Vomiting/Diarrhea Stated complaint: vomiting/dirarrhea Time Seen by Provider: 04/19/25 22:24 Source: patient and family Mode of arrival: ambulatory Limitations: no limitations History of Present Illness ED Provider: Dr. Alexus De Anda HPI Narrative: 79-year-old male with a history of PID, GERD presenting with abdominal cramping, nausea, vomiting, diarrhea ongoing for the last 3 days or so. Patient admits that his recently return from a trip to [place] where everyone on the trip had vomiting and diarrhea. His symptoms began shortly after they returned home from their trip. Describes several episodes of vomiting and now only having watery diarrhea. Estimates approximately 10 episodes today. No hematochezia or melena. Describes generalized abdominal cramping associated with bowel movements. Admits to decreased urine output and decreased oral intake. No hematemesis. No reported fever. Denies chest pain or difficulty breathing. No cough or cold-type symptoms. Related Data Home Medications ?Medication ?Instructions ?Recorded ?Confirmed cholecalciferol (vitamin D3) 25 25 mcg PO DAILY 04/05/22 12/23/24 mcg (1,000 unit) capsule gabapentin 300 mg capsule 300 mg PO DAILY 04/05/22 12/23/24 metoprolol succinate 50 mg 50 mg PO DAILY 04/05/22 12/23/24 tablet,extended release 24 hr simvastatin 20 mg tablet 20 mg PO BEDTIME 04/05/22 12/23/24 vitamin B complex (B 1 tab PO DAILY 04/05/22 12/23/24 Complex-Vitamin B12 tablet) aspirin 81 mg tablet,delayed 81 mg PO DAILY 04/19/22 12/23/24 release (Adult Aspirin Regimen) Previous Rx's ?Medication ?Instructions ?Recorded umeclidinium 62.5 mcg-vilanterol 1 inh inhalation DAILY #60 ea 11/06/24 25 mcg/actuation powdr for inhalation (Anoro Ellipta) alfuzosin 10 mg tablet,extended 10 mg PO DAILY #90 tabs 12/23/24 release 24 hr omeprazole 20 mg capsule,delayed 20 mg PO DAILY 90 days #90 caps 03/10/25 release dicyclomine 20 mg tablet 20 mg PO TID #10 tabs 04/20/25 ondansetron HCl 4 mg tablet 4 mg PO Q8H #10 tabs 04/20/25 Allergies Allergy/AdvReac Type Severity Reaction Status Date / Time No Known Allergies Allergy Verified 04/19/25 21:45 Review of Systems Review of Systems: Yes all other systems are reviewed and are negative (As per HPI) [facility] Past Medical History Attestation statement: The following information was validated with the patient. [facility] Narrative: Occasional alcohol use, denies tobacco use, former smoker, PID, Zenker diverticulum Source: old records reviewed Medical History Zenker diverticulum Upper airway cough syndrome Dysphagia Chronic cough Emphysema of lung HTN (hypertension) HTN (hypertension) HTN (hypertension) PAD (peripheral artery disease) Surgical History Hx of cataract surgery S/P angiogram of extremity (04/06/22) Lumbar stenosis History of hemorrhoidectomy History of right knee surgery S/P left rotator cuff repair S/P right rotator cuff repair History of right tennis elbow Left rotator cuff tear arthropathy Trigger finger of right thumb Cervical radiculopathy at C6 Cervical radiculopathy at C5 Status post osteotomy Left varicocele History of appendectomy Family History Family History Mother No problems noted. Father Heart disease Sister Multiple sclerosis Social History Social History Alcohol intake: current Alcohol intake frequency: holidays/special occasions only Patient Tobacco Use Status: Former Tobacco user Years Smoked: 10+/- Advance Directives: No Advance Directives Information Provided: Yes Physical Exam Vital Signs: Vital Signs: Last Vital Signs Temp 98.2 F 04/20/25 01:34 Pulse 61 04/20/25 01:34 Resp 17 04/20/25 01:34 BP 127/64 04/20/25 01:34 Pulse Ox 95 04/20/25 01:34 O2 Del Method Room Air 04/20/25 01:34 BMI result Body Mass Index 24.7 GENERAL: Ill-Appearing, appears uncomfortable. SKIN: Pale, warm, dry, no rashes noted. HEENT: Normocephalic, atraumatic, no stridor, dry mucous membranes, dentition intact, EOMI, PERRLA. NECK: Soft, supple, full ROM, midline structures nontender, no step-offs, no deformities, no lymphadenopathy. CHEST: Heart regular rhythm, no murmurs, symmetric chest rise and fall. PULMONARY: Clear to auscultation bilaterally, diminished at the bases, no labored breathing, no wheezes/rhales/rhonchi. ABDOMINAL: Soft, nondistended, nontender, quiet bowel sounds in all quadrants. : Deferred. MUSCULOSKELETAL: Normal tone, full range of motion, no deformities, no peripheral edema. NEURO: Alert and oriented x3, CN II through XII intact, equal strength and sensation bilateral upper and lower extremities, no focal neurologic deficits. PSYCHIATRIC: Flat affect, fluid speech, good eye contact and appropriate demeanor. Medications Administered Discontinued Medications Generic Name Dose Route Start Last Admin Trade Name Freq PRN Reason Stop Dose Admin Dicyclomine HCl 20 mg 04/20/25 00:18 04/20/25 00:47 Dicyclomine Hcl 10 Mg Capsule PO 04/20/25 00:19 20 mg ONCE ONE Administration Lactated Ringer's 1,000 mls @ 999 mls/hr 04/19/25 22:39 04/20/25 01:34 Lr IV 04/19/25 23:39 Infused .Q1H1M ONE Infusion Ondansetron HCl 4 mg 04/19/25 22:39 04/19/25 23:39 Ondansetron Hcl 4 Mg/2 Ml Vial IVPUSH 04/19/25 22:40 4 mg ONCE ONE Administration Medical Decision Making Medical Decision Making [facility] Narrative: Patient presents today with a chief complaint of acute diarrhea with assoicated vomiting and generalized abdominal pain after exposure to family who are also sick. Differential diagnosis includes enteritis, colitis such as ischemic or C diff, inflammatory bowel disease, bacterial or viral diarrhea, GI bleed, hypovolemia, among others. Patient is having abdominal pain. Patient has not had recent antibiotics. 2:28 a.m. patient feeling improved after fluids, Bentyl, Zofran. Plan for discharge home with prescriptions for the same. Using shared decision making, plan for discharge home to follow-up with primary care and/or specialist. Patient understands and agrees with plan for discharge. Discharged home in stable condition. Differential Diagnosis Differential Diagnoses: The differential diagnosis associated with the presentation includes (As above) Admission/Observation Consideration of admission/observation: Escalation of care including admission/observation considered Lab Data MDM Lab Attestation statement: I reviewed the patient's lab results. Volume contraction with elevated hemoglobin, ROZ, elevated BUN to creatinine ratio suggestive of dehydration 04/19/25 22:07 04/19/25 22:07 Labs: Lab Results 04/19/25 Range/Units 22:07 WBC 6.0 (4.8-10.8) X10*3/uL RBC 5.38 (4.60-5.80) X10*6/uL Hgb 17.7 D (14.0-18.0) g/dl Hct 49.1 (42.0-52.0) % MCV 91.3 (80.0-98.0) fL MCH 32.9 (27.0-33.0) pg MCHC 36.0 (31.0-36.0) g/dl RDW 13.0 (11.0-16.0) % Plt Count 184 (160-400) X10*3/uL MPV 10.6 (9.4-12.4) fL Immature Gran % (Auto) 0.2 (0.0-0.4) % Neut % (Auto) 54.3 (45-73) % Lymph % (Auto) 29.8 (20-40) % Becker % (Auto) 13.3 H (2-11) % Eos % (Auto) 2.2 (0-4) % Baso % (Auto) 0.2 (0-2) % Lymph # (Auto) 1.8 (1.2-4.9) X10*3/uL Becker # (Auto) 0.8 (0.1-1.2) X10*3/uL Eos # (Auto) 0.1 (0.0-0.4) X10*3/uL Baso # (Auto) 0.0 (0.0-0.2) X10*3/uL Abs Immat Gran (auto) 0.01 (0.00-0.03) X10*3/uL Absolute Neuts (auto) 3.3 (2.0-8.3) x10*3/uL Absolute Nucleated RBC 0.000 (0.0-0.012) X10*3/uL Nucleated RBC % (auto) 0.0 (0.0-0.2) /100WBC Sodium 136 (135-145) mmol/L Potassium 4.1 (3.3-5.1) mmol/L Chloride 102 (96-108) mmol/L Carbon Dioxide 23 (22-29) mmol/L Anion Gap 15 (12-20) BUN 51 H (9-16) mg/dL Creatinine 2.09 H (0.5-1.4) mg/dL Estim Creat Clear Calc 31.5 Estimated GFR 31 Random Glucose 111 (60-115) mg/dL Calcium 9.2 (8.4-10.2) mg/dL Total Bilirubin 0.9 (0.0-1.0) mg/dL AST 81 H (5-37) U/L ALT 40 (0-40) U/L Alkaline Phosphatase 45 (39-117) U/L Total Protein 7.9 (6.5-8.0) g/dL Albumin 4.4 (3.5-5.0) g/dL Influenza Type A (PCR) NEGATIVE (Negative) Influenza Type B (PCR) NEGATIVE (Negative) RSV RNA Qual (PCR) NEGATIVE (Negative) SARS-CoV-2 RNA (RT-PCR) NEGATIVE (Negative) Independent Interpretation I performed an independent interpretation of an: EKG Interpretation: My independent interpretation of the ECG reveals normal sinus rhythm with rate of 66, leftward axis, left anterior fascicular block, normal intervals, no ST elevations or depressions to suggest ischemic changes. No previous for comparison. Independent Historian Clinical information obtained from an independent historian. History obtained from or confirmed by: Spouse and Other (Daughter) Prescription Management I considered prescription management with: Pain Medication and Other (Antiemetics) Chronic Conditions Patient?s care impacted by: Other (PAD, HTN, HLD) Discharge Plan Discharge Clinical Impression: Dehydration, Gastroenteritis, ROZ (acute kidney injury) Patient Disposition: Home, Self-Care Instructions: Dehydration (ED), Gastroenteritis (ED) Additional Instructions: Use Zofran for nausea, dicyclomine for abdominal cramps. Force your fluids over the next several days. Drink plenty of water and ensure that you stay well hydrated. Return to the emergency department with any new or worsening symptoms including: Worsening abdominal pain despite medications, inability to tolerate food or drink, fevers greater than 100?, a symptom that concerns you. Call 911 with any medical emergency. Prescriptions: New ondansetron HCl 4 mg tablet 4 mg PO Q8H Qty: 10 0RF dicyclomine 20 mg tablet 20 mg PO TID Qty: 10 0RF No Action omeprazole 20 mg capsule,delayed release(DR/EC) 20 mg PO DAILY 90 Days Qty: 90 1RF aspirin [Adult Aspirin Regimen] 81 mg tablet,delayed release (DR/EC) 81 mg PO DAILY metoprolol succinate 50 mg tablet extended release 24 hr 50 mg PO DAILY gabapentin 300 mg capsule 300 mg PO DAILY simvastatin 20 mg tablet 20 mg PO BEDTIME vitamin B complex [B Complex-Vitamin B12] Tablet 1 tab PO DAILY cholecalciferol (vitamin D3) 25 mcg (1,000 unit) capsule 25 mcg PO DAILY alfuzosin 10 mg tablet extended release 24 hr 10 mg PO DAILY Qty: 90 3RF Rx Instructions: administer after the same meal each day, alfuzosin to replace tamsulosin Anoro Ellipta 62.5-25 mcg/actuation blister with device 1 inh inhalation DAILY Qty: 60 11RF Print Language: Icelandic
--- OUTSIDE RECORDS SUMMARY | 2025-04-19 22:43 | XMS_ITS | Patient Health Record ---
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 [place] [phone] [id number] NAN RAMSAY Self - patient is the insured Medical (General) History Medical History History ICD Code hypertension nerve pain right leg elevated cholesterol cervical spondyloarthropathies degenerative joint disease prostate nodule Surgical History Surgery Date(Month/Year) appendectomy left vericocele metatarsal osteotomy cervical radiculopathy thumb rotator cuff tear repair right knee arthroscopy tennis elbow surgery
--- OUTSIDE RECORDS SUMMARY | 2025-04-19 22:43 | XMS_ITS | Clinical Summary ---
Author Organization [facility] [address] [place] [address] [address] [place] [address] Phone Care Team Providers Care Radio Engineering Teacher Name Role Phone Karlie Mendez MD Primary Care Provider Allergies Active Allergy Reactions Criticality Noted Date Comments Other 06/30/2010 Seasonal Allergies Medications ruxolitinib (Opzelura) 1.5 % cream 4 Active fluticasone propionate (FLONASE) 50 mcg/actuation nasal spray 2 Sprays by Each Nare route daily. 3 Active alfuzosin (UROXATRAL) 10 mg 24 hr tablet 2 Active aspirin 81 mg chewable tablet Take 81 mg by mouth daily. Active cholecalciferol (VITAMIN D-3) 1,250 mcg (50,000 unit) capsule Take by mouth. Activ e cyanocobalamin (VITAMIN B-12) 500 mcg tablet Take 1 Tab by mouth daily for 360 days. 0 Active metoprolol succinate (TOPROL-XL) 50 mg 24 hr tablet Take 1 tablet (50 mg total) by mouth 1 (one) time each day. Do not crush or chew. 90 tablet 5 Active simvastatin (ZOCOR) 40 mg tablet Take 1 tablet (40 mg total) by mouth at bedtime. at bedtime. 90 tablet 1 5 Active gabapentin (NEURONTIN) 300 mg capsule Take 2 capsules (600 mg total) by mouth at bedtime. 180 capsule 5 Active ciclopirox (PENLAC) 8 % solution Apply topically at bedtime. Apply over nail and surrounding skin. Apply daily over previous coat. After seven (7) days, may remove with alcohol and continue cycle. 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 Sloan - [facility] - physical therapy, injections unhelpful Persists status post neural ablation Dr. Sergio Gore- [facility]- myofascial pain due to paravertebral muscle dysfunction Dr. Tahira Elaine - [facility]- continue cyclobenzaprine, trial of trigger point injections, botulinum injections, PT, stop bifocals 09/19 - Shanika Young PA-c from Physiatry - referred for bilateral C3-4, C4-5 facet joint injection 212 - left C3, C4, C5 and C6 medial branch radiofrequency neurotomy 04/22 - per [facility] neurosurgery, no surgical course of action appropriate due to the extent of the arthritis in both areas. Their recommendation is pain management. 08/23 - Dr. Heller ([facility] pain management) - acupuncture - not much relief Encounters Date Type Department Care Team Description 02/06/2025 Telephone Adult Medicine [address] [phone] Karlie Mendez MD Request For Order(s) (TTE) 02/04/2025 1:00 PM EDT Office Visit Adult Medicine [address] [phone] Karlie Mendez MD Zenker's diverticulum (Primary Dx); Heart murmur; Shortness of breath; Prediabetes; Neuropathy of right lower extremity; Duodenitis; Paraesophageal hernia 01/30/2025 Telephone Adult Medicine [address] [phone] Joann Law MA Post-op from Last 3 Months Immunizations Name Administration [...] HISTORICAL SHOULDER SURGERY; COMMENT: both shoulders- Dr. Jmi- [place] HAND [facility]ERY 1996 PROCEDURE: HISTORICAL HAND SURGERY; COMMENT: R - trigger release KNEE SURGERY 07/20 PROCEDURE: HISTORICAL KNEE SURGERY; COMMENT: Dr. Zee - R - arthroscopy for meniscal tear COLONOSCOPY 04/17/2013 PROCEDURE: HISTORICAL COLONOSCOPY; COMMENT: tics and hemorrhoids; repeat in ten yrs NECK SURGERY 1987 PROCEDURE: HISTORICAL NECK SURGERY; COMMENT: Neck sg for hand numbness (in ) HEMORRHOID SURGERY PROCEDURE: [place] INCISION THROMBOSED HEMORRHOID EXTERNAL Medical History Medical [...] Cigarettes Q uit: 10/09/1973 Smokeless Tobacco: Never Tobacco Cessation:Counseling Given: Not Answered Alcohol Use Standard Drinks/Week Comments Yes 0 [...] care for your loved ones. For example, childhood development teacher or elderly care for an older [...] Sign Reading Time Taken Comments Blood Pressure 136/84 02/04/2025 12:49 PM EDT Pulse 78 02/04/2025 12:49 PM EDT Temperature 36.7 C (98.1 F) 02/04/2025 12:49 PM EDT Respiratory Rate 16 02/04/2025 12:49 PM EDT Oxygen Saturation - - Inhaled Oxygen Concentration - - Weight 86.6 kg (191 lb) 02/04/2025 12:49 PM EDT Height 180.3 cm (5' 11 ) 02/04/2025 12:49 PM EDT Body Mass Index 26.64 02/04/2025 12:49 PM EDT Plan of Treatment Upcoming Encounters Date Type Department Care Team (Late st Contact Info) Description 05/21/2025 8:45 AM EDT Office Visit Adult Medicine [id number] [place] [phone] Karlie Mendez MD [address] [place] [address] 06/23/2025 10:00 AM EDT Office Visit Orthopedic Surgery - [place] [address] [phone] Chandler Arceo, DPM [address] [address] Health Maintenance Due Date Last Done Comments Influenza Vaccine (#1) 2025 , 07/01/2023, 07/01/2023, Additional history exists Social Influencers of Health Screening 08/18/2025 08/18/2024 COVID-19 Vaccine (8 - Pfizer risk season) 2025 06/18/2024, 07/07/2023, 07/02/2022, Additional history exists Postponed from 12/16/2024 (Patient Refused) Depression Screening 01/07/2026 01/07/2025 Falls Risk Assessment 01/07/2026 01/07/2025, 024 Hypertension/CHF/CAD Annual BMP Blood Test 01/08/2026 01/08/2025, 01/10/2024 Cholesterol Screening (Lipid Panel) 04/30/2029 04/30/2024, 04/30/2024 DTaP,Tdap,and Td Vaccines (3 - Td or Tdap) 12/19/2033 12/20/2023, 09/24/2013 Hepatitis C Screening Completed 09/23/2013 Zoster Vaccines Completed 11/20/2020, 01/2020, 04/04/2012 RSV Immunization Patients Under 20 months Aged Out 09/04/2023 No longer eligible based on patient's age to complete this topic RSV Immunization Adult Patients Completed 06/18/2024, 09/04/2023 Pneumococcal Vaccine: 50+ Years [...] age to complete this topic Meningococcal B Vaccine Aged Out No l onger eligible based on patient's age to complete this topic Varicella Vaccines Aged Out No longer eligible based on patient's age to complete this topic Procedures Procedure Name Priority Date/Time Associated Diagnosis Comments COMPREHENSIVE METABOLIC PANEL Routine 01/08/2025 9:23 AM EDT Paresthesia of right foot LIPID PANEL Routine 04/30/2024 HEPATITIS C SCREENING Routine 09/23/2013 from Last 3 Months or Most Recently Relevant to Health Maintenance Results * Comprehensive metabolic panel (01/08/2025 9:23 AM EDT) Sodium 139 133 - 145 mmol/L LAB CHEMISTRY METHOD 01/08/2025 1:59 PM [facility] Potassium 4.5 3.5 - 5.5 mmol/L LAB CHEMISTRY METHOD 01/08/2025 1:59 PM [facility] Chloride 108 96 - 110 mmol/L LAB CHEMISTRY METHOD 01/08/2025 1:59 PM [facility] CO2 26 21 - 32 mmol/L LAB CHEMISTRY METHOD 01/08/2025 1:59 PM [facility] Anion Gap 5 3 - 11 LAB CHEMISTRY METHOD 01/08/2025 1:59 PM [facility] Glucose 92 70 - 100 mg/dL LAB CHEMISTRY METHOD 01/08/2025 1:59 PM [facility] BUN 13 5 - 25 mg/dL LAB CHEMISTRY METHOD 01/08/2025 1:59 PM [facility] Creatinine 1.23 0.70 - 1.30 mg/dL LAB CHEMISTRY METHOD 01/08/2025 1:59 PM [facility] eGFR 60 >=60 mL/min/1. 73m2 LAB CHEMISTRY METHOD 01/08/2025 1:59 PM [facility] Comment:Calculation based on the Chronic Kidney Disease Epidemiology Collaboration (CKD-EPI) equation refit without adjustment for race. BUN/Creatinine Ratio 10.6 LAB CHEMISTRY METHOD 01/08/2025 1:59 PM [facility] Calcium 9.0 8.5 - 10.5 mg/dL LAB CHEMISTRY METHOD 01/08/2025 1:59 PM [facility] AST (SGOT) 22 10 - 42 unit/L LAB CHEMISTRY METHOD 01/08/2025 1:59 PM [facility] ALT (SGPT) 15 10 - 60 unit/L LAB CHEMISTRY METHOD 01/08/2025 1:59 PM [facility] Alkaline Phosphatase 78 42 - 121 unit/L LAB CHEMISTRY METHOD 01/08/2025 1:59 PM [facility] Total Protein 6.4 6.0 - 8.0 g/dL LAB CHEMISTRY METHOD 01/08/2025 1:59 PM [facility] Albumin 3.5 3.2 - 5.0 g/dL LAB CHEMISTRY METHOD 01/08/2025 1:59 PM [facility] Total Bilirubin 0.7 0.0 - 1.4 mg/dL LAB CHEMISTRY METHOD 01/08/2025 1:59 PM [facility] Blood Venous blood specimen / Unknown Venipuncture / Unknown 01/08/2025 9:23 AM EDT 01/08/2025 9:23 AM EDT Karlie Mendez MD LAB BLOOD ORDERABLES Final Result [facility] [address] [place] [address], * Lipid panel (04/30/2024) LDL/HDL Ratio 2 0 - 4 Triglycerides 70 0 - 150 mg/dL Cholesterol 159 0 - 200 mg/dL HDL 77 >=40 mg/dL LDL Cholesterol 68 0 - 100 mg/dL Blood Venous blood specimen / Unknown Historical Provider LAB BLOOD ORDERABLES Cassidy l Result * Hepatitis C Screening (09/23/2013) Hepatitis C Screening Abstracted Historical Provider HEALTH MAINTENANCE Final Result from Last 3 Months or Most Recently Relevant to Health Maintenance Insurance [facility] Care Teams Radio Engineering Teacher Relationship Specialty Start Date End Date Karlie Mendez MD [address] [place] [address] PCP - General 03/27/24
--- OUTSIDE RECORDS SUMMARY | 2025-04-19 22:43 | XMS_ITS | Clinical Summary ---
Author Organization [facility] Address [address] [place] [address] Care Team Providers Care Parimutuel Cashier Name Role Phone Tree Aguilar Primary Care [...] season) 2024 12/31/2020, 12/10/2020 Influenza Vaccine (#1) 2025 7, 08/22/2016, 07/03/2015, Additional history exists Pneumococcal Vaccine Completed 04/22/2015, 09/21/20 12 Shingrix-Zoster Vaccine Completed 11/20/2020, 09/11 Hepatitis B Vaccines Aged Out No long er eligible based on patient's age to complete this topic RSV Ped < 20 months Aged Out No longe r eligible based on patient's age to complete this topic Care Teams Parimutuel Cashier Relationship Specialty Start Date End Date Tree Aguilar PCP - General Internal Medicine 01/18/18
[2025-04-19 22:48] LABS: Resp Syncy Virus RNA Qual PCR NEGATIVE (Negative); SARS COV2 PCR INHOUSE NEGATIVE (Negative)
[2025-04-19] MEDS: Lactated Ringers 1,000 ML 999 ML IV (23:39)
[2025-04-19 23:40] VITALS: BP 153/79; PULSE 70; RESP 17; TEMP 36.4; O2SAT 95
--- NOTE | 2025-04-19 23:57 | ECG_ITS ---
Test Reason : WEAKNESS Blood Pressure : */* mmHG Vent. Rate : 66 BPM Atrial Rate : 66 BPM P-R Int : 178 ms QRS Dur : 104 ms QT Int : 418 ms P-R-T Axes : 39 -52 35 degrees QTcB Int : 438 ms Normal sinus rhythm Left anterior fascicular block Abnormal ECG No previous ECGs available Referred By: Alexus De Anda Electronically Signed By: Eliud Arriaga
[2025-04-20 01:34] VITALS: BP 127/64; PULSE 61; RESP 17; TEMP 36.8; O2SAT 95
[2025-04-20 02:34] VITALS: BP 127/64; PULSE 61; RESP 17; TEMP 36.8; O2SAT 95
[2025-04-20 12:19] LABS: E. coli EAEC Not Detected (Not Detect.); E. coli EPEC Detected (Not Detect.); E. coli ETEC Not Detected (Not Detect.); E. coli STEC Not Detected (Not Detect.); Shigella sp./EIEC Not Detected (Not Detect.)
== END 2025-04-20 02:37 | disposition home or self-care (01) ==
PROVIDERS: Emergency Provider Emergency Medicine; PCP Internal Medicine
DX: A04.4 Other intestinal Escherichia coli infections (principal); R11.2 Nausea with vomiting, unspecified; Z03.818 Encounter for observation for suspected exposure to other biological agents ruled out; E86.0 Dehydration; N17.9 Acute kidney failure, unspecified
CPT/HCPCS: 80053; 85025; 87507; 87637; 93005; 96361; 96374; 99284; J2405; J7120

== ENCOUNTER → 2025-04-19 23:57 | Outpatient (BNV) | payer OTHER, SELFPAY | PROVIDERS: Emergency Provider Emergency Medicine; PCP Internal Medicine; Visit Provider Internal Medicine Cardiovascular Disease | DX: I44.4 Left anterior fascicular block (principal) | CPT/HCPCS: 93010 ==

== ENCOUNTER 2025-04-28 09:31 | Outpatient (AMB) | payer OTHER, SELFPAY ==
--- OUTSIDE RECORDS SUMMARY | 2025-04-23 23:59 | XMS_ITS | Continuity of Care Document ---
Author Organization [facility] Address [address] [place] [id number]- Care Team Providers Care Seal Extrusion Operator Name Role Phone Jeff GARCIA, Tree Primary Care Physician Encounter [facility] Date(s): 03/24/25 - 04/23/25 [facility] [address] [place] [id number] Encounter Type: Triage Allergies, Adverse Reactions, Alerts No Known Allergies Medications Albuterol (Eqv-ProAir HFA) 90 mcg/inh inhalation aerosol 0 Refills, Maintenance, 03/10/25 8:47:00 AM EDT, Partial fill upon patient request if the prescription is for a schedule II opioid drug. Start Date: 03/10/25 Status: Ordered Repeat number: 1 alfuzosin 10 mg oral tablet, extended release 1 tablet = 10 mg, By Mouth, Daily at bedtime, # 30 tablet, 0 Refills, Maintenance, 01/21/25 3:38:00 PM EDT, ER Tablet, Partial fill upon patient request if the prescription is for a schedule II opioiddrug. Start Date: 01/21/25 Status: Ordered Quantity: 30.0 Unit: tablet Repeat number: 1 aspirin 81 mg oral capsule 1 capsule = 81 mg, By Mouth, Every 24 hours, 0 Refills, Maintenance, 03/10/25 8:48:00 AM EDT, Partialfill upon patient request if the prescription is for a schedule II opioid drug. Start Date: 03/10/25 Status: Ordered Repeat number: 1 aspirin 81 mg oral capsule 1 capsule = 81 mg, By Mouth, Daily, # 30 capsule, 0 Refills, Maintenance, 01/21/25 3:39:00 PM EDT, Capsule, Partial fill upon patient request if the prescription is for a schedule II opioid drug. Start Date: 01/21/25 Status: Ordered Quantity: 30.0 Unit: capsule Repeat number: 1 benzonatate 200 mg oral capsule 0 Refills, Maintenance, 03/10/25 8:47:00 AM EDT, Partial fill upon patient request if the prescription is for a schedule II opioid drug. Start Date: 03/10/25 Status: Ordered Repeat number: 1 gabapentin 300 mg oral capsule 300 mg, 1, capsule, By Mouth, Daily at bedtime, Refills 0, Maintenance, 12/07/16 4:20:42 PM EST Start Date: 12/07/16 Status: Ordered Repeat number: 1 metoprolol 50 mg oral tablet 50 mg, 1, tablet, By Mouth, Daily, Refills 0, Maintenance, 12/07/16 4:20:33 PM EST Start Date: 12/07/16 Status: Ordered Repeat number: 1 Omeprazole By Mouth, Daily, 0 Refills, Maintenance, 03/10/25 8:48:00 AM EDT, Partial fill upon patient request if the prescription is for a schedule II opioid drug. Start Date: 03/10/25 Status: Ordered Repeat number: 1 Opzelura 1.5% topical cream 0 Refills, Maintenance, 03/10/25 8:48:00 AM EDT, Partial fill upon patient request if the prescription is for a schedule II opioid drug. Start Date: 03/10/25 Status: Ordered Repeat number: 1 simvastatin 40 mg oral tablet 40 mg, 1, tablet, By Mouth, Daily at bedtime, # 90 tablet, Refills 0, Maintenance, 01/21/25 3:38:00 PM EDT, Partial fill upon patient request if the prescription is for a schedule II opioid drug. Start Date: 01/21/25 Status: Ordered Quantity: 90.0 Unit: tablet Repeat number: 1 Vitamin B12 0 Refills, Maintenance, 03/10/25 8:48:00 AM EDT, Partial fill upon patient request if the prescription is for a schedule II opioid drug. Start Date: 03/10/25 Status: Ordered Repeat number: 1 Vitamin D3 5000 intl units oral capsule 1 capsule = 125 mcg, By Mouth, Daily, 0 Refills, Maintenance, 03/10/25 8:48:00 AM EDT, Partial fill upon patient request if the prescription is for a schedule II opioid drug. Start Date: 03/10/25 Status: Ordered Repeat number: 1 Patient Care team information Care Team Personnel Name: Torrie Khoury RN Position: S RN Member Role: Primary Care Nurse Care Team Related Persons Name: CAMMY HUIZAR Insurance Providers Guarantor name: NAN HUIZAR Health Plan Information #: 1 Payer: [facility] Payer Identifier: NA Member Number: [id number] Group Number: [id number] Subscriber Identifier: [id number] Relationship to Subscriber: self Coverage Type: NA Coverage Verification Date: NA Telecom: Address:
--- NOTE | 2025-04-28 09:41 | MHC.OFFVIS ---
Vital Signs 04/28/25 09:42 Height 5 ft 11 in Weight 189 lb 9.561 oz BMI 26.4 BP 157/65 H Blood Pressure Location Lt brachial Position Sitting Pulse 58 Intake Visit Reasons: abnormal imaging results Intake Note: Jhon presents in the office as a new patient for abnormal imaging. CC: Stomach pains, irregular bowel movemebnts - got over a bout of E Coli and Norovirus. It has been 2 weeks and he can finally keep food down. Human Performance Consultant Required: No Allergies green foods Allergy (Mild, Uncoded 04/28/25 09:44) Unknown HPI HPI abnormal imaging results: Details: HPI 79 yr old m here for assessment He had been having issues with swallowing He had zenkers on imaging went to [facility] and had Z-POM , as well as dilation of schatzki ring. 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 ROS: Constitutional : No Weight loss, No Fever, No Chills ENT/Mouth : No sore throat, No Rhinorrhea Eyes: No Swelling, No Redness Cardiovascular : No Chest Pain, No SOB, No Edema Respiratory : No Cough, No Sputum, No Wheezing Gastrointestinal : see HPI Genitourinary : NO Dysuria, No Urinary Frequency, No Hematuria, No Urgency Musculoskeletal :no joint pain, No Myalgias, No Joint Swelling Skin : No Skin Lesions, No rash Neuro : No Weakness, No Numbness, No Dizziness, No Headache Psych : No Anxiety/Panic, No Depression Heme/Lymph: No Bruising, No Lymphadenopathy Endocrine : No Polyuria, No Polydipsia All other systems reviewed and are negative. Medical History Zenker diverticulum Upper airway cough syndrome Dysphagia Chronic cough Emphysema of lung HTN (hypertension) HTN (hypertension) HTN (hypertension) PAD (peripheral artery disease) Surgical History Hx of cataract surgery S/P angiogram of extremity (04/06/22) Lumbar stenosis History of hemorrhoidectomy History of right knee surgery S/P left rotator cuff repair S/P right rotator cuff repair History of right tennis elbow Left rotator cuff tear arthropathy Trigger finger of right thumb Cervical radiculopathy at C6 Cervical radiculopathy at C5 Status post osteotomy Left varicocele History of appendectomy Family History celiac disease in son and daughter Social History ex smoker, no alcohol or drugs EXAM: GENERAL: The patient is well developed and nontoxic. VITAL SIGNS:see workflow HEENT: Nonicteric sclerae, PERRLA, EOMI. Oropharynx clear. Moist mucous membranes. Conjunctivae appear well perfused. No thyroid mass. CHEST: Chest wall is nontender. HEART: Regular rate and rhythm without murmurs. LUNGS: Clear to auscultation bilaterally. ABDOMEN: Soft, positive bowel sounds, nontender, no organomegaly.no flank tenderness SKIN: No rash, no excessive bruising, petechiae, or purpura. NEUROLOGIC: Cranial nerves II-XII intact without motor/sensory deficit. Psych: normal affect A/P: 1/ dysphagia and zenker, s/p Z=POM, having coughing again, maybe due to sub optimal GERD control 2/ celiac, non compliant PLAN: 1/ change to esomeprazole and see if controls GERD and cough 2/ if not then EGD 3/ recheck labs inlc nutrients and celiac serologies PFSH Medical History Zenker diverticulum Upper airway cough syndrome Dysphagia Chronic cough Emphysema of lung HTN (hypertension) HTN (hypertension) HTN (hypertension) PAD (peripheral artery disease) Surgical History Hx of cataract surgery S/P angiogram of extremity (04/06/22) Lumbar stenosis History of hemorrhoidectomy History of right knee surgery S/P left rotator cuff repair S/P right rotator cuff repair History of right tennis elbow Left rotator cuff tear arthropathy Trigger finger of right thumb Cervical radiculopathy at C6 Cervical radiculopathy at C5 Status post osteotomy Left varicocele History of appendectomy Family History Mother No problems noted. Father Heart disease Sister Multiple sclerosis Social History Alcohol intake: current Alcohol intake frequency: holidays/special occasions only Patient Tobacco Use Status: Former Tobacco user Years Smoked: 10+/- Physical Exam Vital Signs: Last Vital Signs Pulse 58 04/28/25 09:42 BP 157/65 H 04/28/25 09:42 BMI result Body Mass Index 26.4 Assessment & Plan Assessment & Plan (1) Abnormal barium swallow: Code(s): R93.3 - Abnormal findings on diagnostic imaging of other parts of digestive tract Category: Medical Plan: as above Orders: Orders Vitamin B12 and Folate Today R93.3 - Abnormal findings on diagnostic imaging of other parts of digestive tract Vitamin B6 Today R93.3 - Abnormal findings on diagnostic imaging of other parts of digestive tract Vitamin C Today R93.3 - Abnormal findings on diagnostic imaging of other parts of digestive tract Ferritin Today R93.3 - Abnormal findings on diagnostic imaging of other parts of digestive tract Vitamin A Today R93.3 - Abnormal findings on diagnostic imaging of other parts of digestive tract Vitamin B1 Today R93.3 - Abnormal findings on diagnostic imaging of other parts of digestive tract Vitamin D 25-OH Total Today R93.3 - Abnormal findings on diagnostic imaging of other parts of digestive tract Vitamin E Today R93.3 - Abnormal findings on diagnostic imaging of other parts of digestive tract Zinc Today R93.3 - Abnormal findings on diagnostic imaging of other parts of digestive tract Vitamin K1 Today E46 - Unspecified protein-calorie malnutrition, R93.3 - Abnormal findings on diagnostic imaging of other parts of digestive tract Transglutaminase Ab IgG Today G89.29 - Other chronic pain, R10.33 - Periumbilical pain, R93.3 - Abnormal findings on diagnostic imaging of other parts of digestive tract Transglutaminase IgA Today R93.3 - Abnormal findings on diagnostic imaging of other parts of digestive tract Medications: New esomeprazole magnesium 40 mg PO DAILY 90 caps 2RF Discontinued omeprazole Discontinued Reason: Doctor's Order 20 mg PO DAILY 90 days 90 caps 1RF Coding Level of Care Code New Pt Level 4 (12674) Diagnoses Abnormal barium swallow R93.3
[2025-04-28 09:42] VITALS: BP 157/65; PULSE 58; BMI 26.4
--- OUTSIDE RECORDS SUMMARY | 2025-04-28 10:03 | XMS_ITS | Continuity of Care Document ---
Author Name [facility] Organization [facility] Care Team Providers Care Record Filing Clerk Name Role Phone [facility] Unavailable Unavailable Problems Combined list of problems [...] to the last 18 months, not all [place] inpatient encounters are included; 2) Encounters from the [facility] facilities going backup to 280 months. Location Location Details Encounter Type Encounter Number Reason For Visit Attending Provider ADM Date DC Date Status Disposition Source [facility] Outpatient Encounter [id number] 01/18 [facility] HEARING AID REPAIR/MOD IFYING [id number] Diagnos is: ICD-10- CM Z46.1 Encount er for fitting and adjustm ent of hearing aid BAL WEBSTER L 01/23 [facility] [place] HEARING AID FITTING/CH ECKING [id number] Diagnos is: ICD-10- CM H90.3 Sensori neural hearing loss, bilater al BAL WEBSTER L 01/25 [facility] [place] [facility] Social History Combined list of available smoking, tobacco, and other social history from Department of Defense and Veterans Affairs facilities. Social History Type Response Date Comment Sourc e This section is an empty social history section. DoD
--- OUTSIDE RECORDS SUMMARY | 2025-04-28 10:05 | XMS_ITS | Patient Health Record ---
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 [place] [phone] [id number] NAN RAMSAY Self - patient is the insured Medical (General) History Medical History History ICD Code hypertension nerve pain right leg elevated cholesterol cervical spondyloarthropathies degenerative joint disease prostate nodule Surgical History Surgery Date(Month/Year) appendectomy left vericocele metatarsal osteotomy cervical radiculopathy thumb rotator cuff tear repair right knee arthroscopy tennis elbow surgery
--- OUTSIDE RECORDS SUMMARY | 2025-04-28 10:05 | XMS_ITS | Clinical Summary ---
Author Organization [facility] Address [address] [place] [address] Care Team Providers Care Bottom Scrubber Name Role Phone Tree Aguilar Primary Care [...] age to complete this topic Care Teams Bottom Scrubber Relationship Specialty Start Date End Date Tree Aguilar PCP - General Internal Medicine 01/18/18
== END 2025-04-28 10:10 | disposition home or self-care (01) ==
LOC: HO.HGI 09:32
PROVIDERS: PCP Internal Medicine; Visit Provider Internal Medicine Gastroenterology
DX: R93.3 Abnormal findings on diagnostic imaging of other parts of digestive tract (principal)
CPT/HCPCS: 99204

== ENCOUNTER 2025-04-28 09:31 | Outpatient (REF) | payer OTHER, SELFPAY ==
[2025-04-28 12:02] LABS: Ferritin 270 ng/mL (20-250)
[2025-04-28 12:14] LABS: Folate 3.5 ng/mL (> or = 4.0); Vitamin B12 1172 pg/mL (200-900)
[2025-05-01 13:43] LABS: Transglutaminase Ab IgG <1.0 U/mL
== END 2025-04-28 09:32 | disposition home or self-care (01) ==
LOC: HO.LAB 09:31
PROVIDERS: PCP Internal Medicine; Visit Provider Internal Medicine Gastroenterology
DX: R93.3 Abnormal findings on diagnostic imaging of other parts of digestive tract (principal); E46 Unspecified protein-calorie malnutrition; R10.33 Periumbilical pain; G89.29 Other chronic pain
CPT/HCPCS: 36415; 82306; 82607; 82728; 82746; 84207; 84425; 84446; 84590; 84597; 84630; 86364; 99202

== ENCOUNTER 2025-05-01 08:24 | Outpatient (AMB) | payer OTHER, SELFPAY ==
[2025-05-01 08:25] VITALS: BP 120/60; PULSE 67; O2SAT 96; BMI 26.3
--- NOTE | 2025-05-01 08:25 | A.OFFVIS_ITS ---
Vital Signs 05/01/25 08:25 Height 5 ft 11 in Weight 188 lb 7.924 oz BMI 26.3 BP 120/60 Blood Pressure Location Lt brachial Position Sitting Pulse 67 Pulse Source Pulse Oximeter Pulse Oximetry (%) 96 Oxygen Delivery Method Room Air Intake Visit Reasons: Cough Cooking Casing And Drying Supervisor Required: No Allergies green foods Allergy (Mild, Uncoded 04/28/25 09:44) Unknown HPI Comments Details: The patient is a 79-year-old gentleman presenting with a chronic cough. The patient states that this cough started back in about 2020. He states that at that point he was started on lisinopril and he is noticing the cough. At that point it was typically nonproductive in nature. Although when he stop the lisinopril he continued to have the cough. At times the cough can be productive in nature. He was evaluated by his shop teacher in ENT doctor and did undergo laryngoscopy sometime ago. No evidence of any significant abnormalities per the patient's report. He has been kept him on nasal steroid sprays and antihistamines sprays. In addition to that he does have a rescue inhaler the sometimes provide some relief for about an hour so. Then the effects wear off. As far as the workup the patient did undergo a pulmonary function study at [facility]. I did personally reviewed. No evidence of any obstructive nor restrictive ventilatory defects. Although he has an isolated diffusion impairment. Mild in severity. The patient also had a CT scan of the chest back in 01/27/2024 to further address the chronic cough. It looks like he does have some emphysema in the upper lung zones any indeed was a smoker smoking about 2 packs a day until about 14 years ago when he quit. In addition to that he does appear to have some atelectasis and scarring at the left base and some evidence of bronchitis. He also has some debris in the esophagus. Because of his chronic cough 1 needs to consider underlying reflux disease. On further questioning he states that he has difficulty swallowing specially medications like tablets. Denies ever choking on the food products. Will go ahead and request a barium swallow this time. 12/26/2024 the patient is here for pulmonary follow-up visit. He has cough persists. He did take the omeprazole for a month and then he stopped it. He also try the Benzonate which were partially helpful. He also took the Anoro inhaler for a month and did not see any significant change. Did have a barium swallow was very abnormal. He has a significant Zenker's and also achalasia. He will be following up with GI soon at [facility] since this needs to be dealt with at it bigger institution. Patient understands that his cough is related likely to this issue. Hopefully once his corrected his cough should start settling down. He needs to make sure to continue the PPI also continues sleeping elevated ICU is regurgitating. When he returns in 3-4 months will have him undergo a spirometry to assess for any obstructive physiology. But at this time will hold off on any inhaler therapy until he gets his GI issue corrected. 05/01/2025 the patient is here for pulmonary follow-up visit. He underwent a surgery for his Zenker's. He still has a small Zenker's that was left and he also has a hiatal hernia. He had been doing well with a cough and then started coughing a little bit more recently. Is bothering his . Moderate severity primarily at nighttime. We again talked about the hiatal hernia and the risks of micro aspirations in the need for sleeping elevated. He has not done as of yet. I did encourage him to do so because it will help minimize the irritation to the pharynx and larynx. In addition to that the patient did have spirometry in the office. The FEV1 to FVC is 73%. The patient has underlying allergies and likely some component of reactive airway disease and asthma. Therefore I did encourage him to use his inhaler at nighttime specially since the micro aspirations may be triggering bronchospasms and cough. Can either use the Anoro or his rescue inhaler. At some point I do believe that he will probably be better off with a combination inhaled corticosteroid and beta agonist combination inhaler. He continues to do allergy shots. I do believe that Zyrtec may be a good option for him to do as needed as the allergy shots will not treat all his allergies. He does have evidence of of eosinophilia on his blood work suggesting some degree of atopy. We reviewed his vaccines he needs to get an updated Tdap vaccine at this time. Will follow-up with the springtime and will perform formal pulmonary function studies done. [facility] Medical History Zenker diverticulum Upper airway cough syndrome Dysphagia Chronic cough Emphysema of lung HTN (hypertension) HTN (hypertension) HTN (hypertension) PAD (peripheral artery disease) Surgical History Hx of cataract surgery S/P angiogram of extremity (04/06/22) Lumbar stenosis History of hemorrhoidectomy History of right knee surgery S/P left rotator cuff repair S/P right rotator cuff repair History of right tennis elbow Left rotator cuff tear arthropathy Trigger finger of right thumb Cervical radiculopathy at C6 Cervical radiculopathy at C5 Status post osteotomy Left varicocele History of appendectomy Family History Mother No problems noted. Father Heart disease Sister Multiple sclerosis Social History Alcohol intake: current Alcohol intake frequency: holidays/special occasions only Patient Tobacco Use Status: Former Tobacco user Years Smoked: 10+/- Review of Systems Const Reports no additional complaints Eyes Reports no additional complaints ENT Reports dysphagia, Reports epistaxis, Reports nasal congestion, Reports nasal discharge and Reports post nasal drip Card Denies chest pain, Denies chest pain at rest, Denies chest pain with activity and Denies pedal edema Resp Reports cough GI Denies abdominal pain and Reports dysphagia Musc Denies abnormal gait, Denies muscle cramps and Denies radiating pain into limb Skin/Breast Denies skin ulcer and Denies wounds Neuro Denies abnormal gait Psych Reports no additional complaints Armando/Lymph Reports no additional complaints Aller/Immun Reports seasonal rhinorrhea Physical Exam Vital Signs: Last Vital Signs Pulse 67 05/01/25 08:25 BP 120/60 05/01/25 08:25 Pulse Ox 96 05/01/25 08:25 Oxygen Delivery Method Room Air 05/01/25 08:25 BMI result Body Mass Index 26.3 Const General: healthy appearing and comfortable Orientation/consciousness: oriented to person, oriented to place and oriented to time HEENT General nose exam: Abnormal mucous membranes and turbinates present erythematous and Epistaxis present Throat: Yes cobblestoning Neck Neck: Yes normal visual inspection Carotids: no bruits Chest Chest palpation & inspection: normal inspection of the chest Resp Effort & Inspection: normal respiratory effort, able to speak in complete sentences and No prolonged expiratory phase Auscultation: diminished lung sounds Cardio Other: Bilateral palpable dorsalis pedis pulses Rate: regular rate Rhythm: regular rhythm Heart sounds: S1 normal heart sound present and S2 normal heart sound present GI Palpation (GI): Soft to palpation Skin Wounds: no wounds Hair: normal Neuro General: oriented to person, oriented to place and oriented to time Extrem General: No clubbing, No cyanosis and No edema Psych Appearance: grossly normal Office Procedures Spirometry Testing Spirometry Comments: Spirometry done in the office, Dr. Tafoya has the results results scanned to his chart. [id number] Spirometry Assessment & Plan Assessment & Plan (1) Emphysema of lung: Code(s): J43.9 - Emphysema, unspecified Category: Medical Qualifiers: Emphysema type: centrilobular Qualified Code(s): J43.2 - Centrilobular emphysema (2) Chronic cough: Code(s): R05.3 - Chronic cough Category: Medical (3) Dysphagia: Code(s): R13.10 - Dysphagia, unspecified Category: Medical Qualifiers: Dysphagia type: unspecified Qualified Code(s): R13.10 - Dysphagia, unspecified (4) Upper airway cough syndrome: Code(s): R05.8 - Other specified cough Category: Medical (5) Zenker diverticulum: Code(s): K22.5 - Diverticulum of esophagus, acquired Category: Medical (6) Abnormal barium swallow: Code(s): R93.3 - Abnormal findings on diagnostic imaging of other parts of digestive tract Category: Medical Plan Anoro daily, consider switching to ICS/LABA MILLIE as needed benzonate as needed PPI HOB elevated while sleeping F/U 6-8months with PFTs Orders: Orders AMB Spirometry Testing 05/01/25 J43.2 - Centrilobular emphysema PFT pulmonary function test 6 Months J43.2 - Centrilobular emphysema Coding Level of Care Code Est Pt Level 4 (25529) Complex EM visit Add On G2211 Diagnoses Centrilobular emphysema J43.2 Emphysema type: centrilobular Chronic cough R05.3 Dysphagia, unspecified type R13.10 Dysphagia type: unspecified Upper airway cough syndrome R05.8 Zenker diverticulum K22.5 Abnormal barium swallow R93.3 CPT Codes Spirometry - CPT: 38044- Spirometry ([id number]) Time Spent (min) 17
--- OUTSIDE RECORDS SUMMARY | 2025-05-01 08:40 | XMS_ITS | Continuity of Care Document ---
Author Name [facility] Organization [facility] Care Team Providers Care Health Care Analyst Name Role Phone [facility] Unavailable Unavailable Problems Combined list of problems [...] to the last 18 months, not all [place] inpatient encounters are included; 2) Encounters from the Department of [facility] facilities going backup to 280 months. Location Location Details Encounter Type Encounter Number Reason For Visit Attending Provider ADM Date DC Date Status Disposition Source [facility] Outpatient Encounter [id number] 01/18 [facility] HEARING AID REPAIR/MOD IFYING [id number] Diagnos is: ICD-10- CM Z46.1 Encount er for fitting and adjustm ent of hearing aid [place] WEBSTER L 01/23 [facility] [place] [place] [facility] HEARING AID FITTING/CH ECKING [id number] Diagnos is: ICD-10- CM H90.3 Sensori neural hearing loss, bilater al BAL WEBSTER L 01/25 [facility] [place] [facility] Social History Combined list of available smoking, tobacco, and other social history from Department of Defense and [facility] facilities. Social History Type Response Date Comment Sourc e This section is an empty social history section. [employer]D
--- OUTSIDE RECORDS SUMMARY | 2025-05-01 08:42 | XMS_ITS | Clinical Summary ---
Author Organization [facility] Address [address] [place] [address] Care Team Providers Care Model Builder Name Role Phone Tree Aguilra Primary Care Provider Rachell vailable Social History [...] age to complete this topic Care Teams Model Builder Relationship Specialty Start Date End Date Tree Aguilar PCP - General Internal Medicine 01/18/18
--- OUTSIDE RECORDS SUMMARY | 2025-05-01 08:42 | XMS_ITS | Clinical Summary ---
Author Organization [facility] [address] [place] [address] Address [address] [place] [address] Phone Care Team Providers Care Epidemiology Investigator Name Role Phone Karlie Mendez MD Primary [...] Take 81 mg by mouth daily. Active cholecalcifero l (VITAMIN D-3) 1,250 mcg (50,000 unit) capsule Take by mouth. Activ e cyanocobalamin (VITAMIN B-12) 500 mcg tablet Take 1 Tab by mouth daily for 360 days. 0 Active simvastatin (ZOCOR) 40 mg tablet Take 1 tablet (40 mg total) by mouth at bedtime. at bedtime. 90 tablet 1 5 Active gabapentin (NEURONTIN) 300 mg capsule Take 2 capsules (600 mg total) by mouth at bedtime. 180 capsule 5 Active metoprolol succinate (TOPROL-XL) 50 mg 24 hr tablet Take 1 tablet (50 mg total) by mouth 1 (one) time each day. Do not crush or chew. 90 tablet 1 5 Active metoprolol succinate (TOPROL-XL) 50 mg 24 hr tablet Take 1 tablet (50 mg total) by mouth 1 (one) time each day. Do not crush or chew. 90 tablet 5 025 Discontinu ed(Reorder ) ciclopirox (PENLAC) 8 % solution Apply topically at bedtime. Apply over nail and surrounding skin. Apply daily over previous coat. After seven (7) days, may remove with alcohol and continue cycle. 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 Puhg - bilateral L3, L4 and L5 medial branch radiofrequency neurotomy 04/22 - per [facility] neurosurgery, no surgical course of action appropriate due to the extent of the arthritis in both areas. 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 Sloan - [facility] - physical therapy, injections unhelpful Persists status post neural ablation Dr. Sergio Gore- [facility]- myofascial pain due to paravertebral muscle dysfunction Dr. Tahira Elaine - [facility]- continue cyclobenzaprine, trial of trigger point injections, botulinum injections, PT, stop bifocals 09/19 - Shanika Young PA-c from Physiatry - referred for bilateral C3-4, C4-5 facet joint injection 212 - left C3, C4, C5 and C6 medial branch radiofrequency neurotomy 04/22 - per [facility] neurosurgery, no surgical course of action appropriate due to the extent of the arthritis in both areas. Their recommendation is pain management. 08/23 - Dr. Heller ([facility] pain management) - acupuncture - not much relief Encounters Date Type Department Care Team Description 04/25/2025 1:00 PM EDT Office Visit Adult Medicine [address] [phone] Karlie Mendez MD Elevated AST (SGOT) (Primary Dx); Abnormal CBC; Elevated serum creatinine; Diarrhea, unspecified type; Hyperlipidemia, unspecified hyperlipidemia type; Benign prostatic hyperplasia with weak urinary stream; Neuropathy of right lower extremity 02/06/2025 Telephone Adult Medicine [address] [phone] Karlie Mendez MD Request For Order(s) (TTE) 02/04/2025 1:00 PM EDT Office Visit Adult Medicine [address] [phone] Karlie Mendez MD Zenker's diverticulum (Primary Dx); Heart murmur; Shortness of breath; Prediabetes; Neuropathy of right lower extremity; Duodenitis; Paraesophageal hernia 01/30/2025 Telephone Adult Medicine [address] [phone] Joann Law MA Post-op from Last 3 [...] SHOULDER SURGERY; COMMENT: both shoulders- Dr. Jim- [place] HAND SURGERY 1996 PROCEDURE: HISTORICAL HAND SURGERY; COMMENT: R - trigger release KNEE SURGERY 07/20 PROCEDURE: HISTORICAL KNEE SURGERY; COMMENT: Dr. Zee - R - arthroscopy for meniscal tear COLONOSCOPY 04/17/2013 PROCEDURE: HISTORICAL COLONOSCOPY; COMMENT: tics and hemorrhoids; repeat in ten yrs NECK SURGERY 1987 PROCEDURE: HISTORICAL NECK SURGERY; COMMENT: Neck sg for hand numbness (in ) HEMORRHOID SURGERY PROCEDURE: LA INCISION THROMBOSED HEMORRHOID EXTERNAL Medical History Medical [...] care for your loved ones. For example, attendant child activity or elderly care for an older adult? [...] Sign Reading Time Taken Comments Blood Pressure 128/62 04/25/2025 12:53 PM EDT Pulse 71 04/25/2025 12:53 PM EDT Temperature 36.3 C (97.3 F) 04/25/2025 12:53 PM EDT Respiratory Rate 16 02/04/2025 12:49 PM EDT Oxygen Saturation - - Inhaled Oxygen Concentration - - Weight 84.4 kg (186 lb) 04/25/2025 12:53 PM EDT Height 180.3 cm (5' 11 ) 04/25/2025 12:53 PM EDT Body Mass Index 25.94 04/25/2025 12:53 PM EDT Plan of Treatment Upcoming Encounters Date Type Department Care Team (Late st Contact Info) Description 05/21/2025 8:45 AM EDT Office Visit Adult Medicine [facility] [address] [place] [phone] Karlie Mendez MD [address] [place] [address] 06/23/2025 10:00 AM EDT Office Visit Orthopedic Surgery - [place] [address] [phone] Chandler Arceo, DPManav [address] [address] Health Maintenance Due Date Last Done Comments Influenza Vaccine (#1) 2025 , 07/01/2023, 07/01/2023, Additional history exists Social Influencers of Health Screening 08/18/2025 08/18/2024 COVID-19 Vaccine (8 - Pfizer risk season) 2025 06/18/2024, 07/07/2023, 07/02/2022, Additional history exists Postponed from 12/16/2024 (Patient Refused) Falls Risk Assessment 04/25/2026 04/25/2025, 024 Hypertension/CHF/CAD Annual BMP Blood Test 04/25/2026 04/25/2025, 01/08/2025, 01/10/2024 Cholesterol Screening (Lipid Panel) 04/25/2030 04/25/2025, 04/30/2024, 04/30/2024 DTaP,Tdap,and Td Vaccines (3 - Td or Tdap) 12/19/2033 12/20/2023, 09/24/2013 Hepatitis C Screening Completed 09/23/2013 Zoster Vaccines Completed 11/20/2020, 01/2020, 04/04/2012 RSV Immunization Patients Under 20 months Aged Out 09/04/2023 No longer eligible based on patient's age to complete this topic RSV Immunization Adult Patients Completed 06/18/2024, 09/04/2023 Pneumococcal Vaccine: 50+ Years Completed 07/03/2024, 04/22/2015, 09/21/2012 Depression Screening Completed 04/24/2025 HIB Vaccines Aged Out No longer eligi [...] Procedure Name Priority Date/Time Associated Diagnosis Comments CLOSTRIDIUM DIFFICILE TOXIN Routine 04/25/2025 3:19 PM EDT Diarrhea, unspecified type CBC WITH AUTO DIFFERENTIAL Routine 04/25/2025 1:39 PM EDT Abnormal CBC HEMOGLOBIN A1C Routine 04/25/2025 1:39 PM EDT Prediabetes LIPID PANEL WITH REFLEX TO DIRECT LDL Routine 04/25/2025 1:39 PM EDT Hyperlipidemia, unspecified hyperlipidemia type COMPREHENSIVE METABOLIC PANEL Routine 04/25/2025 1:39 PM EDT Elevated AST (SGOT) CBC AND DIFFERENTIAL Routine 04/25/2025 1:39 PM EDT Abnormal CBC MAGNESIUM Routine 04/25/2025 1:39 PM EDT Diarrhea, unspecified type PHOSPHORUS Routine 04/25/2025 1:39 PM EDT Diarrhea, unspecified type HM HEPATITIS C SCREENING Routine 09/23/2013 from Last 3 Months or Most Recently Relevant to Health Maintenance Results * Clostridium difficile toxin (04/25/2025 3:19 PM EDT) Pathologist [facility] Clostridium difficile GDH Antigen Negative Negative 04/25/2025 8:32 PM EDT [facility] C difficile Toxins A+B, EIA Negative Negative 04/25/2025 8:32 PM EDT [facility] Comment:NEGATIVE FOR TOXIN P RODUCING CLOSTRIDIOIDES DIFFICILE, NO ADDITIONAL TESTING IS NECESSARY. Stool Rectum structure / Unknown Non-blood Collection / Unknown 04/25/2025 3:19 PM EDT 04/25/2025 3:19 PM EDT us Karlie Mendez MD LAB MICROBIOLOGY - GENERAL ORDERABLES Final Result [facility] [address] [place] [address], [place] [phone] * Lipid panel with reflex to direct LDL (04/25/2025 1:39 PM EDT) Pathologist [facility] Cholesterol 139 0 - 200 mg/dL LAB CHEMISTRY METHOD 04/25/2025 5:16 PM EDT [facility] Triglycerides 95 0 - 150 mg/dL LAB CHEMISTRY METHOD 04/25/2025 5:16 PM EDT [facility] HDL 49 >=40 mg/dL LAB CHEMISTRY METHOD 04/25/2025 5:16 PM EDT [facility] LDL Calculated 71 0 - 100 mg/dL LAB CHEMISTRY METHOD 04/25/2025 5:16 PM EDT [facility] VLDL Cholesterol Dread 19 mg/dL LAB CHEMISTRY METHOD 04/25/2025 5:16 PM EDT [facility] Non HDL Chol. (LDL+VLDL) 90 <145 mg/dL LAB CHEMISTRY METHOD 04/25/2025 5:16 PM EDT [facility] Chol/HDL Ratio 2.8 0.0 - 4.4 LAB CHEMISTRY METHOD 04/25/2025 5:16 PM EDT [facility] Blood Venous blood specimen / Unknown Venipuncture / Unknown 04/25/2025 1:39 PM EDT 04/25/2025 1:39 PM EDT Karlie Mendez MD LAB BLOOD ORDERABLES Final Result [facility] [address] [place] [address], * (ABNORMAL) CBC auto differential (04/25/2025 1:39 PM EDT) WBC 9.2 4.8 - 10.8 K/[facility] LAB HEMETOLOGY METHOD 04/25/2025 5:19 PM EDT [facility] RBC 4.50 4.50 - 5.50 M/mcL LAB HEMETOLOGY METHOD 04/25/2025 5:19 PM EDT [facility] Hemoglobin 14.4 13.5 - 17.5 g/dL LAB HEMETOLOGY METHOD 04/25/2025 5:19 PM EDT [facility] Hematocrit 42.0 42.0 - 54.0 % LAB HEMETOLOGY METHOD 04/25/2025 5:19 PM EDT [facility] MCV 93.3 79.0 - 98.0 FL LAB HEMETOLOGY METHOD 04/25/2025 5:19 PM EDT [facility] MCH 32.0 27.0 - 32.0 pcg LAB HEMETOLOGY METHOD 04/25/2025 5:19 PM EDT [facility] MCHC 34.3 32.0 - 37.0 g/dL LAB HEMETOLOGY METHOD 04/25/2025 5:19 PM EDT [facility] RDW 12.1 11.0 - 15.0 % LAB HEMETOLOGY METHOD 04/25/2025 5:19 PM EDT [facility] Platelets 238 130 - 400 K/mcL LAB HEMETOLOGY METHOD 04/25[facility]2025 5[facility] MPV 11.0 7.0 - 11.0 FL LAB HEMETOLOGY METHOD 04/25/2025 5:[facility] NRBC 0.0 <1.0 % LAB HEMETOLOGY METHOD 04/25/2025 5:[facility] NRBC Absolute 0.00 <0.10 K/mcL LAB HEMETOLOGY METHOD 04/25/2025 5:[facility] Neutrophils Relative 46.2 % LAB HEMETOLOGY METHOD 04/25/2025 5:19 PM EDT [facility] Lymphocytes Relative 36.6 % LAB HEMETOLOGY METHOD 04/25/2025 5:19 PM EDT [facility] Monocytes Relative 11.3 % LAB HEMETOLOGY METHOD 04/25/2025 5:19 PM EDT [facility] Eosinophils Relative 4.6 % LAB HEMETOLOGY METHOD 04/25[facility]2025 5:[facility] Basophils Relative 0.8 % LAB HEMETOLOGY METHOD 04/25/2025 5:19 PM [facility] Immature Granulocytes Relative 0.5 % LAB HEMETOLOGY METHOD 04/25/2025 5:19 PM EDT [facility] Neutrophils Absolute 4.26 1.50 - 7.00 K/mcL LAB HEMETOLOGY METHOD 04/25/2025 5:19 PM EDT [facility] Lymphocytes Absolute 3.37 1.00 - 5.00 K/mcL LAB HEMETOLOGY METHOD 04/25/2025 5:19 PM EDT [facility] Monocytes Absolute 1.04(H) 0.20 - 1.00 K/mcL LAB HEMETOLOGY METHOD 04/25/2025 5:19 PM EDT [facility] Eosinophils Absolute 0.42 0.00 - 0.50 K/mcL LAB HEMETOLOGY METHOD 04/25/2025 5:19 PM EDT [facility] Basophils Absolute 0.07 0.00 - 0.20 K/mcL LAB HEMETOLOGY METHOD 04/25/2025 5:19 PM EDT [facility] Immature Granulocytes Absolute 0.05(H) 0.00 - 0.03 K/mcL LAB HEMETOLOGY METHOD 04/25/2025 5:19 PM EDT [facility] Blood Venous blood specimen / Unknown Venipuncture / Unknown 04/25/2025 1:39 PM EDT 04/25/2025 1:39 PM EDT us Karlie Mendez MD LAB BLOOD ORDERABLES Final Result [facility] [address] [place] [address], * Phosphorus (04/25/2025 1:39 PM EDT) Phosphorus 3.5 2.5 - 4.5 mg/dL LAB CHEMISTRY METHOD 04/25/2025 5:16 PM EDT [facility] Blood Venous blood specimen / Unknown Venipuncture / Unknown 04/25/2025 1:39 PM EDT 04/25/2025 1:39 PM EDT us Karlie Mendez MD LAB BLOOD ORDERABLES Final Result [facility] [address] [place] [address], [place] [phone] * Magnesium (04/25/2025 1:39 PM EDT) [facility] Magnesium 2.0 1.9 - 2.6 mg/dL LAB CHEMISTRY METHOD 04/25/2025 5:16 PM EDT [facility] Blood Venous blood specimen / Unknown Venipuncture / Unknown 04/25/2025 1:39 PM EDT 04/25/2025 1:39 PM EDT us Karlie Mendez MD LAB BLOOD ORDERABLES Final Result Performing Organization Address [facility]/ZIP Co de Phone Number [facility] [address] [place] [address], [place] [phone] * Hemoglobin A1c (04/25/2025 1:39 PM EDT) [facility] Hemoglobin A1C 5.9 <6.5 % LAB CHEMISTRY METHOD 04/25/2025 10:55 PM EDT [facility] Mean Bld Glu Estim. 123 mg/dL LAB CHEMISTRY METHOD 04/25/2025 10:55 PM EDT [facility] Blood Venous blood specimen / Unknown Venipuncture / Unknown 04/25/2025 1:39 PM EDT 04/25/2025 1:39 PM EDT us Karlie Mendez MD LAB BLOOD ORDERABLES Final Result [facility] [address] [place] [address], [place] [phone] * Comprehensive metabolic panel (04/25/2025 1:39 PM EDT) Sodium 138 133 - 145 mmol/L LAB CHEMISTRY METHOD 04/25/2025 5:16 PM [facility] Potassium 3.9 3.5 - 5.5 mmol/L LAB CHEMISTRY METHOD 04/25/2025 5:16 PM [facility] Chloride 102 96 - 110 mmol/L LAB CHEMISTRY METHOD 04/25/2025 5:16 PM [facility] CO2 31 21 - 32 mmol/L LAB CHEMISTRY METHOD 04/25/2025 5:16 PM [facility] Anion Gap 5 3 - 11 LAB CHEMISTRY METHOD 04/25/2025 5:16 PM [facility] Glucose 98 70 - 100 mg/dL LAB CHEMISTRY METHOD 04/25/2025 5:16 PM [facility] BUN 14 5 - 25 mg/dL LAB CHEMISTRY METHOD 04/25/2025 5:16 PM [facility] Creatinine 1.13 0.70 - 1.30 mg/dL LAB CHEMISTRY METHOD 04/25/2025 5:16 PM [facility] eGFR 67 >=60 mL/min/1. 73m2 LAB CHEMISTRY METHOD 04/25/2025 5:16 PM [facility] Comment:Calculation based on the Chronic Kidney Disease Epidemiology Collaboration (CKD-EPI) equation refit without adjustment for race. BUN/Creatinine Ratio 12.4 LAB CHEMISTRY METHOD 04/25/2025 5:16 PM [facility] Calcium 9.1 8.5 - 10.5 mg/dL LAB CHEMISTRY METHOD 04/25/2025 5:16 PM [facility] AST (SGOT) 23 10 - 42 unit/L LAB CHEMISTRY METHOD 04/25/2025 5:16 PM [facility] ALT (SGPT) 20 10 - 60 unit/L LAB CHEMISTRY METHOD 04/25/2025 5:16 PM EDT [facility] Alkaline Phosphatase 69 42 - 121 unit/L LAB CHEMISTRY METHOD 04/25/2025 5:16 PM EDT [facility] Total Protein 6.5 6.0 - 8.0 g/dL LAB CHEMISTRY METHOD 04/25/2025 5:16 PM EDT [facility] Albumin 3.4 3.2 - 5.0 g/dL LAB CHEMISTRY METHOD 04/25/2025 5:16 PM EDT [facility] Total Bilirubin 0.6 0.0 - 1.4 mg/dL LAB CHEMISTRY METHOD 04/25/2025 5:16 PM EDT [facility] Blood Venous blood specimen / Unknown Venipuncture / Unknown 04/25/2025 1:39 PM EDT 04/25/2025 1:39 PM EDT Karlie Mendez MD LAB BLOOD ORDERABLES Final Result [facility] [address] [place] [address], * Hepatitis C Screening (09/23/2013) Pathologist [facility] Hepatitis C Screening Abstracted Historical Provider HEALTH MAINTENANCE Final Result from Last 3 Months or Most Recently Relevant to Health Maintenance Insurance [facility] Care Teams Epidemiology Investigator Relationship Specialty Start Date End Date Karlie Mendez MD [address] [place] [address] PCP - General 03/27/24
--- OUTSIDE RECORDS SUMMARY | 2025-05-01 08:42 | XMS_ITS | Patient Health Record ---
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 [place] [phone] [id number] NAN RAMSAY Self - patient is the insured Medical (General) History Medical History History ICD Code hypertension nerve pain right leg elevated cholesterol cervical spondyloarthropathies degenerative joint disease prostate nodule Surgical History Surgery Date(Month/Year) appendectomy left vericocele metatarsal osteotomy cervical radiculopathy thumb rotator cuff tear repair right knee arthroscopy tennis elbow surgery
== END 2025-05-01 09:04 | disposition home or self-care (01) ==
LOC: HO.HPS 08:24
PROVIDERS: PCP Internal Medicine; Visit Provider Hospitalist
DX: J43.2 Centrilobular emphysema (principal); R05.3 Chronic cough; R13.10 Dysphagia, unspecified; R05.8 Other specified cough; K22.5 Diverticulum of esophagus, acquired; R93.3 Abnormal findings on diagnostic imaging of other parts of digestive tract
CPT/HCPCS: 99214

== ENCOUNTER → 2025-05-01 08:24 | Outpatient (BNVA) | payer OTHER, SELFPAY | PROVIDERS: PCP Internal Medicine; Visit Provider Hospitalist | DX: J43.2 Centrilobular emphysema (principal); R05.3 Chronic cough; R13.10 Dysphagia, unspecified; K22.5 Diverticulum of esophagus, acquired; R93.3 Abnormal findings on diagnostic imaging of other parts of digestive tract | CPT/HCPCS: 94010; 99212 ==

== ENCOUNTER 2025-05-29 08:47 | Outpatient (AMB) | payer OTHER, SELFPAY ==
--- OUTSIDE RECORDS SUMMARY | 2025-05-29 09:44 | XMS_ITS | Continuity of Care Document ---
Author Name [facility] Organization [facility] Care Team Providers Care Intelligence Specialist Name Role Phone [facility] Unavailable Unavailable Problems Combined list of problems [...] to the last 18 months, not all [place] inpatient encounters are included; 2) Encounters from the Department of [facility] facilities going backup to 280 months. Location Location Details Encounter Type Encounter Number Reason For Visit Attending Provider ADM Date DC Date Status Disposition Source [facility] Outpatient Encounter [id number] 01/18 [facility] HEARING AID REPAIR/MOD IFYING [id number] Diagnos is: ICD-10- CM Z46.1 Encount er for fitting and adjustm ent of hearing aid [place] L 01/23 [facility] [place] [place] [facility] HEARING AID FITTING/CH ECKING [id number] Diagnos is: ICD-10- CM H90.3 Sensori neural hearing loss, bilater al [place] L 01/25 [facility] [place] [facility] Social History Combined list of available smoking, tobacco, and other social history from Department of Defense and Veterans Affairs facilities. Social History Type Response Date Comment Sourc e This section is an empty social history section. DoD
--- OUTSIDE RECORDS SUMMARY | 2025-05-29 09:45 | XMS_ITS | Patient Health Record ---
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 [place] [phone] [id number] NAN RAMSAY Self - patient is the insured Medical (General) History Medical History History ICD Code hypertension nerve pain right leg elevated cholesterol cervical spondyloarthropathies degenerative joint disease prostate nodule Surgical History Surgery Date(Month/Year) appendectomy left vericocele metatarsal osteotomy cervical radiculopathy thumb rotator cuff tear repair right knee arthroscopy tennis elbow surgery
--- OUTSIDE RECORDS SUMMARY | 2025-05-29 09:45 | XMS_ITS | Clinical Summary ---
Author Organization [facility] Address [address] [place] [address] Care Team Providers Care Solar Sales Assessor Name Role Phone Tree Aguilar Primary Care [...] age to complete this topic Care Teams Solar Sales Assessor Relationship Specialty Start Date End Date Tree Aguilar PCP - General Internal Medicine 01/18/18
--- OUTSIDE RECORDS SUMMARY | 2025-05-29 09:45 | XMS_ITS | Clinical Summary ---
Author Organization [facility] [address] [place] [address] Address [address] [place], [place] Phone Care Team Providers Care Surgery Consultant Name Role Phone Karlie Mendez MD Primary Care Provider Allergies Active Allergy Reactions Criticality Noted Date Comments Other 06/30/2010 Seasonal Allergies Medications ruxolitinib (Opzelura) 1.5 % cream 12/18/19 24 Active fluticasone propionate (FLONASE) 50 mcg/actuation nasal spray 2 Sprays by Each Nare route daily. 09/06/20 23 Active alfuzosin (UROXATRAL) 10 mg 24 hr tablet 09/27/20 22 Active aspirin 81 mg chewable tablet Take 81 mg by mouth daily. Active cholecalcifero l (VITAMIN D-3) 1,250 mcg (50,000 unit) capsule Take by mouth. Activ e cyanocobalamin (VITAMIN B-12) 500 mcg tablet Take 1 Tab by mouth daily for 360 days. 03/04/20 20 Active simvastatin (ZOCOR) 40 mg tablet Take 1 tablet (40 mg total) by mouth at bedtime. at bedtime. 90 tablet 1 12/31/19 25 Active gabapentin (NEURONTIN) 300 mg capsule Take 2 capsules (600 mg total) by mouth at bedtime. 180 capsule 03/25/20 25 Active metoprolol succinate (TOPROL-XL) 50 mg 24 hr tablet Take 1 tablet (50 mg total) by mouth 1 (one) time each day. Do not crush or chew. 90 tablet 1 04/29/20 25 Active benzonatate (TESSALON) 200 mg capsule Take 1 capsule (200 mg total) by mouth 3 (three) times a day if needed for cough. Do not crush or chew. Active budesonide-for moteroL (SYMBICORT) 160-4.5 mcg/actuation inhaler Inhale 2 puffs by mouth 2 (two) times a day. Rinse mouth with water after use to reduce aftertaste and incidence of candidiasis. Do not swallow. 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 Triana - 08/18- TRUS Bx negative Right knee pain 04/21/2009 Overview (07/10/2024): Chase Mcdonough PA-C, Dr. Zee, Dr. Navraro- steroid injections 07/20- partial medial meniscectomy Hypertension 11/25/2008 Seasonal allergies 12/06/2007 Overview (07/10/2024): Dr. Savage - allergy shots Eczema 12/06/2007 Overview (07/10/2024): Dr. Demos DJD (degenerative joint disease), lumbar 008 Overview (07/10/2024): Dr. Reaves- no surgical recourse Dr. Goddard - L4-5, L5-S1 facet injections 01/17- diagnostic medial branch blocks 02/16 - Dr. Pugh - bilateral L3, L4 and L5 medial branch radiofrequency neurotomy 04/22 - per [facility] neurosurgery, no surgical course of action appropriate due to the extent of the arthritis in both areas. 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 Sloan - [facility] - physical therapy, injections unhelpful Persists status post neural ablation Dr. Sergio Gore- [facility]- myofascial pain due to paravertebral muscle dysfunction Dr. Tahira Elaine - [facility]- continue cyclobenzaprine, trial of trigger point injections, botulinum injections, PT, stop bifocals 09/19 - Shanika Young PA-c from Physiatry - referred for bilateral C3-4, C4-5 facet joint injection 212 - left C3, C4, C5 and C6 medial branch radiofrequency neurotomy 04/22 - per [facility] neurosurgery, no surgical course of action appropriate due to the extent of the arthritis in both areas. Their recommendation is pain management. 08/23 - Dr. Heller ([facility] pain management) - acupuncture - not much relief Encounters Date Type Department Care Team Description 05/21/2025 8:45 AM EDT Office Visit Adult Medicine [address] [phone] Karlie Mendez MD Benign prostatic hyperplasia, unspecified whether lower urinary tract symptoms present (Primary Dx); Abnormal CBC; Prediabetes 04/25/2025 1:00 PM EDT Office Visit [address] [phone] Karlie Mendez MD Elevated AST (SGOT) (Primary Dx); Abnormal CBC; Elevated serum creatinine; Diarrhea, unspecified type; Hyperlipidemia, unspecified hyperlipidemia type; Benign prostatic hyperplasia with weak urinary stream; Neuropathy of right lower extremity from Last 3 Months Immunizations Name Administration [...] SHOULDER SURGERY; COMMENT: both shoulders- Dr. Jim- [place] HAND SURGERY 1996 PROCEDURE: HISTORICAL HAND SURGERY; COMMENT: R - trigger release KNEE SURGERY 07/20 PROCEDURE: HISTORICAL KNEE SURGERY; COMMENT: Dr. Zee - [place] - arthroscopy for meniscal tear COLONOSCOPY 04/17/2013 PROCEDURE: HISTORICAL COLONOSCOPY; COMMENT: tics and hemorrhoids; repeat in ten yrs NECK SURGERY 1987 PROCEDURE: HISTORICAL NECK SURGERY; COMMENT: Neck sg for hand numbness (in ) HEMORRHOID SURGERY PROCEDURE: MS INCISION THROMBOSED HEMORRHOID EXTERNAL Medical History Medical [...] care for your loved ones. For example, children's ministry director or elderly care for an older [...] Sign Reading Time Taken Comments Blood Pressure 120/60 05/21/2025 8:32 AM EDT Pulse 64 05/21/2025 8:32 AM EDT Temperature 36.3 C (97.3 F) 05/21/2025 8:32 AM EDT Respiratory Rate 12 05/21/2025 8:32 AM EDT Oxygen Saturation - - Inhaled Oxygen Concentration - - Weight 86.2 kg (190 lb) 05/21/2025 8:32 AM EDT Height 180.3 cm (5' 11 ) 05/21/2025 8:32 AM EDT Body Mass Index 26.5 05/21/2025 8:32 AM EDT Plan of Treatment Upcoming Encounters Date Type Department Care Team (Late st Contact Info) Description 06/23/2025 10:00 AM EDT Office Visit Orthopedic Surgery - [place] [address] [facility] [address] [place] [phone] Chandler Arceo, DPM 175 [facility] [address] [place] [id number] 09/12/2025 8:45 AM EST Office Visit Adult Medicine [facility] [address] [place] [phone] Karlie Mendez MD [address] [place] [address] Health Maintenance Due Date Last Done Comments Influenza Vaccine (#1) 2025 , 07/01/2023, 07/01/2023, Additional history exists Social Influencers of Health Screening 08/18/2025 08/18/2024 COVID-19 Vaccine (8 - Pfizer risk 2023- season) 2025 06/18/2024, 07/07/2023, 07/02/2022, Additional history [...] Clostridium difficile toxin (04/25/2025 3:19 PM EDT) [facility] Clostridium difficile GDH Antigen Negative Negative 04/25/2025 8:32 PM EDT [facility] C difficile Toxins A+B, EIA Negative Negative 04/25/2025 8:32 PM EDT [facility] Comment:NEGATIVE FOR TOXIN P RODUCING CLOSTRIDIOIDES DIFFICILE, NO ADDITIONAL TESTING IS NECESSARY. Stool Rectum structure / Unknown Non-blood Collection / Unknown 04/25/2025 3:19 PM EDT 04/25/2025 3:19 PM EDT Karlie Mendez MD LAB MICROBIOLOGY - GENERAL ORDERABLES Final Result [facility] [address] [place] [address], [place] [phone] * Lipid panel with reflex to direct LDL (04/25/2025 1:39 PM EDT) [facility] Cholesterol 139 0 - 200 mg/dL LAB CHEMISTRY METHOD 04/25/2025 5:16 PM EDT [facility] Triglycerides 95 0 - 150 mg/dL LAB CHEMISTRY METHOD 04/25/2025 5:16 PM EDT [facility] HDL 49 >=40 mg/dL LAB CHEMISTRY METHOD 04/25/2025 5:16 PM EDT [facility] LDL Calculated 71 0 - 100 mg/dL LAB CHEMISTRY METHOD 04/25/2025 5:16 PM EDT [facility] VLDL Cholesterol Dread 19 mg/dL LAB CHEMISTRY METHOD 04/25/2025 5:16 PM EDT [facility] Non HDL Chol. (LDL+VLDL) 90 <145 mg/dL LAB CHEMISTRY METHOD 04/25/2025 5:16 PM EDT [facility] Chol/HDL Ratio 2.8 0.0 - 4.4 LAB CHEMISTRY METHOD 04/25/2025 5:16 PM EDT [facility] Blood Venous blood specimen / Unknown Venipuncture / Unknown 04/25/2025 1:39 PM EDT 04/25/2025 1:39 PM EDT Karlie Mendez MD LAB BLOOD ORDERABLES Final Result [facility] [address] [place] [address], [place] [phone] * (ABNORMAL) CBC auto differential (04/25/2025 1:39 PM EDT) WBC 9.2 4.8 - 10.8 K/mcL LAB HEMETOLOGY METHOD 04/25/2025 5:19 PM EDT [facility] RBC 4.50 4.50 - 5.50 M/mcL LAB HEMETOLOGY METHOD 04/25/2025 5:19 PM EDT [facility] Hemoglobin 14.4 13.5 - 17.5 g/dL LAB HEMETOLOGY METHOD 04/25/2025 5:19 PM EDT [facility] Hematocrit 42.0 42.0 - 54.0 % LAB HEMETOLOGY METHOD 04/25/2025 5:19 PM EDT [facility] MCV 93.3 79.0 - 98.0 FL LAB HEMETOLOGY METHOD 04/25/2025 5:19 PM EDT [facility] MCH 32.0 27.0 - 32.0 pcg LAB HEMETOLOGY METHOD 04/25/2025 5:19 PM EDT [facility] MCHC 34.3 32.0 - 37.0 g/dL LAB HEMETOLOGY METHOD 04/25/2025 5:19 PM EDT [facility] RDW 12.1 11.0 - 15.0 % LAB HEMETOLOGY METHOD 04/25/2025 5:19 PM T [facility] Platelets 238 130 - 400 K/mcL LAB HEMETOLOGY METHOD 04/25/2025 5:19 PM [facility] MPV 11.0 7.0 - 11.0 FL LAB HEMETOLOGY METHOD 04/25/2025 5:19 PM [facility] NRBC 0.0 <1.0 % LAB HEMETOLOGY METHOD 04/25/2025 5:19 PM [facility] NRBC Absolute 0.00 <0.10 K/mcL LAB HEMETOLOGY METHOD 04/25/2025 5:19 PM [facility] Neutrophils Relative 46.2 % LAB HEMETOLOGY METHOD 04/25/2025 5:19 PM [facility] Lymphocytes Relative 36.6 % LAB HEMETOLOGY METHOD 04/25/2025 5:19 PM [facility] Monocytes Relative 11.3 % LAB HEMETOLOGY METHOD 04/25/2025 5:19 PM [facility] Eosinophils Relative 4.6 % LAB HEMETOLOGY METHOD 04/25/2025 5:19 PM [facility] Basophils Relative 0.8 % LAB HEMETOLOGY METHOD 04/25/2025 5:19 PM [facility] Immature Granulocytes Relative 0.5 % LAB HEMETOLOGY METHOD 04/25/2025 5:19 PM [facility] Neutrophils Absolute 4.26 1.50 - 7.00 K/mcL LAB HEMETOLOGY METHOD 04/25/2025 5:19 PM [facility] Lymphocytes Absolute 3.37 1.00 - 5.00 K/mcL LAB HEMETOLOGY METHOD 04/25/2025 5:19 PM [facility] Monocytes Absolute 1.04(H) 0.20 - 1.00 K/mcL LAB HEMETOLOGY METHOD 04/25/2025 5:19 PM EDT [facility] Eosinophils Absolute 0.42 0.00 - 0.50 K/mcL LAB HEMETOLOGY METHOD 04/25/2025 5:19 PM EDT [facility] Basophils Absolute 0.07 0.00 - 0.20 K/mcL LAB HEMETOLOGY METHOD 04/25/2025 5:19 PM EDT [facility] Immature Granulocytes Absolute 0.05(H) 0.00 - 0.03 K/[facility] LAB HEMETOLOGY METHOD 04/25/2025 5:19 PM EDT [facility] Blood Venous blood specimen / Unknown Venipuncture / Unknown 04/25/2025 1:39 PM EDT 04/25/2025 1:39 PM EDT Karlie Mendez MD LAB BLOOD ORDERABLES Final Result Performing Organization Address City/[facility]/ZIP Co de Phone Number [facility] [address] [place] [address], [place] [phone] * Phosphorus (04/25/2025 1:39 PM EDT) Pathologist [facility] Phosphorus 3.5 2.5 - 4.5 mg/dL LAB CHEMISTRY METHOD 04/25/2025 5:16 PM EDT [facility] Blood Venous blood specimen / Unknown Venipuncture / Unknown 04/25/2025 1:39 PM EDT 04/25/2025 1:39 PM EDT Karlie Mendez MD LAB BLOOD ORDERABLES Final Result Performing Organization Address City/[facility]/ZIP Co de Phone Number [facility] [address] [place] [address], [place] [phone] * Magnesium (04/25/2025 1:39 PM EDT) Magnesium 2.0 1.9 - 2.6 mg/dL LAB CHEMISTRY METHOD 04/25/2025 5:16 PM EDT [facility] Blood Venous blood specimen / Unknown Venipuncture / Unknown 04/25/2025 1:39 PM EDT 04/25/2025 1:39 PM EDT Karlie Mendez MD LAB BLOOD ORDERABLES Final Result Performing Organization Address City/[facility]/ZIP Co de Phone Number [facility] [address] [place] [address], [place] [phone] * Hemoglobin A1c (04/25/2025 1:39 PM EDT) [facility] Hemoglobin A1C 5.9 <6.5 % LAB CHEMISTRY METHOD 04/25/2025 10:55 PM EDT [facility] Mean Bld Glu Estim. 123 mg/dL LAB CHEMISTRY METHOD 04/25/2025 10:55 PM EDT [facility] Blood Venous blood specimen / Unknown Venipuncture / Unknown 04/25/2025 1:39 PM EDT 04/25/2025 1:39 PM EDT Karlie Mendez MD LAB BLOOD ORDERABLES Final Result Performing Organization Address [facility]/ZIP Co de Phone Number [facility] [address] [place] [address], [place] [phone] * Comprehensive metabolic panel (04/25/2025 1:39 PM EDT) [facility] Sodium 138 133 - 145 mmol/L LAB CHEMISTRY METHOD 04/25/2025 5:16 PM EDT [facility] Potassium 3.9 3.5 - 5.5 mmol/L LAB CHEMISTRY METHOD 04/25/2025 5:16 PM EDT [facility] Chloride 102 96 - 110 mmol/L LAB CHEMISTRY METHOD 04/25/2025 5:16 PM [facility] CO2 31 21 - 32 mmol/L LAB CHEMISTRY METHOD 04/25/2025 5:16 PM [facility] Anion Gap 5 3 - 11 LAB CHEMISTRY METHOD 04/25/2025 5:16 PM [facility] Glucose 98 70 - 100 mg/dL LAB CHEMISTRY METHOD 04/25/2025 5:16 PM [facility] BUN 14 5 - 25 mg/dL LAB CHEMISTRY METHOD 04/25/2025 5:16 PM [facility] Creatinine 1.13 0.70 - 1.30 mg/dL LAB CHEMISTRY METHOD 04/25/2025 5:16 PM [facility] eGFR 67 >=60 mL/min/1. 73m2 LAB CHEMISTRY METHOD 04/25/2025 5:16 PM [facility] Comment:Calculation based on the Chronic Kidney Disease Epidemiology Collaboration (CKD-EPI) equation refit without adjustment for race. BUN/Creatinine Ratio 12.4 LAB CHEMISTRY METHOD 04/25/2025 5:16 PM [facility] Calcium 9.1 8.5 - 10.5 mg/dL LAB CHEMISTRY METHOD 04/25/2025 5:16 PM [facility] AST (SGOT) 23 10 - 42 unit/L LAB CHEMISTRY METHOD 04/25/2025 5:16 PM [facility] ALT (SGPT) 20 10 - 60 unit/L LAB CHEMISTRY METHOD 04/25/2025 5:16 PM [facility] Alkaline Phosphatase 69 42 - 121 unit/L LAB CHEMISTRY METHOD 04/25/2025 5:16 PM [facility] Total Protein 6.5 6.0 - 8.0 g/dL LAB CHEMISTRY METHOD 04/25/2025 5:16 PM [facility] Albumin 3.4 3.2 - 5.0 g/dL LAB CHEMISTRY METHOD 04/25/2025 5:16 PM EDT [facility] Total Bilirubin 0.6 0.0 - 1.4 mg/dL LAB CHEMISTRY METHOD 04/25/2025 5:16 PM EDT [facility] Blood Venous blood specimen / Unknown Venipuncture / Unknown 04/25/2025 1:39 PM EDT 04/25/2025 1:39 PM EDT Karlie Mendez MD LAB BLOOD ORDERABLES Final Result [facility] [address] [place] [address], * Hepatitis C Screening (09/23/2013) Pathologist [facility] Hepatitis C Screening Abstracted Historical Provider HEALTH MAINTENANCE Final Result from Last 3 Months or Most Recently Relevant to Health Maintenance Insurance [employer] Care Teams Surgery Consultant Relationship Specialty Start Date End Date Karlie Mendez MD [address] [place] [address] [place] [id number] PCP - General 03/27/24
== END 2025-05-29 09:23 | disposition home or self-care (01) ==
LOC: HO.HMGAL 08:47
PROVIDERS: PCP Internal Medicine; Visit Provider Anesthesiology
DX: J30.89 Other allergic rhinitis (principal)
CPT/HCPCS: 95117; 95165

== ENCOUNTER 2025-06-02 07:39 | Outpatient (REF) | payer OTHER, SELFPAY ==
--- OUTSIDE RECORDS SUMMARY | 2025-06-02 07:40 | XMS_ITS | Continuity of Care Document ---
Author Name [facility] Organization [facility] Care Team Providers Care Implementation Analyst Name Role Phone [facility] Unavailable Unavailable Problems Combined list of problems [...] to the last 18 months, not all [place] inpatient encounters are included; 2) Encounters from the Department of [facility] facilities going backup to 280 months. Location Location Details Encounter Type Encounter Number Reason For Visit Attending Provider ADM Date DC Date Status Disposition Source [facility] Outpatient Encounter [id number] 01[place]18 [facility] HEARING AID REPAIR/MOD IFYING [id number] Diagnos is: ICD-10- CM Z46.1 Encount er for fitting and adjustm ent of hearing aid [place] L 01/23 [facility] [facility] HEARING AID FITTING/CH ECKING [id number] Diagnos is: ICD-10- CM H90.3 Sensori neural hearing loss, bilater al [place] L 01/25 [facility] [place] [place] [facility] Social History Combined list of available smoking, tobacco, and other social history from Department of Defense and Veterans Affairs facilities. Social History Type Response Date Comment Sourc e This section is an empty social history section. DoD
--- OUTSIDE RECORDS SUMMARY | 2025-06-02 07:42 | XMS_ITS | Clinical Summary ---
Author Organization [facility] Address [address] [place] [address] Care Team Providers Care Box Maker Paperboard Name Role Phone Tree Aguilar Primary Care [...] age to complete this topic Care Teams Box Maker Paperboard Relationship Specialty Start Date End Date Tree Aguilar PCP - General Internal Medicine 01/18/18
--- OUTSIDE RECORDS SUMMARY | 2025-06-02 07:42 | XMS_ITS | Encounter Summary ---
Author Organization [facility] Address [address] [place] [address] Care Team Providers Care Enterprise Cloud Architect Name Role Phone Marco Gonzales DO Primary Care Provider Unavaila ble Reji Amaya MD Unavailable Unavailable Karlie Mendez MD Primary Care Provider [phone] Encounter Details Date Type Department Care Team Description 03/09/2023 Geological Specialist Report Medical Records [address] [place] [id number] Reji Amaya MD Social History Tobacco Use [...] on filedocumented in this encounter Care Teams Enterprise Cloud Architect Relationship Specialty Start Date End Date Marco Gonzales DO PCP - General Internal Medicine 09/22/21 03/26/24 Karlie Mendez MD [address] [place] [address] [phone] PCP - General Internal Medicine 03/27/24 Reji Amaya MD Specialist Vascular Surgery 05/16/22 documented as of this encounter
--- OUTSIDE RECORDS SUMMARY | 2025-06-02 07:42 | XMS_ITS | Clinical Summary ---
Author Organization [facility] [address] [place] [address] Address [address] [place], [place] Phone Care Team Providers Care Supply Chain Vice President Name Role Phone Karlie Mendez MD Primary [...] of extremity with intermittent claudication (CMS/[facility] V24) 04/17/2023 Celiac disease 05/16/2018 [...] medial branch radiofrequency neurotomy 04/22 - per [facility] neurosurgery, no surgical course of action appropriate due to the extent of the arthritis in both areas. 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 Sloan - [facility] - physical therapy, injections unhelpful Persists status post neural ablation Dr. Sergio Gore- [facility]- myofascial pain due to paravertebral muscle dysfunction Dr. Tahira Elaine - [facility] Medicine [facility] Rehabilitation- continue cyclobenzaprine, trial of trigger point injections, botulinum injections, PT, stop bifocals 09/19 - Shanika Young PA-c from Physiatry - referred for bilateral C3-4, C4-5 facet joint injection 212 - left C3, C4, C5 and C6 medial branch radiofrequency neurotomy 04/22 - per [facility] neurosurgery, no surgical course of action appropriate due to the extent of the arthritis in both areas. Their recommendation is pain management. 08/23 - Dr. Heller ([facility]) - acupuncture - not much relief Encounters Date Type Department Care Team Description 05/21/2025 8:45 AM EDT Office Visit Adult Medicine [address] [phone] Karlie Mendez MD Benign prostatic hyperplasia, unspecified whether lower urinary tract symptoms present (Primary Dx); Abnormal CBC; Prediabetes 04/25/2025 1:00 PM EDT Office Visit [address] [phone] Karlie Mendez MD Elevated AST (SGOT) (Primary [...] SHOULDER SURGERY; COMMENT: both shoulders- Dr. Jim- [place] [facility] 1996 PROCEDURE: HISTORICAL HAND SURGERY; COMMENT: R - trigger release KNEE SURGERY 07/20 PROCEDURE: HISTORICAL KNEE SURGERY; COMMENT: Dr. Zee - [place] - arthroscopy for meniscal tear COLONOSCOPY 04/17/2013 PROCEDURE: HISTORICAL COLONOSCOPY; COMMENT: tics and hemorrhoids; repeat in ten yrs NECK SURGERY 1987 PROCEDURE: HISTORICAL NECK SURGERY; COMMENT: Neck sg for hand numbness (in ) HEMORRHOID SURGERY PROCEDURE: MN INCISION THROMBOSED HEMORRHOID EXTERNAL Medical History Medical [...] for your loved ones. For example, child adolescent care or elderly care for an older adult? [...] AM EDT Office Visit Orthopedic Surgery - [place] [address] [facility] [address] [place] [phone] Chandler Arceo, DPM 175 [facility] Luis F [address] [place] [phone] 09/12/2025 8:45 AM EST Office Visit Adult Medicine [facility] [address] [place] [phone] Karlie Mendez MD [address] [place] [address] Health Maintenance Due Date Last Done Comments [...] Clostridium difficile toxin (04/25/2025 3:19 PM EDT) [facility] Clostridium difficile GDH Antigen Negative Negative 04/25/2025 8:32 PM EDT [facility] C difficile Toxins A+B, EIA Negative Negative 04/25/2025 8:32 PM EDT [facility] Comment:NEGATIVE FOR TOXIN P RODUCING CLOSTRIDIOIDES DIFFICILE, NO ADDITIONAL TESTING IS NECESSARY. Stool Rectum structure / Unknown Non-blood Collection / Unknown 04/25/2025 3:19 PM EDT 04/25/2025 3:19 PM EDT Karlie Mendez MD LAB MICROBIOLOGY - GENERAL ORDERABLES Final Result [facility] [address] [place] [address], [place] [phone] * Lipid panel with reflex to direct LDL (04/25/2025 1:39 PM EDT) [facility] Cholesterol 139 0 - 200 mg/dL LAB CHEMISTRY METHOD 04/25/2025 5:16 PM EDT [facility] Triglycerides 95 0 - 150 mg/dL LAB CHEMISTRY METHOD 04/25/2025 5:16 PM EDT [facility] HDL 49 >=40 mg/dL LAB CHEMISTRY METHOD 04/25/2025 5:16 PM EDT [facility] LDL Calculated 71 0 - 100 mg/dL LAB CHEMISTRY METHOD 04/25/2025 5:16 PM EDT [facility] VLDL Cholesterol Dread 19 mg/dL LAB CHEMISTRY METHOD 04/25/2025 5:16 PM EDT [facility] Non HDL Chol. (LDL+VLDL) 90 <145 mg/dL LAB CHEMISTRY METHOD 04/25/2025 5:16 PM EDT [facility] Chol/HDL Ratio 2.8 0.0 - 4.4 LAB CHEMISTRY METHOD 04/25/2025 5:16 PM EDT [facility] Blood Venous blood specimen / Unknown Venipuncture / Unknown 04/25/2025 1:39 PM EDT 04/25/2025 1:39 PM EDT Karlie Mendez MD LAB BLOOD ORDERABLES Final Result [facility] [address] [place] [address], [place] [phone] * (ABNORMAL) CBC auto differential (04/25/2025 1:39 PM EDT) WBC 9.2 4.8 - 10.8 K/mcL LAB HEMETOLOGY METHOD 04/25/2025 5:19 PM EDT [facility] RBC 4.50 4.50 - 5.50 M/mcL LAB HEMETOLOGY METHOD 04/25/2025 5:19 PM EDT [facility] Hemoglobin 14.4 13.5 - 17.5 g/dL LAB HEMETOLOGY METHOD 04/25/2025 5:19 PM EDT [facility] Hematocrit 42.0 42.0 - 54.0 % LAB HEMETOLOGY METHOD 04/25/2025 5:19 PM EDT [facility] MCV 93.3 79.0 - 98.0 FL LAB HEMETOLOGY METHOD 04/25/2025 5:19 PM EDT [facility] MCH 32.0 27.0 - 32.0 pcg LAB HEMETOLOGY METHOD 04/25/2025 5:19 PM EDT [facility] MCHC 34.3 32.0 - 37.0 g/dL LAB HEMETOLOGY METHOD 04/25/2025 5:19 PM EDT [facility] RDW 12.1 11.0 - 15.0 % LAB HEMETOLOGY METHOD 04/25/2025 5:19 PM T [facility] Platelets 238 130 - 400 K/mcL LAB HEMETOLOGY METHOD 04/25/2025 5:19 PM [facility] MPV 11.0 7.0 - 11.0 FL LAB HEMETOLOGY METHOD 04/25/2025 5:19 PM [facility] NRBC 0.0 <1.0 % LAB HEMETOLOGY METHOD 04/25/2025 5:19 PM [facility] NRBC Absolute 0.00 <0.10 K/mcL LAB HEMETOLOGY METHOD 04/25/2025 5:19 PM [facility] Neutrophils Relative 46.2 % LAB HEMETOLOGY METHOD 04/25/2025 5:19 PM [facility] Lymphocytes Relative 36.6 % LAB HEMETOLOGY METHOD 04/25/2025 5:19 PM [facility] Monocytes Relative 11.3 % LAB HEMETOLOGY METHOD 04/25/2025 5:19 PM [facility] Eosinophils Relative 4.6 % LAB HEMETOLOGY METHOD 04/25/2025 5:19 PM [facility] Basophils Relative 0.8 % LAB HEMETOLOGY METHOD 04/25/2025 5:19 PM [facility] Immature Granulocytes Relative 0.5 % LAB HEMETOLOGY METHOD 04/25/2025 5:19 PM [facility] Neutrophils Absolute 4.26 1.50 - 7.00 K/mcL LAB HEMETOLOGY METHOD 04/25/2025 5:19 PM [facility] Lymphocytes Absolute 3.37 1.00 - 5.00 K/mcL LAB HEMETOLOGY METHOD 04/25/2025 5:19 PM [facility] Monocytes Absolute 1.04(H) 0.20 - 1.00 K/mcL LAB HEMETOLOGY METHOD 04/25/2025 5:19 PM EDT [facility] Eosinophils Absolute 0.42 0.00 - 0.50 K/mcL LAB HEMETOLOGY METHOD 04/25/2025 5:19 PM EDT [facility] Basophils Absolute 0.07 0.00 - 0.20 K/mcL LAB HEMETOLOGY METHOD 04/25/2025 5:19 PM EDT [facility] Immature Granulocytes Absolute 0.05(H) 0.00 - 0.03 K/[facility] LAB HEMETOLOGY METHOD 04/25/2025 5:19 PM EDT [facility] Blood Venous blood specimen / Unknown Venipuncture / Unknown 04/25/2025 1:39 PM EDT 04/25/2025 1:39 PM EDT Karlie Mendez MD LAB BLOOD ORDERABLES Final Result Performing Organization Address City/[facility]/ZIP Co de Phone Number [facility] [address] [place] [address], [place] [phone] * Phosphorus (04/25/2025 1:39 PM EDT) Pathologist [facility] Phosphorus 3.5 2.5 - 4.5 mg/dL LAB CHEMISTRY METHOD 04/25/2025 5:16 PM EDT [facility] Blood Venous blood specimen / Unknown Venipuncture / Unknown 04/25/2025 1:39 PM EDT 04/25/2025 1:39 PM EDT Karlie Mendez MD LAB BLOOD ORDERABLES Final Result Performing Organization Address City/[facility]/ZIP Co de Phone Number [facility] [address] [place] [address], [place] [phone] * Magnesium (04/25/2025 1:39 PM EDT) Magnesium 2.0 1.9 - 2.6 mg/dL LAB CHEMISTRY METHOD 04/25/2025 5:16 PM EDT [facility] Blood Venous blood specimen / Unknown Venipuncture / Unknown 04/25/2025 1:39 PM EDT 04/25/2025 1:39 PM EDT Karlie Mendez MD LAB BLOOD ORDERABLES Final Result Performing Organization Address City/[facility]/ZIP Co de Phone Number [facility] [address] [place] [address], [place] [phone] * Hemoglobin A1c (04/25/2025 1:39 PM EDT) [facility] Hemoglobin A1C 5.9 <6.5 % LAB CHEMISTRY METHOD 04/25/2025 10:55 PM EDT [facility] Mean Bld Glu Estim. 123 mg/dL LAB CHEMISTRY METHOD 04/25/2025 10:55 PM EDT [facility] Blood Venous blood specimen / Unknown Venipuncture / Unknown 04/25/2025 1:39 PM EDT 04/25/2025 1:39 PM EDT Karlie Mendez MD LAB BLOOD ORDERABLES Final Result Performing Organization Address [facility]/ZIP Co de Phone Number [facility] [address] [place] [address], [place] [phone] * Comprehensive metabolic panel (04/25/2025 1:39 PM EDT) [facility] Sodium 138 133 - 145 mmol/L LAB CHEMISTRY METHOD 04/25/2025 5:16 PM EDT [facility] Potassium 3.9 3.5 - 5.5 mmol/L LAB CHEMISTRY METHOD 04/25/2025 5:16 PM EDT [facility] Chloride 102 96 - 110 mmol/L LAB CHEMISTRY METHOD 04/25/2025 5:16 PM [facility] CO2 31 21 - 32 mmol/L LAB CHEMISTRY METHOD 04/25/2025 5:16 PM [facility] Anion Gap 5 3 - 11 LAB CHEMISTRY METHOD 04/25/2025 5:16 PM [facility] Glucose 98 70 - 100 mg/dL LAB CHEMISTRY METHOD 04/25/2025 5:16 PM [facility] BUN 14 5 - 25 mg/dL LAB CHEMISTRY METHOD 04/25/2025 5:16 PM [facility] Creatinine 1.13 0.70 - 1.30 mg/dL LAB CHEMISTRY METHOD 04/25/2025 5:16 PM [facility] eGFR 67 >=60 mL/min/1. 73m2 LAB CHEMISTRY METHOD 04/25/2025 5:16 PM [facility] Comment:Calculation based on the Chronic Kidney Disease Epidemiology Collaboration (CKD-EPI) equation refit without adjustment for race. BUN/Creatinine Ratio 12.4 LAB CHEMISTRY METHOD 04/25/2025 5:16 PM [facility] Calcium 9.1 8.5 - 10.5 mg/dL LAB CHEMISTRY METHOD 04/25/2025 5:16 PM [facility] AST (SGOT) 23 10 - 42 unit/L LAB CHEMISTRY METHOD 04/25/2025 5:16 PM [facility] ALT (SGPT) 20 10 - 60 unit/L LAB CHEMISTRY METHOD 04/25/2025 5:16 PM [facility] Alkaline Phosphatase 69 42 - 121 unit/L LAB CHEMISTRY METHOD 04/25/2025 5:16 PM [facility] Total Protein 6.5 6.0 - 8.0 g/dL LAB CHEMISTRY METHOD 04/25/2025 5:16 PM [facility] Albumin 3.4 3.2 - 5.0 g/dL LAB CHEMISTRY METHOD 04/25/2025 5:16 PM EDT [facility] Total Bilirubin 0.6 0.0 - 1.4 mg/dL LAB CHEMISTRY METHOD 04/25/2025 5:16 PM EDT [facility] Blood Venous blood specimen / Unknown Venipuncture / Unknown 04/25/2025 1:39 PM EDT 04/25/2025 1:39 PM EDT Karlie Mendez MD LAB BLOOD ORDERABLES Final Result [facility] [address] [place] [address], * Hepatitis C Screening (09/23/2013) Pathologist [facility] Hepatitis C Screening Abstracted Historical Provider HEALTH MAINTENANCE Final Result from Last 3 Months or Most Recently Relevant to Health Maintenance Insurance [employer] Care Teams Supply Chain Vice President Relationship Specialty Start Date End Date Karlie Mendez MD [address] [place] [address] DEE DEE Friedman [id number] PCP - General 03/27/24
--- OUTSIDE RECORDS SUMMARY | 2025-06-02 07:42 | XMS_ITS | Patient Health Record ---
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 [place] [phone] [id number] NAN RAMSAY Self - patient is the insured Medical (General) History Medical History History ICD Code hypertension nerve pain right leg elevated cholesterol cervical spondyloarthropathies degenerative joint disease prostate nodule Surgical History Surgery Date(Month/Year) appendectomy left vericocele metatarsal osteotomy cervical radiculopathy thumb rotator cuff tear repair right knee arthroscopy tennis elbow surgery
[2025-06-02 09:15] LABS: PSA,Total (Free>4and<10) 0.77 ng/mL (0.00-4.00)
== END 2025-06-02 07:40 | disposition home or self-care (01) ==
LOC: HO.LAB 07:39
PROVIDERS: PCP Internal Medicine; Visit Provider Urology
DX: Z12.5 Encounter for screening for malignant neoplasm of prostate (principal)
CPT/HCPCS: 36415; 84153

== ENCOUNTER 2025-06-23 07:38 | Outpatient (AMB) | payer OTHER, SELFPAY ==
--- OUTSIDE RECORDS SUMMARY | 2025-06-23 07:41 | XMS_ITS | Clinical Summary ---
Author Organization [facility] [address] [place] [address] Address [address] [place] [address] Phone Care Team Providers Care Street Commissioner Name Role Phone Karlie Mendez MD Primary Care Provider Allergies Active Allergy Reactions Criticality Noted Date Comments Other 06/30/2010 Seasonal Allergies Medications ruxolitinib (Opzelura) 1.5 % cream 12/18/2023 Active [...] mouth daily for 360 days. 03/04/2020 Active simvastatin (ZOCOR) 40 mg tablet Take 1 tablet (40 mg total) by mouth at bedtime. at bedtime. 90 tablet 1 12/30/2024 Active gabapentin (NEURONTIN) 300 mg capsule Take 2 capsules (600 mg total) by mouth at bedtime. 180 capsule 03/25/2025 Active metoprolol succinate (TOPROL-XL) 50 mg 24 hr tablet Take 1 tablet (50 mg total) by mouth 1 (one) time each day. Do not crush or chew. 90 tablet 1 04/29/2025 Active benzonatate (TESSALON) 200 mg capsule Take 1 capsule (200 mg total) by mouth 3 (three) times a day if needed for cough. Do not crush or chew. 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 Sloan - [facility] - physical therapy, injections unhelpful Persists status post neural ablation Dr. Sergio Gore- [facility]- myofascial pain due to paravertebral muscle dysfunction Dr. Tahira Elaine - [facility]- continue cyclobenzaprine, trial of trigger point injections, botulinum injections, PT, stop bifocals 09/19 - Shanika Young PA-c from Physiatry - referred for bilateral C3-4, C4-5 facet joint injection 212 - left C3, C4, C5 and C6 medial branch radiofrequency neurotomy 04/22 - per [facility] neurosurgery, no surgical course of action appropriate due to the extent of the arthritis in both areas. Their recommendation is pain management. 08/23 - Dr. Heller ([facility] pain management) - acupuncture - not much relief Encounters Date Type Department Care Team Description 05/21/2025 8:45 AM EDT Office Visit Adult Medicine [address] [address] Karlie Mendez MD Benign prostatic hyperplasia, unspecified whether lower urinary tract symptoms present (Primary Dx); Abnormal CBC; Prediabetes 04/25/2025 1:00 PM EDT Office Visit Adult [address] [address] Karlie Mendez MD Elevated AST (SGOT) (Primary [...] SHOULDER SURGERY; COMMENT: both shoulders- Dr. Jim- [place] HAND SURGERY 1996 PROCEDURE: HISTORICAL HAND SURGERY; COMMENT: R - trigger release KNEE SURGERY 07/20 PROCEDURE: HISTORICAL KNEE SURGERY; COMMENT: Dr. Zee - R - arthroscopy for meniscal tear COLONOSCOPY 04/17/2013 PROCEDURE: HISTORICAL COLONOSCOPY; COMMENT: tics and hemorrhoids; repeat in ten yrs NECK SURGERY 1987 PROCEDURE: HISTORICAL NECK SURGERY; COMMENT: Neck sg for hand numbness (in ) HEMORRHOID SURGERY PROCEDURE: CA INCISION THROMBOSED HEMORRHOID EXTERNAL Medical History Medical [...] for your loved ones. For example, children's aide or elderly care for an older adult? [...] AM EDT Office Visit Orthopedic Surgery - [place] [address] [address] Chandler Arceo, DPM 175 [facility] [address] [place] [address] 09/12/2025 8:45 AM EST Office Visit Adult Medicine [facility] [address] [place] [address] Karlie Mendez MD [address] [place] [address] Health Maintenance Due Date Last Done Comments COVID-19 Vaccine (8 - Pfizer risk 2023- season) 2025 06/18/2024, 07/07/2023, 07/02/2022, Additional history exists Influenza Vaccine (#1) 2025 , 07/01/2023, 07/01/2023, Additional history exists Social Influencers of Health Screening 08/18/2025 08/18/2024 Falls Risk Assessment 04/25/2026 04/25/2025, 024 Hypertension/CHF/CAD [...] 04/25/2025 1:39 PM EDT Diarrhea, unspecified type HEPATITIS C SCREENING Routine 09/23/2013 from Last 3 Months or Most Recently Relevant to Health Maintenance Results * Clostridium difficile toxin (04/25/2025 3:19 PM EDT) Clostridium difficile GDH Antigen Negative Negative 04/25/2025 8:32 PM EDT [facility] C difficile Toxins A+B, EIA Negative Negative 04/25/2025 8:32 PM EDT [facility] Comment:NEGATIVE FOR TOXIN P RODUCING CLOSTRIDIOIDES DIFFICILE, NO ADDITIONAL TESTING IS NECESSARY. Stool Rectum structure / Unknown Non-blood Collection / Unknown 04/25/2025 3:19 PM EDT 04/25/2025 3:19 PM EDT us Karlie Mendez MD LAB MICROBIOLOGY - GENERAL ORDERABLES Final Result [facility] [address] [place] [address], [place] [phone] * Lipid panel with reflex to direct LDL (04/25/2025 1:39 PM EDT) Cholesterol 139 0 - 200 mg/dL LAB CHEMISTRY METHOD 04/25/2025 5:16 PM EDT [facility] Triglycerides 95 0 - 150 mg/dL LAB CHEMISTRY METHOD 04/25/2025 5:16 PM EDT [facility] HDL 49 >=40 mg/dL LAB CHEMISTRY METHOD 04/25/2025 5:16 PM EDT [facility] LDL Calculated 71 0 - 100 mg/dL LAB CHEMISTRY METHOD 04/25/2025 5:16 PM EDT [facility] VLDL Cholesterol Dread 19 mg/dL LAB CHEMISTRY METHOD 04/25/2025 5:16 PM EDT [facility] Non HDL Chol. (LDL+VLDL) 90 <145 mg/dL LAB CHEMISTRY METHOD 04/25/2025 5:16 PM EDT [facility] Chol/HDL Ratio 2.8 0.0 - 4.4 LAB CHEMISTRY METHOD 04/25/2025 5:16 PM EDT [facility] Blood Venous blood specimen / Unknown Venipuncture / Unknown 04/25/2025 1:39 PM EDT 04/25/2025 1:39 PM EDT us Karlie Mendez MD LAB BLOOD ORDERABLES Final Result [facility] [address] [place] [address], [place] [phone] * (ABNORMAL) CBC auto differential (04/25/2025 1:39 PM EDT) WBC 9.2 4.8 - 10.8 K/mcL LAB HEMETOLOGY METHOD 04/25/2025 5:19 PM EDT [facility] RBC 4.50 4.50 - 5.50 M/mcL LAB HEMETOLOGY METHOD 04/25/2025 5:19 PM EDT [facility] Hemoglobin 14.4 13.5 - 17.5 g/dL LAB HEMETOLOGY METHOD 04/25/2025 5:19 PM EDT [facility] Hematocrit 42.0 42.0 - 54.0 % LAB HEMETOLOGY METHOD 04/25/2025 5:19 PM EDT [facility] MCV 93.3 79.0 - 98.0 FL LAB HEMETOLOGY METHOD 04/25/2025 5:19 PM EDT [facility] MCH 32.0 27.0 - 32.0 pcg LAB HEMETOLOGY METHOD 04/25/2025 5:19 PM EDT [facility] MCHC 34.3 32.0 - 37.0 g/dL LAB HEMETOLOGY METHOD 04/25/2025 5:19 PM EDT [facility] RDW 12.1 11.0 - 15.0 % LAB HEMETOLOGY METHOD 04/25/2025 5:19 PM EDT [facility] Platelets 238 130 - 400 K/mcL LAB HEMETOLOGY METHOD 04/25/2025 5:19 PM EDT [facility] MPV 11.0 7.0 - 11.0 FL LAB HEMETOLOGY METHOD 04/25/2025 5:19 PM [facility] NRBC 0.0 <1.0 % LAB HEMETOLOGY METHOD 04/25/2025 5:19 PM [facility] NRBC Absolute 0.00 <0.10 K/mcL LAB HEMETOLOGY METHOD 04/25/2025 5:19 PM [facility] Neutrophils Relative 46.2 % LAB HEMETOLOGY METHOD 04/25/2025 5:19 PM [facility] Lymphocytes Relative 36.6 % LAB HEMETOLOGY METHOD 04/25/2025 5:19 PM [facility] Monocytes Relative 11.3 % LAB HEMETOLOGY METHOD 04/25/2025 5:19 PM [facility] Eosinophils Relative 4.6 % LAB HEMETOLOGY METHOD 04/25/2025 5:19 PM [facility] Basophils Relative 0.8 % LAB HEMETOLOGY METHOD 04/25/2025 5:19 PM [facility] Immature Granulocytes Relative 0.5 % LAB HEMETOLOGY METHOD 04/25/2025 5:19 PM [facility] Neutrophils Absolute 4.26 1.50 - 7.00 K/mcL LAB HEMETOLOGY METHOD 04/25/2025 5:19 PM [facility] Lymphocytes Absolute 3.37 1.00 - 5.00 K/mcL LAB HEMETOLOGY METHOD 04/25/2025 5:19 PM [facility] Monocytes Absolute 1.04(H) 0.20 - 1.00 K/mcL LAB HEMETOLOGY METHOD 04/25/2025 5:19 PM [facility] Eosinophils Absolute 0.42 0.00 - 0.50 K/mcL LAB HEMETOLOGY METHOD 04/25/2025 5:19 PM [facility] Basophils Absolute 0.07 0.00 - 0.20 K/[facility] LAB HEMETOLOGY METHOD 04/25/2025 5:19 PM EDT [facility] Immature Granulocytes Absolute 0.05(H) 0.00 - 0.03 K/[facility] LAB HEMETOLOGY METHOD 04/25/2025 5:19 PM EDT [facility] Blood Venous blood specimen / Unknown Venipuncture / Unknown 04/25/2025 1:39 PM EDT 04/25/2025 1:39 PM EDT Karlie Mendez MD LAB BLOOD ORDERABLES Final Result Performing Organization Address City/[facility]/ZIP Co de Phone Number [facility] [address] [place] [address], [place] [phone] * Phosphorus (04/25/2025 1:39 PM EDT) Phosphorus 3.5 2.5 - 4.5 mg/dL LAB CHEMISTRY METHOD 04/25/2025 5:16 PM EDT [facility] Blood Venous blood specimen / Unknown Venipuncture / Unknown 04/25/2025 1:39 PM EDT 04/25/2025 1:39 PM EDT Karlie Mendez MD LAB BLOOD ORDERABLES Final Result [facility] [address] [place] [address], [place] [phone] * Magnesium (04/25/2025 1:39 PM EDT) Magnesium 2.0 1.9 - 2.6 mg/dL LAB CHEMISTRY METHOD 04/25/2025 5:16 PM EDT [facility] Blood Venous blood specimen / Unknown Venipuncture / Unknown 04/25/2025 1:39 PM EDT 04/25/2025 1:39 PM EDT Karlie Mendez MD LAB BLOOD ORDERABLES Final Result Performing Organization Address City/[facility]/ZIP Co de Phone Number [facility] [address] [place] [address], [place] [phone] * Hemoglobin A1c (04/25/2025 1:39 PM EDT) Pathologist [facility] Hemoglobin A1C 5.9 <6.5 % LAB CHEMISTRY METHOD 04/25/2025 10:55 PM EDT [facility] Mean Bld Glu Estim. 123 mg/dL LAB CHEMISTRY METHOD 04/25/2025 10:55 PM EDT [facility] Blood Venous blood specimen / Unknown Venipuncture / Unknown 04/25/2025 1:39 PM EDT 04/25/2025 1:39 PM EDT Karlie Mendez MD LAB BLOOD ORDERABLES Final Result Performing Organization Address [facility]/ZIP Co de Phone Number [facility] [address] [place] [address], [place] [phone] * Comprehensive metabolic panel (04/25/2025 1:39 PM EDT) [facility] Sodium 138 133 - 145 mmol/L LAB CHEMISTRY METHOD 04/25/2025 5:16 PM EDT [facility] Potassium 3.9 3.5 - 5.5 mmol/L LAB CHEMISTRY METHOD 04/25/2025 5:16 PM EDT [facility] Chloride 102 96 - 110 mmol/L LAB CHEMISTRY METHOD 04/25/2025 5:16 PM EDT [facility] CO2 31 21 - 32 mmol/L LAB CHEMISTRY METHOD 04/25/2025 5:16 PM EDT [facility] Anion Gap 5 3 - 11 LAB CHEMISTRY METHOD 04/25/2025 5:16 PM EDT [facility] Glucose 98 70 - 100 mg/dL LAB CHEMISTRY METHOD 04/25/2025 5:16 PM [facility] BUN 14 5 - 25 mg/dL LAB CHEMISTRY METHOD 04/25/2025 5:16 PM [facility] Creatinine 1.13 0.70 - 1.30 mg/dL LAB CHEMISTRY METHOD 04/25/2025 5:16 PM [facility] eGFR 67 >=60 mL/min/1. 73m2 LAB CHEMISTRY METHOD 04/25/2025 5:16 PM [facility] Comment:Calculation based on the Chronic Kidney Disease Epidemiology Collaboration (CKD-EPI) equation refit without adjustment for race. BUN/Creatinine Ratio 12.4 LAB CHEMISTRY METHOD 04/25/2025 5:16 PM [facility] Calcium 9.1 8.5 - 10.5 mg/dL LAB CHEMISTRY METHOD 04/25/2025 5:16 PM [facility] AST (SGOT) 23 10 - 42 unit/L LAB CHEMISTRY METHOD 04/25/2025 5:16 PM [facility] ALT (SGPT) 20 10 - 60 unit/L LAB CHEMISTRY METHOD 04/25/2025 5:16 PM [facility] Alkaline Phosphatase 69 42 - 121 unit/L LAB CHEMISTRY METHOD 04/25/2025 5:16 PM [facility] Total Protein 6.5 6.0 - 8.0 g/dL LAB CHEMISTRY METHOD 04/25/2025 5:16 PM [facility] Albumin 3.4 3.2 - 5.0 g/dL LAB CHEMISTRY METHOD 04/25/2025 5:16 PM [facility] Total Bilirubin 0.6 0.0 - 1.4 mg/dL LAB CHEMISTRY METHOD 04/25/2025 5:16 PM [facility] Blood Venous blood specimen / Unknown Venipuncture / Unknown 04/25/2025 1:39 PM EDT 04/25/2025 1:39 PM EDT Karlie Mendez MD LAB BLOOD ORDERABLES Final Result [facility] [address] [place] [address], * Hepatitis C Screening (09/23/2013) [facility] Hepatitis C Screening Abstracted us Historical Provider HEALTH MAINTENANCE Final Result from Last 3 Months or Most Recently Relevant to Health Maintenance Care Teams Street Commissioner Relationship Specialty Start Date End Date Karlie Mendez MD [address] [place] [address] PCP - General 03/27/24
--- OUTSIDE RECORDS SUMMARY | 2025-06-23 07:41 | XMS_ITS | Patient Health Record ---
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 PLAN (REFERRA L NEEDED) [address] [place] [address] [phone] [id number] NAN RAMSAY Self - patient is the insured Medical (General) History Medical History History ICD Code hypertension nerve pain right leg elevated cholesterol cervical spondyloarthropathies degenerative joint disease prostate nodule Surgical History Surgery Date(Month/Year) appendectomy left vericocele metatarsal osteotomy cervical radiculopathy thumb rotator cuff tear repair right knee arthroscopy tennis elbow surgery
--- OUTSIDE RECORDS SUMMARY | 2025-06-23 07:41 | XMS_ITS | Clinical Summary ---
Author Organization [facility] Address [address] [place] [address] Care Team Providers Care Cath Lab Radiology Technician Name Role Phone Tree Aguilar Primary Care [...] Tdap) 09/24/2023 09/24/2013 COVID-19 Vaccine ( season) 2025 12/31/2020, 12/10/2020 Influenza Vaccine (#1) 2025 7, 08/22/2016, 07/03/2015, Additional history exists Pneumococcal Vaccine Completed 04/22/2015, 09/21/20 12 Shingrix-Zoster Vaccine Completed 11/20/2020, 09/11 Hepatitis B Vaccines Aged Out No long er eligible based on patient's age to complete this topic RSV Ped < 20 months Aged Out No longe r eligible based on patient's age to complete this topic Care Teams Cath Lab Radiology Technician Relationship Specialty Start Date End Date Tree Aguilar PCP - General Internal Medicine 01/18/18
--- NOTE | 2025-06-23 07:45 | A.OFFVIS_ITS ---
Intake Visit Reasons: 6m/PSA Intake Note: Patient presents to office today for 6 month/follow up Urology medications: Alfuzosin,Vitamin B12 Blood thinners: Aspirin Allergies to Antibiotics: None Painter And Grader Cork Required: No Accompanied by: Self / Same As Patient Allergies green foods Allergy (Mild, Uncoded 04/28/25 09:44) Unknown HPI Comments Details: 06/23/25-- History of Present Illness The patient is a 80-year-old male presenting with obstructive voiding symptoms. He has been experiencing symptoms of a weak urinary stream and nocturia, initial ly getting up three to four times at night, which has now improved to once per night. The patient was started on alfuzosin, which has led to an improvement in his urinary symptoms. A PSA screening was conducted on June 02, resulting in a PSA level of 0.77 ng/mL, which is within the normal range. Results - PSA screenin.77 ng/mL on June 02, 2025, within normal range Plan 1. Obstructive Voiding Symptoms, Continue alfuzosin 10 mg daily. Follow-up in one year with repeat PSA screening. 12/23/24--Jhon is a 79-year-old male presenting with follow-up for Benign Prostatic Hyperplasia (BPH) and evaluation of urinary symptoms. Currently on alfuzosin, the patient maintains compliance with the 10 mg daily dosage. Despite this treatment, a weak urine stream persists while nocturia is minimal, with only one nighttime visit to the bathroom. The patient previously suffered from recurrent UTIs, which were managed with several rounds of antibiotics; the infections are now resolved. There are no current UTI symptoms, and past infections appear to have been successfully treated. Symptoms such as the weak urine stream, although persistent, have not shown significant interference with nightly sleep or daily activities. Urinary Symptoms Review - Weak urine stream - Decreased nocturia, with only one episode of waking at night to urinate - Previous recurrent urinary tract infections, currently resolved after antibiotic treatment - No current signs or symptoms of urinary infection - Compliance with alfuzosin 10 mg daily Results - Labs: Previous PSA from 05/29/24, 1.66 ng/mL - Tests and diagnostics: Bladder scan post-void residual (PVR) today is 6 mL 06/20/24--Jhon is a 79-year-old male who presents today to the office for a follow-up. He is taking the alfuzosin daily. He states he feels like he is getting another urinary tract infection for the last 2 days he has been going more frequently and has bladder pressure. Urinalysis 2+ leukocytes, 2+ blood. I have reviewed renal ultrasound imaging 06/14/24--kidneys negative for stones or hydronephrosis. PSA-05/29/2024--1.66 ng/mL. Will start Bactrim DS 1 tab twice a day, empirically and send urine culture. 06/19/2023?He is followed today for PSA. He was last seen by me on 12/16/2022 for recurrent urinary tract infections. The patient was advised to continue alfuzosin 10 mg daily.? PSA screening was ordered and he was advised to follow- up in 6 months during that time. He states that he is doing well at this time. He has been taking alfusozin 10 mg daily with benefit. He reports normal urinary stream. In general he is up 0-1 time at night unless he drinks coffee in the evening he gets up 2 x. He states his flow during the day is steady and he feels he is emptying his bladderl, denies dysuria or gross hematuria. I reviewed the PSA results from 06/14/2023 revealed 0.77 ng/mL. 06/19/2023: Evaluation today?UA? Leukocytes: negative; blood: negative; Bladder scan PVR: 163mL. 12/16/2022?LV 09/26/22--here as a new patient evaluation for recurrent UTIs. He states he was treated with antibiotics x2 courses a few months ago. Currently denies dysuria.? Denies gross hematuria.? Complains of weak stream. Was started on Flomax about 6 months ago by PCP, patient stays minimal improvement in strength of urinary flow. States had prostate biopsy about 12 years ago which was normal.? States PSA has been normal. 09/26/22- here for office cystoscopy, he states he is not sure if he started the alfuzosin or if he is still taking the flomax. Findings:? bladder mucosa - no suspious lesions, mild/mod trabeculations, plan I will send another script for alfuzosin 10 mg daily 12/16/2022-- states that urinary symptoms are improved, taking alfuzosin 10 mg daily Evaluation today-urinalysis negative for infection. Bladder scan PVR 87 mL. Plan continue alfuzosin 10 mg daily.? PSA screening.? Follow-up in 6 months. [facility] Medical History Zenker diverticulum Upper airway cough syndrome Dysphagia Chronic cough Emphysema of lung HTN (hypertension) HTN (hypertension) HTN (hypertension) PAD (peripheral artery disease) Surgical History Hx of cataract surgery S/P angiogram of extremity (04/06/22) Lumbar stenosis History of hemorrhoidectomy History of right knee surgery S/P left rotator cuff repair S/P right rotator cuff repair History of right tennis elbow Left rotator cuff tear arthropathy Trigger finger of right thumb Cervical radiculopathy at C6 Cervical radiculopathy at C5 Status post osteotomy Left varicocele History of appendectomy Family History Mother No problems noted. Father Heart disease Sister Multiple sclerosis Social History Alcohol intake: current Alcohol intake frequency: holidays/special occasions only Patient Tobacco Use Status: Former Tobacco user Years Smoked: 10+/- Review of Systems Const All systems reviewed & are unremarkable except as noted in HPI and below Reports no additional complaints Eyes Reports no additional complaints ENT Reports no additional complaints Card Reports no additional complaints Resp Reports no additional complaints GI Reports no additional complaints Reports as per HPI Musc Reports no additional complaints Skin/Breast Reports system reviewed and no additional complaints, except as documented Neuro Reports no additional complaints Psych Reports no additional complaints Endo Reports no additional complaints Armando/Lymph Reports no additional complaints Aller/Immun Reports no additional complaints Telehealth Telehealth Telehealth [facility] Location of provider rendering services: practice address Location of patient: address on file Patient Identification confirmed using: Name, : Yes Telehealth method: video Patient verbally consented to treatment: Yes Patient verbally consented to billing insurance company: Yes Patient informed of any privacy concerns related to visit: Yes Assessment & Plan Assessment & Plan (1) BPH loc w urin obs/LUTS: Code(s): N40.1 - Benign prostatic hyperplasia with lower urinary tract symptoms Category: Medical (2) Slowing of urinary stream: Code(s): R39.198 - Other difficulties with micturition Category: Medical (3) Screening PSA (prostate specific antigen): Code(s): Z12.5 - Encounter for screening for malignant neoplasm of prostate Category: Medical Plan Continue alfuzosin 10 mg daily. Follow-up in one year with repeat PSA screening. Monitor PVR Orders: Orders PSA,Total (Free>4and<10) 11 Months N40.1 - Benign prostatic hyperplasia with lower urinary tract symptoms, Z12.5 - Encounter for screening for malignant neoplasm of prostate Patient Instructions: The patient had an opportunity to ask questions regarding treatment plan. The patient expressed understanding and agreement with the above treatment plan. The patient is aware they should contact our office by phone for worsening of their current condition or the appearance of new symptoms. Compliance is encouraged with any medications and followup testing that is ordered. It is a privilege to be allowed the opportunity to participate in the urologic care of your patient. If you have any questions or concerns regarding treatment for the above conditions please do not hesitate to contact me. The office telephone contact is [phone]. This note is constructed in part using voice recognition software. While every effort has been made to ensure accuracy network announcer errors may have been included. Yours sincerely, Mikaela Duke MD Scribe Plan - Not visible on output: Patient was informed and verbally consented to the use of an ambient scribe for clinic note documentation during this visit. Coding Level of Care Code Tele Est Pt Level 3 (12073) Complex EM visit Add On G2211 Diagnoses BPH loc w urin obs/LUTS N40.1 Slowing of urinary stream R39.198 Screening PSA (prostate specific antigen) Z12.5
== END 2025-06-23 08:39 | disposition home or self-care (01) ==
LOC: HO.HUSH 07:38
PROVIDERS: PCP Internal Medicine; Visit Provider Urology
DX: N40.1 Benign prostatic hyperplasia with lower urinary tract symptoms (principal); R39.198 Other difficulties with micturition; Z12.5 Encounter for screening for malignant neoplasm of prostate
CPT/HCPCS: 98004

== ENCOUNTER 2025-07-02 08:53 | Outpatient (AMB) | payer OTHER, SELFPAY ==
--- OUTSIDE RECORDS SUMMARY | 2025-07-02 10:27 | XMS_ITS | Patient Health Record ---
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 [place] [phone] [id number] NAN RAMSAY Self - patient is the insured Medical (General) History Medical History History ICD Code hypertension nerve pain right leg elevated cholesterol cervical spondyloarthropathies degenerative joint disease prostate nodule Surgical History Surgery Date(Month/Year) appendectomy left vericocele metatarsal osteotomy cervical radiculopathy thumb rotator cuff tear repair right knee arthroscopy tennis elbow surgery
--- OUTSIDE RECORDS SUMMARY | 2025-07-02 10:27 | XMS_ITS | Clinical Summary ---
Author Organization [facility] [address] [place] [address] Address [address] [place] [address] Phone Care Team Providers Care Building Code Administrator Name Role Phone Karlie Mendez MD Primary [...] of artery of extremity with intermittent claudication (CMS/[facility] V24) 04/17/2023 Celiac disease 05/16/2018 [...] medial branch radiofrequency neurotomy 04/22 - per [facility] neurosurgery, no surgical course of action appropriate due to the extent of the arthritis in both areas. 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 Sloan - [facility] - physical therapy, injections unhelpful Persists status post neural ablation Dr. Sergio Gore- [facility]- myofascial pain due to paravertebral muscle dysfunction Dr. Tahira Elaine - [facility]- continue cyclobenzaprine, trial of trigger point injections, botulinum injections, PT, stop bifocals 09/19 - Shanika Young PA-c from Physiatry - referred for bilateral C3-4, C4-5 facet joint injection 212 - left C3, C4, C5 and C6 medial branch radiofrequency neurotomy 04/22 - per [facility] neurosurgery, no surgical course of action appropriate due to the extent of the arthritis in both areas. Their recommendation is pain management. 08/23 - Dr. Heller ([facility] pain management) - acupuncture - not much relief Encounters Date Type Department Care Team Description 06/23/2025 10:00 AM EDT Office Visit Orthopedic Surgery - [address] [address] Chandler Arceo, DPManav Pain in right foot (Primary Dx); Paresthesia of right foot; Lumbosacral radiculopathy 05/21/2025 8:45 AM EDT Office Visit [address] [phone] Karlie Mendez MD Benign prostatic hyperplasia, unspecified whether lower urinary tract symptoms present (Primary Dx); Abnormal CBC; Prediabetes 04/25/2025 1:00 PM EDT Office Visit [address] [phone] Karlie Mendez MD Elevated AST (SGOT) (Primary [...] SHOULDER SURGERY; COMMENT: both shoulders- Dr. Jim- [place] HAND SURGERY 1996 PROCEDURE: HISTORICAL HAND SURGERY; COMMENT: R - trigger release KNEE SURGERY 07/20 PROCEDURE: HISTORICAL KNEE SURGERY; COMMENT: Dr. Zee - [place] - arthroscopy for meniscal tear COLONOSCOPY 04/17/2013 PROCEDURE: HISTORICAL COLONOSCOPY; COMMENT: tics and hemorrhoids; repeat in ten yrs NECK SURGERY 1987 PROCEDURE: HISTORICAL NECK SURGERY; COMMENT: Neck sg for hand numbness (in ) HEMORRHOID SURGERY PROCEDURE: SC INCISION THROMBOSED HEMORRHOID EXTERNAL Medical History Medical [...] your loved ones. For example, child care associate teacher or elderly care for an older [...] Care Team (Late st Contact Info) Description 09/12/2025 8:45 AM EST Office Visit Adult Medicine [facility] [address] [place] [address] Karlie Mendez MD [address] [place] [address] Health Maintenance Due Date Last Done Comments Medicare Annual Wellness Visit 09/17/2022 COVID-19 Vaccine (8 - Pfizer risk 2023- [...] Antigen Negative Negative 04/25/2025 8:[address] [facility] C difficile Toxins A+B, EIA Negative Negative 04/25/2025 8:[address] [facility] Comment:NEGATIVE FOR TOXIN P RODUCING CLOSTRIDIOIDES DIFFICILE, NO ADDITIONAL TESTING IS NECESSARY. Stool Rectum structure / Unknown Non-blood Collection / Unknown 04/25/2025 3:19 PM EDT 04/25/2025 3:19 PM EDT us Karlie Mendez MD LAB MICROBIOLOGY - GENERAL ORDERABLES Final Result [facility] [address] [place] [address], [place] [phone] * Lipid panel with reflex to direct LDL (04/25/2025 1:39 PM EDT) Cholesterol 139 0 - 200 mg/dL LAB CHEMISTRY [facility] Triglycerides 95 0 - 150 mg/dL LAB CHEMISTRY METHOD 04/25/2025 5:16 PM [facility] HDL 49 >=40 mg/dL LAB CHEMISTRY METHOD 04/25/2025 5:[address] [facility] LDL Calculated 71 0 - 100 mg/dL LAB CHEMISTRY METHOD 04/25/2025 5:16 PM [facility] VLDL Cholesterol Dread 19 mg/dL LAB CHEMISTRY METHOD 04/25/2025 5:[address] [facility] Non HDL Chol. (LDL+VLDL) 90 <145 mg/dL LAB CHEMISTRY METHOD 04/25/2025 5:[address] [facility] Chol/HDL Ratio 2.8 0.0 - 4.4 LAB CHEMISTRY METHOD 04/25/2025 5:16 PM [facility] Blood Venous blood specimen / Unknown Venipuncture / Unknown 04/25/2025 1:39 PM EDT 04/25/2025 1:39 PM EDT us Karlie Mendez MD LAB BLOOD ORDERABLES Final Result [facility] [address] [place] [address], [place] [phone] * (ABNORMAL) CBC auto differential (04/25/2025 1:39 PM EDT) WBC 9.2 4.8 - 10.8 K/mcL LAB HEMETOLOGY METHOD 04/25/2025 5:[address] [facility] RBC 4.50 4.50 - 5.50 M/mcL LAB HEMETOLOGY METHOD 04/25/2025 5:[address] [facility] Hemoglobin 14.4 13.5 - 17.5 g/dL LAB HEMETOLOGY METHOD 04/25/2025 5:[address] [facility] Hematocrit 42.0 42.0 - 54.0 % LAB HEMETOLOGY METHOD 04/25/2025 5:[address] [facility] MCV 93.3 79.0 - 98.0 FL LAB HEMETOLOGY METHOD 04/25/2025 5:[address] [facility] MCH 32.0 27.0 - 32.0 pcg LAB HEMETOLOGY METHOD 04/25/2025 5:[address] [facility] MCHC 34.3 32.0 - 37.0 g/dL LAB HEMETOLOGY METHOD 04/25/2025 5:[address] [facility] RDW 12.1 11.0 - 15.0 % LAB HEMETOLOGY METHOD 04/25/2025 5:[address] [facility] Platelets 238 130 - 400 K/mcL LAB HEMETOLOGY METHOD 04/25/2025 5:[address] [facility] MPV 11.0 7.0 - 11.0 FL LAB HEMETOLOGY METHOD 04/25/2025 5:19 PM [facility] NRBC 0.0 <1.0 % LAB HEMETOLOGY METHOD 04/25/2025 5:19 PM [facility] NRBC Absolute 0.00 <0.10 K/mcL LAB HEMETOLOGY METHOD 04/25/2025 5:19 PM [facility] Neutrophils Relative 46.2 % LAB HEMETOLOGY METHOD 04/25/2025 5:19 PM [facility] Lymphocytes Relative 36.6 % LAB HEMETOLOGY METHOD 04/25/2025 5:19 PM [facility] Monocytes Relative 11.3 % LAB HEMETOLOGY METHOD 04/25/2025 5:19 PM [facility] Eosinophils Relative 4.6 % LAB HEMETOLOGY METHOD 04/25/2025 5:19 PM [facility] Basophils Relative 0.8 % LAB HEMETOLOGY METHOD 04/25/2025 5:19 PM [facility] Immature Granulocytes Relative 0.5 % LAB HEMETOLOGY METHOD 04/25/2025 5:19 PM [facility] Neutrophils Absolute 4.26 1.50 - 7.00 K/mcL LAB HEMETOLOGY METHOD 04/25/2025 5:19 PM [facility] Lymphocytes Absolute 3.37 1.00 - 5.00 K/mcL LAB HEMETOLOGY METHOD 04/25/2025 5:19 PM [facility] Monocytes Absolute 1.04(H) 0.20 - 1.00 K/mcL LAB HEMETOLOGY METHOD 04/25/2025 5:19 PM [facility] Eosinophils Absolute 0.42 0.00 - 0.50 K/mcL LAB HEMETOLOGY METHOD 04/25/2025 5:19 PM [facility] Basophils Absolute 0.07 0.00 - 0.20 K/[facility] LAB HEMETOLOGY METHOD 04/25/2025 5:[address] [facility] Immature Granulocytes Absolute 0.05(H) 0.00 - 0.03 K/[facility] LAB HEMETOLOGY METHOD 04/25/2025 5:[address] [facility] Blood Venous blood specimen / Unknown Venipuncture / Unknown 04/25/2025 1:39 PM EDT 04/25/2025 1:39 PM EDT Karlie Mendez MD LAB BLOOD ORDERABLES Final Result Performing Organization Address City/[facility]/ZIP Co de Phone Number [facility] [address] [place] [address], [place] [phone] * Phosphorus (04/25/2025 1:39 PM EDT) Phosphorus 3.5 2.5 - 4.5 mg/dL LAB CHEMISTRY METHOD 04/25/2025 5:[address] [facility] Blood Venous blood specimen / Unknown Venipuncture / Unknown 04/25/2025 1:39 PM EDT 04/25/2025 1:39 PM EDT Karlie Mendez MD LAB BLOOD ORDERABLES Final Result [facility] [address] [place] [address], [place] [phone] * Magnesium (04/25/2025 1:39 PM EDT) Magnesium 2.0 1.9 - 2.6 mg/dL LAB CHEMISTRY METHOD 04/25/2025 5:[address] [facility] Blood Venous blood specimen / Unknown Venipuncture / Unknown 04/25/2025 1:39 PM EDT 04/25/2025 1:39 PM EDT Karlie Mendez MD LAB BLOOD ORDERABLES Final Result [facility] [address] [place] [address], [place] [phone] * Hemoglobin A1c (04/25/2025 1:39 PM EDT) Pathologist [facility] Hemoglobin A1C 5.9 <6.5 % LAB CHEMISTRY METHOD 04/25/2025 10:[address] [facility] Mean Bld Glu Estim. 123 mg/dL LAB CHEMISTRY METHOD 04/25/2025 10:[address] [facility] Blood Venous blood specimen / Unknown Venipuncture / Unknown 04/25/2025 1:39 PM EDT 04/25/2025 1:39 PM EDT Karlie Mendez MD LAB BLOOD ORDERABLES Final Result Performing Organization Address [facility]/ZIP Co de Phone Number [facility] [address] [place] [address], [place] [phone] * Comprehensive metabolic panel (04/25/2025 1:39 PM EDT) [facility] Sodium 138 133 - 145 mmol/L LAB CHEMISTRY METHOD 04/25/2025 5:[address] [facility] Potassium 3.9 3.5 - 5.5 mmol/L LAB CHEMISTRY METHOD 04/25/2025 5:[address] [facility] Chloride 102 96 - 110 mmol/L LAB CHEMISTRY METHOD 04/25/2025 5:[address] [facility] CO2 31 21 - 32 mmol/L LAB CHEMISTRY METHOD 04/25/2025 5:[address] [facility] Anion Gap 5 3 - 11 LAB CHEMISTRY METHOD 04/25/2025 5:[address] [facility] Glucose 98 70 - 100 mg/dL LAB CHEMISTRY METHOD 04/25/2025 5:16 PM [facility] BUN 14 5 - 25 mg/dL LAB CHEMISTRY METHOD 04/25/2025 5:16 PM [facility] Creatinine 1.13 0.70 - 1.30 mg/dL LAB CHEMISTRY METHOD 04/25/2025 5:16 PM [facility] eGFR 67 >=60 mL/min/1. 73m2 LAB CHEMISTRY METHOD 04/25/2025 5:16 PM [facility] Comment:Calculation based on the Chronic Kidney Disease Epidemiology Collaboration (CKD-EPI) equation refit without adjustment for race. BUN/Creatinine Ratio 12.4 LAB CHEMISTRY METHOD 04/25/2025 5:16 PM [facility] Calcium 9.1 8.5 - 10.5 mg/dL LAB CHEMISTRY METHOD 04/25/2025 5:16 PM [facility] AST (SGOT) 23 10 - 42 unit/L LAB CHEMISTRY METHOD 04/25/2025 5:16 PM [facility] ALT (SGPT) 20 10 - 60 unit/L LAB CHEMISTRY METHOD 04/25/2025 5:16 PM [facility] Alkaline Phosphatase 69 42 - 121 unit/L LAB CHEMISTRY METHOD 04/25/2025 5:16 PM [facility] Total Protein 6.5 6.0 - 8.0 g/dL LAB CHEMISTRY METHOD 04/25/2025 5:16 PM [facility] Albumin 3.4 3.2 - 5.0 g/dL LAB CHEMISTRY METHOD 04/25/2025 5:16 PM [facility] Total Bilirubin 0.6 0.0 - 1.4 mg/dL LAB CHEMISTRY METHOD 04/25/2025 5:16 PM [facility] Blood Venous blood specimen / Unknown Venipuncture / Unknown 04/25/2025 1:39 PM EDT 04/25/2025 1:39 PM EDT Karlie Mendez MD LAB BLOOD ORDERABLES Final Result [facility] [address] [place] [address], [place] [phone] * Hepatitis C Screening (09/23/2013) [facility] Hepatitis C Screening Abstracted Historical Provider HEALTH MAINTENANCE Final Result from Last 3 Months or Most Recently Relevant to Health Maintenance Insurance [facility] PLAN MEDICARE Care Teams Building Code Administrator Relationship Specialty Start Date End Date Karlie Mendez MD [address] [place] [address] PCP - General 03/27/24
--- OUTSIDE RECORDS SUMMARY | 2025-07-02 10:27 | XMS_ITS | Clinical Summary ---
Author Organization [facility] Address [address] [place] [address] Care Team Providers Care Strapping Machine Operator Name Role Phone Tree Aguilar Primary [...] age to complete this topic Care Teams Strapping Machine Operator Relationship Specialty Start Date End Date Tree Aguilar PCP - General Internal Medicine 01/18/18
== END 2025-07-02 08:56 | disposition home or self-care (01) ==
LOC: HO.HMGAL 08:53
PROVIDERS: PCP Internal Medicine; Visit Provider Registered Nurse Emergency
DX: J30.89 Other allergic rhinitis (principal)
CPT/HCPCS: 95117; 95165

== ENCOUNTER 2025-07-30 08:48 | Outpatient (AMB) | payer OTHER, SELFPAY ==
--- OUTSIDE RECORDS SUMMARY | 2025-07-30 09:24 | XMS_ITS | Clinical Summary ---
Author Organization [facility] [address] [place] [address] Address [address] [place] [address] Phone Care Team Providers Care Clothing Trades Workers Name Role Phone Karlie Mendez MD Primary [...] or chew. 90 tablet 1 5 Active benzonatate (TESSALON) 200 mg capsule Take 1 capsule (200 mg total) by mouth 3 (three) times a day if needed for cough. Do not crush or chew. Active gabapentin (NEURONTIN) 300 mg capsule TAKE 2 CAPSULES BY MOUTH AT BEDTIME 180 capsule 1 5 Active simvastatin (ZOCOR) 40 mg tablet TAKE 1 TABLET BY MOUTH AT BEDTIME 90 tablet 1 Active simvastatin (ZOCOR) 40 mg tablet Take 1 tablet (40 mg total) by mouth at bedtime. at bedtime. 90 tablet 1 5 025 Discontinued gabapentin (NEURONTIN) 300 mg capsule Take 2 capsules (600 mg total) by mouth at bedtime. 180 capsule 5 025 Discontinued Active Problems Problem Noted Date [...] medial branch radiofrequency neurotomy 04/22 - per [facility] neurosurgery, no surgical course of action appropriate due to the extent of the arthritis in both areas. 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 Sloan - [facility] - physical therapy, injections unhelpful Persists status post neural ablation Dr. Sergio Gore- [facility]- myofascial pain due to paravertebral muscle dysfunction Dr. Tahira Elaine - [facility] Medicine [facility]- continue cyclobenzaprine, trial of trigger point injections, botulinum injections, PT, stop bifocals 09/19 - Shanika Young PA-c from Physiatry - referred for bilateral C3-4, C4-5 facet joint injection 212 - left C3, C4, C5 and C6 medial branch radiofrequency neurotomy 04/22 - per [facility] neurosurgery, no surgical course of action appropriate due to the extent of the arthritis in both areas. Their recommendation is pain management. 08/23 - Dr. Heller ([facility] pain management) - acupuncture - not much relief Encounters Date Type Department Care Team Description 07/02/2025 Telephone Adult Medicine [address] [phone] Karlie Mendez MD 06/23/2025 10:00 AM EDT Office Visit Orthopedic Surgery - [address] [phone] Chandler Arceo, EDWARD Pain in right foot (Primary Dx); Paresthesia of right foot; Lumbosacral radiculopathy 05/21/2025 8:45 AM EDT Office Visit Adult [address] [phone] Karlie Mendez MD Benign prostatic hyperplasia, unspecified whether lower urinary tract symptoms present (Primary Dx); Abnormal CBC; Prediabetes from Last 3 Months Immunizations Immunization Administration Dates Next Due Influenza Quadravalent, MDCK [...] SHOULDER SURGERY; COMMENT: both shoulders- Dr. Jim- [place] HAND SURGERY 1996 PROCEDURE: HISTORICAL HAND SURGERY; COMMENT: R - trigger release KNEE SURGERY 07/20 PROCEDURE: HISTORICAL KNEE SURGERY; COMMENT: Dr. Zee - R - arthroscopy for meniscal tear COLONOSCOPY 04/17/2013 PROCEDURE: HISTORICAL COLONOSCOPY; COMMENT: tics and hemorrhoids; repeat in ten yrs NECK SURGERY 1987 PROCEDURE: HISTORICAL NECK SURGERY; COMMENT: Neck sg for hand numbness (in ) HEMORRHOID SURGERY PROCEDURE: [place] INCISION THROMBOSED HEMORRHOID EXTERNAL Medical History Medical [...] for your loved ones. For example, child welfare director or elderly care for an older [...] Date Recorded What is your living situation? Unrecognized valu e 08/18/2024 Sex and Gender Information Value Date Recorded [...] 8:45 AM EST Office Visit Adult Medicine [facility] [address] [place] [address] Karlie Mendez MD [address] [place] [address] Health Maintenance Due Date Last Done Comments [...] Associated Diagnosis Comments COMPREHENSIVE METABOLIC PANEL Routine 04/25/2025 1:39 PM EDT Elevated AST (SGOT) LIPID PANEL WITH REFLEX TO DIRECT LDL Routine 04/25/2025 1:39 PM EDT Hyperlipidemia, unspecified hyperlipidemia type HEPATITIS C SCREENING Routine 09/23/2013 from Last 3 Months or Most Recently Relevant to Health Maintenance Results * Lipid panel with reflex to direct LDL (04/25/2025 1:39 PM EDT) Cholesterol 139 0 - 200 mg/dL LAB CHEMISTRY METHOD 04/25/2025 5:16 PM EDT [facility] Triglycerides 95 0 - 150 mg/dL LAB CHEMISTRY METHOD 04/25/2025 5:16 PM EDT [facility] HDL 49 >=40 mg/dL LAB CHEMISTRY METHOD 04/25/2025 5:16 PM EDT [facility] LDL Calculated 71 0 - 100 mg/dL LAB CHEMISTRY METHOD 04/25/2025 5:16 PM EDT [facility] VLDL Cholesterol Dread 19 mg/dL LAB CHEMISTRY METHOD 04/25/2025 5:16 PM EDT [facility] Non HDL Chol. (LDL+VLDL) 90 <145 mg/dL LAB CHEMISTRY METHOD 04/25/2025 5:16 PM [facility] Chol/HDL Ratio 2.8 0.0 - 4.4 LAB CHEMISTRY METHOD 04/25/2025 5:16 PM [facility] Blood Venous blood specimen / Unknown Venipuncture / Unknown 04/25/2025 1:39 PM EDT 04/25/2025 1:39 PM EDT Karlie Mendez MD LAB BLOOD ORDERABLES Final Result [facility] [address] [place] [address], [place] [phone] * Comprehensive metabolic panel (04/25/2025 1:39 PM [...] 73m2 LAB CHEMISTRY METHOD 04/25/2025 5:16 PM T [facility] Comment:Calculation based on the Chronic [...] 04/25/2025 5:16 PM [facility] Alkaline Phosphatase 69 42 - 121 unit/L LAB CHEMISTRY METHOD 04/25/2025 5:16 PM [facility] Total Protein 6.5 6.0 - 8.0 g/dL LAB CHEMISTRY METHOD 04/25/2025 5:16 PM [facility] Albumin 3.4 3.2 - 5.0 g/dL LAB CHEMISTRY METHOD 04/25/2025 5:16 PM [facility] Total Bilirubin 0.6 0.0 - 1.4 mg/dL LAB CHEMISTRY METHOD 04/25/2025 5:16 PM [facility] Blood Venous blood specimen / Unknown Venipuncture / Unknown 04/25/2025 1:39 PM EDT 04/25/2025 1:39 PM EDT us Karlie Mendez MD LAB BLOOD ORDERABLES Final Result [facility] [address] [place] [address], * Hepatitis C Screening (09/23/2013) [facility] Hepatitis C Screening Abstracted us Historical Provider HEALTH MAINTENANCE Final Result from Last 3 Months or Most Recently Relevant to Health Maintenance Insurance [facility] MEDICARE Care Teams Clothing Trades Workers Relationship Specialty Start Date End Date Karlie Mendez MD [address] [place] [address] PCP - General 03/27/24
--- OUTSIDE RECORDS SUMMARY | 2025-07-30 09:24 | XMS_ITS | Clinical Summary ---
Author Organization [facility] Address [address] [place] [address] Care Team Providers Care Barn And Property Manager Name Role Phone Tree Aguilar Primary Care [...] age to complete this topic Care Teams Barn And Property Manager Relationship Specialty Start Date End Date Tree Aguilar PCP - General Internal Medicine 01/18/18
--- OUTSIDE RECORDS SUMMARY | 2025-07-30 09:25 | XMS_ITS | Patient Health Record ---
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 [place] [phone] [id number] NAN RAMSAY Self - patient is the insured Medical (General) History Medical History History ICD Code hypertension nerve pain right leg elevated cholesterol cervical spondyloarthropathies degenerative joint disease prostate nodule Surgical History Surgery Date(Month/Year) appendectomy left vericocele metatarsal osteotomy cervical radiculopathy thumb rotator cuff tear repair right knee arthroscopy tennis elbow surgery
== END 2025-07-30 08:49 | disposition home or self-care (01) ==
LOC: HO.HMGAL 08:48
PROVIDERS: PCP Internal Medicine; Visit Provider Registered Nurse Emergency
DX: J30.89 Other allergic rhinitis (principal)
CPT/HCPCS: 95117; 95165

== ENCOUNTER 2025-08-19 13:57 | Outpatient (REF) | payer OTHER, SELFPAY ==
--- OUTSIDE RECORDS SUMMARY | 2025-08-19 15:31 | XMS_ITS | Clinical Summary ---
Author Organization [facility] [address] [place] [address] Address [address] [place], [place] Phone Care Team Providers Care Particle Board Supervisor Name Role Phone Karlie Mendez MD Primary Care Provider [phone] Allergies Active Allergy Reactions Criticality Noted Date [...] bedtime. 90 tablet 1 5 025 Discontinued Active Problems Problem Noted [...] shots Eczema 12/06/2007 Overview (07/10/2024): Dr. Noman MOD (degenerative joint disease), lumbar 008 Overview (07/10/2024): Dr. Reaves- no surgical recourse Dr. Goddard - L4-5, L5-S1 facet injections 01/17- diagnostic medial branch blocks 02/16 - Dr. Pugh - bilateral L3, L4 and L5 medial branch radiofrequency neurotomy 04/22 - per [facility] neurosurgery, no surgical course of action appropriate due to the extent of the arthritis in both areas. 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 Sloan - [facility] - physical therapy, injections unhelpful Persists status post neural ablation Dr. Sergio Gore- [facility]- myofascial pain due to paravertebral muscle dysfunction Dr. Tahira Elaine - [facility]- continue cyclobenzaprine, trial of trigger point injections, botulinum injections, PT, stop bifocals 09/19 - Shanika Young PA-c from Physiatry - referred for bilateral C3-4, C4-5 facet joint injection 212 - left C3, C4, C5 and C6 medial branch radiofrequency neurotomy 04/22 - per [facility] neurosurgery, no surgical course of action appropriate due to the extent of the arthritis in both areas. Their recommendation is pain management. 08/23 - Dr. Heller ([facility] pain management) - acupuncture - not much relief Encounters Date Type Department Care Team Description 07/02/2025 Telephone Adult [address] [phone] Karlie Mendez MD 06/23/2025 10:00 AM EDT Office Visit Orthopedic Surgery - [address] [phone] Chandler Arceo DPM Pain in right foot (Primary Dx); Paresthesia of right foot; Lumbosacral radiculopathy 05/21/2025 8:45 AM EDT Office Visit [address] [phone] Karlie Mendez MD Benign prostatic hyperplasia, unspecified [...] SURGERY; COMMENT: both shoulders- Dr. Jim- [place] HAND SURGERY 1996 PROCEDURE: HISTORICAL HAND SURGERY; COMMENT: R - trigger release KNEE SURGERY 07/20 PROCEDURE: HISTORICAL KNEE SURGERY; COMMENT: Dr. Zee - R - arthroscopy for meniscal tear COLONOSCOPY 04/17/2013 PROCEDURE: HISTORICAL COLONOSCOPY; COMMENT: tics and hemorrhoids; repeat in ten yrs NECK SURGERY 1987 PROCEDURE: HISTORICAL NECK SURGERY; COMMENT: Neck sg for hand numbness (in ) HEMORRHOID SURGERY PROCEDURE: [place] INCISION THROMBOSED HEMORRHOID EXTERNAL Medical History Medical [...] Used Date Smoking Tobacco: Former Cigarettes 2 Q uit: 10/09/1973 Smokeless Tobacco: Never Tobacco [...] ed Within the last 3 months, ho ginny many times did you visit the emergency [...] your loved ones. For example, child care coordinator or elderly care for an older adult? [...] 8:45 AM EST Office Visit Adult Medicine [facility] [address] [place] [address] Karlie Mendez MD [address] [place] [address] Health Maintenance Due Date Last Done Comments Medicare Annual Wellness Visit 09/17/2022 COVID-19 Vaccine ( season) 2025 06/18/2024, 07/07/2023, 07/02/2022, Additional history [...] LAB CHEMISTRY METHOD 04/25/2025 5:16 PM EDT [facility] Triglycerides 95 0 - 150 mg/dL LAB CHEMISTRY METHOD 04/25/2025 5:16 PM EDT [facility] HDL 49 >=40 mg/dL LAB CHEMISTRY METHOD 04/25/2025 5:16 PM EDT [facility] LDL Calculated 71 0 - 100 mg/dL LAB CHEMISTRY METHOD 04/25/2025 5:16 PM EDT [facility] VLDL Cholesterol Dread 19 mg/dL LAB CHEMISTRY METHOD 04/25/2025 5:16 PM EDT [facility] Non HDL Chol. (LDL+VLDL) 90 <145 mg/dL LAB CHEMISTRY METHOD 04/25/2025 5:16 PM EDT [facility] Chol/HDL Ratio 2.8 0.0 - 4.4 LAB CHEMISTRY METHOD 04/25/2025 5:16 PM [facility] Blood Venous blood specimen / Unknown Venipuncture / Unknown 04/25/2025 1:39 PM EDT 04/25/2025 1:39 PM EDT us Karlie Mendez MD LAB BLOOD ORDERABLES Final Result [facility] [address] [place] [address], [place] [phone] * Comprehensive metabolic panel (04/25/2025 1:39 PM EDT) Sodium 138 133 - 145 mmol/L LAB CHEMISTRY METHOD 04/25/2025 5:16 PM [facility] Potassium 3.9 3.5 - 5.5 mmol/L LAB CHEMISTRY METHOD 04/25/2025 5:16 PM [facility] Chloride 102 96 - 110 mmol/L LAB CHEMISTRY METHOD 04/25/2025 5:16 PM [facility] CO2 31 21 - 32 mmol/L LAB CHEMISTRY METHOD 04/25/2025 5:16 PM [facility] Anion Gap 5 3 - 11 LAB CHEMISTRY METHOD 04/25/2025 5:16 PM [facility] Glucose 98 70 - 100 mg/dL LAB CHEMISTRY METHOD 04/25/2025 5:16 PM [facility] BUN 14 5 - 25 mg/dL LAB CHEMISTRY METHOD 04/25/2025 5:16 PM [facility] Creatinine 1.13 0.70 - 1.30 mg/dL LAB CHEMISTRY METHOD 04/25/2025 5:16 PM [facility] eGFR 67 >=60 mL/min/1. 73m2 LAB CHEMISTRY METHOD 04/25/2025 5:16 PM [facility] Comment:Calculation based on the Chronic Kidney Disease Epidemiology Collaboration (CKD-EPI) equation refit without adjustment for race. BUN/Creatinine Ratio 12.4 LAB CHEMISTRY METHOD 04/25/2025 5:16 PM T [facility] Calcium 9.1 8.5 - 10.5 mg/dL LAB CHEMISTRY METHOD 04/25/2025 5:16 PM [facility] AST (SGOT) 23 10 - 42 unit/L LAB CHEMISTRY METHOD 04/25/2025 5:16 PM [facility] ALT (SGPT) 20 10 - 60 unit/L LAB CHEMISTRY METHOD 04/25/2025 5:16 PM [facility] Alkaline Phosphatase 69 42 - 121 unit/L LAB CHEMISTRY METHOD 04/25/2025 5:16 PM [facility] Total Protein 6.5 6.0 - 8.0 g/dL LAB CHEMISTRY METHOD 04/25/2025 5:16 PM [facility] Albumin 3.4 3.2 - 5.0 g/dL LAB CHEMISTRY METHOD 04/25/2025 5:16 PM [facility] Total Bilirubin 0.6 0.0 - 1.4 mg/dL LAB CHEMISTRY METHOD 04/25/2025 5:16 PM [facility] Blood Venous blood specimen / Unknown Venipuncture / Unknown 04/25/2025 1:39 PM EDT 04/25/2025 1:39 PM EDT us Karlie Mendez MD LAB BLOOD ORDERABLES Final Result [facility] [address] [place] [address], [place] [phone] * Hepatitis C Screening (09/23/2013) Pathologist [facility] Hepatitis C Screening Abstracted us Historical Provider HEALTH MAINTENANCE Final Result from Last 3 Months or Most Recently Relevant to Health Maintenance Insurance [facility] PLAN MEDICARE Care Teams Particle Board Supervisor Relationship Specialty Start Date End Date Karlie Mendez MD [address] [place] [address] PCP - General 03/27/24
--- OUTSIDE RECORDS SUMMARY | 2025-08-19 15:32 | XMS_ITS | Patient Health Record ---
Author Organization [facility] Address [address] [place] [address] Care Team Providers Care Dusting And Brushing Machine Operator Name Role Phone Tree Aguilar Primary Care Provider Cedrick Pablo Jr Unavailable [phone] Allergies Allergen (clinical drug ingredient) Drug/Non Drug [...] Risk Notes Problem Change in bowel habit (50951750) Change in bowel habits (R19.4) Active confirmed Problem Functional diarrhea (12873051) Functional diarrhea (K59.1) Active confirmed Problem Diarrhea (13788400) Diarrhea, unspecified type (R19.7) Active confirmed Plan Of Treatment Future Test Test Name Order Date COLONOSCOPY 10/11/2017 Insurance Providers Payer Name Payer Address Payer Phone Subscriber Number Group Number Insured Name Patient Relationship to Insured Coverage Start Date Coverage End Date [facility] PLAN (REFERRA L NEEDED) [address] [place] [phone] [id number] NAN RAMSAY Self - patient is the insured Medical (General) History Medical History History ICD Code hypertension nerve pain right leg elevated cholesterol cervical spondyloarthropathies degenerative joint disease prostate nodule Surgical History Surgery Date(Month/Year) appendectomy left vericocele metatarsal osteotomy cervical radiculopathy thumb rotator cuff tear repair right knee arthroscopy tennis elbow surgery
[2025-08-19 16:48] LABS: Appearance Urine Clear; Glucose Urine UA Negative (Negative); PH 6.0 (5.0-9.0); Specific Gravity - Urine 1.010 (1.005-1.025); UMIC TRIGGER UA YES
== END 2025-08-19 13:58 | disposition home or self-care (01) ==
LOC: HO.LAB 13:57
PROVIDERS: PCP Internal Medicine; Visit Provider Urology
DX: R39.9 Unspecified symptoms and signs involving the genitourinary system (principal)
CPT/HCPCS: 81001; 87086

== ENCOUNTER 2025-08-27 08:21 | Emergency (ER) | payer OTHER, SELFPAY ==
--- NOTE | ~2025-08-27 | CT_ITS ---
EXAMINATION: CT HEAD WITHOUT IV CONTRAST HISTORY: Hypertension, R/O bleed. TECHNIQUE: Unenhanced helical CT of the head was performed per standard departmental protocol. Coronal and sagittal reformats of the head were also evaluated. One or more of the following techniques was used for dose reduction: Automated exposure control, adjustment of the mA and/or kV according to patient size, use of iterative reconstruction technique. DLP: 794 mGy-cm COMPARISON: There are no prior studies available for comparison. FINDINGS: BRAIN: There is mild prominence of the ventricular system and cortical sulci, consistent with atrophy. Scattered periventricular and subcortical white matter hypodensities are noted which are nonspecific, but often seen in the setting of small vessel ischemic disease. There is no mass effect or midline shift. No intra- or extra-axial fluid collections are identified. SINUSES: The visualized paranasal sinuses are clear. The mastoid air cells and middle ear cavities are well pneumatized. ORBITS: The visualized orbits are unremarkable. BONES/SOFT TISSUES: The extracranial soft tissues are unremarkable. The calvarium is intact. No suspicious lytic or sclerotic lesions. CT/CT head/brain wo IV con IMPRESSION: No acute intracranial abnormality. Electronically signed by: Dez Hernandez MD 08/27/2025 09:33 AM [facility]
--- NOTE | ~2025-08-27 | XR_ITS ---
EXAMINATION: XR CHEST 1 VIEW HISTORY: Hypertension COMPARISON: Comparison is made with the prior examination dated 12/31/2023. FINDINGS: A single PA view of the chest is submitted. The lungs are expanded and clear. There is no pleural effusion, pneumothorax, or pulmonary vascular congestion. The heart is normal in size. There is degenerative disc disease of the spine. XR/XR chest 1V IMPRESSION: No acute cardiopulmonary abnormality. Electronically signed by: Dez Hernandez MD 08/27/2025 09:19 AM [facility]
[2025-08-27 08:24] VITALS: BP 173/84; PULSE 66; RESP 18; TEMP 36.2; O2SAT 97; BMI 27.3
--- NOTE | 2025-08-27 08:45 | ECG_ITS ---
Test Reason : dizziness Blood Pressure : */* mmHG Vent. Rate : 60 BPM Atrial Rate : 60 BPM P-R Int : 200 ms QRS Dur : 104 ms QT Int : 396 ms P-R-T Axes : 38 -50 7 degrees QTcB Int : 396 ms Normal sinus rhythm Left anterior fascicular block Abnormal ECG When compared with ECG of 20-Apr-2025 00:10, No significant change was found Referred By: Generic ED Physician Electronically Signed By: MAGGIE BOOTHE
--- NOTE | 2025-08-27 08:50 | PC.NURSE ---
states he has been taking his metoprolol for bp as prescribed, previously has been on lisinopril however stopped d/t persistent cough. denies any headache/cp. family at bedside stating that patient has been flushed and reporting dizziness intermittently at home. patient states that he feels not like himself. labs/ekg ordered. awaiting provider at this time.
--- NOTE | 2025-08-27 09:00 | ED.GENADULT ---
HPI - General Adult General Chief complaint: General Medical Stated complaint: High bp Time Seen by Provider: 08/27/25 08:50 Source: patient and family Mode of arrival: ambulatory Limitations: no limitations History of Present Illness ED Provider: DR. Cavanaugh HPI narrative: 80-year-old male history of hypertension on metoprolol 50 mg daily extended release patient monitor his blood pressure periodically at home and blood pressure is averaging want to when he to 130s until 2 days ago he started to see spikes in blood pressure to 170s despite being compliant with his blood pressure medication, patient overall feels flushed but no headache, no blurry vision, no double vision, no weakness, no numbness, no chest pain, no abdominal pain, no shortness of breath. Related Data Home Medications ?Medication ?Instructions ?Recorded ?Confirmed cholecalciferol (vitamin D3) 25 25 mcg PO DAILY 04/05/22 12/23/24 mcg (1,000 unit) capsule gabapentin 300 mg capsule 300 mg PO DAILY 04/05/22 12/23/24 metoprolol succinate 50 mg 50 mg PO DAILY 04/05/22 12/23/24 tablet,extended release 24 hr vitamin B complex (B 1 tab PO DAILY 04/05/22 12/23/24 Complex-Vitamin B12 tablet) aspirin 81 mg tablet,delayed 81 mg PO DAILY 04/19/22 12/23/24 release (Adult Aspirin Regimen) simvastatin 40 mg tablet 40 mg PO BEDTIME 04/28/25 Previous Rx's ?Medication ?Instructions ?Recorded alfuzosin 10 mg tablet,extended 10 mg PO DAILY #90 tabs 12/23/24 release 24 hr dicyclomine 20 mg tablet 20 mg PO TID #10 tabs 04/20/25 ondansetron HCl 4 mg tablet 4 mg PO Q8H #10 tabs 04/20/25 esomeprazole magnesium 40 mg 40 mg PO DAILY #90 caps 04/28/25 capsule,delayed release folic acid 1 mg tablet 1 mg PO DAILY #90 tabs 04/28/25 budesonide-formoterol HFA 160 2 puff inhalation BID 30 days 05/06/25 mcg-4.5 mcg/actuation aerosol #10.2 grams inhaler (Symbicort) Allergies Allergy/AdvReac Type Severity Reaction Status Date / Time green foods Allergy Mild Unknown Uncoded 08/27/25 08:28 Review of Systems Review of Systems: All other systems are reviewed and are negative Constitutional: Reports as per HPI and Reports no additional constitutional complaints Eyes: Reports as per HPI and Reports no additional eye complaints Reports system reviewed and no additional complaints, except as documented Cardiovascular: Reports as per HPI and Reports no additional cardiovascular complaints Respiratory: Reports as per HPI and Reports no additional respiratory complaints Gastrointestinal: Reports as per HPI and Reports no additional gastrointestinal complaints Genitourinary: Reports no additional female genitourinary complaints Musculoskeletal: Reports no additional musculoskeletal complaints Skin/Breast: Reports system reviewed and no additional complaints, except as docu Psychiatric: Reports no additional psychiatric complaints Endocrine: Reports no additional endocrine complaints Hematologic/Lymphatic: Reports no additional hematologic/lymphatic complaints Allergic/Immunologic: Reports no additional allergic/immunologic complaints Reports system reviewed and no additional complaints, except as documented and Reports Abnormal speech present [facility] Past Medical History Medical History Zenker diverticulum Upper airway cough syndrome Dysphagia Chronic cough Emphysema of lung HTN (hypertension) HTN (hypertension) HTN (hypertension) PAD (peripheral artery disease) Surgical History Hx of cataract surgery S/P angiogram of extremity (04/06/22) Lumbar stenosis History of hemorrhoidectomy History of right knee surgery S/P left rotator cuff repair S/P right rotator cuff repair History of right tennis elbow Left rotator cuff tear arthropathy Trigger finger of right thumb Cervical radiculopathy at C6 Cervical radiculopathy at C5 Status post osteotomy Left varicocele History of appendectomy Family History Family History Mother No problems noted. Father Heart disease Sister Multiple sclerosis Social History Social History Alcohol intake: current Alcohol intake frequency: holidays/special occasions only Patient Tobacco Use Status: Former Tobacco user Years Smoked: 10+/- Advance Directives: No Advance Directives Information Provided: Yes Physical Exam ED Vital Signs: Vital Signs - 24 hr 08/27/25 08:24 08/27/25 09:35 08/27/25 10:01 Temperature 97.2 F Pulse Rate 66 60 62 Respiratory Rate 18 16 18 Blood Pressure 173/84 H 147/71 H 142/73 H Pulse Oximetry 97 96 96 Oxygen Delivery Method Room Air Room Air Room Air BMI result Body Mass Index 27.3 Vital signs have been reviewed and appear to be correct. Blood pressure elevated. Heart rate normal. Respiratory rate normal. Temperature normal. Oxygen saturation normal. Appearance: Alert. Oriented X3. No acute distress. Head: Normal external exam. Normocephalic. Atraumatic. No Vallecillo signs noted. No raccoon eyes noted Eyes: PERRLA. EOMI. Conjunctiva and sclera normal. Eyelids normal. ENT: TM's Normal. Pharynx normal. Uvula midline. Moist mucous membranes. No trismus noted. No drooling noted. No muffled voice noted. Neck: Normal inspection. Neck supple. FROM. No adenopathy. Thyroid Normal. No meningeal signs. No neck mass noted. CVS: Normal heart rate and rhythm. Heart sound normal. No murmurs noted. Pulses normal throughout. Respiratory: No respiratory distress. Painless inspiration. Breath sounds normal. No wheezes/rales/rhonchi noted. Chest nontender. No accessory muscle usage noted or decreased air movement noted. Abdomen: Soft and nontender. Bowel sounds normal in all 4 quadrants. No distention noted. No organomegaly noted. No visible injury noted. Back: No CVA tenderness. Full range of motion noted. Skin: Skin warm and dry. Normal skin color. Normal skin turgor. No rashes/lesions/lacerations noted. Extremities: No lower extremity edema. Extremities exhibit normal range of motion. Extremities nontender. Neuro: Mental status: Normal attention, orientation, memory, and affect. Cranial nerves: Pupils are equal, round and reactive to light, EOMI, visual gonzalez are fall, face is symmetric, facial sensations are normal. Motor examination normal muscle tone, strength to 4 extremities. DTR are +2, planter's are flexor. Sensory exam; normal coordination, no ataxia, gait stable. Cerebellar exam: [id number]-[id number] and ntcj-ia-[id number] is normal. Extrapyramidal system: No tremors, no rigidity with normal facial expressions. Pronator drift not present NIH Stroke Scale Time: 09:07 Level of Consciousness: Alert Level of Consciousness Questions: Answers both questions correctly Level of Consciousness Commands: Performs both tasks correctly Best Gaze: Normal Visual: No visual loss Facial Palsy: Normal Motor Arm (Right): No drift Motor Arm (Left): No drift Motor Leg (Right): No drift Motor Leg (Left): No drift Limb Ataxia: Absent Sensory: Normal Best Language: No aphasia Dysarthia: Normal Extinction and Inattention: No abnormality Score: 0 Course Reevaluation(s) Reevaluation #1: Patient is AAO O x3, normal neuro exam, head CT is unremarkable, labs are unremarkable, no indication for end-organ damage. Blood pressure is been in the 140s over 70s in the ED patient was instructed to keep monitoring his blood pressure and review the readings with his PCP and continue with his current medication until review everything with his PCP. Time: 11:21 Medical Decision Making Differential Diagnosis Differential Diagnoses: The differential diagnosis associated with the presentation includes (Hypertensive urgency, hypertensive emergency, end-organ damage, intracranial bleed, electrolyte derangement, severe anemia.) Admission/Observation Consideration of admission/observation: Escalation of care including admission/observation considered Lab Data MDM Lab Attestation statement: I reviewed the patient's lab results. 08/27/25 09:01 08/27/25 09:01 Labs: Lab Results 08/27/25 Range/Units 09:01 WBC 7.7 (4.8-10.8) X10*3/uL RBC 4.45 L (4.60-5.80) X10*6/uL Hgb 14.5 (14.0-18.0) g/dl Hct 42.4 (42.0-52.0) % MCV 95.3 (80.0-98.0) fL MCH 32.6 (27.0-33.0) pg MCHC 34.2 (31.0-36.0) g/dl RDW 12.2 (11.0-16.0) % Plt Count 188 (160-400) X10*3/uL MPV 10.4 (9.4-12.4) fL Immature Gran % (Auto) 0.3 (0.0-0.4) % Neut % (Auto) 64.8 (45-73) % Lymph % (Auto) 23.0 (20-40) % [place] % (Auto) 7.4 (2-11) % Eos % (Auto) 4.0 (0-4) % Baso % (Auto) 0.5 (0-2) % Lymph # (Auto) 1.8 (1.2-4.9) X10*3/uL [place] # (Auto) 0.6 (0.1-1.2) X10*3/uL Eos # (Auto) 0.3 (0.0-0.4) X10*3/uL Baso # (Auto) 0.0 (0.0-0.2) X10*3/uL Abs Immat Gran (auto) 0.02 (0.00-0.03) X10*3/uL Absolute Neuts (auto) 5.0 (2.0-8.3) x10*3/uL Absolute Nucleated RBC 0.000 (0.0-0.012) X10*3/uL Nucleated RBC % (auto) 0.0 (0.0-0.2) /100WBC Sodium 140 (135-145) mmol/L Potassium 4.3 (3.3-5.1) mmol/L Chloride 107 (96-108) mmol/L Carbon Dioxide 26 (22-29) mmol/L Anion Gap 11 L (12-20) BUN 14 (9-16) mg/dL Creatinine 1.12 (0.5-1.4) mg/dL Estim Creat Clear Calc 57.8 Estimated GFR > 60 Random Glucose 98 (60-115) mg/dL Calcium 9.1 (8.4-10.2) mg/dL Total Bilirubin 0.7 (0.0-1.0) mg/dL AST 29 (5-37) U/L ALT 9 (0-40) U/L Alkaline Phosphatase 73 (39-117) U/L Troponin I High Sens < 2.7 (<3.5-35.0) ng/L Total Protein 6.7 (6.5-8.0) g/dL Albumin 3.9 (3.5-5.0) g/dL Independent Interpretation I performed an independent interpretation of an: Plain X-Ray (Chest: No acute intrathoracic pathology.) and CT Scan (No acute intracranial pathology.) Radiology Impression Discussion of test interpretation with radiology: I have reviewed the radiologist's reading. Discharge Plan Discharge Clinical Impression: Essential hypertension Patient Disposition: Home, Self-Care Instructions: Hypertension (ED) Additional Instructions: Take your blood pressure reading 3 different times a day and record the reading to be reviewed by your PCP. Prescriptions: No Action esomeprazole magnesium 40 mg capsule,delayed release(DR/EC) 40 mg PO DAILY Qty: 90 2RF folic acid 1 mg tablet 1 mg PO DAILY Qty: 90 2RF budesonide-formoterol [Symbicort] 160-4.5 mcg/actuation HFA aerosol inhaler 2 puff inhalation BID 30 Days Qty: 10.2 11RF ondansetron HCl 4 mg tablet 4 mg PO Q8H Qty: 10 0RF dicyclomine 20 mg tablet 20 mg PO TID Qty: 10 0RF aspirin [Adult Aspirin Regimen] 81 mg tablet,delayed release (DR/EC) 81 mg PO DAILY metoprolol succinate 50 mg tablet extended release 24 hr 50 mg PO DAILY gabapentin 300 mg capsule 300 mg PO DAILY vitamin B complex [B Complex-Vitamin B12] Tablet 1 tab PO DAILY cholecalciferol (vitamin D3) 25 mcg (1,000 unit) capsule 25 mcg PO DAILY alfuzosin 10 mg tablet extended release 24 hr 10 mg PO DAILY Qty: 90 3RF Rx Instructions: administer after the same meal each day, alfuzosin to replace tamsulosin simvastatin 40 mg tablet 40 mg PO BEDTIME Referrals: Karlie Mendez MD [Primary Care Provider, Internal Medicine] Print Language: Latvian
[2025-08-27 09:06] LABS: MANUAL DIFF FLAG NO
[2025-08-27 09:08] LABS: Hematocrit 42.4 % (42.0-52.0); Hemoglobin 14.5 g/dl (14.0-18.0); Imm Gran Abs Auto 0.02 X10*3/uL (0.00-0.03); Imm Gran Pct Auto 0.3 % (0.0-0.4); Lymphocytes Absolute Auto 1.8 X10*3/uL (1.2-4.9); Mean Corpuscular HGB Conc 34.2 g/dl (31.0-36.0); Mean Corpuscular Hemoglobin 32.6 pg (27.0-33.0); Mean Corpuscular Volume 95.3 fL (80.0-98.0); NRBC Abs Auto 0.000 X10*3/uL (0.0-0.012); NRBC Pct Auto 0.0 /100WBC (0.0-0.2); Platelet Count 188 X10*3/uL (160-400); Red Blood Count 4.45 X10*6/uL (4.60-5.80); White Blood Count 7.7 X10*3/uL (4.8-10.8)
[2025-08-27 09:22] LABS: Alanine Aminotransferase 9 U/L (0-40); Albumin Level 3.9 g/dL (3.5-5.0); Alkaline Phosphatase 73 U/L (39-117); Anion Gap 11 (12-20); Aspartate Amino Transferase 29 U/L (5-37); Blood Urea Nitrogen 14 mg/dL (9-16); Calcium 9.1 mg/dL (8.4-10.2); Carbon Dioxide 26 mmol/L (22-29); Chloride 107 mmol/L (96-108); Creatinine Clr Calc Pharmacy 57.8; Estimated Glomerular Filt Rate > 60; Potassium 4.3 mmol/L (3.3-5.1); Sodium 140 mmol/L (135-145); Total Protein 6.7 g/dL (6.5-8.0)
[2025-08-27 09:29] LABS: Troponin-I High Sensitivity < 2.7 ng/L (<3.5-35.0)
[2025-08-27 09:35] VITALS: BP 147/71; PULSE 60; RESP 16; O2SAT 96
[2025-08-27 10:01] VITALS: BP 142/73; PULSE 62; RESP 18; O2SAT 96
[2025-08-27 11:25] VITALS: BP 142/73; PULSE 62; RESP 18; TEMP 36.4; O2SAT 96
== END 2025-08-27 11:26 | disposition home or self-care (01) ==
PROVIDERS: Emergency Provider Emergency Medicine; PCP Internal Medicine
DX: R42 Dizziness and giddiness (principal); I10 Essential (primary) hypertension; Z79.899 Other long term (current) drug therapy; R94.31 Abnormal electrocardiogram [ECG] [EKG]
CPT/HCPCS: 36415; 70450; 71045; 80053; 84484; 85025; 93005; 99284

== ENCOUNTER → 2025-08-27 08:45 | Outpatient (BNV) | payer OTHER, SELFPAY | PROVIDERS: Emergency Provider Emergency Medicine; PCP Internal Medicine; Visit Provider Internal Medicine | DX: I44.4 Left anterior fascicular block (principal) | CPT/HCPCS: 93010 ==

== ENCOUNTER → 2025-08-27 09:02 | Outpatient (BNV) | payer OTHER, SELFPAY | PROVIDERS: Emergency Provider Emergency Medicine; PCP Internal Medicine; Visit Provider Radiology Diagnostic Radiology | DX: I10 Essential (primary) hypertension (principal) | CPT/HCPCS: 70450; 71045 ==

== ENCOUNTER 2025-09-03 08:41 | Outpatient (AMB) | payer OTHER, SELFPAY ==
--- OUTSIDE RECORDS SUMMARY | 2025-09-03 09:04 | XMS_ITS | Patient Health Record ---
Author Organization [facility] Address [address] [place] [address] Care Team Providers Care Head Well Puller Name Role Phone Tree Aguilar Primary Care Provider Cedrick Pablo Jr Unavailable Allergies Allergen (clinical drug ingredient) Drug/Non Drug Allergy documented on EMR Reaction Allergy Type Onset Date Status grass and trees (uncoded) Unknown Allergy Active Reason For Referral No Information Medications Medication SIG (Take, Route, Frequency, Duration) Notes Start Date End Date Status Zocor 20 MG Tablet 1 tablet in the even ing Orally Once a day Active Gabapentin 300 MG Capsule 1 capsule befo re bedtime Orally Once a day Active Metoprolol Succinate 50 MG Tablet Extended Release 1 Orally QD Acti ve Meloxicam 15 MG Tablet 1 tablet Orally O nce a day; Duration: 30 day(s) Active Immunizations Vaccine Route Administration Date Status Comme nts Influenza Unknown 07/04/2021 Administered Social History Tobacco Use: Social History Observation Description Date Details (start date - stop date) Never Smoker NA - NA Social History Drugs/Alcohol: Social Info Question Answer Notes Alcohol Screen Did you have a drink containing alcohol in the past year? Yes How often did you have a drink containing alcohol in the past year? Monthly or less (1 point) How many drinks did you have on a typical day when you were drinking in the past year? 1 or 2 drinks (0 point) How often did you have 6 or more drinks on one occasion in the past year? 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 [place] [phone] [id number] NAN RAMSAY Self - patient is the insured Medical (General) History Medical History History ICD Code hypertension nerve pain right leg elevated cholesterol cervical spondyloarthropathies degenerative joint disease prostate nodule Surgical History Surgery Date(Month/Year) appendectomy left vericocele metatarsal osteotomy cervical radiculopathy thumb rotator cuff tear repair right knee arthroscopy tennis elbow surgery
--- OUTSIDE RECORDS SUMMARY | 2025-09-03 09:04 | XMS_ITS | Clinical Summary ---
Author Organization [facility] Address [address] [place] [address] Care Team Providers Care Literacy Specialist Name Role Phone Tree Aguilar Primary Care [...] age to complete this topic Care Teams Literacy Specialist Relationship Specialty Start Date End Date Tree Aguilar PCP - General Internal Medicine 01/18/18
--- OUTSIDE RECORDS SUMMARY | 2025-09-03 09:04 | XMS_ITS | Clinical Summary ---
Author Organization [facility] [address] [place] [address] Address [address] [place], [place] Phone Care Team Providers Care Cottage Supervisor Name Role Phone Kralie Mendez MD Primary Care Provider Allergies Active [...] mouth daily for 360 days. 03/04/2020 Active metoprolol succinate (TOPROL-XL) 50 mg 24 [...] BY MOUTH AT BEDTIME 180 capsule 1 07/12/2025 Active simvastatin (ZOCOR) 40 mg tablet TAKE 1 TABLET BY MOUTH AT BEDTIME 90 tablet 1 07/29/2025 Active Active Problems Problem Noted Date Diagnosed [...] medial branch radiofrequency neurotomy 04/22 - per [facility] neurosurgery, no surgical course of action appropriate due to the extent of the arthritis in both areas. 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 Sloan - [facility] - physical therapy, injections unhelpful Persists status post neural ablation Dr. Sergio Gore- [facility]- myofascial pain due to paravertebral muscle dysfunction Dr. Tahira Elaine - [facility]- continue cyclobenzaprine, trial of trigger point injections, botulinum injections, PT, stop bifocals 09/19 - Shanika Young PA-c from Physiatry - referred for bilateral C3-4, C4-5 facet joint injection 212 - left C3, C4, C5 and C6 medial branch radiofrequency neurotomy 04/22 - per [facility] neurosurgery, no surgical course of action appropriate due to the extent of the arthritis in both areas. Their recommendation is pain management. 08/23 - Dr. Heller ([facility] pain management) - acupuncture - not much relief Encounters Date Type Department Care Team Description 07/02/2025 Telephone Adult Medicine [address] [address] Karlie Mendez MD 06/23/2025 10:00 AM EDT Office Visit Orthopedic Surgery - [address] [address] Chandler Arceo, DPManav Pain in right foot (Primary Dx); Paresthesia of right foot; Lumbosacral radiculopathy from Last 3 Months Immunizations Immunization Administration [...] SHOULDER SURGERY; COMMENT: both shoulders- Dr. Jim- [facility] HAND SURGERY 1996 PROCEDURE: HISTORICAL HAND SURGERY; COMMENT: R - trigger release KNEE SURGERY 07/20 PROCEDURE: HISTORICAL KNEE SURGERY; COMMENT: Dr. Zee - R - arthroscopy for meniscal tear COLONOSCOPY 04/17/2013 PROCEDURE: HISTORICAL COLONOSCOPY; COMMENT: tics and hemorrhoids; repeat in ten yrs NECK SURGERY 1987 PROCEDURE: HISTORICAL NECK SURGERY; COMMENT: Neck sg for hand numbness (in ) HEMORRHOID SURGERY PROCEDURE: MI INCISION THROMBOSED HEMORRHOID EXTERNAL Medical History Medical [...] Record ed Within the last 3 months, angela gross many times did you visit the emergency [...] 8:45 AM EST Office Visit Adult Medicine [facility] [address] [facility] [place] [address] Karlie Mendez MD [address] [place] [address] Health Maintenance Due Date Last Done Comments [...] LAB CHEMISTRY METHOD 04/25/2025 5:16 PM EDT [facility] Triglycerides 95 0 - 150 mg/dL LAB CHEMISTRY METHOD 04/25/2025 5:16 PM EDT [facility] HDL 49 >=40 mg/dL LAB CHEMISTRY METHOD 04/25/2025 5:16 PM EDT [facility] LDL Calculated 71 0 - 100 mg/dL LAB CHEMISTRY METHOD 04/25/2025 5:16 PM EDT [facility] VLDL Cholesterol Dread 19 mg/dL LAB CHEMISTRY METHOD 04/25/2025 5:16 PM EDT [facility] Non HDL Chol. (LDL+VLDL) 90 <145 mg/dL LAB CHEMISTRY METHOD 04/25/2025 5:16 PM EDT [facility] Chol/HDL Ratio 2.8 0.0 - 4.4 LAB CHEMISTRY METHOD 04/25/2025 5:16 PM EDT [facility] Blood Venous blood specimen / Unknown Venipuncture / Unknown 04/25/2025 1:39 PM EDT 04/25/2025 1:39 PM EDT us Karlie Mendez MD LAB BLOOD ORDERABLES Final Result [facility] [address] [place] [address], [place] [phone] * Comprehensive metabolic panel (04/25/2025 1:39 PM EDT) Sodium 138 133 - 145 mmol/L LAB CHEMISTRY METHOD 04/25/2025 5:16 PM [facility] Potassium 3.9 3.5 - 5.5 mmol/L LAB CHEMISTRY METHOD 04/25/2025 5:16 PM [facility] Chloride 102 96 - 110 mmol/L LAB CHEMISTRY METHOD 04/25/2025 5:16 PM [facility] CO2 31 21 - 32 mmol/L LAB CHEMISTRY METHOD 04/25/2025 5:16 PM [facility] Anion Gap 5 3 - 11 LAB CHEMISTRY METHOD 04/25/2025 5:16 PM [facility] Glucose 98 70 - 100 mg/dL LAB CHEMISTRY METHOD 04/25/2025 5:16 PM [facility] BUN 14 5 - 25 mg/dL LAB CHEMISTRY METHOD 04/25/2025 5:16 PM [facility] Creatinine 1.13 0.70 - 1.30 mg/dL LAB CHEMISTRY METHOD 04/25/2025 5:16 PM [facility] eGFR 67 >=60 mL/min/1. 73m2 LAB CHEMISTRY METHOD 04/25/2025 5:16 PM [facility] Comment:Calculation based on the Chronic Kidney Disease Epidemiology Collaboration (CKD-EPI) equation refit without adjustment for race. BUN/Creatinine Ratio 12.4 LAB CHEMISTRY METHOD 04/25/2025 5:16 PM [facility] Calcium 9.1 8.5 - 10.5 mg/dL LAB CHEMISTRY METHOD 04/25/2025 5:16 PM [facility] AST (SGOT) 23 10 - 42 unit/L LAB CHEMISTRY METHOD 04/25/2025 5:16 PM EDT [facility] ALT (SGPT) 20 10 - 60 unit/L LAB CHEMISTRY METHOD 04/25/2025 5:16 PM EDT [facility] Alkaline Phosphatase 69 42 - 121 unit/L LAB CHEMISTRY METHOD 04/25/2025 5:16 PM EDT [facility] Total Protein 6.5 6.0 - 8.0 g/dL LAB CHEMISTRY METHOD 04/25/2025 5:16 PM EDT [facility] Albumin 3.4 3.2 - 5.0 g/dL LAB CHEMISTRY METHOD 04/25/2025 5:16 PM [facility] Total Bilirubin 0.6 0.0 - 1.4 mg/dL LAB CHEMISTRY METHOD 04/25/2025 5:16 PM EDT [facility] Blood Venous blood specimen / Unknown Venipuncture / Unknown 04/25/2025 1:39 PM EDT 04/25/2025 1:39 PM EDT Karlie Mendez MD LAB BLOOD ORDERABLES Final Result [facility] [address] [place] [address], * Hepatitis C Screening (09/23/2013) [facility] Hepatitis C Screening Abstracted Historical Provider HEALTH MAINTENANCE Final Result from Last 3 Months or Most Recently Relevant to Health Maintenance Insurance [facility] PL[facility] MEDICARE Care Teams Cottage Supervisor Relationship Specialty Start Date End Date Karlie Mendez MD [address] [place] [address] PCP - General 03/27/24
== END 2025-09-03 08:42 | disposition home or self-care (01) ==
LOC: HO.HMGAL 08:41
PROVIDERS: PCP Internal Medicine; Visit Provider Registered Nurse Emergency
DX: J30.89 Other allergic rhinitis (principal)
CPT/HCPCS: 95117; 95165

== ENCOUNTER 2025-09-18 08:06 | Outpatient (REF) | payer OTHER, SELFPAY ==
--- NOTE | ~2025-09-18 | US_ITS ---
EXAMINATION: Noninvasive assessment of the bilateral lower extremities with ARTERIAL DUPLEX, ANKLE BRACHIAL INDICES (ABIs), and PULSE VOLUME RECORDINGS (PVRs). CLINICAL INFORMATION: I 73.9 TECHNIQUE: Duplex Doppler techniques with waveform analysis and measurement of velocities in the bilateral common femoral, profunda femoris, superficial femoral, popliteal and tibial arteries were performed. Additionally, ankle pulse volume recordings, ankle pressure measurements and ankle brachial indices were obtained of the lower extremity arterial system bilaterally. The study was performed only at rest. COMPARISON: August 08, 2024. FINDINGS: DIRECT DUPLEX DOPPLER FINDINGS: RIGHT LEG: Common femoral artery: 115 cm/s, phasicity: Biphasic. Profunda femoris artery: 90 cm/s, phasicity: Biphasic. Superficial femoral artery (proximal): 201 cm/s, phasicity: Biphasic. Superficial femoral artery (mid): 113 cm/s, phasicity: Biphasic. Superficial femoral artery (distal): 100 cm/s, phasicity: Biphasic. Popliteal artery: 65 cm/s, phasicity: Biphasic. Posterior tibial artery: 80 cm/s, phasicity: Biphasic. Peroneal artery: 44 cm/s, phasicity: Biphasic. Anterior tibial artery: 88 cm/s, phasicity: Biphasic. Dorsalis pedis artery: Not identified. Stent and angioplasty in the proximal femoral artery demonstrated normal patency as follow: [place] artery proximal to the stent: 95 cm/s. Triphasic waveform. Proximal stent: 155 cm/s. Biphasic waveform. Mid stent: 201 cm/s. Biphasic waveform. Distal stent: 126 cm/s. Biphasic waveform. [place] artery distal to stent: 133 cm/s. Biphasic waveforms. LEFT LEG: Common femoral artery: 97 cm/s, phasicity: Biphasic. Profunda femoris artery: 56 cm/s, phasicity: Biphasic. Superficial femoral artery (proximal): 79 cm/s, phasicity: Biphasic. Superficial femoral artery (mid): 80 cm/s, phasicity: Biphasic. Superficial femoral artery (distal): 96 cm/s, phasicity: Biphasic. Popliteal artery: 65 cm/s, phasicity: Biphasic. Posterior tibial artery: 104 cm/s, phasicity: Biphasic. Peroneal artery: 52 cm/s, phasicity: Biphasic. Anterior tibial artery: 75 cm/s, phasicity: Biphasic. Dorsalis pedis artery: Not identified. BRACHIAL PRESSURES: Right: 149 Left: 168 ANKLE PRESSURES: Right: PT 192, DP 182 Left: PT 189, DP 167 ANKLE-BRACHIAL INDEX: Right: 1.14. Left: 1.13. 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 Dorsalis pedis artery is not identified. Normal patency of the stent, proximal right femoral artery. Left leg:. 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 Dorsalis pedis artery is not identified. [place] Reference: - >1.4 = calcified vessels - 0.9 - 1.4 = normal - no significant arterial disease - 0.7 - 0.89 = mild peripheral arterial disease - 0.51 - 0.69 = moderate peripheral arterial disease - 0.50 = severe peripheral arterial disease - < .30 = critical arterial disease Electronically signed by: Adonay Magallanes MD 09/18/2025 12:59 PM EST
--- NOTE | 2025-09-18 09:51 | PFT_ITS ---
Spirometry [] Lung Volumes [] Diffusion Capacity [] Methacholine Challenge [] Flow Volume Loops [] MVV [] MIP/MEP(Max inspiratory pressure/Max expiratory pressure) [] 6 Minute Walk Test [] ABG [] Interpretation [] MTDD
[2025-09-18 10:30] VITALS: PULSE 62
== END 2025-09-18 08:07 | disposition home or self-care (01) ==
LOC: HO.US 08:06
PROVIDERS: PCP Internal Medicine; Referring Provider Hospitalist; Visit Provider Surgery Vascular Surgery
DX: J43.2 Centrilobular emphysema (principal); I73.9 Peripheral vascular disease, unspecified; Z87.891 Personal history of nicotine dependence
CPT/HCPCS: 93922; 93925; 94060; 94640; 94727; 94729

== ENCOUNTER → 2025-09-18 08:08 | Outpatient (BNV) | payer OTHER, SELFPAY | PROVIDERS: PCP Internal Medicine; Referring Provider Hospitalist; Visit Provider Radiology Diagnostic Radiology | DX: I73.9 Peripheral vascular disease, unspecified (principal) | CPT/HCPCS: 93925 ==

== ENCOUNTER → 2025-09-18 09:51 | Outpatient (BNV) | payer OTHER, SELFPAY | PROVIDERS: PCP Internal Medicine; Referring Provider Hospitalist; Visit Provider Internal Medicine Pulmonary Disease | DX: J43.2 Centrilobular emphysema (principal) | CPT/HCPCS: 94060; 94727; 94729 ==